=== PATIENT | male | born 1940 | race American Indian/Alaskan Native ===

== ENCOUNTER 2016-07-06 22:03 | Emergency (ER) | payer MEDICARE ==
[2016-07-06 22:17] VITALS: BP 142/72
[2016-07-06 22:57] LABS: Basophils % (Auto) 0.6 % (0.0-1.8); Eosinophils % (Auto) 0.6 % (0.0-4.3); Hematocrit 39.6 % (35.5-45.6); Hemoglobin 13.3 gm/dl (11.8-15.2); Mean Corpuscular HGB Conc 34 % (32-34); Mean Corpuscular Hemoglobin 29 pg (28-32); Mean Corpuscular Volume 87 fl (84-94); Platelet Count 262 K/mm3 (140-440); Red Blood Count 4.53 M/mm3 (3.65-5.03); Red Cell Distribution Width 13.7 % (13.2-15.2)
[2016-07-06 23:06] LABS: Albumin 3.6 g/dL (3.9-5); Albumin/Globulin Ratio 1.1 %; BUN/Creatinine Ratio 13.63; Bilirubin,Total 0.2 mg/dL (0.1-1.2); Calcium 9.2 mg/dL (8.4-10.2); Chloride 95.6 mmol/L (98-107); Potassium 4.2 mmol/L (3.6-5.0)
== END 2016-07-06 23:10 | disposition left against medical advice (07) ==
LOC: ED 22:03
DX: R55 Syncope and collapse (principal); R07.9 Chest pain, unspecified; E11.9 Type 2 diabetes mellitus without complications; I10 Essential (primary) hypertension; R42 Dizziness and giddiness; Z87.891 Personal history of nicotine dependence; Z53.21 Procedure and treatment not carried out due to patient leaving prior to being seen by health care provider
CPT/HCPCS: 36415; 80053; 82962; 84484; 85025; 93005; 93010

== ENCOUNTER 2019-12-11 18:16 | Inpatient (IN) | payer MEDICARE ==
[2019-12-11] MEDS ORDERED: SODIUM CHLORIDE 0.9% 1000 ML 1,000 ML IV ONE ×3 (18:28→20:59)
[2019-12-11] MEDS ORDERED: ACETAMINOPHEN 500 MG TAB PO ONE (18:30)
--- NOTE | 2019-12-11 18:40 | Emergency Department Report ---
ED Altered Mental Status HPI - General Stated Complaint: AMS Time Seen by Provider: 12/11/19 18:26 Source: patient, EMS - History of Present Illness Initial Comments: Patient is 79 years old male with history of CABG, hypertension and diabetes. Patient brought to the emergency room via EMS from home for evaluation of generalized weakness and altered mental status. Patient found to be febrile with a temperature of 101.2. Upon arrival to the ER patient is alert however confused. Patient denied any headache, neck pain, chest pain or shortness of breath. MD Complaint: altered mental status, confusion -: This morning Severity: moderate Consistency of Symptoms: waxing and waning - Related Data Previous Rx's Medication Instructions Recorded Last Taken Type oxyCODONE /ACETAMINOPHEN [Percocet 1 tab PO Q6HR PRN #14 tablet 04/19/14 Unknown Rx 5/325 mg] predniSONE [Deltasone] 20 mg PO BID #8 tablet 04/19/14 Unknown Rx Allergies Allergy/AdvReac Type Severity Reaction Status Date / Time No Known Allergies Allergy Verified 04/19/14 09:47 ED Review of Systems ROS: Stated complaint: AMS Other details as noted in HPI Comment: All other systems reviewed and negative Constitutional: chills, fever Respiratory: shortness of breath. denies: cough Cardiovascular: denies: chest pain, palpitations Gastrointestinal: denies: abdominal pain, nausea, vomiting Musculoskeletal: denies: back pain Neurological: weakness. denies: headache, numbness, paresthesias, confusion, abnormal gait ED Past Medical Hx - Past Medical History Hx Hypertension: Yes Hx Diabetes: Yes Additional medical history: CAD - Surgical History Hx Open Heart Surgery: Yes Additional Surgical History: LEFT ROTATOR CUFF REPAIR - Social History Smoking Status: Former Smoker Substance Use Type: None - Medications Home Medications: Home Medications Medication Instructions Recorded Confirmed Last Taken Type oxyCODONE /ACETAMINOPHEN [Percocet 1 tab PO Q6HR PRN #14 tablet 04/19/14 Unknown Rx 5/325 mg] predniSONE [Deltasone] 20 mg PO BID #8 tablet 04/19/14 Unknown Rx ED Physical Exam - General General appearance: alert, in no apparent distress - Head Head exam: Present: atraumatic, normocephalic, normal inspection - Eye Eye exam: Present: normal appearance - ENT ENT exam: Present: mucous membranes dry - Neck Neck exam: Present: normal inspection. Absent: tenderness, meningismus - Respiratory Respiratory exam: Present: normal lung sounds bilaterally - Cardiovascular Cardiovascular Exam: Present: regular rate, normal rhythm, normal heart sounds - GI/Abdominal GI/Abdominal exam: Present: soft, normal bowel sounds. Absent: distended, tenderness, guarding, rebound, rigid, organomegaly, mass, bruit, pulsatile mass - Extremities Exam Extremities exam: Present: normal inspection - Back Exam Back exam: Present: normal inspection, full ROM. Absent: CVA tenderness (R) - Neurological Exam Neurological exam: Present: alert, altered. Absent: motor sensory deficit - Psychiatric Psychiatric exam: Present: anxious - Skin Skin exam: Present: warm, dry, intact - Assessment Assessment Interval: Baseline - Level of Consciousness 1a. Level of Consciousness: alert/keenly responsive - LOC Questions 1b. LOC Questions: answers both correctly - LOC Command 1c. LOC Commands: performs tasks correctly - Best Gaze 2. Best Gaze: normal - Visual 3. Visual: no visual loss - Facial Palsy 4. Facial Palsy: normal symmetrical movement - Motor Arm 5a. Motor Arm Left: no drift 5b. Motor Arm Right: no drift - Motor Leg 6a. Motor Leg Left: no drift 6b. Motor Leg Right: no drift - Limb Ataxia 7. Limb Ataxia: absent - Sensory 8. Sensory: normal - Best Language 9. Best Language: no aphasia - Dysarthria 10. Dysarthria: normal - Extinction and Inattention 11. Extinction/Inattention: no abnormality - Scoring Total Score: 0 Stroke Severity: No Stroke Symptoms ED Course Vital Signs 12/11/19 12/11/19 12/11/19 18:28 18:30 20:33 Temperature 101.3 F H 100.5 F H 98.4 F Pulse Rate 116 H 100 H Respiratory 15 16 Rate Blood Pressure 130/70 Blood Pressure 130/70 [Left] O2 Sat by Pulse 94 99 Oximetry - Lab Data Result diagrams: 12/11/19 18:37 12/11/19 18:37 Lab Results 12/11/19 12/11/19 12/11/19 Range/Units 18:37 18:37 18:37 WBC 13.7 H (4.5-11.0) K/mm3 RBC 4.93 (3.65-5.03) M/mm3 Hgb 15.1 (11.8-15.2) gm/dl Hct 45.2 (35.5-45.6) % MCV 92 (84-94) fl MCH 31 (28-32) pg MCHC 33 (32-34) % RDW 14.1 (13.2-15.2) % Plt Count 228 (140-440) K/mm3 Lymph % (Auto) 11.6 L (13.4-35.0) % Faulk % (Auto) 11.4 H (0.0-7.3) % Eos % (Auto) 1.4 (0.0-4.3) % Baso % (Auto) 0.6 (0.0-1.8) % Lymph # (Auto) 1.6 (1.2-5.4) K/mm3 Faulk # (Auto) 1.6 H (0.0-0.8) K/mm3 Eos # (Auto) 0.2 (0.0-0.4) K/mm3 Baso # (Auto) 0.1 (0.0-0.1) K/mm3 Seg Neutrophils % 75.0 H (40.0-70.0) % Seg Neutrophils # 10.3 H (1.8-7.7) K/mm3 PT (12.2-14.9) Sec. INR (0.87-1.13) APTT (24.2-36.6) Sec. Sodium (137-145) mmol/L Potassium (3.6-5.0) mmol/L Chloride (98-107) mmol/L Carbon Dioxide (22-30) mmol/L Anion Gap mmol/L BUN (9-20) mg/dL Creatinine (0.8-1.3) mg/dL Estimated GFR ml/min BUN/Creatinine Ratio % Glucose (75-100) mg/dL Lactic Acid 3.00 H* (0.7-2.0) mmol/L Calcium (8.4-10.2) mg/dL Total Bilirubin (0.1-1.2) mg/dL Direct Bilirubin (0-0.2) mg/dL Indirect Bilirubin mg/dL AST (5-40) units/L ALT (7-56) units/L Alkaline Phosphatase (35-129) units/L Ammonia (25-60) umol/L Troponin T < 0.010 (0.00-0.029) ng/mL NT-Pro-B Natriuret Pep (0-900) pg/mL Total Protein (6.3-8.2) g/dL Albumin (3.9-5) g/dL Albumin/Globulin Ratio % TSH (0.270-4.200) mlU/mL 12/11/19 12/11/19 12/11/19 Range/Units 18:37 18:37 18:37 WBC (4.5-11.0) K/mm3 RBC (3.65-5.03) M/mm3 Hgb (11.8-15.2) gm/dl Hct (35.5-45.6) % MCV (84-94) fl MCH (28-32) pg MCHC (32-34) % RDW (13.2-15.2) % Plt Count (140-440) K/mm3 Lymph % (Auto) (13.4-35.0) % Faulk % (Auto) (0.0-7.3) % Eos % (Auto) (0.0-4.3) % Baso % (Auto) (0.0-1.8) % Lymph # (Auto) (1.2-5.4) K/mm3 Faulk # (Auto) (0.0-0.8) K/mm3 Eos # (Auto) (0.0-0.4) K/mm3 Baso # (Auto) (0.0-0.1) K/mm3 Seg Neutrophils % (40.0-70.0) % Seg Neutrophils # (1.8-7.7) K/mm3 PT 13.1 (12.2-14.9) Sec. INR 0.97 (0.87-1.13) APTT 20.1 L (24.2-36.6) Sec. Sodium 132 L (137-145) mmol/L Potassium 5.5 H (3.6-5.0) mmol/L Chloride 95.1 L (98-107) mmol/L Carbon Dioxide 22 (22-30) mmol/L Anion Gap 20 mmol/L BUN 20 (9-20) mg/dL Creatinine 2.2 H (0.8-1.3) mg/dL Estimated GFR 35 ml/min BUN/Creatinine Ratio 9 % Glucose 312 H (75-100) mg/dL Lactic Acid (0.7-2.0) mmol/L Calcium 10.0 (8.4-10.2) mg/dL Total Bilirubin 0.80 (0.1-1.2) mg/dL Direct Bilirubin < 0.2 (0-0.2) mg/dL Indirect Bilirubin 0.6 mg/dL AST 28 (5-40) units/L ALT 15 (7-56) units/L Alkaline Phosphatase 74 (35-129) units/L Ammonia 36.0 (25-60) umol/L Troponin T (0.00-0.029) ng/mL NT-Pro-B Natriuret Pep 224.4 (0-900) pg/mL Total Protein 8.8 H (6.3-8.2) g/dL Albumin 3.4 L (3.9-5) g/dL Albumin/Globulin Ratio 0.6 % TSH (0.270-4.200) mlU/mL 12/11/19 12/11/19 12/11/19 Range/Units 18:37 20:03 20:03 WBC (4.5-11.0) K/mm3 RBC (3.65-5.03) M/mm3 Hgb (11.8-15.2) gm/dl Hct (35.5-45.6) % MCV (84-94) fl MCH (28-32) pg MCHC (32-34) % RDW (13.2-15.2) % Plt Count (140-440) K/mm3 Lymph % (Auto) (13.4-35.0) % Faulk % (Auto) (0.0-7.3) % Eos % (Auto) (0.0-4.3) % Baso % (Auto) (0.0-1.8) % Lymph # (Auto) (1.2-5.4) K/mm3 Faulk # (Auto) (0.0-0.8) K/mm3 Eos # (Auto) (0.0-0.4) K/mm3 Baso # (Auto) (0.0-0.1) K/mm3 Seg Neutrophils % (40.0-70.0) % Seg Neutrophils # (1.8-7.7) K/mm3 PT (12.2-14.9) Sec. INR (0.87-1.13) APTT (24.2-36.6) Sec. Sodium (137-145) mmol/L Potassium (3.6-5.0) mmol/L Chloride (98-107) mmol/L Carbon Dioxide (22-30) mmol/L Anion Gap mmol/L BUN (9-20) mg/dL Creatinine (0.8-1.3) mg/dL Estimated GFR ml/min BUN/Creatinine Ratio % Glucose (75-100) mg/dL Lactic Acid 1.80 (0.7-2.0) mmol/L Calcium (8.4-10.2) mg/dL Total Bilirubin (0.1-1.2) mg/dL Direct Bilirubin (0-0.2) mg/dL Indirect Bilirubin mg/dL AST (5-40) units/L ALT (7-56) units/L Alkaline Phosphatase (35-129) units/L Ammonia (25-60) umol/L Troponin T < 0.010 (0.00-0.029) ng/mL NT-Pro-B Natriuret Pep (0-900) pg/mL Total Protein (6.3-8.2) g/dL Albumin (3.9-5) g/dL Albumin/Globulin Ratio % TSH 1.240 (0.270-4.200) mlU/mL - EKG Data -: EKG Interpreted by Ct EKG shows normal: sinus rhythm Rate: normal Interpretation: no acute changes - Radiology Data Radiology results: report reviewed - Medical Decision Making Patient is 79 years old male with history of CABG, hypertension and diabetes. Patient brought to the emergency room via EMS from home for evaluation of g eneralized weakness and altered mental status. Patient found to be febrile with a temperature of 101.2. Upon arrival to the ER patient is alert however confused. Patient denied any headache, neck pain, chest pain or shortness of breath. Sepsis protocol initiated. Patient received Zosyn and normal saline and Tylenol. Chest x-ray is unremarkable. CT brain is negative for acute finding. COVID-19 test has been ordered. I discussed the patient with Dr. Bueno, he agreed to admit the patient to medical service for further management. Critical Care Time: Yes Critical care time in (mins) excluding proc time.: 30 Critical care attestation.: If time is entered above; I have spent that time in minutes in the direct care of this critically ill patient, excluding procedure time. ED Disposition Clinical Impression: Sepsis, Altered mental status, Suspected COVID-19 virus infection Disposition: OP ADMIT IP TO THIS HOSP Is pt being admited?: Yes Condition: Stable
[2019-12-11 18:59] LABS: Basophils # (Auto) 0.1 K/mm3 (0.0-0.1); Basophils % (Auto) 0.6 % (0.0-1.8); Eosinophils # (Auto) 0.2 K/mm3 (0.0-0.4); Eosinophils % (Auto) 1.4 % (0.0-4.3); Hematocrit 45.2 % (35.5-45.6); Hemoglobin 15.1 gm/dl (11.8-15.2); Lymphocytes # (Auto) 1.6 K/mm3 (1.2-5.4); Lymphocytes % (Auto) 11.6 % (13.4-35.0); Mean Corpuscular HGB Conc 33 % (32-34); Mean Corpuscular Volume 92 fl (84-94); Monocytes # (Auto) 1.6 K/mm3 (0.0-0.8); Monocytes % (Auto) 11.4 % (0.0-7.3); Platelet Count 228 K/mm3 (140-440); Red Blood Count 4.93 M/mm3 (3.65-5.03); Red Cell Distribution Width 14.1 % (13.2-15.2)
[2019-12-11 19:09] LABS: INR 0.97 (0.87-1.13); Partial Thromboplastin Time 20.1 Sec. (24.2-36.6)
--- NOTE | 2019-12-11 19:20 | Cat Scan Report ---
CT head/brain wo con INDICATION: Altered Mental Status. TECHNIQUE: Routine CT head without contrast. All CT scans at this location are performed using CT dos e reduction for ALARA by means of automated exposure control. COMPARISON: None. FINDINGS: BRAIN / INTRACRANIAL CONTENTS: No acute hemorrhage, mass effect, midline shift, or hydrocephalus. No appreciable acute large territorial or lacunar infarct. No chronic infarct. Age-commensurate ventricu lar and cisternal/sulcal prominence. ORBITS: No significant abnormality of visualized orbits. SINUSES / MASTOIDS: There is mild mucosal thickening in the right sphenoid sinus. ADDITIONAL FINDINGS: None. IMPRESSION: 1. No acute intracranial abnormality. Signer Name: Jadon May MD Signed: 12/11/2019 7:16 PM Workstation Name: [id number]
[2019-12-11 19:26] LABS: Alanine Aminotransferase 15 units/L (7-56); Albumin 3.4 g/dL (3.9-5); BUN/Creatinine Ratio 9; Blood Urea Nitrogen 20 mg/dL (9-20); Hemolysis Index 153
[2019-12-11 19:32] LABS: Bilirubin,Direct < 0.2 mg/dL (0-0.2)
[2019-12-11] MEDS ORDERED: PIPERACILLIN/TAZOBACTAM 3.375 3.375 GM/50 ML BAG IV ONE (20:28)
--- NOTE | 2019-12-11 21:01 | XRay Report ---
CHEST 1 VIEW INDICATION / CLINICAL INFORMATION: MAIN. Chest pain COMPARISON: 01/23/2012 FINDINGS: SUPPORT DEVICES: None. HEART / MEDIASTINUM: Enlarged cardiac silhouette. Prior sternotomy. LUNGS / PLEURA: Mild central pulmonary vascular congestion. Persistent left lung base atelectasis. No pneumothorax. ADDITIONAL FINDINGS: No significant additional findings. IMPRESSION: 1. Mild central pulmonary vascular congestion and left lung base atelectasis relatively unchanged fro m prior exam. Signer Name: Damien Hill MD Signed: 12/11/2019 8:57 PM Workstation Name: [id number]
--- NOTE | 2019-12-11 21:35 | History and Physical Report ---
History of Present Illness Chief complaint: He is weak and confused History of present illness: 79 YO Male with CAD S/P CABG, HTN, DM, Vascular Dementia, Cerebral Atherosclerosis, Obesity Hypoventilation Syndrome, presents to ED for evaluation. Patient is confused with diminished cognition and is unable to provide history. Patient history provided by EMS staff, ED staff, as well as patient family who was at bedside during exam and interview. As per family the patient has experienced increased weakness and confusion over the past 1 month with progressively worsening symptoms over the same timeframe. Patient is currently bedbound, and nonambulatory as per family report. Patient also requires 6/6 assistance with activities of daily living. EMS was notified and upon arrival the patient was found to be confused and in distress with a temperature 101.2 F. Patient was subsequently transported to [facility] for further care and evaluation of the aforementioned symptoms. Patient seen and evaluated in the emergency department. Lab and imaging studies reviewed. Patient underwent chest x-ray which revealed pneumonia complicated by sepsis, toxic metabolic encephalopathy. Patient initiated on sepsis protocol as well as coronavirus protocol in the emergency department. Patient is confused and lethargic with diminished cognition but has a positive gag reflex and is able to protect his airway. No further history obtainable. Advanced care planning conducted in ED. Past History Past Medical History: CAD, diabetes, hypertension, other (See HPI) Past Surgical History: Other (Left rotator cuff surgery) Social history: . denies: smoking, alcohol abuse, prescription drug abuse Family history: diabetes, hypertension Medications and Allergies Allergies Allergy/AdvReac Type Severity Reaction Status Date / Time No Known Allergies Allergy Verified 04/19/14 09:47 Home Medications Medication Instructions Recorded Confirmed Last Taken Type oxyCODONE /ACETAMINOPHEN [Percocet 1 tab PO Q6HR PRN #14 tablet 04/19/14 Unknown Rx 5/325 mg] predniSONE [Deltasone] 20 mg PO BID #8 tablet 04/19/14 Unknown Rx Active Meds: Active Medications Sodium Chloride (Nacl 0.9% 1000 Ml) 1,000 mls @ 999 mls/hr IV BOLUS ONE Stop: 12/11/19 21:58 Last Admin: 12/11/19 21:33 Dose: 999 mls/hr Documented by: Sodium Chloride (Nacl 0.9% 1000 Ml) 1,000 mls @ 999 mls/hr IV BOLUS ONE Stop: 12/11/19 21:59 Review of Systems ROS unobtainable: due to mental status Exam - Constitutional Vitals: Temp Pulse Resp BP Pulse Ox 98.4 F 100 H 16 130/70 99 12/11/19 20:33 12/11/19 18:30 12/11/19 18:30 12/11/19 18:30 12/11/19 18:30 General appearance: Present: mild distress, obese - EENT Eyes: Present: PERRL ENT: hearing decreased - Neck Neck: Present: supple, normal ROM - Respiratory Respiratory effort: labored, accessory muscle use, stridor Respiratory: bilateral: CTA, rhonchi - Cardiovascular Rhythm: other (Tachycardia) Heart Sounds: Present: S1 & S2. Absent: rub, click - Extremities Extremities: pulses symmetrical, No edema Peripheral Pulses: abnormal (Capillary refill greater than 3.5 seconds) - Abdominal General gastrointestinal: Present: soft, non-tender, non-distended, normal bowel sounds Male genitourinary: Present: normal - Integumentary Integumentary: Present: clear, dry, clammy, decreased turgor - Musculoskeletal Musculoskeletal: generalized weakness - Psychiatric Psychiatric: no appropriate mood/affect, no intact judgment & insight, no memory intact - Neurologic Neurologic: CNII-XII intact, no focal deficits, moves all extremities, no gait normal HEART Score - HEART Score Troponin: Troponin T < 0.010 ng/mL (0.00-0.029) 12/11/19 20:03 Results - Labs CBC & Chem 7: 12/11/19 18:37 12/11/19 21:50 Labs: Abnormal lab results 12/11/19 12/11/19 12/11/19 Range/Units 18:37 18:37 18:37 WBC 13.7 H (4.5-11.0) K/mm3 Lymph % (Auto) 11.6 L (13.4-35.0) % Moore % (Auto) 11.4 H (0.0-7.3) % Moore # (Auto) 1.6 H (0.0-0.8) K/mm3 Seg Neutrophils % 75.0 H (40.0-70.0) % Seg Neutrophils # 10.3 H (1.8-7.7) K/mm3 APTT 20.1 L (24.2-36.6) Sec. Sodium (137-145) mmol/L Potassium (3.6-5.0) mmol/L Chloride (98-107) mmol/L Creatinine (0.8-1.3) mg/dL Glucose (75-100) mg/dL Lactic Acid 3.00 H* (0.7-2.0) mmol/L Total Protein (6.3-8.2) g/dL Albumin (3.9-5) g/dL 12/11/19 Range/Units 18:37 WBC (4.5-11.0) K/mm3 Lymph % (Auto) (13.4-35.0) % Moore % (Auto) (0.0-7.3) % Moore # (Auto) (0.0-0.8) K/mm3 Seg Neutrophils % (40.0-70.0) % Seg Neutrophils # (1.8-7.7) K/mm3 APTT (24.2-36.6) Sec. Sodium 132 L (137-145) mmol/L Potassium 5.5 H (3.6-5.0) mmol/L Chloride 95.1 L (98-107) mmol/L Creatinine 2.2 H (0.8-1.3) mg/dL Glucose 312 H (75-100) mg/dL Lactic Acid (0.7-2.0) mmol/L Total Protein 8.8 H (6.3-8.2) g/dL Albumin 3.4 L (3.9-5) g/dL Assessment and Plan - Patient Problems (1) Sepsis Current Visit: Yes Status: Acute Plan to address problem: Sepsis protocol: CBC, CMP, chest x-ray, urinalysis, blood cultures, IV antibiotic therapy, IV fluid resuscitation therapy as clinically indicated, monitor urine output every shift, serial lactic acid level, maintain mean arterial blood pressure greater than or equal to 65 mmHg. (2) Pneumonia Current Visit: Yes Status: Acute Plan to address problem: Pneumonia protocol: Chest x-ray, supplemental oxygen, nebulizer therapy, IV antibiotic therapy, (3) Obesity hypoventilation syndrome Current Visit: Yes Status: Acute Plan to address problem: Supplemental oxygen, pulse oximetry, balanced diet, increase physical activity at discharge, outpatient pulmonary follow-up for sleep study. (4) Toxic metabolic encephalopathy Current Visit: Yes Status: Acute Plan to address problem: CT head, neuro check, CBC, CMP, treat sepsis. (5) Vascular dementia Current Visit: Yes Status: Acute Qualifiers: Dementia behavioral disturbance: without behavioral disturbance Qualified Code(s): F01.50 - Vascular dementia without behavioral disturbance Plan to address problem: Verbal prompting, verbal redirection, benzodiazepine therapy as needed. (6) Cerebral atherosclerosis Current Visit: Yes Status: Acute Plan to address problem: Supportive care, risk factor reduction, low-cholesterol diet. (7) Diabetes mellitus Current Visit: Yes Status: Acute Plan to address problem: Consistent carbohydrate diet when patient is awake and alert only, sliding scale insulin therapy, Accu-Chek, hypoglycemia protocol. (8) Suspected COVID-19 virus infection Current Visit: No Status: Acute Plan to address problem: COVID-19 protocol: Isolation precautions, contact precautions, supplemental oxygen, prone positioning while in bed, pulmonary toilet, IV steroid therapy, IV antibiotic therapy, coronavirus PCR ordered and is pending at time of admission. (9) DVT prophylaxis Current Visit: Yes Status: Acute Plan to address problem: SCD to bilateral lower extremities while in bed, prophylactic anticoagulation (10) Advance care planning Current Visit: Yes Status: Acute Plan to address problem: Disease education conducted, patient is full code, prognosis discussed, care plan discussed, patient family knowledges understanding and agreement with care plan, +30 minutes.
[2019-12-11] MEDS ORDERED: ACETAMINOPHEN 325 MG TAB PO PRN (21:48)
[2019-12-11] MEDS ORDERED: ONDANSETRON 4 MG/2 ML INJ IV PRN (21:48)
[2019-12-11] MEDS ORDERED: SODIUM CHLORIDE 0.9% 1000 ML IV SOLN IV ONE (21:48)
[2019-12-11 22:25] LABS: C-Reactive Protein 18.2 mg/dL (0.00-1.30)
[2019-12-11] MEDS ORDERED: methylPREDNISolone Sod Succinate 40 MG/1 ML INJ ONE (22:44)
[2019-12-11] MEDS ORDERED: HEPARIN 5,000 UNIT/1 ML VIAL ONE (22:44)
[2019-12-11] MEDS ORDERED: DEXTROSE 50% IN WATER (25GM) 50 ML SYRINGE IV PRN (22:45)
[2019-12-11] MEDS: HEPARIN 5,000 UNIT/1 ML VIAL SUB-Q SCH (22:47)
[2019-12-11] MEDS: methylPREDNISolone Sod Succinate 40 MG/1 ML INJ IV SCH (22:47)
[2019-12-11 23:18] LABS: Bilirubin,Urine NEG (Negative); Blood,Urine MOD (Negative); Color,Urine Yellow (Yellow)
[2019-12-12] MEDS ORDERED: SODIUM CHLORIDE 0.9% 1000 ML 1,000 ML ONE (00:18)
[2019-12-12 06:03] LABS: Hematocrit 39.9 % (35.5-45.6); Hemoglobin 13.6 gm/dl (11.8-15.2); Mean Corpuscular HGB Conc 34 % (32-34); Mean Corpuscular Volume 90 fl (84-94); Platelet Count 220 K/mm3 (140-440); Red Blood Count 4.43 M/mm3 (3.65-5.03); Red Cell Distribution Width 13.8 % (13.2-15.2)
[2019-12-12] MEDS: methylPREDNISolone Sod Succinate 40 MG/1 ML INJ IV SCH ×4 (06:03→22:18)
[2019-12-12 06:15] LABS: Calcium 9.3 mg/dL (8.4-10.2)
[2019-12-12 07:54] LABS: Total Cells Counted 100
[2019-12-12 07:55] LABS: Basophils % (Manual) 0 % (0.0-1.8); Eosinophils % (Manual) 0 % (0.0-4.3); Monocytes % (Manual) 0 % (0.0-7.3); Platelet Estimate Consistent w Auto; RBC Morphology Normal
--- NOTE | 2019-12-12 08:16 | Progress Note ---
Assessment and Plan Assessment and plan: 79 YO Male with CAD S/P CABG, HTN, DM, Vascular Dementia, Cerebral Atherosclerosis, Obesity Hypoventilation Syndrome, presents to ED for evaluation. Patient is confused with diminished cognition and is unable to provide history. Patient history provided by EMS staff, ED staff, as well as patient family who was at bedside during exam and interview. As per family the patient has experienced increased weakness and confusion over the past 1 month with progressively worsening symptoms over the same timeframe. Patient is currently bedbound, and nonambulatory as per family report. Patient also requir es 6/6 assistance with activities of daily living. EMS was notified and upon arrival the patient was found to be confused and in distress with a temperature 101.2 F. Patient was subsequently transported to [facility] for further care and evaluation of the aforementioned symptoms. Patient seen and evaluated in the emergency department. Lab and imaging studies reviewed. Patient underwent chest x-ray which revealed pneumonia complicated by sepsis, toxic metabolic encephalopathy. Patient initiated on sepsis protocol as well as coronavirus protocol in the emergency department. Patient is confused and lethargic with diminished cognition but has a positive gag reflex and is able to protect his airway. No further history obtainable. Advanced care planning conducted in ED. (1) Sepsis Current Visit: Yes Status: Acute Plan to address problem: Patient is being treated according to sepsis protocol with IV fluids, IV antibiotics. We will follow the culture results. (2) Pneumonia Current Visit: Yes Status: Acute Plan to address problem: Pneumonia protocol: Chest x-ray, supplemental oxygen, nebulizer therapy, IV antibiotic therapy, (3) Obesity hypoventilation syndrome Current Visit: Yes Status: Acute Plan to address problem: Supplemental oxygen, pulse oximetry, balanced diet, increase physical activity at discharge, outpatient pulmonary follow-up for sleep study. (4) Toxic metabolic encephalopathy Current Visit: Yes Status: Acute Plan to address problem: CT head, neuro check, CBC, CMP, treat sepsis. (5) Vascular dementia Current Visit: Yes Status: Acute Qualifiers: Dementia behavioral disturbance: without behavioral disturbance Qualified Code(s): F01.50 - Vascular dementia without behavioral disturbance Plan to address problem: Verbal prompting, verbal redirection, benzodiazepine therapy as needed. (6) Cerebral atherosclerosis Current Visit: Yes Status: Acute Plan to address problem: Supportive care, risk factor reduction, low-cholesterol diet. (7) Diabetes mellitus Current Visit: Yes Status: Acute Plan to address problem: Consistent carbohydrate diet when patient is awake and alert only, sliding scale insulin therapy, Accu-Chek, hypoglycemia protocol. (8) Suspected COVID-19 virus infection Current Visit: No Status: Acute Plan to address problem: COVID-19 protocol: Isolation precautions, contact precautions, supplemental oxygen, prone positioning while in bed, pulmonary toilet, IV steroid therapy, IV antibiotic therapy, coronavirus PCR ordered and is pending at time of admission. (9) DVT prophylaxis Current Visit: Yes Status: Acute Plan to address problem: SCD to bilateral lower extremities while in bed, prophylactic anticoagulation (10) Advance care planning Current Visit: Yes Status: Acute Plan to address problem: 12/12/2019; patient was alert and oriented. Lactic acid level trended down to normal. Chest x-ray showed pulmonary congestion. We will continue with IV antibiotics today. We going to get COVID-19 test. Disposition is per clinical course. History Interval history: Patient was seen and evaluated this morning at the bedside Patient was alert and oriented And he does not remember how he come to the hospital Hospitalist Physical - Physical exam Narrative exam: Not in cardiopulmonary distress. The patient appeared morbidly obese. Vital signs as documented. Head exam is unremarkable. No scleral icterus . Neck is without jugular venous distension, thyromegaly, or carotid bruits. Lungs are clear to auscultation. Cardiac exam reveals regular rate and Rhythm. Abdominal exam reveals normal bowel sounds, nontender, no organomegaly. Extremities are nonedematous and both femoral and pedal pulses are normal. 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 No focal weakness. - Constitutional Vitals: Temp Pulse Resp BP Pulse Ox 97.7 F 69 20 126/66 96 12/12/19 04:29 12/12/19 04:29 12/12/19 04:29 12/12/19 04:29 12/12/19 04:29 General appearance: Present: mild distress, obese HEART Score - HEART Score Troponin: Troponin T < 0.010 ng/mL (0.00-0.029) 12/11/19 20:03 Results - Labs CBC & Chem 7: 12/12/19 05:05 12/12/19 05:05 Labs: Laboratory Last Values WBC 11.5 K/mm3 (4.5-11.0) H 12/12/19 05:05 RBC 4.43 M/mm3 (3.65-5.03) 12/12/19 05:05 Hgb 13.6 gm/dl (11.8-15.2) 12/12/19 05:05 Hct 39.9 % (35.5-45.6) 12/12/19 05:05 MCV 90 fl (84-94) 12/12/19 05:05 MCH 31 pg (28-32) 12/12/19 05:05 MCHC 34 % (32-34) 12/12/19 05:05 RDW 13.8 % (13.2-15.2) 12/12/19 05:05 Plt Count 220 K/mm3 (140-440) 12/12/19 05:05 Lymph % (Auto) 11.6 % (13.4-35.0) L 12/11/19 18:37 [place] % (Auto) 11.4 % (0.0-7.3) H 12/11/19 18:37 Eos % (Auto) 1.4 % (0.0-4.3) 12/11/19 18:37 Baso % (Auto) 0.6 % (0.0-1.8) 12/11/19 18:37 Lymph # (Auto) 1.6 K/mm3 (1.2-5.4) 12/11/19 18:37 [place] # (Auto) 1.6 K/mm3 (0.0-0.8) H 12/11/19 18:37 Eos # (Auto) 0.2 K/mm3 (0.0-0.4) 12/11/19 18:37 Baso # (Auto) 0.1 K/mm3 (0.0-0.1) 12/11/19 18:37 Add Manual Diff Complete 12/12/19 05:05 Total Counted 100 12/12/19 05:05 Seg Neutrophils % Volunteer Services Specialist 12/12/19 05:05 Seg Neuts % (Manual) 94.0 % (40.0-70.0) H 12/12/19 05:05 Band Neutrophils % 0 % 12/12/19 05:05 Lymphocytes % (Manual) 6.0 % (13.4-35.0) L 12/12/19 05:05 Reactive Lymphs % (Man) 0 % 12/12/19 05:05 Monocytes % (Manual) 0 % (0.0-7.3) 12/12/19 05:05 Eosinophils % (Manual) 0 % (0.0-4.3) 12/12/19 05:05 Basophils % (Manual) 0 % (0.0-1.8) 12/12/19 05:05 Metamyelocytes % 0 % 12/12/19 05:05 Myelocytes % 0 % 12/12/19 05:05 Promyelocytes % 0 % 12/12/19 05:05 Blast Cells % 0 % 12/12/19 05:05 Nucleated RBC % Not Reportable 12/12/19 05:05 Seg Neutrophils # 10.3 K/mm3 (1.8-7.7) H 12/11/19 18:37 Seg Neutrophils # Man 10.8 K/mm3 (1.8-7.7) H 12/12/19 05:05 Band Neutrophils # 0.0 K/mm3 12/12/19 05:05 Lymphocytes # (Manual) 0.7 K/mm3 (1.2-5.4) L 12/12/19 05:05 Abs React Lymphs (Man) 0.0 K/mm3 12/12/19 05:05 Monocytes # (Manual) 0.0 K/mm3 (0.0-0.8) 12/12/19 05:05 Eosinophils # (Manual) 0.0 K/mm3 (0.0-0.4) 12/12/19 05:05 Basophils # (Manual) 0.0 K/mm3 (0.0-0.1) 12/12/19 05:05 Metamyelocytes # 0.0 K/mm3 12/12/19 05:05 Myelocytes # 0.0 K/mm3 12/12/19 05:05 Promyelocytes # 0.0 K/mm3 12/12/19 05:05 Blast Cells # 0.0 K/mm3 12/12/19 05:05 WBC Morphology Not Reportable 12/12/19 05:05 Hypersegmented Neuts Not Reportable 12/12/19 05:05 Hyposegmented Neuts Not Reportable 12/12/19 05:05 Hypogranular Neuts Not Reportable 12/12/19 05:05 Smudge Cells Not Reportable 12/12/19 05:05 Toxic Granulation Not Reportable 12/12/19 05:05 Toxic Vacuolation Not Reportable 12/12/19 05:05 Dohle Bodies Not Reportable 12/12/19 05:05 Pelger-Huet Anomaly Not Reportable 12/12/19 05:05 Sam Rods Not Reportable 12/12/19 05:05 Platelet Estimate Consistent w auto 12/12/19 05:05 Clumped Platelets Not Reportable 12/12/19 05:05 Plt Clumps, EDTA Not Reportable 12/12/19 05:05 Large Platelets Not Reportable 12/12/19 05:05 Giant Platelets Not Reportable 12/12/19 05:05 Platelet Satelliting Not Reportable 12/12/19 05:05 Plt Morphology Comment Not Reportable 12/12/19 05:05 RBC Morphology Normal 12/12/19 05:05 Dimorphic RBCs Not Reportable 12/12/19 05:05 Polychromasia Not Reportable 12/12/19 05:05 Hypochromasia Not Reportable 12/12/19 05:05 Poikilocytosis Not Reportable 12/12/19 05:05 Anisocytosis Not Reportable 12/12/19 05:05 Microcytosis Not Reportable 12/12/19 05:05 Macrocytosis Not Reportable 12/12/19 05:05 Spherocytes Not Reportable 12/12/19 05:05 Pappenheimer Bodies Not Reportable 12/12/19 05:05 Sickle Cells Not Reportable 12/12/19 05:05 Target Cells Not Reportable 12/12/19 05:05 Tear Drop Cells Not Reportable 12/12/19 05:05 Ovalocytes Not Reportable 12/12/19 05:05 Helmet Cells Not Reportable 12/12/19 05:05 [place] Bodies Not Reportable 12/12/19 05:05 [place] Rings Not Reportable 12/12/19 05:05 [employer] Cells Not Reportable 12/12/19 05:05 Bite Cells Not Reportable 12/12/19 05:05 Crenated Cell Not Reportable 12/12/19 05:05 Elliptocytes Not Reportable 12/12/19 05:05 Acanthocytes (Spur) Not Reportable 12/12/19 05:05 Rouleaux Not Reportable 12/12/19 05:05 Hemoglobin C Crystals Not Reportable 12/12/19 05:05 Schistocytes Not Reportable 12/12/19 05:05 Malaria parasites Not Reportable 12/12/19 05:05 [place] Bodies Not Reportable 12/12/19 05:05 Hem Pathologist Commnt No 12/12/19 05:05 PT 13.1 Sec. (12.2-14.9) 12/11/19 18:37 INR 0.97 (0.87-1.13) 12/11/19 18:37 APTT 20.1 Sec. (24.2-36.6) L 12/11/19 18:37 D-Dimer 550.63 ng/mlDDU (0-234) H 12/11/19 21:50 Sodium 135 mmol/L (137-145) L 12/12/19 05:05 Potassium 5.0 mmol/L (3.6-5.0) 12/12/19 05:05 Chloride 100.1 mmol/L (98-107) 12/12/19 05:05 Carbon Dioxide 20 mmol/L (22-30) L 12/12/19 05:05 Anion Gap 20 mmol/L 12/12/19 05:05 BUN 22 mg/dL (9-20) H 12/12/19 05:05 Creatinine 2.1 mg/dL (0.8-1.3) H 12/12/19 05:05 Estimated GFR 37 ml/min 12/12/19 05:05 BUN/Creatinine Ratio 10 % 12/12/19 05:05 Glucose 316 mg/dL (75-100) H 12/12/19 05:05 POC Glucose 199 mg/dL (70-105) H 12/12/19 00:52 Lactic Acid 1.50 mmol/L (0.7-2.0) 12/12/19 05:05 Calcium 9.3 mg/dL (8.4-10.2) 12/12/19 05:05 Ferritin 646.4 ng/mL (30.0-300.0) H 12/11/19 21:50 Total Bilirubin 0.70 mg/dL (0.1-1.2) 12/12/19 05:05 Direct Bilirubin < 0.2 mg/dL (0-0.2) 12/11/19 18:37 Indirect Bilirubin 0.6 mg/dL 12/11/19 18:37 AST 26 units/L (5-40) 12/12/19 05:05 ALT 15 units/L (7-56) 12/12/19 05:05 Alkaline Phosphatase 68 units/L (35-129) 12/12/19 05:05 Ammonia 36.0 umol/L (25-60) 12/11/19 18:37 Lactate Dehydrogenase 188 units/L (91-180) H 12/11/19 21:50 Troponin T < 0.010 ng/mL (0.00-0.029) 12/11/19 20:03 C-Reactive Protein 18.20 mg/dL (0.00-1.30) H 12/11/19 21:50 NT-Pro-B Natriuret Pep 224.4 pg/mL (0-900) 12/11/19 18:37 Total Protein 8.0 g/dL (6.3-8.2) 12/12/19 05:05 Albumin 3.0 g/dL (3.9-5) L 12/12/19 05:05 Albumin/Globulin Ratio 0.6 % 12/12/19 05:05 TSH 1.240 mlU/mL (0.270-4.200) 12/11/19 18:37 Urine Color Yellow (Yellow) 12/11/19 23:00 Urine Turbidity Clear (Clear) 12/11/19 23:00 Urine pH 6.0 (5.0-7.0) 12/11/19 23:00 Ur Specific [place] 1.013 (1.003-1.030) 12/11/19 23:00 Urine Protein 30 mg/dl mg/dL (Negative) 12/11/19 23:00 Urine Glucose (UA) 150 mg/dL (Negative) 12/11/19 23:00 Urine Ketones Neg mg/dL (Negative) 12/11/19 23:00 Urine Blood Mod (Negative) 12/11/19 23:00 Urine Nitrite Neg (Negative) 12/11/19 23:00 Urine Bilirubin Neg (Negative) 12/11/19 23:00 Urine Urobilinogen 2.0 mg/dL (<2.0) 12/11/19 23:00 Ur Leukocyte Esterase Neg (Negative) 12/11/19 23:00 Urine WBC (Auto) 1.0 /HPF (0.0-6.0) 12/11/19 23:00 Urine RBC (Auto) 1.0 /HPF (0.0-6.0) 12/11/19 23:00 U Epithel Cells (Auto) 1.0 /HPF (0-13.0) 12/11/19 23:00 Microbiology: Microbiology 12/11/19 18:52 Peripheral/Venous Blood Culture - Preliminary Culture in Progress 12/11/19 18:37 Peripheral/Venous Blood Culture - Preliminary Culture in Progress Robert/IV: Voiding Method Urinal IV Catheter Type [Right Peripheral IV Antecubital] Active Medications - Current Medications Current Medications: Generic Name Dose Route Start Last Admin Trade Name Freq PRN Reason Stop Dose Admin Acetaminophen 650 mg 12/11/19 21:48 Tylenol PO Q4H PRN Pain MILD(1-3)/Fever >100.5/MUSTAFA Dextrose 0 ml 12/11/19 22:45 D50w (25gm) Syringe IV Q30MIN PRN Hypoglycemia Protocol Heparin Sodium (Porcine) 5,000 unit 12/11/19 22:00 12/11/19 22:47 Heparin SUB-Q 5,000 unit Q12HR JOHNNY Administration Hydromorphone HCl 0.25 mg 12/11/19 21:48 Dilaudid IV Q4H PRN Pain, Moderate (4-6) Ceftriaxone Sodium 2 gm in 100 mls @ 200 mls/hr 12/12/19 10:00 Rocephin/Ns 2 Gm/100 Ml IV Q24HR JOHNNY Protocol Azithromycin 500 mg/ Sodium 250 mls @ 250 mls/hr 12/12/19 10:00 Chloride IV Q24HR JOHNNY Protocol Insulin Human Lispro 0 unit 12/12/19 07:30 Humalog SUB-Q ACHS [facility] Protocol Methylprednisolone Sodium Succinate 40 mg 12/11/19 22:00 12/12/19 06:03 Solu-Medrol IV 12/13/19 23:59 40 mg Q8HR JOHNNY Administration Ondansetron HCl 4 mg 12/11/19 21:48 Zofran IV Q8H PRN Nausea And Vomiting Oxycodone/Acetaminophen 1 tab 12/11/19 21:53 Percocet 5/325 PO Q6H PRN PAIN (4-6) Sodium Chloride 10 ml 12/11/19 22:00 12/11/19 23:08 Sodium Chloride Flush Syringe 10 Ml IV 10 ml BID JOHNNY Administration Sodium Chloride 10 ml 12/11/19 21:48 12/12/19 06:04 Sodium Chloride Flush Syringe 10 Ml IV 10 ml PRN PRN Administration LINE FLUSH
[2019-12-12] MEDS: INSULIN LISPRO 100 UNIT/ML VIAL 3 mL SUB-Q SCH ×4 (09:00→22:20)
[2019-12-12] MEDS: AZITHROMYCIN 500 MG in SODIUM CHLORIDE 0.9% 250ML 250 ML IV SCH (09:05)
[2019-12-12] MEDS: HYDROmorphone 1 MG/1 ML INJ IV PRN ×3 (09:05→18:10)
[2019-12-12] MEDS: HEPARIN 5,000 UNIT/1 ML VIAL SUB-Q SCH ×2 (09:42→22:18)
[2019-12-12] MEDS: cefTRIAXone/NS 2 GM/100 ML 2 GM/100 ML BAG IV SCH (09:42)
[2019-12-12] MEDS ORDERED: INSULIN LISPRO 100 UNIT/ML VIAL 3 mL SUB-Q ONE (17:46)
[2019-12-12] MEDS ORDERED: INSULIN LISPRO 100 UNIT/ML VIAL 3 mL SUB-Q SCH (18:00)
[2019-12-12] MEDS ORDERED: INSULIN GLARGINE 100 UNITS/ML SUB-Q SCH (22:00)
[2019-12-13] MEDS ORDERED: INSULIN LISPRO 100 UNIT/ML VIAL 3 mL SUB-Q SCH (05:00)
[2019-12-13] MEDS: methylPREDNISolone Sod Succinate 40 MG/1 ML INJ IV SCH (05:49)
[2019-12-13 07:06] LABS: Basophils # (Auto) 0.1 K/mm3 (0.0-0.1); Basophils % (Auto) 0.4 % (0.0-1.8); Hemoglobin 13.9 gm/dl (11.8-15.2); Lymphocytes # (Auto) 1.1 K/mm3 (1.2-5.4); Lymphocytes % (Auto) 6.6 % (13.4-35.0); Mean Corpuscular HGB Conc 34 % (32-34); Mean Corpuscular Volume 90 fl (84-94); Monocytes # (Auto) 0.7 K/mm3 (0.0-0.8); Monocytes % (Auto) 4.4 % (0.0-7.3); Platelet Count 255 K/mm3 (140-440); Red Blood Count 4.55 M/mm3 (3.65-5.03); Red Cell Distribution Width 13.8 % (13.2-15.2)
[2019-12-13] MEDS: INSULIN LISPRO 100 UNIT/ML VIAL 3 mL SUB-Q SCH ×7 (07:30→22:58)
[2019-12-13 07:34] LABS: Calcium 9.1 mg/dL (8.4-10.2)
--- NOTE | 2019-12-13 07:36 | Progress Note ---
Assessment and Plan Assessment and plan: 79 YO Male with CAD S/P CABG, HTN, DM, Vascular Dementia, Cerebral Atherosclerosis, Obesity Hypoventilation Syndrome, presents to ED for evaluation. Patient is confused with diminished cognition and is unable to provide history. Patient history provided by EMS staff, ED staff, as well as patient family who was at bedside during exam and interview. As per family the patient has experienced increased weakness and confusion over the past 1 month with progressively worsening symptoms over the same timeframe. Patient is currently bedbound, and nonambulatory as per family report. Patient also requir es 6/6 assistance with activities of daily living. EMS was notified and upon arrival the patient was found to be confused and in distress with a temperature 101.2 F. Patient was subsequently transported to [facility] for further care and evaluation of the aforementioned symptoms. Patient seen and evaluated in the emergency department. Lab and imaging studies reviewed. Patient underwent chest x-ray which revealed pneumonia complicated by sepsis, toxic metabolic encephalopathy. Patient initiated on sepsis protocol as well as coronavirus protocol in the emergency department. Patient is confused and lethargic with diminished cognition but has a positive gag reflex and is able to protect his airway. No further history obtainable. Advanced care planning conducted in ED. (1) Sepsis Current Visit: Yes Status: Acute Plan to address problem: Patient is being treated according to sepsis protocol with IV fluids, IV antibiotics. We will follow the culture results. Cultures are negative so far Urinalysis negative (2) bronchitis Current Visit: Yes Status: Acute Plan to address problem: Chest x-ray is negative for pneumonia Significant for pulmonary congestion CAD status post CABG -No chest pain shortness of breath (3) Obesity hypoventilation syndrome Current Visit: Yes Status: Acute Plan to address problem: Supplemental oxygen, pulse oximetry, balanced diet, increase physical activity at discharge, outpatient pulmonary follow-up for sleep study. (4) Toxic metabolic encephalopathy Current Visit: Yes Status: Acute Plan to address problem: Resolved (5) Vascular dementia Current Visit: Yes Status: Acute Qualifiers: Dementia behavioral disturbance: without behavioral disturbance Qualified C ode(s): F01.50 - Vascular dementia without behavioral disturbance Plan to address problem: Patient is alert and oriented (6) Cerebral atherosclerosis Current Visit: Yes Status: Acute Plan to address problem: Supportive care, risk factor reduction, low-cholesterol diet. (7) Diabetes mellitus Current Visit: Yes Status: Acute Plan to address problem: Consistent carbohydrate diet when patient is awake and alert only, sliding scale insulin therapy, Accu-Chek, hypoglycemia protocol. Adjust his insulin (8) Suspected COVID-19 virus infection Current Visit: No Status: Acute Plan to address problem: COVID-19 test is negative (9) DVT prophylaxis Current Visit: Yes Status: Acute Plan to address problem: SCD to bilateral lower extremities while in bed, prophylactic anticoagulation (10) Advance care planning Current Visit: Yes Status: Acute Plan to address problem: 12/12/2019; patient was alert and oriented. Lactic acid level trended down to normal. Chest x-ray showed pulmonary congestion. We will continue with IV antibiotics today. We going to get COVID-19 test. Disposition is per clinical course. 12/13/2019; I have discussed with his daughter Jodi and she says she is not able to take care of him when replacement. PT OT evaluation. History Interval history: Patient was seen and evaluated this morning at the bedside Patient was alert and oriented Hospitalist Physical - Physical exam Narrative exam: Not in cardiopulmonary distress. The patient appeared morbidly obese. Vital signs as documented. Head exam is unremarkable. No scleral icterus . Neck is without jugular venous distension, thyromegaly, or carotid bruits. Lungs are clear to auscultation. Cardiac exam reveals regular rate and Rhythm. Abdominal exam reveals normal bowel sounds, nontender, no organomegaly. Extremities are nonedematous and both femoral and pedal pulses are normal. 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 No focal weakness. - Constitutional Vitals: Temp Pulse Resp BP Pulse Ox 97.8 F 75 20 124/51 97 12/13/19 04:34 12/13/19 02:00 12/13/19 04:34 12/13/19 04:34 12/13/19 02:00 General appearance: Present: mild distress, obese HEART Score - HEART Score Troponin: Troponin T < 0.010 ng/mL (0.00-0.029) 12/11/19 20:03 Results - Labs CBC & Chem 7: 12/13/19 05:59 12/12/19 05:05 Labs: Laboratory Last Values WBC 16.7 K/mm3 (4.5-11.0) H 12/13/19 05:59 RBC 4.55 M/mm3 (3.65-5.03) 12/13/19 05:59 Hgb 13.9 gm/dl (11.8-15.2) 12/13/19 05:59 Hct 41.0 % (35.5-45.6) 12/13/19 05:59 MCV 90 fl (84-94) 12/13/19 05:59 MCH 31 pg (28-32) 12/13/19 05:59 MCHC 34 % (32-34) 12/13/19 05:59 RDW 13.8 % (13.2-15.2) 12/13/19 05:59 Plt Count 255 K/mm3 (140-440) 12/13/19 05:59 Lymph % (Auto) 6.6 % (13.4-35.0) L 12/13/19 05:59 [place] % (Auto) 4.4 % (0.0-7.3) 12/13/19 05:59 Eos % (Auto) 0.0 % (0.0-4.3) 12/13/19 05:59 Baso % (Auto) 0.4 % (0.0-1.8) 12/13/19 05:59 Lymph # (Auto) 1.1 K/mm3 (1.2-5.4) L 12/13/19 05:59 [place] # (Auto) 0.7 K/mm3 (0.0-0.8) 12/13/19 05:59 Eos # (Auto) 0.0 K/mm3 (0.0-0.4) 12/13/19 05:59 Baso # (Auto) 0.1 K/mm3 (0.0-0.1) 12/13/19 05:59 Add Manual Diff Complete 12/12/19 05:05 Total Counted 100 12/12/19 05:05 Seg Neutrophils % 88.6 % (40.0-70.0) H 12/13/19 05:59 Seg Neuts % (Manual) 94.0 % (40.0-70.0) H 12/12/19 05:05 Band Neutrophils % 0 % 12/12/19 05:05 Lymphocytes % (Manual) 6.0 % (13.4-35.0) L 12/12/19 05:05 Reactive Lymphs % (Man) 0 % 12/12/19 05:05 Monocytes % (Manual) 0 % (0.0-7.3) 12/12/19 05:05 Eosinophils % (Manual) 0 % (0.0-4.3) 12/12/19 05:05 Basophils % (Manual) 0 % (0.0-1.8) 12/12/19 05:05 Metamyelocytes % 0 % 12/12/19 05:05 Myelocytes % 0 % 12/12/19 05:05 Promyelocytes % 0 % 12/12/19 05:05 Blast Cells % 0 % 12/12/19 05:05 Nucleated RBC % Not Reportable 12/12/19 05:05 Seg Neutrophils # 14.8 K/mm3 (1.8-7.7) H 12/13/19 05:59 Seg Neutrophils # Man 10.8 K/mm3 (1.8-7.7) H 12/12/19 05:05 Band Neutrophils # 0.0 K/mm3 12/12/19 05:05 Lymphocytes # (Manual) 0.7 K/mm3 (1.2-5.4) L 12/12/19 05:05 Abs React Lymphs (Man) 0.0 K/mm3 12/12/19 05:05 Monocytes # (Manual) 0.0 K/mm3 (0.0-0.8) 12/12/19 05:05 Eosinophils # (Manual) 0.0 K/mm3 (0.0-0.4) 12/12/19 05:05 Basophils # (Manual) 0.0 K/mm3 (0.0-0.1) 12/12/19 05:05 Metamyelocytes # 0.0 K/mm3 12/12/19 05:05 Myelocytes # 0.0 K/mm3 12/12/19 05:05 Promyelocytes # 0.0 K/mm3 12/12/19 05:05 Blast Cells # 0.0 K/mm3 12/12/19 05:05 WBC Morphology Not Reportable 12/12/19 05:05 Hypersegmented Neuts Not Reportable 12/12/19 05:05 Hyposegmented Neuts Not Reportable 12/12/19 05:05 Hypogranular Neuts Not Reportable 12/12/19 05:05 Smudge Cells Not Reportable 12/12/19 05:05 Toxic Granulation Not Reportable 12/12/19 05:05 Toxic Vacuolation Not Reportable 12/12/19 05:05 Dohle Bodies Not Reportable 12/12/19 05:05 Pelger-Huet Anomaly Not Reportable 12/12/19 05:05 Sam Rods Not Reportable 12/12/19 05:05 Platelet Estimate Consistent w auto 12/12/19 05:05 Clumped Platelets Not Reportable 12/12/19 05:05 Plt Clumps, EDTA Not Reportable 12/12/19 05:05 Large Platelets Not Reportable 12/12/19 05:05 Giant Platelets Not Reportable 12/12/19 05:05 Platelet Satelliting Not Reportable 12/12/19 05:05 Plt Morphology Comment Not Reportable 12/12/19 05:05 RBC Morphology Normal 12/12/19 05:05 Dimorphic RBCs Not Reportable 12/12/19 05:05 Polychromasia Not Reportable 12/12/19 05:05 Hypochromasia Not Reportable 12/12/19 05:05 Poikilocytosis Not Reportable 12/12/19 05:05 Anisocytosis Not Reportable 12/12/19 05:05 Microcytosis Not Reportable 12/12/19 05:05 Macrocytosis Not Reportable 12/12/19 05:05 Spherocytes Not Reportable 12/12/19 05:05 Pappenheimer Bodies Not Reportable 12/12/19 05:05 Sickle Cells Not Reportable 12/12/19 05:05 Target Cells Not Reportable 12/12/19 05:05 Tear Drop Cells Not Reportable 12/12/19 05:05 Ovalocytes Not Reportable 12/12/19 05:05 Helmet Cells Not Reportable 12/12/19 05:05 [place] Bodies Not Reportable 12/12/19 05:05 [place] Rings Not Reportable 12/12/19 05:05 [place] Cells Not Reportable 12/12/19 05:05 Bite Cells Not Reportable 12/12/19 05:05 Crenated Cell Not Reportable 12/12/19 05:05 Elliptocytes Not Reportable 12/12/19 05:05 Acanthocytes (Spur) Not Reportable 12/12/19 05:05 Rouleaux Not Reportable 12/12/19 05:05 Hemoglobin C Crystals Not Reportable 12/12/19 05:05 Schistocytes Not Reportable 12/12/19 05:05 Malaria parasites Not Reportable 12/12/19 05:05 [place] Bodies Not Reportable 12/12/19 05:05 Hem Pathologist Commnt No 12/12/19 05:05 PT 13.1 Sec. (12.2-14.9) 12/11/19 18:37 INR 0.97 (0.87-1.13) 12/11/19 18:37 APTT 20.1 Sec. (24.2-36.6) L 12/11/19 18:37 D-Dimer 550.63 ng/mlDDU (0-234) H 12/11/19 21:50 Sodium 135 mmol/L (137-145) L 12/12/19 05:05 Potassium 5.0 mmol/L (3.6-5.0) 12/12/19 05:05 Chloride 100.1 mmol/L (98-107) 12/12/19 05:05 Carbon Dioxide 20 mmol/L (22-30) L 12/12/19 05:05 Anion Gap 20 mmol/L 12/12/19 05:05 BUN 22 mg/dL (9-20) H 12/12/19 05:05 Creatinine 2.1 mg/dL (0.8-1.3) H 12/12/19 05:05 Estimated GFR 37 ml/min 12/12/19 05:05 BUN/Creatinine Ratio 10 % 12/12/19 05:05 Glucose 316 mg/dL (75-100) H 12/12/19 05:05 POC Glucose 420 mg/dL (70-105) H 12/13/19 04:03 Hemoglobin A1c 9.7 % (4-6) H 12/12/19 05:05 Lactic Acid 1.50 mmol/L (0.7-2.0) 12/12/19 05:05 Calcium 9.3 mg/dL (8.4-10.2) 12/12/19 05:05 Ferritin 646.4 ng/mL (30.0-300.0) H 12/11/19 21:50 Total Bilirubin 0.70 mg/dL (0.1-1.2) 12/12/19 05:05 Direct Bilirubin < 0.2 mg/dL (0-0.2) 12/11/19 18:37 Indirect Bilirubin 0.6 mg/dL 12/11/19 18:37 AST 26 units/L (5-40) 12/12/19 05:05 ALT 15 units/L (7-56) 12/12/19 05:05 Alkaline Phosphatase 68 units/L (35-129) 12/12/19 05:05 Ammonia 36.0 umol/L (25-60) 12/11/19 18:37 Lactate Dehydrogenase 188 units/L (91-180) H 12/11/19 21:50 Troponin T < 0.010 ng/mL (0.00-0.029) 12/11/19 20:03 C-Reactive Protein 18.20 mg/dL (0.00-1.30) H 12/11/19 21:50 NT-Pro-B Natriuret Pep 224.4 pg/mL (0-900) 12/11/19 18:37 Total Protein 8.0 g/dL (6.3-8.2) 12/12/19 05:05 Albumin 3.0 g/dL (3.9-5) L 12/12/19 05:05 Albumin/Globulin Ratio 0.6 % 12/12/19 05:05 Procalcitonin 0.18 ng/mL (<0.15) 12/11/19 21:50 TSH 1.240 mlU/mL (0.270-4.200) 12/11/19 18:37 Urine Color Yellow (Yellow) 12/11/19 23:00 Urine Turbidity Clear (Clear) 12/11/19 23:00 Urine pH 6.0 (5.0-7.0) 12/11/19 23:00 Ur Specific [place] 1.013 (1.003-1.030) 12/11/19 23:00 Urine Protein 30 mg/dl mg/dL (Negative) 12/11/19 23:00 Urine Glucose (UA) 150 mg/dL (Negative) 12/11/19 23:00 Urine Ketones Neg mg/dL (Negative) 12/11/19 23:00 Urine Blood Mod (Negative) 12/11/19 23:00 Urine Nitrite Neg (Negative) 12/11/19 23:00 Urine Bilirubin Neg (Negative) 12/11/19 23:00 Urine Urobilinogen 2.0 mg/dL (<2.0) 12/11/19 23:00 Ur Leukocyte Esterase Neg (Negative) 12/11/19 23:00 Urine WBC (Auto) 1.0 /HPF (0.0-6.0) 12/11/19 23:00 Urine RBC (Auto) 1.0 /HPF (0.0-6.0) 12/11/19 23:00 U Epithel Cells (Auto) 1.0 /HPF (0-13.0) 12/11/19 23:00 Coronavirus (PCR) Negative (Negative) 12/12/19 09:08 Microbiology: Microbiology 12/11/19 18:52 Peripheral/Venous Blood Culture - Preliminary NO GROWTH AFTER 24 HOURS 12/11/19 18:37 Peripheral/Venous Blood Culture - Preliminary NO GROWTH AFTER 24 HOURS Robert/IV: Voiding Method Urinal IV Catheter Type [Right Peripheral IV Antecubital] Active Medications - Current Medications Current Medications: Generic Name Dose Route Start Last Admin Trade Name Freq PRN Reason Stop Dose Admin Acetaminophen 650 mg 12/11/19 21:48 Tylenol PO Q4H PRN Pain MILD(1-3)/Fever >100.5/MUSTAFA Dextrose 0 ml 12/11/19 22:45 D50w (25gm) Syringe IV Q30MIN PRN Hypoglycemia Protocol Heparin Sodium (Porcine) 5,000 unit 12/11/19 22:00 12/12/19 22:18 Heparin SUB-Q 5,000 unit Q12HR JOHNNY Administration Hydromorphone HCl 0.25 mg 12/11/19 21:48 12/12/19 18:10 Dilaudid IV 0.25 mg Q4H PRN Administration Pain, Moderate (4-6) Ceftriaxone Sodium 2 gm in 100 mls @ 200 mls/hr 12/12/19 10:00 12/12/19 09:42 Rocephin/Ns 2 Gm/100 Ml IV 200 mls/hr Q24HR JOHNNY Administration Protocol Azithromycin 500 mg/ Sodium 250 mls @ 250 mls/hr 12/12/19 10:00 12/12/19 09:05 Chloride IV 250 mls/hr Q24HR JOHNNY Administration Protocol Insulin Glargine 20 units 12/12/19 22:00 12/12/19 22:18 Lantus SUB-Q 20 units QHS JOHNNY Administration Insulin Human Lispro 0 unit 12/12/19 07:30 12/12/19 22:20 Humalog SUB-Q 8 unit ACHS JOHNNY Administration Protocol Insulin Human Lispro 10 unit 12/13/19 07:30 Humalog SUB-Q AC JOHNNY Insulin Human Lispro 8 unit 12/13/19 05:00 12/13/19 04:11 Humalog SUB-Q 8 unit ONCE JOHNNY Administration Protocol Methylprednisolone Sodium Succinate 40 mg 12/11/19 22:00 12/13/19 05:49 Solu-Medrol IV 12/13/19 23:59 40 mg Q8HR JOHNNY Administration Ondansetron HCl 4 mg 12/11/19 21:48 Zofran IV Q8H PRN Nausea And Vomiting Oxycodone/Acetaminophen 1 tab 12/11/19 21:53 Percocet 5/325 PO Q6H PRN PAIN (4-6) Sodium Chloride 10 ml 12/11/19 22:00 12/12/19 22:19 Sodium Chloride Flush Syringe 10 Ml IV 10 ml BID JOHNNY Administration Sodium Chloride 10 ml 12/11/19 21:48 12/12/19 06:04 Sodium Chloride Flush Syringe 10 Ml IV 10 ml PRN PRN Administration LINE FLUSH
[2019-12-13] MEDS: HEPARIN 5,000 UNIT/1 ML VIAL SUB-Q SCH ×3 (08:54→22:57)
[2019-12-13] MEDS: AZITHROMYCIN 500 MG in SODIUM CHLORIDE 0.9% 250ML 250 ML IV SCH (09:08)
[2019-12-13] MEDS ORDERED: INSULIN GLARGINE 100 UNITS/ML SUB-Q SCH (10:00)
[2019-12-13] MEDS: FUROSEMIDE 20 MG/2 ML INJ IV SCH (12:46)
[2019-12-13] MEDS: cefTRIAXone/NS 2 GM/100 ML 2 GM/100 ML BAG IV SCH (12:47)
[2019-12-13] MEDS ORDERED: NON-FORMULARY EACH (Simvastatin [Simvastatin] 40 MG) PO SCH (22:00)
[2019-12-13] MEDS: ASPIRIN 325 MG TAB PO SCH (22:57)
[2019-12-13] MEDS: PRAVASTATIN 80 MG TAB PO SCH (22:57)
[2019-12-13] MEDS: METOPROLOL TARTRATE 25 MG TAB PO SCH (22:57)
[2019-12-13] MEDS: INSULIN GLARGINE 100 UNITS/ML SUB-Q SCH (22:59)
[2019-12-14] MEDS: INSULIN LISPRO 100 UNIT/ML VIAL 3 mL SUB-Q SCH ×7 (07:30→22:25)
--- NOTE | 2019-12-14 08:01 | Progress Note ---
Assessment and Plan Assessment and plan: 79 YO Male with CAD S/P CABG, HTN, DM, Vascular Dementia, Cerebral Atherosclerosis, Obesity Hypoventilation Syndrome, presents to ED for evaluation. Patient is confused with diminished cognition and is unable to provide history. Patient history provided by EMS staff, ED staff, as well as patient family who was at bedside during exam and interview. As per family the patient has experienced increased weakness and confusion over the past 1 month with progressively worsening symptoms over the same timeframe. Patient is currently bedbound, and nonambulatory as per family report. Patient also requir es 6/6 assistance with activities of daily living. EMS was notified and upon arrival the patient was found to be confused and in distress with a temperature 101.2 F. Patient was subsequently transported to [facility] for further care and evaluation of the aforementioned symptoms. Patient seen and evaluated in the emergency department. Lab and imaging studies reviewed. Patient underwent chest x-ray which revealed pneumonia complicated by sepsis, toxic metabolic encephalopathy. Patient initiated on sepsis protocol as well as coronavirus protocol in the emergency department. Patient is confused and lethargic with diminished cognition but has a positive gag reflex and is able to protect his airway. No further history obtainable. Advanced care planning conducted in ED. (1) Sepsis Current Visit: Yes Status: Acute Plan to address problem: Patient is being treated according to sepsis protocol with IV fluids, IV antibiotics. We will follow the culture results. Cultures are negative so far Urinalysis negative (2) bronchitis Current Visit: Yes Status: Acute Plan to address problem: Chest x-ray is negative for pneumonia Significant for pulmonary congestion CAD status post CABG -No chest pain shortness of breath (3) SOB Current Visit: Yes Status: Acute Plan to address problem: Supplemental oxygen, pulse oximetry, balanced diet, increase physical activity at discharge, outpatient pulmonary follow-up for sleep study. (4) Toxic metabolic encephalopathy Current Visit: Yes Status: Acute Plan to address problem: Resolved (7) Diabetes mellitus Current Visit: Yes Status: Acute Plan to address problem: Consistent carbohydrate diet when patient is awake and alert only, sliding scale insulin therapy, Accu-Chek, hypoglycemia protocol. Adjust his insulin Patient's blood sugar is high, I discontinued dexamethasone I increased his insulin A1c is 9.7 and he told me that it is getting better (8) Suspected COVID-19 virus infection Current Visit: No Status: Acute Plan to address problem: COVID-19 test is negative (9) DVT prophylaxis Current Visit: Yes Status: Acute Plan to address problem: SCD to bilateral lower extremities while in bed, prophylactic anticoagulation (10) Advance care planning Current Visit: Yes Status: Acute Plan to address problem: 12/12/2019; patient was alert and oriented. Lactic acid level trended down to normal. Chest x-ray showed pulmonary congestion. We will continue with IV antibiotics today. We going to get COVID-19 test. Disposition is per clinical course. 12/13/2019; I have discussed with his daughter Jodi and she says she is not able to take care of him when replacement. PT OT evaluation. 12/14/2019; patient is doing well and can be discharged to subacute rehab. History Interval history: Patient was seen and evaluated this morning at the bedside Patient was alert and oriented Hospitalist Physical - Physical exam Narrative exam: Not in cardiopulmonary distress. The patient appeared morbidly obese. Vital signs as documented. Head exam is unremarkable. No scleral icterus . Neck is without jugular venous distension, thyromegaly, or carotid bruits. Lungs are clear to auscultation. Cardiac exam reveals regular rate and Rhythm. Abdominal exam reveals normal bowel sounds, nontender, no organomegaly. Extremities are nonedematous and both femoral and pedal pulses are normal. BUSINESS DEVELOPMENT ASSOCIATE: Alert and oriented 3. No focal weakness. - Constitutional Vitals: Temp Pulse Resp BP Pulse Ox 97.8 F 67 20 112/52 100 12/14/19 06:04 12/14/19 06:04 12/14/19 06:04 12/14/19 06:04 12/14/19 07:38 General appearance: Present: mild distress, obese HEART Score - HEART Score Troponin: Troponin T < 0.010 ng/mL (0.00-0.029) 12/11/19 20:03 Results - Labs CBC & Chem 7: 12/13/19 05:59 12/13/19 05:59 Labs: Laboratory Last Values WBC 16.7 K/mm3 (4.5-11.0) H 12/13/19 05:59 RBC 4.55 M/mm3 (3.65-5.03) 12/13/19 05:59 Hgb 13.9 gm/dl (11.8-15.2) 12/13/19 05:59 Hct 41.0 % (35.5-45.6) 12/13/19 05:59 MCV 90 fl (84-94) 12/13/19 05:59 MCH 31 pg (28-32) 12/13/19 05:59 MCHC 34 % (32-34) 12/13/19 05:59 RDW 13.8 % (13.2-15.2) 12/13/19 05:59 Plt Count 255 K/mm3 (140-440) 12/13/19 05:59 Lymph % (Auto) 6.6 % (13.4-35.0) L 12/13/19 05:59 [place] % (Auto) 4.4 % (0.0-7.3) 12/13/19 05:59 Eos % (Auto) 0.0 % (0.0-4.3) 12/13/19 05:59 Baso % (Auto) 0.4 % (0.0-1.8) 12/13/19 05:59 Lymph # (Auto) 1.1 K/mm3 (1.2-5.4) L 12/13/19 05:59 [place] # (Auto) 0.7 K/mm3 (0.0-0.8) 12/13/19 05:59 Eos # (Auto) 0.0 K/mm3 (0.0-0.4) 12/13/19 05:59 Baso # (Auto) 0.1 K/mm3 (0.0-0.1) 12/13/19 05:59 Add Manual Diff Complete 12/12/19 05:05 Total Counted 100 12/12/19 05:05 Seg Neutrophils % 88.6 % (40.0-70.0) H 12/13/19 05:59 Seg Neuts % (Manual) 94.0 % (40.0-70.0) H 12/12/19 05:05 Band Neutrophils % 0 % 12/12/19 05:05 Lymphocytes % (Manual) 6.0 % (13.4-35.0) L 12/12/19 05:05 Reactive Lymphs % (Man) 0 % 12/12/19 05:05 Monocytes % (Manual) 0 % (0.0-7.3) 12/12/19 05:05 Eosinophils % (Manual) 0 % (0.0-4.3) 12/12/19 05:05 Basophils % (Manual) 0 % (0.0-1.8) 12/12/19 05:05 Metamyelocytes % 0 % 12/12/19 05:05 Myelocytes % 0 % 12/12/19 05:05 Promyelocytes % 0 % 12/12/19 05:05 Blast Cells % 0 % 12/12/19 05:05 Nucleated RBC % Not Reportable 12/12/19 05:05 Seg Neutrophils # 14.8 K/mm3 (1.8-7.7) H 12/13/19 05:59 Seg Neutrophils # Man 10.8 K/mm3 (1.8-7.7) H 12/12/19 05:05 Band Neutrophils # 0.0 K/mm3 12/12/19 05:05 Lymphocytes # (Manual) 0.7 K/mm3 (1.2-5.4) L 12/12/19 05:05 Abs React Lymphs (Man) 0.0 K/mm3 12/12/19 05:05 Monocytes # (Manual) 0.0 K/mm3 (0.0-0.8) 12/12/19 05:05 Eosinophils # (Manual) 0.0 K/mm3 (0.0-0.4) 12/12/19 05:05 Basophils # (Manual) 0.0 K/mm3 (0.0-0.1) 12/12/19 05:05 Metamyelocytes # 0.0 K/mm3 12/12/19 05:05 Myelocytes # 0.0 K/mm3 12/12/19 05:05 Promyelocytes # 0.0 K/mm3 12/12/19 05:05 Blast Cells # 0.0 K/mm3 12/12/19 05:05 WBC Morphology Not Reportable 12/12/19 05:05 Hypersegmented Neuts Not Reportable 12/12/19 05:05 Hyposegmented Neuts Not Reportable 12/12/19 05:05 Hypogranular Neuts Not Reportable 12/12/19 05:05 Smudge Cells Not Reportable 12/12/19 05:05 Toxic Granulation Not Reportable 12/12/19 05:05 Toxic Vacuolation Not Reportable 12/12/19 05:05 Dohle Bodies Not Reportable 12/12/19 05:05 Pelger-Huet Anomaly Not Reportable 12/12/19 05:05 Sam Rods Not Reportable 12/12/19 05:05 Platelet Estimate Consistent w auto 12/12/19 05:05 Clumped Platelets Not Reportable 12/12/19 05:05 Plt Clumps, EDTA Not Reportable 12/12/19 05:05 Large Platelets Not Reportable 12/12/19 05:05 Giant Platelets Not Reportable 12/12/19 05:05 Platelet Satelliting Not Reportable 12/12/19 05:05 Plt Morphology Comment Not Reportable 12/12/19 05:05 RBC Morphology Normal 12/12/19 05:05 Dimorphic RBCs Not Reportable 12/12/19 05:05 Polychromasia Not Reportable 12/12/19 05:05 Hypochromasia Not Reportable 12/12/19 05:05 Poikilocytosis Not Reportable 12/12/19 05:05 Anisocytosis Not Reportable 12/12/19 05:05 Microcytosis Not Reportable 12/12/19 05:05 Macrocytosis Not Reportable 12/12/19 05:05 Spherocytes Not Reportable 12/12/19 05:05 Pappenheimer Bodies Not Reportable 12/12/19 05:05 Sickle Cells Not Reportable 12/12/19 05:05 Target Cells Not Reportable 12/12/19 05:05 Tear Drop Cells Not Reportable 12/12/19 05:05 Ovalocytes Not Reportable 12/12/19 05:05 Helmet Cells Not Reportable 12/12/19 05:05 Saavedra-Welty Bodies Not Reportable 12/12/19 05:05 [place] Rings Not Reportable 12/12/19 05:05 [place] Cells Not Reportable 12/12/19 05:05 Bite Cells Not Reportable 12/12/19 05:05 Crenated Cell Not Reportable 12/12/19 05:05 Elliptocytes Not Reportable 12/12/19 05:05 Acanthocytes (Spur) Not Reportable 12/12/19 05:05 Rouleaux Not Reportable 12/12/19 05:05 Hemoglobin C Crystals Not Reportable 12/12/19 05:05 Schistocytes Not Reportable 12/12/19 05:05 Malaria parasites Not Reportable 12/12/19 05:05 [place] Bodies Not Reportable 12/12/19 05:05 Hem Pathologist Commnt No 12/12/19 05:05 PT 13.1 Sec. (12.2-14.9) 12/11/19 18:37 INR 0.97 (0.87-1.13) 12/11/19 18:37 APTT 20.1 Sec. (24.2-36.6) L 12/11/19 18:37 D-Dimer 550.63 ng/mlDDU (0-234) H 12/11/19 21:50 Sodium 132 mmol/L (137-145) L 12/13/19 05:59 Potassium 4.9 mmol/L (3.6-5.0) 12/13/19 05:59 Chloride 96.3 mmol/L (98-107) L 12/13/19 05:59 Carbon Dioxide 23 mmol/L (22-30) 12/13/19 05:59 Anion Gap 18 mmol/L 12/13/19 05:59 BUN 34 mg/dL (9-20) H 12/13/19 05:59 Creatinine 2.0 mg/dL (0.8-1.3) H 12/13/19 05:59 Estimated GFR 39 ml/min 12/13/19 05:59 BUN/Creatinine Ratio 17 % 12/13/19 05:59 Glucose 461 mg/dL (75-100) H 12/13/19 05:59 POC Glucose 236 mg/dL (70-105) H 12/14/19 07:49 Hemoglobin A1c 9.7 % (4-6) H 12/12/19 05:05 Lactic Acid 1.50 mmol/L (0.7-2.0) 12/12/19 05:05 Calcium 9.1 mg/dL (8.4-10.2) 12/13/19 05:59 Ferritin 646.4 ng/mL (30.0-300.0) H 12/11/19 21:50 Total Bilirubin 0.70 mg/dL (0.1-1.2) 12/12/19 05:05 Direct Bilirubin < 0.2 mg/dL (0-0.2) 12/11/19 18:37 Indirect Bilirubin 0.6 mg/dL 12/11/19 18:37 AST 26 units/L (5-40) 12/12/19 05:05 ALT 15 units/L (7-56) 12/12/19 05:05 Alkaline Phosphatase 68 units/L (35-129) 12/12/19 05:05 Ammonia 36.0 umol/L (25-60) 12/11/19 18:37 Lactate Dehydrogenase 188 units/L (91-180) H 12/11/19 21:50 Troponin T < 0.010 ng/mL (0.00-0.029) 12/11/19 20:03 C-Reactive Protein 18.20 mg/dL (0.00-1.30) H 12/11/19 21:50 NT-Pro-B Natriuret Pep 224.4 pg/mL (0-900) 12/11/19 18:37 Total Protein 8.0 g/dL (6.3-8.2) 12/12/19 05:05 Albumin 3.0 g/dL (3.9-5) L 12/12/19 05:05 Albumin/Globulin Ratio 0.6 % 12/12/19 05:05 Procalcitonin 0.18 ng/mL (<0.15) 12/11/19 21:50 TSH 1.240 mlU/mL (0.270-4.200) 12/11/19 18:37 Urine Color Yellow (Yellow) 12/11/19 23:00 Urine Turbidity Clear (Clear) 12/11/19 23:00 Urine pH 6.0 (5.0-7.0) 12/11/19 23:00 Ur Specific [place] 1.013 (1.003-1.030) 12/11/19 23:00 Urine Protein 30 mg/dl mg/dL (Negative) 12/11/19 23:00 Urine Glucose (UA) 150 mg/dL (Negative) 12/11/19 23:00 Urine Ketones Neg mg/dL (Negative) 12/11/19 23:00 Urine Blood Mod (Negative) 12/11/19 23:00 Urine Nitrite Neg (Negative) 12/11/19 23:00 Urine Bilirubin Neg (Negative) 12/11/19 23:00 Urine Urobilinogen 2.0 mg/dL (<2.0) 12/11/19 23:00 Ur Leukocyte Esterase Neg (Negative) 12/11/19 23:00 Urine WBC (Auto) 1.0 /HPF (0.0-6.0) 12/11/19 23:00 Urine RBC (Auto) 1.0 /HPF (0.0-6.0) 12/11/19 23:00 U Epithel Cells (Auto) 1.0 /HPF (0-13.0) 12/11/19 23:00 Coronavirus (PCR) Negative (Negative) 12/12/19 09:08 Microbiology: Microbiology 12/11/19 18:52 Peripheral/Venous Blood Culture - Preliminary NO GROWTH AFTER 48 HOURS 12/11/19 18:37 Peripheral/Venous Blood Culture - Preliminary NO GROWTH AFTER 48 HOURS Robert/IV: Voiding Method Urinal IV Catheter Type [Right Peripheral IV Antecubital] Active Medications - Current Medications Current Medications: Generic Name Dose Route Start Last Admin Trade Name Freq PRN Reason Stop Dose Admin Acetaminophen 650 mg 12/11/19 21:48 Tylenol PO Q4H PRN Pain MILD(1-3)/Fever >100.5/MUSTAFA Aspirin 325 mg 12/13/19 22:00 12/13/19 22:57 Aspirin PO 325 mg HS JOHNNY Administration Dextrose 0 ml 12/11/19 22:45 D50w (25gm) Syringe IV Q30MIN PRN Hypoglycemia Protocol Furosemide 20 mg 12/13/19 12:00 12/13/19 12:46 Lasix IV 20 mg QDAY JOHNNY Administration Heparin Sodium (Porcine) 5,000 unit 12/11/19 22:00 12/13/19 22:57 Heparin SUB-Q 5,000 unit Q12HR JOHNNY Administration Ceftriaxone Sodium 2 gm in 100 mls @ 200 mls/hr 12/12/19 10:00 12/13/19 12:47 Rocephin/Ns 2 Gm/100 Ml IV 200 mls/hr Q24HR JOHNNY Administration Protocol Azithromycin 500 mg/ Sodium 250 mls @ 250 mls/hr 12/12/19 10:00 12/13/19 09:08 Chloride IV 250 mls/hr Q24HR JOHNNY Administration Protocol Insulin Glargine 50 units 12/13/19 22:00 12/13/19 22:59 Lantus SUB-Q 50 units QHS JOHNNY Administration Insulin Human Lispro 0 unit 12/12/19 07:30 12/13/19 22:58 Humalog SUB-Q 4 unit ACHS JOHNNY Administration Protocol Insulin Human Lispro 10 unit 12/13/19 07:30 12/13/19 16:30 Humalog SUB-Q 10 unit AC JOHNNY Administration Insulin Human Lispro 8 unit 12/13/19 05:00 12/13/19 04:11 Humalog SUB-Q 8 unit ONCE JOHNNY Administration Protocol Isosorbide Mononitrate 30 mg 12/14/19 10:00 Imdur PO DAILY JOHNNY Metoprolol Tartrate 25 mg 12/13/19 22:00 12/13/19 22:57 Metoprolol PO 25 mg BID JOHNNY Administration Ondansetron HCl 4 mg 12/11/19 21:48 Zofran IV Q8H PRN Nausea And Vomiting Oxycodone/Acetaminophen 1 tab 12/11/19 21:53 Percocet 5/325 PO Q6H PRN PAIN (4-6) Pravastatin Sodium 80 mg 12/13/19 22:00 12/13/19 22:57 Pravachol PO 80 mg QHS JOHNNY Administration Sodium Chloride 10 ml 12/11/19 22:00 12/13/19 22:57 Sodium Chloride Flush Syringe 10 Ml IV 10 ml BID JOHNNY Administration Sodium Chloride 10 ml 12/11/19 21:48 12/12/19 06:04 Sodium Chloride Flush Syringe 10 Ml IV 10 ml PRN PRN Administration LINE FLUSH
[2019-12-14 09:02] LABS: Basophils % (Auto) 0.4 % (0.0-1.8); Eosinophils # (Auto) 0.1 K/mm3 (0.0-0.4); Eosinophils % (Auto) 0.5 % (0.0-4.3); Hematocrit 45.1 % (35.5-45.6); Hemoglobin 15.3 gm/dl (11.8-15.2); Lymphocytes # (Auto) 2.3 K/mm3 (1.2-5.4); Lymphocytes % (Auto) 18.7 % (13.4-35.0); Mean Corpuscular HGB Conc 34 % (32-34); Mean Corpuscular Volume 90 fl (84-94); Monocytes # (Auto) 0.8 K/mm3 (0.0-0.8); Monocytes % (Auto) 6.8 % (0.0-7.3); Platelet Count 276 K/mm3 (140-440); Red Blood Count 5.03 M/mm3 (3.65-5.03)
[2019-12-14 09:25] LABS: Calcium 9.2 mg/dL (8.4-10.2)
[2019-12-14] MEDS: METOPROLOL TARTRATE 25 MG TAB PO SCH ×2 (09:49→22:23)
[2019-12-14] MEDS: cefTRIAXone/NS 2 GM/100 ML 2 GM/100 ML BAG IV SCH (09:49)
[2019-12-14] MEDS: AZITHROMYCIN 500 MG in SODIUM CHLORIDE 0.9% 250ML 250 ML IV SCH (09:50)
[2019-12-14] MEDS: HEPARIN 5,000 UNIT/1 ML VIAL SUB-Q SCH ×2 (09:50→22:24)
[2019-12-14] MEDS: FUROSEMIDE 20 MG/2 ML INJ IV SCH (09:51)
[2019-12-14] MEDS ORDERED: INSULIN GLARGINE 100 UNITS/ML SUB-Q ONE (10:30)
[2019-12-14] MEDS: ASPIRIN 325 MG TAB PO SCH (22:23)
[2019-12-14] MEDS: INSULIN GLARGINE 100 UNITS/ML SUB-Q SCH (22:24)
[2019-12-14] MEDS: PRAVASTATIN 80 MG TAB PO SCH (22:24)
--- NOTE | 2019-12-15 07:34 | Progress Note ---
Assessment and Plan Assessment and plan: 79 YO Male with CAD S/P CABG, HTN, DM, Vascular Dementia, Cerebral Atherosclerosis, Obesity Hypoventilation Syndrome, presents to ED for evaluation. Patient is confused with diminished cognition and is unable to provide history. Patient history provided by EMS staff, ED staff, as well as patient family who was at bedside during exam and interview. As per family the patient has experienced increased weakness and confusion over the past 1 month with progressively worsening symptoms over the same timeframe. Patient is currently bedbound, and nonambulatory as per family report. Patient also requir es 6/6 assistance with activities of daily living. EMS was notified and upon arrival the patient was found to be confused and in distress with a temperature 101.2 F. Patient was subsequently transported to [facility] for further care and evaluation of the aforementioned symptoms. Patient seen and evaluated in the emergency department. Lab and imaging studies reviewed. Patient underwent chest x-ray which revealed pneumonia complicated by sepsis, toxic metabolic encephalopathy. Patient initiated on sepsis protocol as well as coronavirus protocol in the emergency department. Patient is confused and lethargic with diminished cognition but has a positive gag reflex and is able to protect his airway. No further history obtainable. Advanced care planning conducted in ED. (1) Sepsis Current Visit: Yes Status: Acute Plan to address problem: Patient is being treated according to sepsis protocol with IV fluids, IV antibiotics. We will follow the culture results. Cultures are negative so far Urinalysis negative (2) bronchitis Current Visit: Yes Status: Acute Plan to address problem: Chest x-ray is negative for pneumonia Significant for pulmonary congestion CAD status post CABG -No chest pain shortness of breath (3) SOB Current Visit: Yes Status: Acute Plan to address problem: Supplemental oxygen, pulse oximetry, balanced diet, increase physical activity at discharge, outpatient pulmonary follow-up for sleep study. (4) Toxic metabolic encephalopathy Current Visit: Yes Status: Acute Plan to address problem: Resolved (7) Diabetes mellitus Current Visit: Yes Status: Acute Plan to address problem: Consistent carbohydrate diet when patient is awake and alert only, sliding scale insulin therapy, Accu-Chek, hypoglycemia protocol. Adjust his insulin Patient's blood sugar is high, I discontinued dexamethasone I increased his insulin A1c is 9.7 and he told me that it is getting better EUFEMIA -Patient's creatinine did not get better and no baseline creatinine level to compare. -I will put a consult for nephrology. (8) Suspected COVID-19 virus infection Current Visit: No Status: Acute Plan to address problem: COVID-19 test is negative Morbid obesity -Patient was counseled about weight loss, lifestyle modification (9) DVT prophylaxis Current Visit: Yes Status: Acute Plan to address problem: SCD to bilateral lower extremities while in bed, prophylactic anticoagulation (10) Advance care planning Current Visit: Yes Status: Acute Plan to address problem: 12/12/2019; patient was alert and oriented. Lactic acid level trended down to normal. Chest x-ray showed pulmonary congestion. We will continue with IV antibiotics today. We going to get COVID-19 test. Disposition is per clinical course. 12/13/2019; I have discussed with his daughter Jodi and she says she is not able to take care of him when replacement. PT OT evaluation. 12/14/2019; patient is doing well and can be discharged to subacute rehab. 12/15/2019; patient is doing well currently, alert and oriented, no acute issues. Nephrology consulted for EUFEMIA. I have discussed with his daughter Jodi and she states she is not able to take care of him at home and she wants him placement. Pending subacute rehab placement. History Interval history: Patient was seen and evaluated this morning at the bedside Patient was alert and oriented Hospitalist Physical - Physical exam Narrative exam: Not in cardiopulmonary distress. The patient appeared morbidly obese. Vital signs as documented. Head exam is unremarkable. No scleral icterus . Neck is without jugular venous distension, thyromegaly, or carotid bruits. Lungs are clear to auscultation. Cardiac exam reveals regular rate and Rhythm. Abdominal exam reveals normal bowel sounds, nontender, no organomegaly. Extremities are nonedematous and both femoral and pedal pulses are normal. PALEOBOTANIST: Alert and oriented 3. No focal weakness. - Constitutional Vitals: Temp Pulse Resp BP Pulse Ox 98.6 F 72 20 118/85 94 12/15/19 03:43 12/15/19 03:43 12/15/19 03:43 12/15/19 03:43 12/15/19 03:43 General appearance: Present: mild distress, obese HEART Score - HEART Score Troponin: Troponin T < 0.010 ng/mL (0.00-0.029) 12/11/19 20:03 Results - Labs CBC & Chem 7: 12/14/19 07:57 12/14/19 07:57 Labs: Laboratory Last Values WBC 12.3 K/mm3 (4.5-11.0) H 12/14/19 07:57 RBC 5.03 M/mm3 (3.65-5.03) 12/14/19 07:57 Hgb 15.3 gm/dl (11.8-15.2) H 12/14/19 07:57 Hct 45.1 % (35.5-45.6) 12/14/19 07:57 MCV 90 fl (84-94) 12/14/19 07:57 MCH 30 pg (28-32) 12/14/19 07:57 MCHC 34 % (32-34) 12/14/19 07:57 RDW 14.0 % (13.2-15.2) 12/14/19 07:57 Plt Count 276 K/mm3 (140-440) 12/14/19 07:57 Lymph % (Auto) 18.7 % (13.4-35.0) 12/14/19 07:57 Jerauld % (Auto) 6.8 % (0.0-7.3) 12/14/19 07:57 Eos % (Auto) 0.5 % (0.0-4.3) 12/14/19 07:57 Baso % (Auto) 0.4 % (0.0-1.8) 12/14/19 07:57 Lymph # (Auto) 2.3 K/mm3 (1.2-5.4) 12/14/19 07:57 Jerauld # (Auto) 0.8 K/mm3 (0.0-0.8) 12/14/19 07:57 Eos # (Auto) 0.1 K/mm3 (0.0-0.4) 12/14/19 07:57 Baso # (Auto) 0.0 K/mm3 (0.0-0.1) 12/14/19 07:57 Add Manual Diff Complete 12/12/19 05:05 Total Counted 100 12/12/19 05:05 Seg Neutrophils % 73.6 % (40.0-70.0) H 12/14/19 07:57 Seg Neuts % (Manual) 94.0 % (40.0-70.0) H 12/12/19 05:05 Band Neutrophils % 0 % 12/12/19 05:05 Lymphocytes % (Manual) 6.0 % (13.4-35.0) L 12/12/19 05:05 Reactive Lymphs % (Man) 0 % 12/12/19 05:05 Monocytes % (Manual) 0 % (0.0-7.3) 12/12/19 05:05 Eosinophils % (Manual) 0 % (0.0-4.3) 12/12/19 05:05 Basophils % (Manual) 0 % (0.0-1.8) 12/12/19 05:05 Metamyelocytes % 0 % 12/12/19 05:05 Myelocytes % 0 % 12/12/19 05:05 Promyelocytes % 0 % 12/12/19 05:05 Blast Cells % 0 % 12/12/19 05:05 Nucleated RBC % Not Reportable 12/12/19 05:05 Seg Neutrophils # 9.0 K/mm3 (1.8-7.7) H 12/14/19 07:57 Seg Neutrophils # Man 10.8 K/mm3 (1.8-7.7) H 12/12/19 05:05 Band Neutrophils # 0.0 K/mm3 12/12/19 05:05 Lymphocytes # (Manual) 0.7 K/mm3 (1.2-5.4) L 12/12/19 05:05 Abs React Lymphs (Man) 0.0 K/mm3 12/12/19 05:05 Monocytes # (Manual) 0.0 K/mm3 (0.0-0.8) 12/12/19 05:05 Eosinophils # (Manual) 0.0 K/mm3 (0.0-0.4) 12/12/19 05:05 Basophils # (Manual) 0.0 K/mm3 (0.0-0.1) 12/12/19 05:05 Metamyelocytes # 0.0 K/mm3 12/12/19 05:05 Myelocytes # 0.0 K/mm3 12/12/19 05:05 Promyelocytes # 0.0 K/mm3 12/12/19 05:05 Blast Cells # 0.0 K/mm3 12/12/19 05:05 WBC Morphology Not Reportable 12/12/19 05:05 Hypersegmented Neuts Not Reportable 12/12/19 05:05 Hyposegmented Neuts Not Reportable 12/12/19 05:05 Hypogranular Neuts Not Reportable 12/12/19 05:05 Smudge Cells Not Reportable 12/12/19 05:05 Toxic Granulation Not Reportable 12/12/19 05:05 Toxic Vacuolation Not Reportable 12/12/19 05:05 Dohle Bodies Not Reportable 12/12/19 05:05 Pelger-Huet Anomaly Not Reportable 12/12/19 05:05 Sam Rods Not Reportable 12/12/19 05:05 Platelet Estimate Consistent w auto 12/12/19 05:05 Clumped Platelets Not Reportable 12/12/19 05:05 Plt Clumps, EDTA Not Reportable 12/12/19 05:05 Large Platelets Not Reportable 12/12/19 05:05 Giant Platelets Not Reportable 12/12/19 05:05 Platelet Satelliting Not Reportable 12/12/19 05:05 Plt Morphology Comment Not Reportable 12/12/19 05:05 RBC Morphology Normal 12/12/19 05:05 Dimorphic RBCs Not Reportable 12/12/19 05:05 Polychromasia Not Reportable 12/12/19 05:05 Hypochromasia Not Reportable 12/12/19 05:05 Poikilocytosis Not Reportable 12/12/19 05:05 Anisocytosis Not Reportable 12/12/19 05:05 Microcytosis Not Reportable 12/12/19 05:05 Macrocytosis Not Reportable 12/12/19 05:05 Spherocytes Not Reportable 12/12/19 05:05 Pappenheimer Bodies Not Reportable 12/12/19 05:05 Sickle Cells Not Reportable 12/12/19 05:05 Target Cells Not Reportable 12/12/19 05:05 Tear Drop Cells Not Reportable 12/12/19 05:05 Ovalocytes Not Reportable 12/12/19 05:05 Helmet Cells Not Reportable 12/12/19 05:05 [place] Bodies Not Reportable 12/12/19 05:05 [place] Rings Not Reportable 12/12/19 05:05 Sanam Cells Not Reportable 12/12/19 05:05 Bite Cells Not Reportable 12/12/19 05:05 Crenated Cell Not Reportable 12/12/19 05:05 Elliptocytes Not Reportable 12/12/19 05:05 Acanthocytes (Spur) Not Reportable 12/12/19 05:05 Rouleaux Not Reportable 12/12/19 05:05 Hemoglobin C Crystals Not Reportable 12/12/19 05:05 Schistocytes Not Reportable 12/12/19 05:05 Malaria parasites Not Reportable 12/12/19 05:05 [place] Bodies Not Reportable 12/12/19 05:05 Hem Pathologist Commnt No 12/12/19 05:05 PT 13.1 Sec. (12.2-14.9) 12/11/19 18:37 INR 0.97 (0.87-1.13) 12/11/19 18:37 APTT 20.1 Sec. (24.2-36.6) L 12/11/19 18:37 D-Dimer 550.63 ng/mlDDU (0-234) H 12/11/19 21:50 Sodium 140 mmol/L (137-145) D 12/14/19 07:57 Potassium 4.4 mmol/L (3.6-5.0) 12/14/19 07:57 Chloride 99.7 mmol/L (98-107) 12/14/19 07:57 Carbon Dioxide 27 mmol/L (22-30) 12/14/19 07:57 Anion Gap 18 mmol/L 12/14/19 07:57 BUN 35 mg/dL (9-20) H 12/14/19 07:57 Creatinine 2.1 mg/dL (0.8-1.3) H 12/14/19 07:57 Estimated GFR 37 ml/min 12/14/19 07:57 BUN/Creatinine Ratio 17 % 12/14/19 07:57 Glucose 208 mg/dL (75-100) H 12/14/19 07:57 POC Glucose 161 mg/dL (70-105) H 12/14/19 21:43 Hemoglobin A1c 9.7 % (4-6) H 12/12/19 05:05 Lactic Acid 1.50 mmol/L (0.7-2.0) 12/12/19 05:05 Calcium 9.2 mg/dL (8.4-10.2) 12/14/19 07:57 Ferritin 646.4 ng/mL (30.0-300.0) H 12/11/19 21:50 Total Bilirubin 0.70 mg/dL (0.1-1.2) 12/12/19 05:05 Direct Bilirubin < 0.2 mg/dL (0-0.2) 12/11/19 18:37 Indirect Bilirubin 0.6 mg/dL 12/11/19 18:37 AST 26 units/L (5-40) 12/12/19 05:05 ALT 15 units/L (7-56) 12/12/19 05:05 Alkaline Phosphatase 68 units/L (35-129) 12/12/19 05:05 Ammonia 36.0 umol/L (25-60) 12/11/19 18:37 Lactate Dehydrogenase 188 units/L (91-180) H 12/11/19 21:50 Troponin T < 0.010 ng/mL (0.00-0.029) 12/11/19 20:03 C-Reactive Protein 18.20 mg/dL (0.00-1.30) H 12/11/19 21:50 NT-Pro-B Natriuret Pep 224.4 pg/mL (0-900) 12/11/19 18:37 Total Protein 8.0 g/dL (6.3-8.2) 12/12/19 05:05 Albumin 3.0 g/dL (3.9-5) L 12/12/19 05:05 Albumin/Globulin Ratio 0.6 % 12/12/19 05:05 Procalcitonin 0.18 ng/mL (<0.15) 12/11/19 21:50 TSH 1.240 mlU/mL (0.270-4.200) 12/11/19 18:37 Urine Color Yellow (Yellow) 12/11/19 23:00 Urine Turbidity Clear (Clear) 12/11/19 23:00 Urine pH 6.0 (5.0-7.0) 12/11/19 23:00 Ur Specific [place] 1.013 (1.003-1.030) 12/11/19 23:00 Urine Protein 30 mg/dl mg/dL (Negative) 12/11/19 23:00 Urine Glucose (UA) 150 mg/dL (Negative) 12/11/19 23:00 Urine Ketones Neg mg/dL (Negative) 12/11/19 23:00 Urine Blood Mod (Negative) 12/11/19 23:00 Urine Nitrite Neg (Negative) 12/11/19 23:00 Urine Bilirubin Neg (Negative) 12/11/19 23:00 Urine Urobilinogen 2.0 mg/dL (<2.0) 12/11/19 23:00 Ur Leukocyte Esterase Neg (Negative) 12/11/19 23:00 Urine WBC (Auto) 1.0 /HPF (0.0-6.0) 12/11/19 23:00 Urine RBC (Auto) 1.0 /HPF (0.0-6.0) 12/11/19 23:00 U Epithel Cells (Auto) 1.0 /HPF (0-13.0) 12/11/19 23:00 Coronavirus (PCR) Negative (Negative) 12/12/19 09:08 Microbiology: Microbiology 12/11/19 18:52 Peripheral/Venous Blood Culture - Preliminary NO GROWTH AFTER 72 HOURS 12/11/19 18:37 Peripheral/Venous Blood Culture - Preliminary NO GROWTH AFTER 72 HOURS Robert/IV: Voiding Method Urinal IV Catheter Type [Right Peripheral IV Antecubital] Active Medications - Current Medications Current Medications: Generic Name Dose Route Start Last Admin Trade Name Freq PRN Reason Stop Dose Admin Acetaminophen 650 mg 12/11/19 21:48 Tylenol PO Q4H PRN Pain MILD(1-3)/Fever >100.5/MUSTAFA Aspirin 325 mg 12/13/19 22:00 12/14/19 22:23 Aspirin PO 325 mg HS JOHNNY Administration Azithromycin 500 mg 12/15/19 10:00 Zithromax PO 12/16/19 12:00 QDAY JOHNNY Dextrose 0 ml 12/11/19 22:45 D50w (25gm) Syringe IV Q30MIN PRN Hypoglycemia Protocol Furosemide 20 mg 12/13/19 12:00 12/14/19 09:51 Lasix IV 20 mg QDAY JOHNNY Administration Heparin Sodium (Porcine) 5,000 unit 12/11/19 22:00 12/14/19 22:24 Heparin SUB-Q 5,000 unit Q12HR JOHNNY Administration Ceftriaxone Sodium 2 gm in 100 mls @ 200 mls/hr 12/12/19 10:00 12/14/19 09:49 Rocephin/Ns 2 Gm/100 Ml IV 12/18/19 12:00 200 mls/hr Q24HR JOHNNY Administration Protocol Insulin Glargine 50 units 12/13/19 22:00 12/14/19 22:24 Lantus SUB-Q 50 units QHS JOHNNY Administration Insulin Human Lispro 0 unit 12/12/19 07:30 12/14/19 22:25 Humalog SUB-Q 2 unit ACHS JOHNNY Administration Protocol Insulin Human Lispro 10 unit 12/13/19 07:30 12/14/19 16:30 Humalog SUB-Q 10 unit AC JOHNNY Administration Isosorbide Mononitrate 30 mg 12/14/19 10:00 12/14/19 09:51 Imdur PO 30 mg DAILY JOHNNY Administration Metoprolol Tartrate 25 mg 12/13/19 22:00 12/14/19 22:23 Metoprolol PO 25 mg BID JOHNNY Administration Ondansetron HCl 4 mg 12/11/19 21:48 Zofran IV Q8H PRN Nausea And Vomiting Oxycodone/Acetaminophen 1 tab 12/11/19 21:53 Percocet 5/325 PO Q6H PRN PAIN (4-6) Pravastatin Sodium 80 mg 12/13/19 22:00 12/14/19 22:24 Pravachol PO 80 mg QHS JOHNNY Administration Sodium Chloride 10 ml 12/11/19 22:00 12/14/19 22:25 Sodium Chloride Flush Syringe 10 Ml IV 10 ml BID JOHNNY Administration Sodium Chloride 10 ml 12/11/19 21:48 12/12/19 06:04 Sodium Chloride Flush Syringe 10 Ml IV 10 ml PRN PRN Administration LINE FLUSH
[2019-12-15] MEDS: INSULIN LISPRO 100 UNIT/ML VIAL 3 mL SUB-Q SCH ×7 (08:44→23:03)
[2019-12-15] MEDS: cefTRIAXone/NS 2 GM/100 ML 2 GM/100 ML BAG IV SCH (09:15)
[2019-12-15] MEDS: FUROSEMIDE 20 MG/2 ML INJ IV SCH (09:16)
[2019-12-15] MEDS: HEPARIN 5,000 UNIT/1 ML VIAL SUB-Q SCH ×2 (09:16→22:58)
[2019-12-15] MEDS: METOPROLOL TARTRATE 25 MG TAB PO SCH ×2 (09:17→23:01)
[2019-12-15] MEDS: AZITHROMYCIN 250 MG TAB PO SCH (09:18)
--- NOTE | 2019-12-15 20:25 | Consultation ---
History of Present Illness - Reason for Consult Consult date: 12/15/19 acute renal failure - History of Present Illness This is 79 year old man with CAD S/P CABG, HTN, DM, Vascular Dementia, Cerebral Atherosclerosis, Obesity Hypoventilation Syndrome, presents to ED for confusion. Noted to have creatinine 2.2/2.3 for past 4 days while inpatient. Denies any prior renal disease history. Lethargy did improve per hospitalist but unclear if at baseline. Patient is able to answer questions yes/no and denies any dyspnea, abnormal urination, edema. Past History Past Medical History: CAD, diabetes, hypertension, other (See HPI) Past Surgical History: Other (Left rotator cuff surgery) Social history: . denies: smoking, alcohol abuse, prescription drug abuse Family history: diabetes, hypertension Medications and Allergies Allergies Allergy/AdvReac Type Severity Reaction Status Date / Time No Known Allergies Allergy Verified 04/19/14 09:47 Home Medications Medication Instructions Recorded Confirmed Last Taken Type Aspirin 325 mg PO HS 12/11/19 12/11/19 12/10/19 History ISOSORBIDE MONOnitrate [Imdur ER] 30 mg PO DAILY 12/11/19 12/11/19 12/10/19 History Insulin NPH/Regular [Novolin 70/30] 50 unit SQ BID 12/11/19 12/11/19 12/11/19 History Metoprolol [Lopressor] 25 mg PO BID 12/11/19 12/11/19 12/10/19 History Simvastatin 40 mg PO HS 12/11/19 12/11/19 12/10/19 History hydroCHLOROthiazide 12.5 mg PO DAILY 12/11/19 12/11/19 12/10/19 History [Hydrochlorothiazide] Active Meds: Active Medications Acetaminophen (Tylenol) 650 mg PO Q4H PRN PRN Reason: Pain MILD(1-3)/Fever >100.5/MUSTAFA Aspirin (Aspirin) 325 mg PO HS [facility] Last Admin: 12/14/19 22:23 Dose: 325 mg Documented by: Azithromycin (Zithromax) 500 mg PO QDAY [facility] Stop: 12/16/19 12:00 Last Admin: 12/15/19 09:18 Dose: 500 mg Documented by: Dextrose (D50w (25gm) Syringe) 0 ml IV Q30MIN PRN; Protocol PRN Reason: Hypoglycemia Furosemide (Lasix) 20 mg IV QDAY [facility] Last Admin: 12/15/19 09:16 Dose: 20 mg Documented by: Heparin Sodium (Porcine) (Heparin) 5,000 unit SUB-Q Q12HR [facility] Last Admin: 12/15/19 09:16 Dose: 5,000 unit Documented by: Ceftriaxone Sodium (Rocephin/Ns 2 Gm/100 Ml) 2 gm in 100 mls @ 200 mls/hr IV Q24HR [facility]; Protocol Stop: 12/18/19 12:00 Last Admin: 12/15/19 09:15 Dose: 200 mls/hr Documented by: Insulin Glargine (Lantus) 50 units SUB-Q QHS [facility] Last Admin: 12/14/19 22:24 Dose: 50 units Documented by: Insulin Human Lispro (Humalog) 0 unit SUB-Q ACHS [facility]; Protocol Last Admin: 12/15/19 17:13 Dose: Not Given Documented by: Insulin Human Lispro (Humalog) 10 unit SUB-Q [facility] Last Admin: 12/15/19 17:13 Dose: Not Given Documented by: Isosorbide Mononitrate (Imdur) 30 mg PO DAILY [facility] Last Admin: 12/15/19 09:17 Dose: 30 mg Documented by: Metoprolol Tartrate (Metoprolol) 25 mg PO BID [facility] Last Admin: 12/15/19 09:17 Dose: 25 mg Documented by: Ondansetron HCl (Zofran) 4 mg IV Q8H PRN PRN Reason: Nausea And Vomiting Oxycodone/Acetaminophen (Percocet 5/325) 1 tab PO Q6H PRN PRN Reason: PAIN (4-6) Pravastatin Sodium (Pravachol) 80 mg PO QHS [facility] Last Admin: 12/14/19 22:24 Dose: 80 mg Documented by: Sodium Chloride (Sodium Chloride Flush Syringe 10 Ml) 10 ml IV BID [facility] Last Admin: 12/15/19 09:16 Dose: 10 ml Documented by: Sodium Chloride (Sodium Chloride Flush Syringe 10 Ml) 10 ml IV PRN PRN PRN Reason: LINE FLUSH Last Admin: 12/12/19 06:04 Dose: 10 ml Documented by: Review of Systems All systems: negative (as per HPI) Exam - Vital Signs Vital signs: Vital Signs Pulse Resp 109 H 22 12/11/19 18:27 12/11/19 18:27 - Physical Exam Narrative exam: Constitutional: no acute distress Head: NC/AT Neck: supple Lungs: clear to auscultation CV: RRR, no M/R/G Abdomen: soft, non-tender, bowel sounds present Back: nontender Extremities: no edema, pulses WNL Skin: intact Neuro: no focal deficits, alert and oriented x4 Results - Lab Results 12/14/19 07:57 12/15/19 06:16 Most recent lab results Calcium 9.0 mg/dL (8.4-10.2) 12/15/19 06:16 Assessment and Plan # Acute Kidney Injury: no clear baseline, certainly at risk for CKD given DM, HTN, age, obesity. Will check U/PC, serologies, renal ultrasound for evaluation. PTH to assess for secondary hyperparathyroidism. Creatinine appears stable, would benefit from outpatient follow up - avoid nephrotoxins - po hydration as able - DM control - Is/Os - renally dose meds - daily renal labs # HTN: BP at goal, monitor for hypotension given age and risk of over-diuresis, can continue Lasix for now # DM: management per primary # Dyspnea: stable
[2019-12-15] MEDS: ASPIRIN 325 MG TAB PO SCH (22:59)
[2019-12-15] MEDS: PRAVASTATIN 80 MG TAB PO SCH (22:59)
[2019-12-15] MEDS: INSULIN GLARGINE 100 UNITS/ML SUB-Q SCH (23:01)
[2019-12-16 05:34] LABS: Calcium 8.9 mg/dL (8.4-10.2)
--- NOTE | 2019-12-16 08:29 | Progress Note ---
Assessment and Plan Assessment and plan: 79 YO Male with CAD S/P CABG, HTN, DM, Vascular Dementia, Cerebral Atherosclerosis, Obesity Hypoventilation Syndrome, presents to ED for evaluation. Patient is confused with diminished cognition and is unable to provide history. Patient history provided by EMS staff, ED staff, as well as patient family who was at bedside during exam and interview. As per family the patient has experienced increased weakness and confusion over the past 1 month with progressively worsening symptoms over the same timeframe. Patient is currently bedbound, and nonambulatory as per family report. Patient also requir es 6/6 assistance with activities of daily living. EMS was notified and upon arrival the patient was found to be confused and in distress with a temperature 101.2 F. Patient was subsequently transported to [facility] for further care and evaluation of the aforementioned symptoms. Patient seen and evaluated in the emergency department. Lab and imaging studies reviewed. Patient underwent chest x-ray which revealed pneumonia complicated by sepsis, toxic metabolic encephalopathy. Patient initiated on sepsis protocol as well as coronavirus protocol in the emergency department. Patient is confused and lethargic with diminished cognition but has a positive gag reflex and is able to protect his airway. No further history obtainable. Advanced care planning conducted in ED. --COVID-19 test negative; --Sepsis Current Visit: Yes Status: Acute Plan to address problem: Patient is being treated according to sepsis protocol with IV fluids, IV antibiotics. We will follow the culture results. Cultures are negative so . --Acute bronchitis Current Visit: Yes Status: Acute . Plan to address problem: Chest x-ray negative for pneumonia Continue current management --Coronary artery disease status post CABG ; Continue current cardiac medications Patient denies chest pain or chest discomfort -- Toxic metabolic encephalopathy Current Visit: Yes Status: Acute Plan to address problem: Present on admission ,resolved --Type II diabetes mellitus Current Visit: Yes Status: Acute Plan to address problem: Moderate control, Accu-Chek sliding scale coverage ADA diet Long-acting insulin Lantus A1c is 9.7 , closely monitor. --EUFEMIA Current Visit: No Status: Acute Plan to address problem: Due to vasomotor nephropathy Mild improvement, gentle hydration, monitor renal function Avoid nephrotoxins, nephrology consult --Suspected COVID-19 virus infection Current Visit: No Status: Acute Plan to address problem: COVID-19 test is negative --morbid obesity; BMI 43 Patient needs weight reduction when medically stable May benefit by outpatient bariatric surgical/medical consult For weight reduction program -- DVT prophylaxis Current Visit: Yes Status: Acute Plan to address problem: SCD /heparin renal dose (10) Advance care planning/full code Current Visit: Yes Status: Acute Plan to address problem: 12/12/2019; patient was alert and oriented. Lactic acid level trended down to normal. Chest x-ray showed pulmonary congestion. We will continue with IV antibiotics today. We going to get COVID-19 test. Disposition is per clinical course. 12/13/2019; I have discussed with his daughter Jodi and she says she is not able to take care of him when replacement. PT OT evaluation. 12/14/2019; patient is doing well and can be discharged to subacute rehab. 12/15/2019; patient is doing well currently, alert and oriented, no acute issues. Nephrology consulted for EUFEMIA. I have discussed with his daughter Jodi and she states she is not able to take care of him at home and she wants him ivonne cement. Pending subacute rehab placement.\ 12/16/19; patient's spouse requests subacute rehab placement, DC planning and placement per case management when patient is medically stable History Interval history: I have seen and examined the patient at the bedside this morning Patient's chart, current medications reviewed Patient feels slightly better No new complaints Vital signs noted Hospitalist Physical - Constitutional Vitals: Temp Pulse Resp BP Pulse Ox 97.9 F 82 16 123/63 95 12/16/19 04:58 12/16/19 04:58 12/16/19 04:58 12/16/19 04:58 12/16/19 04:58 General appearance: Present: mild distress, obese - EENT Eyes: Present: PERRL, EOM intact - Neck Neck: Present: supple, normal ROM - Respiratory Respiratory effort: normal Respiratory: bilateral: diminished, negative: rales, rhonchi, wheezing - Cardiovascular Rhythm: regular Heart Sounds: Present: S1 & S2 - Extremities Extremities: no ischemia, No edema - Abdominal General gastrointestinal: soft, non-tender, non-distended, normal bowel sounds - Integumentary Integumentary: Present: clear, warm - Psychiatric Psychiatric: appropriate mood/affect - Neurologic Neurologic: CNII-XII intact, moves all extremities HEART Score - HEART Score Troponin: Troponin T < 0.010 ng/mL (0.00-0.029) 12/11/19 20:03 Results - Labs CBC & Chem 7: 12/14/19 07:57 12/16/19 04:22 Labs: Laboratory Last Values WBC 12.3 K/mm3 (4.5-11.0) H 12/14/19 07:57 RBC 5.03 M/mm3 (3.65-5.03) 12/14/19 07:57 Hgb 15.3 gm/dl (11.8-15.2) H 12/14/19 07:57 Hct 45.1 % (35.5-45.6) 12/14/19 07:57 MCV 90 fl (84-94) 12/14/19 07:57 MCH 30 pg (28-32) 12/14/19 07:57 MCHC 34 % (32-34) 12/14/19 07:57 RDW 14.0 % (13.2-15.2) 12/14/19 07:57 Plt Count 276 K/mm3 (140-440) 12/14/19 07:57 Lymph % (Auto) 18.7 % (13.4-35.0) 12/14/19 07:57 [place] % (Auto) 6.8 % (0.0-7.3) 12/14/19 07:57 Eos % (Auto) 0.5 % (0.0-4.3) 12/14/19 07:57 Baso % (Auto) 0.4 % (0.0-1.8) 12/14/19 07:57 Lymph # (Auto) 2.3 K/mm3 (1.2-5.4) 12/14/19 07:57 [place] # (Auto) 0.8 K/mm3 (0.0-0.8) 12/14/19 07:57 Eos # (Auto) 0.1 K/mm3 (0.0-0.4) 12/14/19 07:57 Baso # (Auto) 0.0 K/mm3 (0.0-0.1) 12/14/19 07:57 Add Manual Diff Complete 12/12/19 05:05 Total Counted 100 12/12/19 05:05 Seg Neutrophils % 73.6 % (40.0-70.0) H 12/14/19 07:57 Seg Neuts % (Manual) 94.0 % (40.0-70.0) H 12/12/19 05:05 Band Neutrophils % 0 % 12/12/19 05:05 Lymphocytes % (Manual) 6.0 % (13.4-35.0) L 12/12/19 05:05 Reactive Lymphs % (Man) 0 % 12/12/19 05:05 Monocytes % (Manual) 0 % (0.0-7.3) 12/12/19 05:05 Eosinophils % (Manual) 0 % (0.0-4.3) 12/12/19 05:05 Basophils % (Manual) 0 % (0.0-1.8) 12/12/19 05:05 Metamyelocytes % 0 % 12/12/19 05:05 Myelocytes % 0 % 12/12/19 05:05 Promyelocytes % 0 % 12/12/19 05:05 Blast Cells % 0 % 12/12/19 05:05 Nucleated RBC % Not Reportable 12/12/19 05:05 Seg Neutrophils # 9.0 K/mm3 (1.8-7.7) H 12/14/19 07:57 Seg Neutrophils # Man 10.8 K/mm3 (1.8-7.7) H 12/12/19 05:05 Band Neutrophils # 0.0 K/mm3 12/12/19 05:05 Lymphocytes # (Manual) 0.7 K/mm3 (1.2-5.4) L 12/12/19 05:05 Abs React Lymphs (Man) 0.0 K/mm3 12/12/19 05:05 Monocytes # (Manual) 0.0 K/mm3 (0.0-0.8) 12/12/19 05:05 Eosinophils # (Manual) 0.0 K/mm3 (0.0-0.4) 12/12/19 05:05 Basophils # (Manual) 0.0 K/mm3 (0.0-0.1) 12/12/19 05:05 Metamyelocytes # 0.0 K/mm3 12/12/19 05:05 Myelocytes # 0.0 K/mm3 12/12/19 05:05 Promyelocytes # 0.0 K/mm3 12/12/19 05:05 Blast Cells # 0.0 K/mm3 12/12/19 05:05 WBC Morphology Not Reportable 12/12/19 05:05 Hypersegmented Neuts Not Reportable 12/12/19 05:05 Hyposegmented Neuts Not Reportable 12/12/19 05:05 Hypogranular Neuts Not Reportable 12/12/19 05:05 Smudge Cells Not Reportable 12/12/19 05:05 Toxic Granulation Not Reportable 12/12/19 05:05 Toxic Vacuolation Not Reportable 12/12/19 05:05 Dohle Bodies Not Reportable 12/12/19 05:05 Pelger-Huet Anomaly Not Reportable 12/12/19 05:05 Sam Rods Not Reportable 12/12/19 05:05 Platelet Estimate Consistent w auto 12/12/19 05:05 Clumped Platelets Not Reportable 12/12/19 05:05 Plt Clumps, EDTA Not Reportable 12/12/19 05:05 Large Platelets Not Reportable 12/12/19 05:05 Giant Platelets Not Reportable 12/12/19 05:05 Platelet Satelliting Not Reportable 12/12/19 05:05 Plt Morphology Comment Not Reportable 12/12/19 05:05 RBC Morphology Normal 12/12/19 05:05 Dimorphic RBCs Not Reportable 12/12/19 05:05 Polychromasia Not Reportable 12/12/19 05:05 Hypochromasia Not Reportable 12/12/19 05:05 Poikilocytosis Not Reportable 12/12/19 05:05 Anisocytosis Not Reportable 12/12/19 05:05 Microcytosis Not Reportable 12/12/19 05:05 Macrocytosis Not Reportable 12/12/19 05:05 Spherocytes Not Reportable 12/12/19 05:05 Pappenheimer Bodies Not Reportable 12/12/19 05:05 Sickle Cells Not Reportable 12/12/19 05:05 Target Cells Not Reportable 12/12/19 05:05 Tear Drop Cells Not Reportable 12/12/19 05:05 Ovalocytes Not Reportable 12/12/19 05:05 Helmet Cells Not Reportable 12/12/19 05:05 Saavedra-Teachey Bodies Not Reportable 12/12/19 05:05 Brielle Rings Not Reportable 12/12/19 05:05 Sanam Cells Not Reportable 12/12/19 05:05 Bite Cells Not Reportable 12/12/19 05:05 Crenated Cell Not Reportable 12/12/19 05:05 Elliptocytes Not Reportable 12/12/19 05:05 Acanthocytes (Spur) Not Reportable 12/12/19 05:05 Rouleaux Not Reportable 12/12/19 05:05 Hemoglobin C Crystals Not Reportable 12/12/19 05:05 Schistocytes Not Reportable 12/12/19 05:05 Malaria parasites Not Reportable 12/12/19 05:05 [place] Bodies Not Reportable 12/12/19 05:05 Hem Pathologist Commnt No 12/12/19 05:05 PT 13.1 Sec. (12.2-14.9) 12/11/19 18:37 INR 0.97 (0.87-1.13) 12/11/19 18:37 APTT 20.1 Sec. (24.2-36.6) L 12/11/19 18:37 D-Dimer 550.63 ng/mlDDU (0-234) H 12/11/19 21:50 Sodium 131 mmol/L (137-145) L D 12/16/19 04:22 Potassium 3.8 mmol/L (3.6-5.0) 12/16/19 04:22 Chloride 98.7 mmol/L (98-107) 12/16/19 04:22 Carbon Dioxide 23 mmol/L (22-30) 12/16/19 04:22 Anion Gap 13 mmol/L 12/16/19 04:22 BUN 34 mg/dL (9-20) H 12/16/19 04:22 Creatinine 2.1 mg/dL (0.8-1.3) H 12/16/19 04:22 Estimated GFR 37 ml/min 12/16/19 04:22 BUN/Creatinine Ratio 16 % 12/16/19 04:22 Glucose 220 mg/dL (75-100) H 12/16/19 04:22 POC Glucose 206 mg/dL (70-105) H 12/16/19 07:56 Hemoglobin A1c 9.7 % (4-6) H 12/12/19 05:05 Lactic Acid 1.50 mmol/L (0.7-2.0) 12/12/19 05:05 Calcium 8.9 mg/dL (8.4-10.2) 12/16/19 04:22 Ferritin 646.4 ng/mL (30.0-300.0) H 12/11/19 21:50 Total Bilirubin 0.70 mg/dL (0.1-1.2) 12/12/19 05:05 Direct Bilirubin < 0.2 mg/dL (0-0.2) 12/11/19 18:37 Indirect Bilirubin 0.6 mg/dL 12/11/19 18:37 AST 26 units/L (5-40) 12/12/19 05:05 ALT 15 units/L (7-56) 12/12/19 05:05 Alkaline Phosphatase 68 units/L (35-129) 12/12/19 05:05 Ammonia 36.0 umol/L (25-60) 12/11/19 18:37 Lactate Dehydrogenase 188 units/L (91-180) H 12/11/19 21:50 Troponin T < 0.010 ng/mL (0.00-0.029) 12/11/19 20:03 C-Reactive Protein 18.20 mg/dL (0.00-1.30) H 12/11/19 21:50 NT-Pro-B Natriuret Pep 224.4 pg/mL (0-900) 12/11/19 18:37 Total Protein 8.0 g/dL (6.3-8.2) 12/12/19 05:05 Albumin 3.0 g/dL (3.9-5) L 12/12/19 05:05 Albumin/Globulin Ratio 0.6 % 12/12/19 05:05 Procalcitonin 0.18 ng/mL (<0.15) 12/11/19 21:50 TSH 1.240 mlU/mL (0.270-4.200) 12/11/19 18:37 Urine Color Yellow (Yellow) 12/11/19 23:00 Urine Turbidity Clear (Clear) 12/11/19 23:00 Urine pH 6.0 (5.0-7.0) 12/11/19 23:00 Ur Specific [place] 1.013 (1.003-1.030) 12/11/19 23:00 Urine Protein 30 mg/dl mg/dL (Negative) 12/11/19 23:00 Urine Glucose (UA) 150 mg/dL (Negative) 12/11/19 23:00 Urine Ketones Neg mg/dL (Negative) 12/11/19 23:00 Urine Blood Mod (Negative) 12/11/19 23:00 Urine Nitrite Neg (Negative) 12/11/19 23:00 Urine Bilirubin Neg (Negative) 12/11/19 23:00 Urine Urobilinogen 2.0 mg/dL (<2.0) 12/11/19 23:00 Ur Leukocyte Esterase Neg (Negative) 12/11/19 23:00 Urine WBC (Auto) 1.0 /HPF (0.0-6.0) 12/11/19 23:00 Urine RBC (Auto) 1.0 /HPF (0.0-6.0) 12/11/19 23:00 U Epithel Cells (Auto) 1.0 /HPF (0-13.0) 12/11/19 23:00 Coronavirus (PCR) Negative (Negative) 12/12/19 09:08 Microbiology: Microbiology 12/11/19 18:52 Peripheral/Venous Blood Culture - Preliminary NO GROWTH AFTER 4 DAYS 12/11/19 18:37 Peripheral/Venous Blood Culture - Preliminary NO GROWTH AFTER 4 DAYS Robert/IV: Voiding Method Urinal IV Catheter Type [Right Peripheral IV Antecubital] Active Medications - Current Medications Current Medications: Generic Name Dose Route Start Last Admin Trade Name Freq PRN Reason Stop Dose Admin Acetaminophen 650 mg 12/11/19 21:48 Tylenol PO Q4H PRN Pain MILD(1-3)/Fever >100.5/MUSTAFA Aspirin 325 mg 12/13/19 22:00 12/15/19 22:59 Aspirin PO 325 mg HS JOHNNY Administration Azithromycin 500 mg 12/15/19 10:00 12/15/19 09:18 Zithromax PO 12/16/19 12:00 500 mg QDAY JOHNNY Administration Dextrose 0 ml 12/11/19 22:45 D50w (25gm) Syringe IV Q30MIN PRN Hypoglycemia Protocol Furosemide 20 mg 12/13/19 12:00 12/15/19 09:16 Lasix IV 20 mg QDAY JOHNNY Administration Heparin Sodium (Porcine) 5,000 unit 12/11/19 22:00 12/15/19 22:58 Heparin SUB-Q 5,000 unit Q12HR JOHNNY Administration Ceftriaxone Sodium 2 gm in 100 mls @ 200 mls/hr 12/12/19 10:00 12/15/19 09:15 Rocephin/Ns 2 Gm/100 Ml IV 12/18/19 12:00 200 mls/hr Q24HR JOHNNY Administration Protocol Insulin Glargine 50 units 12/13/19 22:00 12/15/19 23:01 Lantus SUB-Q 50 units QHS JOHNNY Administration Insulin Human Lispro 0 unit 12/12/19 07:30 12/15/19 23:03 Humalog SUB-Q 4 unit ACHS JOHNNY Administration Protocol Insulin Human Lispro 10 unit 12/13/19 07:30 12/15/19 17:13 Humalog SUB-Q Not Given [facility] Isosorbide Mononitrate 30 mg 12/14/19 10:00 12/15/19 09:17 Imdur PO 30 mg DAILY JOHNNY Administration Metoprolol Tartrate 25 mg 12/13/19 22:00 12/15/19 23:01 Metoprolol PO 25 mg BID JOHNNY Administration Ondansetron HCl 4 mg 12/11/19 21:48 Zofran IV Q8H PRN Nausea And Vomiting Oxycodone/Acetaminophen 1 tab 12/11/19 21:53 Percocet 5/325 PO Q6H PRN PAIN (4-6) Pravastatin Sodium 80 mg 12/13/19 22:00 12/15/19 22:59 Pravachol PO 80 mg QHS JOHNNY Administration Sodium Chloride 10 ml 12/11/19 22:00 12/15/19 23:00 Sodium Chloride Flush Syringe 10 Ml IV 10 ml BID JOHNNY Administration Sodium Chloride 10 ml 12/11/19 21:48 12/12/19 06:04 Sodium Chloride Flush Syringe 10 Ml IV 10 ml PRN PRN Administration LINE FLUSH
[2019-12-16] MEDS: INSULIN LISPRO 100 UNIT/ML VIAL 3 mL SUB-Q SCH ×7 (08:50→22:15)
[2019-12-16 09:18] LABS: Creatinine,Urine 42.2 mg/dL (0.1-20.0); Protein/Creatinine Ratio,Urine 0.21
[2019-12-16] MEDS: cefTRIAXone/NS 2 GM/100 ML 2 GM/100 ML BAG IV SCH (09:19)
[2019-12-16] MEDS: AZITHROMYCIN 250 MG TAB PO SCH (09:20)
[2019-12-16] MEDS: HEPARIN 5,000 UNIT/1 ML VIAL SUB-Q SCH ×2 (09:20→22:32)
[2019-12-16] MEDS: METOPROLOL TARTRATE 25 MG TAB PO SCH ×2 (09:27→22:31)
--- NOTE | 2019-12-16 09:46 | Progress Note ---
Assessment and Plan # Acute Kidney Injury: no clear baseline, certainly at risk for CKD given DM, HTN, age, obesity. Will check serologies, renal ultrasound for evaluation. PTH to assess for secondary hyperparathyroidism. Creatinine appears stable around 2 .1, would benefit from outpatient follow up - UP/C minimal, remainder of tests pending - avoid nephrotoxins - po hydration as able - DM control - Is/Os - renally dose meds - daily renal labs # HTN: BP at goal, monitor for hypotension given age and risk of over-diuresis, can continue Lasix for now # DM: management per primary # Dyspnea: stable Subjective Date of service: 12/16/19 Interval history: No acute issues notes, denies any concerns this AM Objective - Exam Narrative Exam: Constitutional: no acute distress Head: NC/AT Neck: supple Lungs: clear to auscultation CV: RRR, no M/R/G Abdomen: soft, non-tender, bowel sounds present Back: nontender Extremities: no edema, pulses WNL Skin: intact Neuro: no focal deficits, alert and oriented x4 - Vital Signs Vital signs: Vital Signs - 12hr 12/15/19 12/16/19 12/16/19 22:00 04:58 09:27 Temperature 97.9 F Pulse Rate 82 79 Respiratory 20 16 Rate Blood Pressure 123/63 138/58 O2 Sat by Pulse 95 Oximetry - Lab 12/14/19 07:57 12/16/19 04:22 Most recent lab results Calcium 8.9 mg/dL (8.4-10.2) 12/16/19 04:22 Urine Creatinine 42.2 mg/dL (0.1-20.0) H 12/16/19 06:52 Urine Total Protein 9 mg/dL (5-11.8) 12/16/19 06:52 Medications & Allergies - Medications Allergies/Adverse Reactions: Allergies No Known Allergies Allergy (Verified 04/19/14 09:47) Home Medications: Home Medications Medication Instructions Recorded Confirmed Last Taken Type Aspirin 325 mg PO HS 12/11/19 12/11/19 12/10/19 History ISOSORBIDE MONOnitrate [Imdur ER] 30 mg PO DAILY 12/11/19 12/11/19 12/10/19 History Insulin NPH/Regular [Novolin 70/30] 50 unit SQ BID 12/11/19 12/11/19 12/11/19 History Metoprolol [Lopressor] 25 mg PO BID 12/11/19 12/11/19 12/10/19 History Simvastatin 40 mg PO HS 12/11/19 12/11/19 12/10/19 History hydroCHLOROthiazide 12.5 mg PO DAILY 12/11/19 12/11/19 12/10/19 History [Hydrochlorothiazide] Active Medications: Generic Name Dose Route Start Last Admin Trade Name Freq PRN Reason Stop Dose Admin Acetaminophen 650 mg 12/11/19 21:48 Tylenol PO Q4H PRN Pain MILD(1-3)/Fever >100.5/MUSTAFA Aspirin 325 mg 12/13/19 22:00 12/15/19 22:59 Aspirin PO 325 mg HS JOHNNY Administration Azithromycin 500 mg 12/15/19 10:00 12/16/19 09:20 Zithromax PO 12/16/19 12:00 500 mg QDAY JOHNNY Administration Dextrose 0 ml 12/11/19 22:45 D50w (25gm) Syringe IV Q30MIN PRN Hypoglycemia Protocol Furosemide 20 mg 12/13/19 12:00 12/15/19 09:16 Lasix IV 20 mg QDAY JOHNNY Administration Heparin Sodium (Porcine) 5,000 unit 12/11/19 22:00 12/16/19 09:20 Heparin SUB-Q 5,000 unit Q12HR JOHNNY Administration Ceftriaxone Sodium 2 gm in 100 mls @ 200 mls/hr 12/12/19 10:00 12/16/19 09:19 Rocephin/Ns 2 Gm/100 Ml IV 12/18/19 12:00 200 mls/hr Q24HR JOHNNY Administration Protocol Insulin Glargine 50 units 12/13/19 22:00 12/15/19 23:01 Lantus SUB-Q 50 units QHS JOHNNY Administration Insulin Human Lispro 0 unit 12/12/19 07:30 12/15/19 23:03 Humalog SUB-Q 4 unit ACHS JOHNNY Administration Protocol Insulin Human Lispro 10 unit 12/13/19 07:30 12/15/19 17:13 Humalog SUB-Q Not Given AC JOHNNY Isosorbide Mononitrate 30 mg 12/14/19 10:00 12/16/19 09:27 Imdur PO 30 mg DAILY JOHNNY Administration Metoprolol Tartrate 25 mg 12/13/19 22:00 12/16/19 09:27 Metoprolol PO 25 mg BID JOHNNY Administration Ondansetron HCl 4 mg 12/11/19 21:48 Zofran IV Q8H PRN Nausea And Vomiting Oxycodone/Acetaminophen 1 tab 12/11/19 21:53 Percocet 5/325 PO Q6H PRN PAIN (4-6) Pravastatin Sodium 80 mg 12/13/19 22:00 12/15/19 22:59 Pravachol PO 80 mg QHS JOHNNY Administration Sodium Chloride 10 ml 12/11/19 22:00 12/15/19 23:00 Sodium Chloride Flush Syringe 10 Ml IV 10 ml BID JOHNNY Administration Sodium Chloride 10 ml 12/11/19 21:48 12/12/19 06:04 Sodium Chloride Flush Syringe 10 Ml IV 10 ml PRN PRN Administration LINE FLUSH
[2019-12-16] MEDS: FUROSEMIDE 20 MG/2 ML INJ IV SCH (10:06)
[2019-12-16] MEDS: oxyCODONE /ACETAMINOPHEN 5-325MG TAB PO PRN (13:57)
[2019-12-16] MEDS: ACETAMINOPHEN 325 MG TAB PO PRN (22:31)
[2019-12-16] MEDS: ASPIRIN 325 MG TAB PO SCH (22:31)
[2019-12-16] MEDS: PRAVASTATIN 80 MG TAB PO SCH (22:31)
[2019-12-16] MEDS: INSULIN GLARGINE 100 UNITS/ML SUB-Q SCH (22:32)
[2019-12-17] MEDS: INSULIN LISPRO 100 UNIT/ML VIAL 3 mL SUB-Q SCH ×7 (08:39→23:53)
--- NOTE | 2019-12-17 09:45 | Progress Note ---
Assessment and Plan Impression * Stage III chronic kidney disease - patient w/ multiple risk factors for CKD - DM, HTN, CAD * Altered mental status * Fever --Blood cx NGTD (Dec 10) * Dementia * Hypertension * Type II DM * Hx of CAD s/p CABG Plan: * Renal function is stable - baseline appears to be 2.1-2.3mg/dL * Continue conservative management * Abx per primary team - Rocephin * Dose medications for renal function * Epogen TIW prn * Renal/HD diet Subjective Date of service: 12/17/19 Interval history: Patient has no complaints today Objective - Vital Signs Vital signs: Vital Signs - 12hr 12/16/19 12/16/19 12/17/19 22:24 22:31 04:58 Temperature 100.3 F H 99.3 F Pulse Rate 82 75 Respiratory 20 22 21 Rate Blood Pressure 117/49 112/53 O2 Sat by Pulse 93 94 Oximetry - General Appearance General appearance: well-developed, well-nourished EENT: ATNC Respiratory: Present: Clear to Ascultation Cardiology: regular, S1S2 Gastrointestinal: normal, no tenderness, no distended, obese Integumentary: no rash, warm and dry Musculoskeletal: other (no edema) Psychiatric: cooperative - Lab 12/14/19 07:57 12/17/19 01:42 Most recent lab results Calcium 9.0 mg/dL (8.4-10.2) 12/17/19 01:42 Urine Creatinine 42.2 mg/dL (0.1-20.0) H 12/16/19 06:52 Urine Total Protein 9 mg/dL (5-11.8) 12/16/19 06:52 Medications & Allergies - Medications Allergies/Adverse Reactions: Allergies No Known Allergies Allergy (Verified 04/19/14 09:47) Home Medications: Home Medications Medication Instructions Recorded Confirmed Last Taken Type Aspirin 325 mg PO HS 12/11/19 12/11/19 12/10/19 History ISOSORBIDE MONOnitrate [Imdur ER] 30 mg PO DAILY 12/11/19 12/11/19 12/10/19 History Insulin NPH/Regular [Novolin 70/30] 50 unit SQ BID 12/11/19 12/11/19 12/11/19 History Metoprolol [Lopressor] 25 mg PO BID 1112/11/19 12/10/19 History Simvastatin 40 mg PO HS 12/11/19 12/11/19 12/10/19 History hydroCHLOROthiazide 12.5 mg PO DAILY 12/11/19 12/11/19 12/10/19 History [Hydrochlorothiazide] Active Medications: Generic Name Dose Route Start Last Admin Trade Name Freq PRN Reason Stop Dose Admin Acetaminophen 650 mg 12/11/19 21:48 12/16/19 22:31 Tylenol PO 650 mg Q4H PRN Administration Pain MILD(1-3)/Fever >100.5/MUSTAFA Aspirin 325 mg 12/13/19 22:00 12/16/19 22:31 Aspirin PO 325 mg HS JOHNNY Administration Dextrose 0 ml 12/11/19 22:45 D50w (25gm) Syringe IV Q30MIN PRN Hypoglycemia Protocol Furosemide 20 mg 12/13/19 12:00 12/16/19 10:06 Lasix IV 20 mg QDAY JOHNNY Administration Heparin Sodium (Porcine) 5,000 unit 12/11/19 22:00 12/16/19 22:32 Heparin SUB-Q 5,000 unit Q12HR JOHNNY Administration Ceftriaxone Sodium 2 gm in 100 mls @ 200 mls/hr 12/12/19 10:00 12/16/19 09:19 Rocephin/Ns 2 Gm/100 Ml IV 12/18/19 12:00 200 mls/hr Q24HR JOHNNY Administration Protocol Insulin Glargine 50 units 12/13/19 22:00 12/16/19 22:32 Lantus SUB-Q 50 units QHS JOHNNY Administration Insulin Human Lispro 0 unit 12/12/19 07:30 12/17/19 08:39 Humalog SUB-Q 3 unit ACHS JOHNNY Administration Protocol Insulin Human Lispro 10 unit 12/13/19 07:30 12/17/19 08:39 Humalog SUB-Q 10 unit AC JOHNNY Administration Isosorbide Mononitrate 30 mg 12/14/19 10:00 12/16/19 09:27 Imdur PO 30 mg DAILY JOHNNY Administration Metoprolol Tartrate 25 mg 12/13/19 22:00 12/16/19 22:31 Metoprolol PO 25 mg BID JOHNNY Administration Ondansetron HCl 4 mg 12/11/19 21:48 Zofran IV Q8H PRN Nausea And Vomiting Oxycodone/Acetaminophen 1 tab 12/11/19 21:53 12/16/19 13:57 Percocet 5/325 PO 1 tab Q6H PRN Administration PAIN (4-6) Pravastatin Sodium 80 mg 12/13/19 22:00 12/16/19 22:31 Pravachol PO 80 mg QHS JOHNNY Administration Sodium Chloride 10 ml 12/11/19 22:00 12/16/19 22:32 Sodium Chloride Flush Syringe 10 Ml IV 10 ml BID JOHNNY Administration Sodium Chloride 10 ml 12/11/19 21:48 12/12/19 06:04 Sodium Chloride Flush Syringe 10 Ml IV 10 ml PRN PRN Administration LINE FLUSH
[2019-12-17] MEDS: FUROSEMIDE 20 MG/2 ML INJ IV SCH (09:58)
[2019-12-17] MEDS: HEPARIN 5,000 UNIT/1 ML VIAL SUB-Q SCH ×2 (09:58→23:57)
[2019-12-17] MEDS: METOPROLOL TARTRATE 25 MG TAB PO SCH (09:59)
[2019-12-17] MEDS: cefTRIAXone/NS 2 GM/100 ML 2 GM/100 ML BAG IV SCH (09:59)
--- NOTE | 2019-12-17 14:42 | Progress Note ---
Assessment and Plan Assessment and plan: 79 YO Male with CAD S/P CABG, HTN, DM, Vascular Dementia, Cerebral Atherosclerosis, Obesity Hypoventilation Syndrome, presents to ED for evaluation. Patient is confused with diminished cognition and is unable to provide history. Patient history provided by EMS staff, ED staff, as well as patient family who was at bedside during exam and interview. As per family the patient has experienced increased weakness and confusion over the past 1 month with progressively worsening symptoms over the same timeframe. Patient is currently bedbound, and nonambulatory as per family report. Patient also requir es 6/6 assistance with activities of daily living. EMS was notified and upon arrival the patient was found to be confused and in distress with a temperature 101.2 F. Patient was subsequently transported to [facility] for further care and evaluation of the aforementioned symptoms. Patient seen and evaluated in the emergency department. Lab and imaging studies reviewed. Patient underwent chest x-ray which revealed pneumonia complicated by sepsis, toxic metabolic encephalopathy. --COVID-19 test negative; --SIRS:[No criteria for sepsis] Current Visit: Yes Status: Acute Plan to address problem: No criteria for sepsis SIRS, leukocytosis, tachycardia --Acute bronchitis Current Visit: Yes Status: Acute . Plan to address problem: Chest x-ray negative for pneumonia Continue current management --Coronary artery disease status post CABG ; Current Visit: Yes Status: Acute . Plan to address problem: Continue current cardiac medications Patient denies chest pain or chest discomfort -- Toxic metabolic encephalopathy Current Visit: Yes Status: Acute Plan to address problem: Present on admission ,resolved --Type II diabetes mellitus Current Visit: Yes Status: Acute Plan to address problem: Moderate control, Accu-Chek sliding scale coverage ADA diet Long-acting insulin Lantus A1c is 9.7 , closely monitor. --EUFEMIA Current Visit: No Status: Acute Plan to address problem: Due to vasomotor nephropathy Mild improvement, gentle hydration, monitor renal function Avoid nephrotoxins, nephrology consult --Suspected COVID-19 virus infection Current Visit: No Status: Acute Plan to address problem: COVID-19 test is negative --morbid obesity; BMI 43 Patient needs weight reduction when medically stable May benefit by outpatient bariatric surgical/medical consult For weight reduction program -- DVT prophylaxis Current Visit: Yes Status: Acute Plan to address problem: SCD /heparin renal dose -- Advance care planning/full code Current Visit: Yes Status: Acute . Plan to address problem: Discharge planning; Possible SNF/subacute rehab placement when medically stable 12/12/19; patient was alert and oriented. Lactic acid level trended down to normal. Chest x-ray showed pulmonary congestion. We will continue with IV antibiotics today. We going to get COVID-19 test. Disposition is per clinical course. 12/13/19; I have discussed with his daughter Jodi and she says she is not able to take care of him when replacement. PT OT evaluation. 12/14/19; patient is doing well and can be discharged to subacute rehab. 12/15/19; patient is doing well currently, alert and oriented, no acute issues. Nephrology consulted for EUFEMIA. I have discussed with his daughter Jodi and she states she is not able to take care of him at home and she wants him placement. Pending subacute rehab placement.\ 12/16/19; patient's spouse requests subacute rehab placement, DC planning and placement per case management when patient is medically stable 12/17/19; patient has no criteria for sepsis, SIRS, leukocytosis and tachycardia, continue current management, Patient spouse request SNF/subacute rehab placement, case management assisting with discharge plan History Interval history: I have seen and examined the patient at the bedside Patient's chart and medications reviewed Morbidly obese, patient has no new complaints Vital signs reviewed Patient is morbidly obese BMI of 43.4 Hospitalist Physical - Constitutional Vitals: Temp Pulse Resp BP Pulse Ox 98.5 F 75 18 94/51 95 12/17/19 10:59 12/17/19 10:59 12/17/19 10:59 12/17/19 10:59 12/17/19 10:59 General appearance: Present: mild distress, obese (Morbidly obese) - EENT Eyes: Present: PERRL, EOM intact - Neck Neck: Present: supple, normal ROM - Respiratory Respiratory effort: normal Respiratory: bilateral: diminished, negative: rales, rhonchi, wheezing - Cardiovascular Rhythm: regular Heart Sounds: Present: S1 & S2 - Extremities Extremities: no ischemia, No edema - Abdominal General gastrointestinal: soft, non-tender, non-distended, normal bowel sounds - Integumentary Integumentary: Present: clear, warm - Psychiatric Psychiatric: appropriate mood/affect, cooperative - Neurologic Neurologic: CNII-XII intact, moves all extremities HEART Score - HEART Score Troponin: Troponin T < 0.010 ng/mL (0.00-0.029) 12/11/19 20:03 Results - Labs CBC & Chem 7: 12/14/19 07:57 12/17/19 01:42 Labs: Laboratory Last Values WBC 12.3 K/mm3 (4.5-11.0) H 12/14/19 07:57 RBC 5.03 M/mm3 (3.65-5.03) 12/14/19 07:57 Hgb 15.3 gm/dl (11.8-15.2) H 12/14/19 07:57 Hct 45.1 % (35.5-45.6) 12/14/19 07:57 MCV 90 fl (84-94) 12/14/19 07:57 MCH 30 pg (28-32) 12/14/19 07:57 MCHC 34 % (32-34) 12/14/19 07:57 RDW 14.0 % (13.2-15.2) 12/14/19 07:57 Plt Count 276 K/mm3 (140-440) 12/14/19 07:57 Lymph % (Auto) 18.7 % (13.4-35.0) 12/14/19 07:57 [place] % (Auto) 6.8 % (0.0-7.3) 12/14/19 07:57 Eos % (Auto) 0.5 % (0.0-4.3) 12/14/19 07:57 Baso % (Auto) 0.4 % (0.0-1.8) 12/14/19 07:57 Lymph # (Auto) 2.3 K/mm3 (1.2-5.4) 12/14/19 07:57 [place] # (Auto) 0.8 K/mm3 (0.0-0.8) 12/14/19 07:57 Eos # (Auto) 0.1 K/mm3 (0.0-0.4) 12/14/19 07:57 Baso # (Auto) 0.0 K/mm3 (0.0-0.1) 12/14/19 07:57 Add Manual Diff Complete 12/12/19 05:05 Total Counted 100 12/12/19 05:05 Seg Neutrophils % 73.6 % (40.0-70.0) H 12/14/19 07:57 Seg Neuts % (Manual) 94.0 % (40.0-70.0) H 12/12/19 05:05 Band Neutrophils % 0 % 12/12/19 05:05 Lymphocytes % (Manual) 6.0 % (13.4-35.0) L 12/12/19 05:05 Reactive Lymphs % (Man) 0 % 12/12/19 05:05 Monocytes % (Manual) 0 % (0.0-7.3) 12/12/19 05:05 Eosinophils % (Manual) 0 % (0.0-4.3) 12/12/19 05:05 Basophils % (Manual) 0 % (0.0-1.8) 12/12/19 05:05 Metamyelocytes % 0 % 12/12/19 05:05 Myelocytes % 0 % 12/12/19 05:05 Promyelocytes % 0 % 12/12/19 05:05 Blast Cells % 0 % 12/12/19 05:05 Nucleated RBC % Not Reportable 12/12/19 05:05 Seg Neutrophils # 9.0 K/mm3 (1.8-7.7) H 12/14/19 07:57 Seg Neutrophils # Man 10.8 K/mm3 (1.8-7.7) H 12/12/19 05:05 Band Neutrophils # 0.0 K/mm3 12/12/19 05:05 Lymphocytes # (Manual) 0.7 K/mm3 (1.2-5.4) L 12/12/19 05:05 Abs React Lymphs (Man) 0.0 K/mm3 12/12/19 05:05 Monocytes # (Manual) 0.0 K/mm3 (0.0-0.8) 12/12/19 05:05 Eosinophils # (Manual) 0.0 K/mm3 (0.0-0.4) 12/12/19 05:05 Basophils # (Manual) 0.0 K/mm3 (0.0-0.1) 12/12/19 05:05 Metamyelocytes # 0.0 K/mm3 12/12/19 05:05 Myelocytes # 0.0 K/mm3 12/12/19 05:05 Promyelocytes # 0.0 K/mm3 12/12/19 05:05 Blast Cells # 0.0 K/mm3 12/12/19 05:05 WBC Morphology Not Reportable 12/12/19 05:05 Hypersegmented Neuts Not Reportable 12/12/19 05:05 Hyposegmented Neuts Not Reportable 12/12/19 05:05 Hypogranular Neuts Not Reportable 12/12/19 05:05 Smudge Cells Not Reportable 12/12/19 05:05 Toxic Granulation Not Reportable 12/12/19 05:05 Toxic Vacuolation Not Reportable 12/12/19 05:05 Dohle Bodies Not Reportable 12/12/19 05:05 Pelger-Huet Anomaly Not Reportable 12/12/19 05:05 Sam Rods Not Reportable 12/12/19 05:05 Platelet Estimate Consistent w auto 12/12/19 05:05 Clumped Platelets Not Reportable 12/12/19 05:05 Plt Clumps, EDTA Not Reportable 12/12/19 05:05 Large Platelets Not Reportable 12/12/19 05:05 Giant Platelets Not Reportable 12/12/19 05:05 Platelet Satelliting Not Reportable 12/12/19 05:05 Plt Morphology Comment Not Reportable 12/12/19 05:05 RBC Morphology Normal 12/12/19 05:05 Dimorphic RBCs Not Reportable 12/12/19 05:05 Polychromasia Not Reportable 12/12/19 05:05 Hypochromasia Not Reportable 12/12/19 05:05 Poikilocytosis Not Reportable 12/12/19 05:05 Anisocytosis Not Reportable 12/12/19 05:05 Microcytosis Not Reportable 12/12/19 05:05 Macrocytosis Not Reportable 12/12/19 05:05 Spherocytes Not Reportable 12/12/19 05:05 Pappenheimer Bodies Not Reportable 12/12/19 05:05 Sickle Cells Not Reportable 12/12/19 05:05 Target Cells Not Reportable 12/12/19 05:05 Tear Drop Cells Not Reportable 12/12/19 05:05 Ovalocytes Not Reportable 12/12/19 05:05 Helmet Cells Not Reportable 12/12/19 05:05 Saavedra-Purdy Bodies Not Reportable 12/12/19 05:05 [place] Rings Not Reportable 12/12/19 05:05 Sanam Cells Not Reportable 12/12/19 05:05 Bite Cells Not Reportable 12/12/19 05:05 Crenated Cell Not Reportable 12/12/19 05:05 Elliptocytes Not Reportable 12/12/19 05:05 Acanthocytes (Spur) Not Reportable 12/12/19 05:05 Rouleaux Not Reportable 12/12/19 05:05 Hemoglobin C Crystals Not Reportable 12/12/19 05:05 Schistocytes Not Reportable 12/12/19 05:05 Malaria parasites Not Reportable 12/12/19 05:05 [place] Bodies Not Reportable 12/12/19 05:05 Hem Pathologist Commnt No 12/12/19 05:05 PT 13.1 Sec. (12.2-14.9) 12/11/19 18:37 INR 0.97 (0.87-1.13) 12/11/19 18:37 APTT 20.1 Sec. (24.2-36.6) L 12/11/19 18:37 D-Dimer 550.63 ng/mlDDU (0-234) H 12/11/19 21:50 Sodium 132 mmol/L (137-145) L 12/17/19 01:42 Potassium 4.0 mmol/L (3.6-5.0) 12/17/19 01:42 Chloride 99.1 mmol/L (98-107) 12/17/19 01:42 Carbon Dioxide 22 mmol/L (22-30) 12/17/19 01:42 Anion Gap 15 mmol/L 12/17/19 01:42 BUN 32 mg/dL (9-20) H 12/17/19 01:42 Creatinine 2.3 mg/dL (0.8-1.3) H 12/17/19 01:42 Estimated GFR 33 ml/min 12/17/19 01:42 BUN/Creatinine Ratio 14 % 12/17/19 01:42 Glucose 191 mg/dL (75-100) H 12/17/19 01:42 POC Glucose 202 mg/dL (70-105) H 12/17/19 08:10 Hemoglobin A1c 9.7 % (4-6) H 12/12/19 05:05 Lactic Acid 1.50 mmol/L (0.7-2.0) 12/12/19 05:05 Calcium 9.0 mg/dL (8.4-10.2) 12/17/19 01:42 Ferritin 646.4 ng/mL (30.0-300.0) H 12/11/19 21:50 Total Bilirubin 0.70 mg/dL (0.1-1.2) 12/12/19 05:05 Direct Bilirubin < 0.2 mg/dL (0-0.2) 12/11/19 18:37 Indirect Bilirubin 0.6 mg/dL 12/11/19 18:37 AST 26 units/L (5-40) 12/12/19 05:05 ALT 15 units/L (7-56) 12/12/19 05:05 Alkaline Phosphatase 68 units/L (35-129) 12/12/19 05:05 Ammonia 36.0 umol/L (25-60) 12/11/19 18:37 Lactate Dehydrogenase 188 units/L (91-180) H 12/11/19 21:50 Troponin T < 0.010 ng/mL (0.00-0.029) 12/11/19 20:03 C-Reactive Protein 18.20 mg/dL (0.00-1.30) H 12/11/19 21:50 NT-Pro-B Natriuret Pep 224.4 pg/mL (0-900) 12/11/19 18:37 Total Protein 8.0 g/dL (6.3-8.2) 12/12/19 05:05 Albumin 3.0 g/dL (3.9-5) L 12/12/19 05:05 Albumin/Globulin Ratio 0.6 % 12/12/19 05:05 Procalcitonin 0.18 ng/mL (<0.15) 12/11/19 21:50 TSH 1.240 mlU/mL (0.270-4.200) 12/11/19 18:37 PTH Intact 78.16 pg/mL (15-65) H 12/16/19 20:24 Urine Color Yellow (Yellow) 12/11/19 23:00 Urine Turbidity Clear (Clear) 12/11/19 23:00 Urine pH 6.0 (5.0-7.0) 12/11/19 23:00 Ur Specific [place] 1.013 (1.003-1.030) 12/11/19 23:00 Urine Protein 30 mg/dl mg/dL (Negative) 12/11/19 23:00 Urine Glucose (UA) 150 mg/dL (Negative) 12/11/19 23:00 Urine Ketones Neg mg/dL (Negative) 12/11/19 23:00 Urine Blood Mod (Negative) 12/11/19 23:00 Urine Nitrite Neg (Negative) 12/11/19 23:00 Urine Bilirubin Neg (Negative) 12/11/19 23:00 Urine Urobilinogen 2.0 mg/dL (<2.0) 12/11/19 23:00 Ur Leukocyte Esterase Neg (Negative) 12/11/19 23:00 Urine WBC (Auto) 1.0 /HPF (0.0-6.0) 12/11/19 23:00 Urine RBC (Auto) 1.0 /HPF (0.0-6.0) 12/11/19 23:00 U Epithel Cells (Auto) 1.0 /HPF (0-13.0) 12/11/19 23:00 Urine Creatinine 42.2 mg/dL (0.1-20.0) H 12/16/19 06:52 Protein/Creatinin Ratio 0.21 12/16/19 06:52 Urine Total Protein 9 mg/dL (5-11.8) 12/16/19 06:52 Coronavirus (PCR) Negative (Negative) 12/12/19 09:08 Microbiology: Microbiology 12/11/19 18:37 Peripheral/Venous Blood Culture - Final NO GROWTH AFTER 5 DAYS 12/11/19 18:52 Peripheral/Venous Blood Culture - Final NO GROWTH AFTER 5 DAYS Robert/IV: Voiding Method Condom Catheter IV Catheter Type [Right Peripheral IV Antecubital] Active Medications - Current Medications Current Medications: Generic Name Dose Route Start Last Admin Trade Name Freq PRN Reason Stop Dose Admin Acetaminophen 650 mg 12/11/19 21:48 12/16/19 22:31 Tylenol PO 650 mg Q4H PRN Administration Pain MILD(1-3)/Fever >100.5/MUSTAFA Aspirin 325 mg 12/13/19 22:00 12/16/19 22:31 Aspirin PO 325 mg HS JOHNNY Administration Dextrose 0 ml 12/11/19 22:45 D50w (25gm) Syringe IV Q30MIN PRN Hypoglycemia Protocol Furosemide 20 mg 12/13/19 12:00 12/17/19 09:58 Lasix IV 20 mg QDAY JOHNNY Administration Heparin Sodium (Porcine) 5,000 unit 12/11/19 22:00 12/17/19 09:58 Heparin SUB-Q 5,000 unit Q12HR JOHNNY Administration Ceftriaxone Sodium 2 gm in 100 mls @ 200 mls/hr 12/12/19 10:00 12/17/19 09:59 Rocephin/Ns 2 Gm/100 Ml IV 12/18/19 12:00 200 mls/hr Q24HR JOHNNY Administration Protocol Insulin Glargine 50 units 12/13/19 22:00 12/16/19 22:32 Lantus SUB-Q 50 units QHS JOHNNY Administration Insulin Human Lispro 0 unit 12/12/19 07:30 12/17/19 08:39 Humalog SUB-Q 3 unit ACHS JOHNNY Administration Protocol Insulin Human Lispro 10 unit 12/13/19 07:30 12/17/19 08:39 Humalog SUB-Q 10 unit AC JOHNNY Administration Isosorbide Mononitrate 30 mg 12/14/19 10:00 12/17/19 09:58 Imdur PO 30 mg DAILY JOHNNY Administration Metoprolol Tartrate 25 mg 12/13/19 22:00 12/17/19 09:59 Metoprolol PO 25 mg BID JOHNNY Administration Ondansetron HCl 4 mg 12/11/19 21:48 Zofran IV Q8H PRN Nausea And Vomiting Oxycodone/Acetaminophen 1 tab 12/11/19 21:53 12/16/19 13:57 Percocet 5/325 PO 1 tab Q6H PRN Administration PAIN (4-6) Pravastatin Sodium 80 mg 12/13/19 22:00 12/16/19 22:31 Pravachol PO 80 mg QHS JOHNNY Administration Sodium Chloride 10 ml 12/11/19 22:00 12/17/19 10:00 Sodium Chloride Flush Syringe 10 Ml IV 10 ml BID JOHNNY Administration Sodium Chloride 10 ml 12/11/19 21:48 12/12/19 06:04 Sodium Chloride Flush Syringe 10 Ml IV 10 ml PRN PRN Administration LINE FLUSH
--- NOTE | 2019-12-17 15:28 | Ultrasound Report ---
ULTRASOUND RENAL INDICATION: Acute kidney injury. COMPARISON: No relevant prior imaging study available. FINDINGS: RIGHT KIDNEY: Size: 10.1 cm. Echogenicity: Normal. Cortical thickness: Normal. Stones: There is a 3 mm stone in the mid right kidney. Hydronephrosis: None. Cyst or mass: None. LEFT KIDNEY: Size: 9.6 cm. Echogenicity: Normal. Cortical thickness: Normal. Stones: None. Hydronephrosis: None. Cyst or mass: None. Urinary Bladder: No significant abnormality. Free Fluid: None. Additional Findings: None. IMPRESSION 1. No acute sonographic abnormality of the kidneys. 2. Tiny right intrarenal stone. Signer Name: Jadon May MD Signed: 12/17/2019 3:24 PM Workstation Name: [email or web address]
[2019-12-17] MEDS: INSULIN GLARGINE 100 UNITS/ML SUB-Q SCH (23:54)
[2019-12-17] MEDS: ASPIRIN 325 MG TAB PO SCH (23:56)
[2019-12-17] MEDS: PRAVASTATIN 80 MG TAB PO SCH (23:56)
[2019-12-18] MEDS: METOPROLOL TARTRATE 25 MG TAB PO SCH ×3 (00:08→23:06)
[2019-12-18] MEDS: oxyCODONE /ACETAMINOPHEN 5-325MG TAB PO PRN (07:26)
[2019-12-18] MEDS: INSULIN LISPRO 100 UNIT/ML VIAL 3 mL SUB-Q SCH ×7 (08:31→23:06)
[2019-12-18] MEDS: HEPARIN 5,000 UNIT/1 ML VIAL SUB-Q SCH ×2 (09:16→23:07)
[2019-12-18] MEDS: FUROSEMIDE 20 MG/2 ML INJ IV SCH (09:17)
[2019-12-18] MEDS: cefTRIAXone/NS 2 GM/100 ML 2 GM/100 ML BAG IV SCH (09:17)
--- NOTE | 2019-12-18 09:58 | Progress Note ---
Assessment and Plan Impression * Stage III chronic kidney disease - patient w/ multiple risk factors for CKD - DM, HTN, CAD * Altered mental status * Fever --Blood cx NGTD (Dec 10) * Dementia * Hypertension * Type II DM * Hx of CAD s/p CABG Plan: * AM labs not available for review at time of visit. * Renal function has remained stable - baseline appears to be 2.1-2.3mg/dL * Continue conservative management * Abx per primary team - Rocephin * Dose medications for renal function * Epogen TIW prn * Renal/HD diett Subjective Date of service: 12/18/19 Interval history: Patient has no complaints today Objective - Vital Signs Vital signs: Vital Signs - 12hr 12/18/19 12/18/19 12/18/19 00:08 05:00 05:57 Temperature 98.5 F Pulse Rate 85 Respiratory 20 18 Rate Blood Pressure 98/49 147/58 O2 Sat by Pulse 95 Oximetry 12/18/19 12/18/19 09:16 09:17 Temperature Pulse Rate Respiratory Rate Blood Pressure 125/65 125/65 O2 Sat by Pulse Oximetry - General Appearance General appearance: well-developed, well-nourished Respiratory: Present: Clear to Ascultation Cardiology: regular, S1S2 Gastrointestinal: normal Integumentary: no rash, warm and dry Psychiatric: cooperative - Lab 12/14/19 07:57 12/17/19 01:42 Most recent lab results Calcium 9.0 mg/dL (8.4-10.2) 12/17/19 01:42 Urine Creatinine 42.2 mg/dL (0.1-20.0) H 12/16/19 06:52 Urine Total Protein 9 mg/dL (5-11.8) 12/16/19 06:52 Medications & Allergies - Medications Allergies/Adverse Reactions: Allergies No Known Allergies Allergy (Verified 04/19/14 09:47) Home Medications: Home Medications Medication Instructions Recorded Confirmed Last Taken Type Aspirin 325 mg PO HS 12/11/19 12/11/19 12/10/19 History ISOSORBIDE MONOnitrate [Imdur ER] 30 mg PO DAILY 12/11/19 12/11/19 12/10/19 History Insulin NPH/Regular [Novolin 70/30] 50 unit SQ BID 12/11/19 12/11/19 12/11/19 History Metoprolol [Lopressor] 25 mg PO BID 12/11/19 12/11/19 12/10/19 History Simvastatin 40 mg PO HS 12/11/19 12/11/19 12/10/19 History hydroCHLOROthiazide 12.5 mg PO DAILY 12/11/19 12/11/19 12/10/19 History [Hydrochlorothiazide] Active Medications: Generic Name Dose Route Start Last Admin Trade Name Freq PRN Reason Stop Dose Admin Acetaminophen 650 mg 12/11/19 21:48 12/16/19 22:31 Tylenol PO 650 mg Q4H PRN Administration Pain MILD(1-3)/Fever >100.5/MUSTAFA Aspirin 325 mg 12/13/19 22:00 12/17/19 23:56 Aspirin PO 325 mg HS JOHNNY Administration Dextrose 0 ml 12/11/19 22:45 D50w (25gm) Syringe IV Q30MIN PRN Hypoglycemia Protocol Furosemide 20 mg 12/13/19 12:00 12/18/19 09:17 Lasix IV 20 mg QDAY JOHNNY Administration Heparin Sodium (Porcine) 5,000 unit 12/11/19 22:00 12/18/19 09:16 Heparin SUB-Q 5,000 unit Q12HR JOHNNY Administration Ceftriaxone Sodium 2 gm in 100 mls @ 200 mls/hr 12/12/19 10:00 12/18/19 09:17 Rocephin/Ns 2 Gm/100 Ml IV 12/18/19 12:00 200 mls/hr Q24HR JOHNNY Administration Protocol Insulin Glargine 50 units 12/13/19 22:00 12/17/19 23:54 Lantus SUB-Q 50 units QHS JOHNNY Administration Insulin Human Lispro 0 unit 12/12/19 07:30 12/18/19 08:31 Humalog SUB-Q 3 unit ACHS JOHNNY Administration Protocol Insulin Human Lispro 10 unit 12/13/19 07:30 12/18/19 08:31 Humalog SUB-Q 10 unit AC JOHNNY Administration Isosorbide Mononitrate 30 mg 12/14/19 10:00 12/18/19 09:16 Imdur PO 30 mg DAILY JOHNNY Administration Metoprolol Tartrate 25 mg 12/13/19 22:00 12/18/19 09:17 Metoprolol PO 25 mg BID JOHNNY Administration Ondansetron HCl 4 mg 12/11/19 21:48 Zofran IV Q8H PRN Nausea And Vomiting Oxycodone/Acetaminophen 1 tab 12/11/19 21:53 12/18/19 07:26 Percocet 5/325 PO 1 tab Q6H PRN Administration PAIN (4-6) Pravastatin Sodium 80 mg 12/13/19 22:00 12/17/19 23:56 Pravachol PO 80 mg QHS JOHNNY Administration Sodium Chloride 10 ml 12/11/19 22:00 12/18/19 09:17 Sodium Chloride Flush Syringe 10 Ml IV 10 ml BID JOHNNY Administration Sodium Chloride 10 ml 12/11/19 21:48 12/12/19 06:04 Sodium Chloride Flush Syringe 10 Ml IV 10 ml PRN PRN Administration LINE FLUSH
--- NOTE | 2019-12-18 19:07 | Progress Note ---
Assessment and Plan Assessment and plan: 79 YO Male with CAD S/P CABG, HTN, DM, Vascular Dementia, Cerebral Atherosclerosis, Obesity Hypoventilation Syndrome, presents to ED for evaluation. Patient is confused with diminished cognition and is unable to provide history. Patient history provided by EMS staff, ED staff, as well as patient family who was at bedside during exam and interview. As per family the patient has experienced increased weakness and confusion over the past 1 month with progressively worsening symptoms over the same timeframe. Patient is currently bedbound, and nonambulatory as per family report. Patient also requir es 6/6 assistance with activities of daily living. EMS was notified and upon arrival the patient was found to be confused and in distress with a temperature 101.2 F. Patient was subsequently transported to [facility] for further care and evaluation of the aforementioned symptoms. Patient seen and evaluated in the emergency department. Lab and imaging studies reviewed. Patient underwent chest x-ray which revealed pneumonia complicated by sepsis, toxic metabolic encephalopathy. --COVID-19 test negative; -- Toxic metabolic encephalopathy Current Visit: Yes Status: Acute Plan to address problem: Present on admission ,resolved --SIRS:[No criteria for sepsis] Current Visit: Yes Status: Acute Plan to address problem: No criteria for sepsis SIRS, leukocytosis, tachycardia --Acute bronchitis Current Visit: Yes Status: Acute . Plan to address problem: Chest x-ray negative for pneumonia Continue current management --Coronary artery disease status post CABG ; Current Visit: Yes Status: Acute . Plan to address problem: Continue current cardiac medications Patient denies chest pain or chest discomfort --Type II diabetes mellitus Current Visit: Yes Status: Acute Plan to address problem: Moderate control, Accu-Chek sliding scale coverage ADA diet Long-acting insulin Lantus A1c is 9.7 , closely monitor. --EUFEMIA Current Visit: No Status: Acute Plan to address problem: Due to vasomotor nephropathy Mild improvement, gentle hydration, monitor renal function Avoid nephrotoxins, nephrology consult --Suspected COVID-19 virus infection Current Visit: No Status: Acute Plan to address problem: COVID-19 test is negative --morbid obesity; BMI 43 Patient needs weight reduction when medically stable May benefit by outpatient bariatric surgical/medical consult For weight reduction program -- DVT prophylaxis Current Visit: Yes Status: Acute Plan to address problem: SCD /heparin renal dose -- Advance care planning/full code Current Visit: Yes Status: Acute . Plan to address problem: Discharge planning; Possible SNF/subacute rehab placement when medically stable 12/12/19; patient was alert and oriented. Lactic acid level trended down to normal. Chest x-ray showed pulmonary congestion. We will continue with IV antibiotics today. We going to get COVID-19 test. Disposition is per clinical course. 12/13/19; I have discussed with his daughter Jodi and she says she is not able to take care of him when replacement. PT OT evaluation. 12/14/19; patient is doing well and can be discharged to subacute rehab. 12/15/19; patient is doing well currently, alert and oriented, no acute issues. Nephrology consulted for EUFEMIA. I have discussed with his daughter Jodi and she states she is not able to take care of him at home and she wants him placement. Pending subacute rehab placement.\ 12/16/19; patient's spouse requests subacute rehab placement, DC planning and placement per case management when patient is medically stable 12/17/19; patient has no criteria for sepsis, SIRS, leukocytosis and tachycardia, continue current management, Patient spouse request SNF/subacute rehab placement, case management assisting with discharge plan 12/18/19; patient feels better, medically stable for discharge awaiting pl acement History Interval history: I have seen and examined the patient at the bedside this morning Patient's chart and medications reviewed Patient has no new complaints Awaiting placement Vital signs Hospitalist Physical - Constitutional Vitals: Temp Pulse Resp BP Pulse Ox 98.5 F 85 18 125/65 95 12/18/19 05:57 12/18/19 05:57 12/18/19 05:57 12/18/19 09:17 12/18/19 05:57 General appearance: Present: mild distress, obese (Morbidly obese) - EENT Eyes: Present: PERRL, EOM intact - Neck Neck: Present: supple, normal ROM - Respiratory Respiratory effort: normal Respiratory: bilateral: diminished, negative: rales, rhonchi, wheezing - Cardiovascular Rhythm: regular Heart Sounds: Present: S1 & S2 - Extremities Extremities: no ischemia, No edema - Abdominal General gastrointestinal: soft, non-tender, non-distended, normal bowel sounds - Integumentary Integumentary: Present: clear, warm - Psychiatric Psychiatric: appropriate mood/affect, cooperative - Neurologic Neurologic: moves all extremities HEART Score - HEART Score Troponin: Troponin T < 0.010 ng/mL (0.00-0.029) 12/11/19 20:03 Results - Labs CBC & Chem 7: 12/14/19 07:57 12/17/19 01:42 Labs: Laboratory Last Values WBC 12.3 K/mm3 (4.5-11.0) H 12/14/19 07:57 RBC 5.03 M/mm3 (3.65-5.03) 12/14/19 07:57 Hgb 15.3 gm/dl (11.8-15.2) H 12/14/19 07:57 Hct 45.1 % (35.5-45.6) 12/14/19 07:57 MCV 90 fl (84-94) 12/14/19 07:57 MCH 30 pg (28-32) 12/14/19 07:57 MCHC 34 % (32-34) 12/14/19 07:57 RDW 14.0 % (13.2-15.2) 12/14/19 07:57 Plt Count 276 K/mm3 (140-440) 12/14/19 07:57 Lymph % (Auto) 18.7 % (13.4-35.0) 12/14/19 07:57 [place] % (Auto) 6.8 % (0.0-7.3) 12/14/19 07:57 Eos % (Auto) 0.5 % (0.0-4.3) 12/14/19 07:57 Baso % (Auto) 0.4 % (0.0-1.8) 12/14/19 07:57 Lymph # (Auto) 2.3 K/mm3 (1.2-5.4) 12/14/19 07:57 [place] # (Auto) 0.8 K/mm3 (0.0-0.8) 12/14/19 07:57 Eos # (Auto) 0.1 K/mm3 (0.0-0.4) 12/14/19 07:57 Baso # (Auto) 0.0 K/mm3 (0.0-0.1) 12/14/19 07:57 Add Manual Diff Complete 12/12/19 05:05 Total Counted 100 12/12/19 05:05 Seg Neutrophils % 73.6 % (40.0-70.0) H 12/14/19 07:57 Seg Neuts % (Manual) 94.0 % (40.0-70.0) H 12/12/19 05:05 Band Neutrophils % 0 % 12/12/19 05:05 Lymphocytes % (Manual) 6.0 % (13.4-35.0) L 12/12/19 05:05 Reactive Lymphs % (Man) 0 % 12/12/19 05:05 Monocytes % (Manual) 0 % (0.0-7.3) 12/12/19 05:05 Eosinophils % (Manual) 0 % (0.0-4.3) 12/12/19 05:05 Basophils % (Manual) 0 % (0.0-1.8) 12/12/19 05:05 Metamyelocytes % 0 % 12/12/19 05:05 Myelocytes % 0 % 12/12/19 05:05 Promyelocytes % 0 % 12/12/19 05:05 Blast Cells % 0 % 12/12/19 05:05 Nucleated RBC % Not Reportable 12/12/19 05:05 Seg Neutrophils # 9.0 K/mm3 (1.8-7.7) H 12/14/19 07:57 Seg Neutrophils # Man 10.8 K/mm3 (1.8-7.7) H 12/12/19 05:05 Band Neutrophils # 0.0 K/mm3 12/12/19 05:05 Lymphocytes # (Manual) 0.7 K/mm3 (1.2-5.4) L 12/12/19 05:05 Abs React Lymphs (Man) 0.0 K/mm3 12/12/19 05:05 Monocytes # (Manual) 0.0 K/mm3 (0.0-0.8) 12/12/19 05:05 Eosinophils # (Manual) 0.0 K/mm3 (0.0-0.4) 12/12/19 05:05 Basophils # (Manual) 0.0 K/mm3 (0.0-0.1) 12/12/19 05:05 Metamyelocytes # 0.0 K/mm3 12/12/19 05:05 Myelocytes # 0.0 K/mm3 12/12/19 05:05 Promyelocytes # 0.0 K/mm3 12/12/19 05:05 Blast Cells # 0.0 K/mm3 12/12/19 05:05 WBC Morphology Not Reportable 12/12/19 05:05 Hypersegmented Neuts Not Reportable 12/12/19 05:05 Hyposegmented Neuts Not Reportable 12/12/19 05:05 Hypogranular Neuts Not Reportable 12/12/19 05:05 Smudge Cells Not Reportable 12/12/19 05:05 Toxic Granulation Not Reportable 12/12/19 05:05 Toxic Vacuolation Not Reportable 12/12/19 05:05 Dohle Bodies Not Reportable 12/12/19 05:05 Pelger-Huet Anomaly Not Reportable 12/12/19 05:05 Sam Rods Not Reportable 12/12/19 05:05 Platelet Estimate Consistent w auto 12/12/19 05:05 Clumped Platelets Not Reportable 12/12/19 05:05 Plt Clumps, EDTA Not Reportable 12/12/19 05:05 Large Platelets Not Reportable 12/12/19 05:05 Giant Platelets Not Reportable 12/12/19 05:05 Platelet Satelliting Not Reportable 12/12/19 05:05 Plt Morphology Comment Not Reportable 12/12/19 05:05 RBC Morphology Normal 12/12/19 05:05 Dimorphic RBCs Not Reportable 12/12/19 05:05 Polychromasia Not Reportable 12/12/19 05:05 Hypochromasia Not Reportable 12/12/19 05:05 Poikilocytosis Not Reportable 12/12/19 05:05 Anisocytosis Not Reportable 12/12/19 05:05 Microcytosis Not Reportable 12/12/19 05:05 Macrocytosis Not Reportable 12/12/19 05:05 Spherocytes Not Reportable 12/12/19 05:05 Pappenheimer Bodies Not Reportable 12/12/19 05:05 Sickle Cells Not Reportable 12/12/19 05:05 Target Cells Not Reportable 12/12/19 05:05 Tear Drop Cells Not Reportable 12/12/19 05:05 Ovalocytes Not Reportable 12/12/19 05:05 Helmet Cells Not Reportable 12/12/19 05:05 [place] Bodies Not Reportable 12/12/19 05:05 [place] Rings Not Reportable 12/12/19 05:05 [place] Cells Not Reportable 12/12/19 05:05 Bite Cells Not Reportable 12/12/19 05:05 Crenated Cell Not Reportable 12/12/19 05:05 Elliptocytes Not Reportable 12/12/19 05:05 Acanthocytes (Spur) Not Reportable 12/12/19 05:05 Rouleaux Not Reportable 12/12/19 05:05 Hemoglobin C Crystals Not Reportable 12/12/19 05:05 Schistocytes Not Reportable 12/12/19 05:05 Malaria parasites Not Reportable 12/12/19 05:05 [place] Bodies Not Reportable 12/12/19 05:05 Hem Pathologist Commnt No 12/12/19 05:05 PT 13.1 Sec. (12.2-14.9) 12/11/19 18:37 INR 0.97 (0.87-1.13) 12/11/19 18:37 APTT 20.1 Sec. (24.2-36.6) L 12/11/19 18:37 D-Dimer 550.63 ng/mlDDU (0-234) H 12/11/19 21:50 Sodium 132 mmol/L (137-145) L 12/17/19 01:42 Potassium 4.0 mmol/L (3.6-5.0) 12/17/19 01:42 Chloride 99.1 mmol/L (98-107) 12/17/19 01:42 Carbon Dioxide 22 mmol/L (22-30) 12/17/19 01:42 Anion Gap 15 mmol/L 12/17/19 01:42 BUN 32 mg/dL (9-20) H 12/17/19 01:42 Creatinine 2.3 mg/dL (0.8-1.3) H 12/17/19 01:42 Estimated GFR 33 ml/min 12/17/19 01:42 BUN/Creatinine Ratio 14 % 12/17/19 01:42 Glucose 191 mg/dL (75-100) H 12/17/19 01:42 POC Glucose 225 mg/dL (70-105) H 12/18/19 18:10 Hemoglobin A1c 9.7 % (4-6) H 12/12/19 05:05 Lactic Acid 1.50 mmol/L (0.7-2.0) 12/12/19 05:05 Calcium 9.0 mg/dL (8.4-10.2) 12/17/19 01:42 Ferritin 646.4 ng/mL (30.0-300.0) H 12/11/19 21:50 Total Bilirubin 0.70 mg/dL (0.1-1.2) 12/12/19 05:05 Direct Bilirubin < 0.2 mg/dL (0-0.2) 12/11/19 18:37 Indirect Bilirubin 0.6 mg/dL 12/11/19 18:37 AST 26 units/L (5-40) 12/12/19 05:05 ALT 15 units/L (7-56) 12/12/19 05:05 Alkaline Phosphatase 68 units/L (35-129) 12/12/19 05:05 Ammonia 36.0 umol/L (25-60) 12/11/19 18:37 Lactate Dehydrogenase 188 units/L (91-180) H 12/11/19 21:50 Troponin T < 0.010 ng/mL (0.00-0.029) 12/11/19 20:03 C-Reactive Protein 18.20 mg/dL (0.00-1.30) H 12/11/19 21:50 NT-Pro-B Natriuret Pep 224.4 pg/mL (0-900) 12/11/19 18:37 Total Protein 8.0 g/dL (6.3-8.2) 12/12/19 05:05 Albumin 3.0 g/dL (3.9-5) L 12/12/19 05:05 Albumin/Globulin Ratio 0.6 % 12/12/19 05:05 Procalcitonin 0.18 ng/mL (<0.15) 12/11/19 21:50 TSH 1.240 mlU/mL (0.270-4.200) 12/11/19 18:37 PTH Intact 78.16 pg/mL (15-65) H 12/16/19 20:24 Urine Color Yellow (Yellow) 12/11/19 23:00 Urine Turbidity Clear (Clear) 12/11/19 23:00 Urine pH 6.0 (5.0-7.0) 12/11/19 23:00 Ur Specific [place] 1.013 (1.003-1.030) 12/11/19 23:00 Urine Protein 30 mg/dl mg/dL (Negative) 12/11/19 23:00 Urine Glucose (UA) 150 mg/dL (Negative) 12/11/19 23:00 Urine Ketones Neg mg/dL (Negative) 12/11/19 23:00 Urine Blood Mod (Negative) 12/11/19 23:00 Urine Nitrite Neg (Negative) 12/11/19 23:00 Urine Bilirubin Neg (Negative) 12/11/19 23:00 Urine Urobilinogen 2.0 mg/dL (<2.0) 12/11/19 23:00 Ur Leukocyte Esterase Neg (Negative) 12/11/19 23:00 Urine WBC (Auto) 1.0 /HPF (0.0-6.0) 12/11/19 23:00 Urine RBC (Auto) 1.0 /HPF (0.0-6.0) 12/11/19 23:00 U Epithel Cells (Auto) 1.0 /HPF (0-13.0) 12/11/19 23:00 Urine Creatinine 42.2 mg/dL (0.1-20.0) H 12/16/19 06:52 Protein/Creatinin Ratio 0.21 12/16/19 06:52 Urine Total Protein 9 mg/dL (5-11.8) 12/16/19 06:52 Coronavirus (PCR) Negative (Negative) 12/12/19 09:08 Robert/IV: Voiding Method Urinal IV Catheter Type [Right Peripheral IV Antecubital] Active Medications - Current Medications Current Medications: Generic Name Dose Route Start Last Admin Trade Name Freq PRN Reason Stop Dose Admin Acetaminophen 650 mg 12/11/19 21:48 12/16/19 22:31 Tylenol PO 650 mg Q4H PRN Administration Pain MILD(1-3)/Fever >100.5/MUSTAFA Aspirin 325 mg 12/13/19 22:00 12/17/19 23:56 Aspirin PO 325 mg HS JOHNNY Administration Dextrose 0 ml 12/11/19 22:45 D50w (25gm) Syringe IV Q30MIN PRN Hypoglycemia Protocol Furosemide 20 mg 12/13/19 12:00 12/18/19 09:17 Lasix IV 20 mg QDAY JOHNNY Administration Heparin Sodium (Porcine) 5,000 unit 12/11/19 22:00 12/18/19 09:16 Heparin SUB-Q 5,000 unit Q12HR JOHNNY Administration Insulin Glargine 50 units 12/13/19 22:00 12/17/19 23:54 Lantus SUB-Q 50 units QHS JOHNNY Administration Insulin Human Lispro 0 unit 12/12/19 07:30 12/18/19 17:54 Humalog SUB-Q 3 unit ACHS JOHNNY Administration Protocol Insulin Human Lispro 10 unit 12/13/19 07:30 12/18/19 17:55 Humalog SUB-Q 10 unit AC JOHNNY Administration Isosorbide Mononitrate 30 mg 12/14/19 10:00 12/18/19 09:16 Imdur PO 30 mg DAILY JOHNNY Administration Metoprolol Tartrate 25 mg 12/13/19 22:00 12/18/19 09:17 Metoprolol PO 25 mg BID JOHNNY Administration Ondansetron HCl 4 mg 12/11/19 21:48 Zofran IV Q8H PRN Nausea And Vomiting Oxycodone/Acetaminophen 1 tab 12/11/19 21:53 12/18/19 07:26 Percocet 5/325 PO 1 tab Q6H PRN Administration PAIN (4-6) Pravastatin Sodium 80 mg 12/13/19 22:00 12/17/19 23:56 Pravachol PO 80 mg QHS JOHNNY Administration Sodium Chloride 10 ml 12/11/19 22:00 12/18/19 09:17 Sodium Chloride Flush Syringe 10 Ml IV 10 ml BID JOHNNY Administration Sodium Chloride 10 ml 12/11/19 21:48 12/12/19 06:04 Sodium Chloride Flush Syringe 10 Ml IV 10 ml PRN PRN Administration LINE FLUSH Nutrition/Malnutrition Assess - Dietary Evaluation Nutrition/Malnutrition Findings: Nutrition Notes Start: 12/18/19 12:19 Freq: Status: Active Protocol: Document 12/18/19 12:19 EN (Rec: 12/18/19 12:32 EN [email or web address]) Co-Sign 12/18/19 12:19 LM Nutrition Notes Need for Assessment generated from: LOS Initial or Follow up Assessment Current Diagnosis Acute Kidney Injury,Diabetes, Sepsis,Hypertension Other Pertinent Diagnosis CABG, Pneumonia, Bronchitis, Dementia Current Diet Cardiac/Consistent CHO Labs/Tests 12/16: Na 132, BUN 32, Cr 2.3 12/17: POC Glu: 237 Pertinent Medications Lasix 20mg, Lantus 50 unit, Humalog 3 unit, Humalog 10 unit Height 5 ft 11 in Weight 141.2 kg Usual Body Weight 159 kg [place] Body Weight (kg) 78.18 BMI 43.4 Weight change and time frame 11% weight loss in 1 week Pt has 2+ edema and is on Lasix Weight Status Morbidly Obese Subjective/Other Information Pt screened for LOS. Pt states eating well and denies N/V/D [employer]. Pt states that he weighed 350 pounds (159kg) at MD office 1 week ago. Pt reports good appetite and denies N/V/D . Pt states that he ate 50% of breakfast this morning because he does not like to eat in the morning. RN report 25-50% PO intake in ADL report . Burn Absent Trauma Absent GI Symptoms None Food Allergy No Current % PO Poor (25-49%) Minimum of two criteria No Interpretation of Weight Loss (severe) >2% in 1 week #1 Nutrition Diagnosis Inadequate oral intake Etiology Sepsis, dementia and pneumonia As Evidenced by Signs and Symptoms consuming 25-50% of meals Is patient on ventilator? No Is Patient Ambulatory and/or Out of Bed No REE-([place]-confined to bed) 2578.932 Kcal/Kg value to use for calculation 14 Approximate Energy Requirements Using 1977 kcal/Kg Calculation Used for Recommendations Kcal/kg Additional Notes Protein: 0.8-1.2 g/kg AdBW 109 .7kg (88-131g) Fluids: 1 ml/kcal Nutrition Intervention Change Diet Order: Continue Cardiac/Consistent CHO diet Goal #1 Meet 75% of energy and protein needs Anticipated Discharge Needs: Cardiac/Consistent CHO diet Follow-Up By: 12/20/19 Additional Comments F/u for intakes
[2019-12-18] MEDS: INSULIN GLARGINE 100 UNITS/ML SUB-Q SCH (23:05)
[2019-12-18] MEDS: PRAVASTATIN 80 MG TAB PO SCH (23:06)
[2019-12-18] MEDS: ASPIRIN 325 MG TAB PO SCH (23:06)
[2019-12-19] MEDS: INSULIN LISPRO 100 UNIT/ML VIAL 3 mL SUB-Q SCH ×7 (09:11→23:00)
[2019-12-19] MEDS: HEPARIN 5,000 UNIT/1 ML VIAL SUB-Q SCH ×2 (09:13→23:00)
[2019-12-19] MEDS: METOPROLOL TARTRATE 25 MG TAB PO SCH ×2 (09:13→23:00)
[2019-12-19] MEDS: FUROSEMIDE 20 MG/2 ML INJ IV SCH (09:14)
--- NOTE | 2019-12-19 09:39 | Progress Note ---
Assessment and Plan Impression * Stage III chronic kidney disease - patient w/ multiple risk factors for CKD - DM, HTN, CAD * Altered mental status * Fever --Blood cx NGTD (Dec 10) * Dementia * Hypertension * Type II DM * Hx of CAD s/p CABG Plan: * AM labs not available for review at time of visit - BMP ordered * Renal function has remained stable - baseline appears to be 2.1-2.3mg/dL * Continue conservative management * Abx per primary team - Ray completed on Dec 17 * Dose medications for renal function * Renal diet Subjective Date of service: 12/19/19 Interval history: No acute events overnight. Objective - Vital Signs Vital signs: Vital Signs - 12hr 12/18/19 12/19/19 23:06 04:24 Temperature 98.3 F Pulse Rate 85 79 Respiratory 18 Rate Blood Pressure 127/58 123/54 O2 Sat by Pulse 93 Oximetry - General Appearance General appearance: well-developed, well-nourished EENT: ATNC Respiratory: Present: Clear to Ascultation Cardiology: regular, S1S2 Musculoskeletal: other (no edema) Psychiatric: cooperative - Lab 12/20/19 04:53 12/20/19 04:53 Most recent lab results Calcium 9.0 mg/dL (8.4-10.2) 12/17/19 01:42 Urine Creatinine 42.2 mg/dL (0.1-20.0) H 12/16/19 06:52 Urine Total Protein 9 mg/dL (5-11.8) 12/16/19 06:52 Medications & Allergies - Medications Allergies/Adverse Reactions: Allergies No Known Allergies Allergy (Verified 04/19/14 09:47) Home Medications: Home Medications Medication Instructions Recorded Confirmed Last Taken Type Aspirin 325 mg PO HS 12/11/19 12/11/19 12/10/19 History ISOSORBIDE MONOnitrate [Imdur ER] 30 mg PO DAILY 12/11/19 12/11/19 12/10/19 History Insulin NPH/Regular [Novolin 70/30] 50 unit SQ BID 12/11/19 12/11/19 12/11/19 History Metoprolol [Lopressor] 25 mg PO BID 12/11/19 12/11/19 12/10/19 History Simvastatin 40 mg PO HS 12/11/19 12/11/19 12/10/19 History hydroCHLOROthiazide 12.5 mg PO DAILY 12/11/19 12/11/19 12/10/19 History [Hydrochlorothiazide] Active Medications: Generic Name Dose Route Start Last Admin Trade Name Freq PRN Reason Stop Dose Admin Acetaminophen 650 mg 12/11/19 21:48 12/16/19 22:31 Tylenol PO 650 mg Q4H PRN Administration Pain MILD(1-3)/Fever >100.5/MUSTAFA Aspirin 325 mg 12/13/19 22:00 12/18/19 23:06 Aspirin PO 325 mg HS JOHNNY Administration Dextrose 0 ml 12/11/19 22:45 D50w (25gm) Syringe IV Q30MIN PRN Hypoglycemia Protocol Furosemide 20 mg 12/13/19 12:00 12/19/19 09:14 Lasix IV 20 mg QDAY JOHNNY Administration Heparin Sodium (Porcine) 5,000 unit 12/11/19 22:00 12/19/19 09:13 Heparin SUB-Q 5,000 unit Q12HR JOHNNY Administration Insulin Glargine 50 units 12/13/19 22:00 12/18/19 23:05 Lantus SUB-Q 50 units QHS JOHNNY Administration Insulin Human Lispro 0 unit 12/12/19 07:30 12/19/19 09:11 Humalog SUB-Q 2 unit ACHS JOHNNY Administration Protocol Insulin Human Lispro 10 unit 12/13/19 07:30 12/19/19 09:12 Humalog SUB-Q 10 unit AC JOHNNY Administration Isosorbide Mononitrate 30 mg 12/14/19 10:00 12/19/19 09:13 Imdur PO 30 mg DAILY JOHNNY Administration Metoprolol Tartrate 25 mg 12/13/19 22:00 12/19/19 09:13 Metoprolol PO 25 mg BID JOHNNY Administration Ondansetron HCl 4 mg 12/11/19 21:48 Zofran IV Q8H PRN Nausea And Vomiting Oxycodone/Acetaminophen 1 tab 12/11/19 21:53 12/18/19 07:26 Percocet 5/325 PO 1 tab Q6H PRN Administration PAIN (4-6) Pravastatin Sodium 80 mg 12/13/19 22:00 12/18/19 23:06 Pravachol PO 80 mg QHS JOHNNY Administration Sodium Chloride 10 ml 12/11/19 22:00 12/19/19 09:14 Sodium Chloride Flush Syringe 10 Ml IV 10 ml BID JOHNNY Administration Sodium Chloride 10 ml 12/11/19 21:48 12/12/19 06:04 Sodium Chloride Flush Syringe 10 Ml IV 10 ml PRN PRN Administration LINE FLUSH
--- NOTE | 2019-12-19 10:22 | Progress Note ---
Assessment and Plan Assessment and plan: 79 YO Male with CAD S/P CABG, HTN, DM, Vascular Dementia, Cerebral Atherosclerosis, Obesity Hypoventilation Syndrome, presents to ED for evaluation. Patient is confused with diminished cognition and is unable to provide history. Patient history provided by EMS staff, ED staff, as well as patient family who was at bedside during exam and interview. As per family the patient has experienced increased weakness and confusion over the past 1 month with progressively worsening symptoms over the same timeframe. Patient is currently bedbound, and nonambulatory as per family report. Patient also requir es 6/6 assistance with activities of daily living. EMS was notified and upon arrival the patient was found to be confused and in distress with a temperature 101.2 F. Patient was subsequently transported to [facility] for further care and evaluation of the aforementioned symptoms. Patient seen and evaluated in the emergency department. Lab and imaging studies reviewed. Patient underwent chest x-ray which revealed pneumonia complicated by sepsis, toxic metabolic encephalopathy. --COVID-19 test negative; -- Toxic metabolic encephalopathy Current Visit: Yes Status: Acute Plan to address problem: Present on admission, improved --SIRS:[No criteria for sepsis] Current Visit: Yes Status: Acute Plan to address problem: No criteria for sepsis SIRS, leukocytosis, tachycardia --Acute bronchitis Current Visit: Yes Status: Acute . Plan to address problem: Chest x-ray negative for pneumonia Continue current management --Coronary artery disease status post CABG ; Current Visit: Yes Status: Acute . Plan to address problem: Continue current cardiac medications Patient denies chest pain or chest discomfort --Type II diabetes mellitus Current Visit: Yes Status: Acute Plan to address problem: Moderate control, Accu-Chek sliding scale coverage ADA diet Long-acting insulin Lantus A1c is 9.7 , closely monitor. --EUFEMIA Current Visit: No Status: Acute Plan to address problem: Due to vasomotor nephropathy Mild improvement, gentle hydration, monitor renal function Avoid nephrotoxins, nephrology consult --Suspected COVID-19 virus infection Current Visit: No Status: Acute Plan to address problem: COVID-19 test is negative --morbid obesity; BMI 43 Patient needs weight reduction when medically stable May benefit by outpatient bariatric surgical/medical consult For weight reduction program -- DVT prophylaxis Current Visit: Yes Status: Acute Plan to address problem: SCD /heparin renal dose -- Advance care planning/full code Current Visit: Yes Status: Acute . Plan to address problem: Discharge planning; Possible SNF/subacute rehab placement when medically stable 12/12/19; patient was alert and oriented. Lactic acid level trended down to normal. Chest x-ray showed pulmonary congestion. We will continue with IV antibiotics today. We going to get COVID-19 test. Disposition is per clinical course. 12/13/19; I have discussed with his daughter Jodi and she says she is not able to take care of him when replacement. PT OT evaluation. 12/14/19; patient is doing well and can be discharged to subacute rehab. 12/15/19; patient is doing well currently, alert and oriented, no acute issues. Nephrology consulted for EUFEMIA. I have discussed with his daughter Jodi and she states she is not able to take care of him at home and she wants him placement. Pending subacute rehab placement.\ 12/16/19; patient's spouse requests subacute rehab placement, DC planning and placement per case management when patient is medically stable 12/17/19; patient has no criteria for sepsis, SIRS, leukocytosis and tachycardia, continue current management, Patient spouse request SNF/subacute rehab placement, case management assisting with discharge plan 12/18/19; patient feels better, medically stable for discharge awaiting pl acement History Interval history: I have seen and examined the patient at the bedside Patient slightly better, complains of generalized weakness Vital signs noted Hospitalist Physical - Constitutional Vitals: Temp Pulse Resp BP Pulse Ox 98.3 F 79 18 123/54 93 12/19/19 04:24 12/19/19 04:24 12/19/19 04:24 12/19/19 04:24 12/19/19 04:24 General appearance: Present: mild distress, obese (Morbidly obese) - EENT Eyes: Present: PERRL, EOM intact - Neck Neck: Present: supple, normal ROM - Respiratory Respiratory effort: normal Respiratory: bilateral: diminished, negative: rales, rhonchi - Cardiovascular Rhythm: regular Heart Sounds: Present: S1 & S2 - Extremities Extremities: no ischemia, No edema - Abdominal General gastrointestinal: soft, non-tender, non-distended, normal bowel sounds - Integumentary Integumentary: Present: clear, warm - Psychiatric Psychiatric: appropriate mood/affect, cooperative - Neurologic Neurologic: moves all extremities HEART Score - HEART Score Troponin: Troponin T < 0.010 ng/mL (0.00-0.029) 12/11/19 20:03 Results - Labs CBC & Chem 7: 12/14/19 07:57 12/19/19 11:49 Labs: Laboratory Last Values WBC 12.3 K/mm3 (4.5-11.0) H 12/14/19 07:57 RBC 5.03 M/mm3 (3.65-5.03) 12/14/19 07:57 Hgb 15.3 gm/dl (11.8-15.2) H 12/14/19 07:57 Hct 45.1 % (35.5-45.6) 12/14/19 07:57 MCV 90 fl (84-94) 12/14/19 07:57 MCH 30 pg (28-32) 12/14/19 07:57 MCHC 34 % (32-34) 12/14/19 07:57 RDW 14.0 % (13.2-15.2) 12/14/19 07:57 Plt Count 276 K/mm3 (140-440) 12/14/19 07:57 Lymph % (Auto) 18.7 % (13.4-35.0) 12/14/19 07:57 Wood % (Auto) 6.8 % (0.0-7.3) 12/14/19 07:57 Eos % (Auto) 0.5 % (0.0-4.3) 12/14/19 07:57 Baso % (Auto) 0.4 % (0.0-1.8) 12/14/19 07:57 Lymph # (Auto) 2.3 K/mm3 (1.2-5.4) 12/14/19 07:57 Wood # (Auto) 0.8 K/mm3 (0.0-0.8) 12/14/19 07:57 Eos # (Auto) 0.1 K/mm3 (0.0-0.4) 12/14/19 07:57 Baso # (Auto) 0.0 K/mm3 (0.0-0.1) 12/14/19 07:57 Add Manual Diff Complete 12/12/19 05:05 Total Counted 100 12/12/19 05:05 Seg Neutrophils % 73.6 % (40.0-70.0) H 12/14/19 07:57 Seg Neuts % (Manual) 94.0 % (40.0-70.0) H 12/12/19 05:05 Band Neutrophils % 0 % 12/12/19 05:05 Lymphocytes % (Manual) 6.0 % (13.4-35.0) L 12/12/19 05:05 Reactive Lymphs % (Man) 0 % 12/12/19 05:05 Monocytes % (Manual) 0 % (0.0-7.3) 12/12/19 05:05 Eosinophils % (Manual) 0 % (0.0-4.3) 12/12/19 05:05 Basophils % (Manual) 0 % (0.0-1.8) 12/12/19 05:05 Metamyelocytes % 0 % 12/12/19 05:05 Myelocytes % 0 % 12/12/19 05:05 Promyelocytes % 0 % 12/12/19 05:05 Blast Cells % 0 % 12/12/19 05:05 Nucleated RBC % Not Reportable 12/12/19 05:05 Seg Neutrophils # 9.0 K/mm3 (1.8-7.7) H 12/14/19 07:57 Seg Neutrophils # Man 10.8 K/mm3 (1.8-7.7) H 12/12/19 05:05 Band Neutrophils # 0.0 K/mm3 12/12/19 05:05 Lymphocytes # (Manual) 0.7 K/mm3 (1.2-5.4) L 12/12/19 05:05 Abs React Lymphs (Man) 0.0 K/mm3 12/12/19 05:05 Monocytes # (Manual) 0.0 K/mm3 (0.0-0.8) 12/12/19 05:05 Eosinophils # (Manual) 0.0 K/mm3 (0.0-0.4) 12/12/19 05:05 Basophils # (Manual) 0.0 K/mm3 (0.0-0.1) 12/12/19 05:05 Metamyelocytes # 0.0 K/mm3 12/12/19 05:05 Myelocytes # 0.0 K/mm3 12/12/19 05:05 Promyelocytes # 0.0 K/mm3 12/12/19 05:05 Blast Cells # 0.0 K/mm3 12/12/19 05:05 WBC Morphology Not Reportable 12/12/19 05:05 Hypersegmented Neuts Not Reportable 12/12/19 05:05 Hyposegmented Neuts Not Reportable 12/12/19 05:05 Hypogranular Neuts Not Reportable 12/12/19 05:05 Smudge Cells Not Reportable 12/12/19 05:05 Toxic Granulation Not Reportable 12/12/19 05:05 Toxic Vacuolation Not Reportable 12/12/19 05:05 Dohle Bodies Not Reportable 12/12/19 05:05 Pelger-Huet Anomaly Not Reportable 12/12/19 05:05 Sam Rods Not Reportable 12/12/19 05:05 Platelet Estimate Consistent w auto 12/12/19 05:05 Clumped Platelets Not Reportable 12/12/19 05:05 Plt Clumps, EDTA Not Reportable 12/12/19 05:05 Large Platelets Not Reportable 12/12/19 05:05 Giant Platelets Not Reportable 12/12/19 05:05 Platelet Satelliting Not Reportable 12/12/19 05:05 Plt Morphology Comment Not Reportable 12/12/19 05:05 RBC Morphology Normal 12/12/19 05:05 Dimorphic RBCs Not Reportable 12/12/19 05:05 Polychromasia Not Reportable 12/12/19 05:05 Hypochromasia Not Reportable 12/12/19 05:05 Poikilocytosis Not Reportable 12/12/19 05:05 Anisocytosis Not Reportable 12/12/19 05:05 Microcytosis Not Reportable 12/12/19 05:05 Macrocytosis Not Reportable 12/12/19 05:05 Spherocytes Not Reportable 12/12/19 05:05 Pappenheimer Bodies Not Reportable 12/12/19 05:05 Sickle Cells Not Reportable 12/12/19 05:05 Target Cells Not Reportable 12/12/19 05:05 Tear Drop Cells Not Reportable 12/12/19 05:05 Ovalocytes Not Reportable 12/12/19 05:05 Helmet Cells Not Reportable 12/12/19 05:05 [place] Bodies Not Reportable 12/12/19 05:05 [place] Rings Not Reportable 12/12/19 05:05 [place] Cells Not Reportable 12/12/19 05:05 Bite Cells Not Reportable 12/12/19 05:05 Crenated Cell Not Reportable 12/12/19 05:05 Elliptocytes Not Reportable 12/12/19 05:05 Acanthocytes (Spur) Not Reportable 12/12/19 05:05 Rouleaux Not Reportable 12/12/19 05:05 Hemoglobin C Crystals Not Reportable 12/12/19 05:05 Schistocytes Not Reportable 12/12/19 05:05 Malaria parasites Not Reportable 12/12/19 05:05 [place] Bodies Not Reportable 12/12/19 05:05 Hem Pathologist Commnt No 12/12/19 05:05 PT 13.1 Sec. (12.2-14.9) 12/11/19 18:37 INR 0.97 (0.87-1.13) 12/11/19 18:37 APTT 20.1 Sec. (24.2-36.6) L 12/11/19 18:37 D-Dimer 550.63 ng/mlDDU (0-234) H 12/11/19 21:50 Sodium 132 mmol/L (137-145) L 12/17/19 01:42 Potassium 4.0 mmol/L (3.6-5.0) 12/17/19 01:42 Chloride 99.1 mmol/L (98-107) 12/17/19 01:42 Carbon Dioxide 22 mmol/L (22-30) 12/17/19 01:42 Anion Gap 15 mmol/L 12/17/19 01:42 BUN 32 mg/dL (9-20) H 12/17/19 01:42 Creatinine 2.3 mg/dL (0.8-1.3) H 12/17/19 01:42 Estimated GFR 33 ml/min 12/17/19 01:42 BUN/Creatinine Ratio 14 % 12/17/19 01:42 Glucose 191 mg/dL (75-100) H 12/17/19 01:42 POC Glucose 180 mg/dL (70-105) H 12/19/19 07:29 Hemoglobin A1c 9.7 % (4-6) H 12/12/19 05:05 Lactic Acid 1.50 mmol/L (0.7-2.0) 12/12/19 05:05 Calcium 9.0 mg/dL (8.4-10.2) 12/17/19 01:42 Ferritin 646.4 ng/mL (30.0-300.0) H 12/11/19 21:50 Total Bilirubin 0.70 mg/dL (0.1-1.2) 12/12/19 05:05 Direct Bilirubin < 0.2 mg/dL (0-0.2) 12/11/19 18:37 Indirect Bilirubin 0.6 mg/dL 12/11/19 18:37 AST 26 units/L (5-40) 12/12/19 05:05 ALT 15 units/L (7-56) 12/12/19 05:05 Alkaline Phosphatase 68 units/L (35-129) 12/12/19 05:05 Ammonia 36.0 umol/L (25-60) 12/11/19 18:37 Lactate Dehydrogenase 188 units/L (91-180) H 12/11/19 21:50 Troponin T < 0.010 ng/mL (0.00-0.029) 12/11/19 20:03 C-Reactive Protein 18.20 mg/dL (0.00-1.30) H 12/11/19 21:50 NT-Pro-B Natriuret Pep 224.4 pg/mL (0-900) 12/11/19 18:37 Total Protein 8.0 g/dL (6.3-8.2) 12/12/19 05:05 Albumin 3.0 g/dL (3.9-5) L 12/12/19 05:05 Albumin/Globulin Ratio 0.6 % 12/12/19 05:05 Procalcitonin 0.18 ng/mL (<0.15) 12/11/19 21:50 TSH 1.240 mlU/mL (0.270-4.200) 12/11/19 18:37 PTH Intact 78.16 pg/mL (15-65) H 12/16/19 20:24 Urine Color Yellow (Yellow) 12/11/19 23:00 Urine Turbidity Clear (Clear) 12/11/19 23:00 Urine pH 6.0 (5.0-7.0) 12/11/19 23:00 Ur Specific [place] 1.013 (1.003-1.030) 12/11/19 23:00 Urine Protein 30 mg/dl mg/dL (Negative) 12/11/19 23:00 Urine Glucose (UA) 150 mg/dL (Negative) 12/11/19 23:00 Urine Ketones Neg mg/dL (Negative) 12/11/19 23:00 Urine Blood Mod (Negative) 12/11/19 23:00 Urine Nitrite Neg (Negative) 12/11/19 23:00 Urine Bilirubin Neg (Negative) 12/11/19 23:00 Urine Urobilinogen 2.0 mg/dL (<2.0) 12/11/19 23:00 Ur Leukocyte Esterase Neg (Negative) 12/11/19 23:00 Urine WBC (Auto) 1.0 /HPF (0.0-6.0) 12/11/19 23:00 Urine RBC (Auto) 1.0 /HPF (0.0-6.0) 12/11/19 23:00 U Epithel Cells (Auto) 1.0 /HPF (0-13.0) 12/11/19 23:00 Urine Creatinine 42.2 mg/dL (0.1-20.0) H 12/16/19 06:52 Protein/Creatinin Ratio 0.21 12/16/19 06:52 Urine Total Protein 9 mg/dL (5-11.8) 12/16/19 06:52 Coronavirus (PCR) Negative (Negative) 12/12/19 09:08 Robert/IV: Voiding Method Urinal IV Catheter Type [Right Peripheral IV Antecubital] Active Medications - Current Medications Current Medications: Generic Name Dose Route Start Last Admin Trade Name Freq PRN Reason Stop Dose Admin Acetaminophen 650 mg 12/11/19 21:48 12/16/19 22:31 Tylenol PO 650 mg Q4H PRN Administration Pain MILD(1-3)/Fever >100.5/MUSTAFA Aspirin 325 mg 12/13/19 22:00 12/18/19 23:06 Aspirin PO 325 mg HS JOHNNY Administration Dextrose 0 ml 12/11/19 22:45 D50w (25gm) Syringe IV Q30MIN PRN Hypoglycemia Protocol Furosemide 20 mg 12/13/19 12:00 12/19/19 09:14 Lasix IV 20 mg QDAY JOHNNY Administration Heparin Sodium (Porcine) 5,000 unit 12/11/19 22:00 12/19/19 09:13 Heparin SUB-Q 5,000 unit Q12HR JOHNNY Administration Insulin Glargine 50 units 12/13/19 22:00 12/18/19 23:05 Lantus SUB-Q 50 units QHS JOHNNY Administration Insulin Human Lispro 0 unit 12/12/19 07:30 12/19/19 09:11 Humalog SUB-Q 2 unit ACHS JOHNNY Administration Protocol Insulin Human Lispro 10 unit 12/13/19 07:30 12/19/19 09:12 Humalog SUB-Q 10 unit AC JOHNNY Administration Isosorbide Mononitrate 30 mg 12/14/19 10:00 12/19/19 09:13 Imdur PO 30 mg DAILY JOHNNY Administration Metoprolol Tartrate 25 mg 12/13/19 22:00 12/19/19 09:13 Metoprolol PO 25 mg BID JOHNNY Administration Ondansetron HCl 4 mg 12/11/19 21:48 Zofran IV Q8H PRN Nausea And Vomiting Oxycodone/Acetaminophen 1 tab 12/11/19 21:53 12/18/19 07:26 Percocet 5/325 PO 1 tab Q6H PRN Administration PAIN (4-6) Pravastatin Sodium 80 mg 12/13/19 22:00 12/18/19 23:06 Pravachol PO 80 mg QHS JOHNNY Administration Sodium Chloride 10 ml 12/11/19 22:00 12/19/19 09:14 Sodium Chloride Flush Syringe 10 Ml IV 10 ml BID JOHNNY Administration Sodium Chloride 10 ml 12/11/19 21:48 12/12/19 06:04 Sodium Chloride Flush Syringe 10 Ml IV 10 ml PRN PRN Administration LINE FLUSH Nutrition/Malnutrition Assess - Dietary Evaluation Nutrition/Malnutrition Findings: Nutrition Notes Start: 12/18/19 12:19 Freq: Status: Active Protocol: Document 12/18/19 12:19 EN (Rec: 12/18/19 12:32 EN [email or web address]) Co-Sign 12/18/19 12:19 LM Nutrition Notes Need for Assessment generated from: LOS Initial or Follow up Assessment Current Diagnosis Acute Kidney Injury,Diabetes, Sepsis,Hypertension Other Pertinent Diagnosis CABG, Pneumonia, Bronchitis, Dementia Current Diet Cardiac/Consistent CHO Labs/Tests 12/16: Na 132, BUN 32, Cr 2.3 12/17: POC Glu: 237 Pertinent Medications Lasix 20mg, Lantus 50 unit, Humalog 3 unit, Humalog 10 unit Height 5 ft 11 in Weight 141.2 kg Usual Body Weight 159 kg [place] Body Weight (kg) 78.18 BMI 43.4 Weight change and time frame 11% weight loss in 1 week Pt has 2+ edema and is on Lasix Weight Status Morbidly Obese Subjective/Other Information Pt screened for LOS. Pt states eating well and denies N/V/D [employer]. Pt states that he weighed 350 pounds (159kg) at MD office 1 week ago. Pt reports good appetite and denies N/V/D . Pt states that he ate 50% of breakfast this morning because he does not like to eat in the morning. RN report 25-50% PO intake in ADL report . Burn Absent Trauma Absent GI Symptoms None Food Allergy No Current % PO Poor (25-49%) Minimum of two criteria No Interpretation of Weight Loss (severe) >2% in 1 week #1 Nutrition Diagnosis Inadequate oral intake Etiology Sepsis, dementia and pneumonia As Evidenced by Signs and Symptoms consuming 25-50% of meals Is patient on ventilator? No Is Patient Ambulatory and/or Out of Bed No REE-([facility]-confined to bed) 2578.932 Kcal/Kg value to use for calculation 14 Approximate Energy Requirements Using 1977 kcal/Kg Calculation Used for Recommendations Kcal/kg Additional Notes Protein: 0.8-1.2 g/kg AdBW 109 .7kg (88-131g) Fluids: 1 ml/kcal Nutrition Intervention Change Diet Order: Continue Cardiac/Consistent CHO diet Goal #1 Meet 75% of energy and protein needs Anticipated Discharge Needs: Cardiac/Consistent CHO diet Follow-Up By: 12/20/19 Additional Comments F/u for intakes
[2019-12-19 12:20] LABS: Calcium 9.3 mg/dL (8.4-10.2)
--- NOTE | 2019-12-19 17:54 | Event Note ---
Date: 12/19/19 I called patient's daughter Ms. Jodi Aponte at [phone] who wanted to discuss about the patient's condition and treatment plan However unable to reach, left a voicemail to call back. We will try again tomorrow to speak with the daughter. I informed patient's nurse Ms. Ingram About my phone call
[2019-12-19] MEDS: INSULIN GLARGINE 100 UNITS/ML SUB-Q SCH (23:00)
[2019-12-19 23:29] LABS: Albumin 2.9 g/dL (3.8-4.8); Gamma Globulin 1.4 g/dL (0.8-1.7)
[2019-12-20 00:21] LABS: ANA Screen, IFA Negative (Negative)
[2019-12-20] MEDS: ASPIRIN 325 MG TAB PO SCH ×2 (00:52→23:12)
[2019-12-20] MEDS: PRAVASTATIN 80 MG TAB PO SCH ×2 (00:56→23:12)
[2019-12-20 05:12] LABS: Basophils # (Auto) 0.1 K/mm3 (0.0-0.1); Eosinophils # (Auto) 0.7 K/mm3 (0.0-0.4); Eosinophils % (Auto) 5.6 % (0.0-4.3); Hematocrit 40.7 % (35.5-45.6); Hemoglobin 13.5 gm/dl (11.8-15.2); Lymphocytes # (Auto) 2.6 K/mm3 (1.2-5.4); Lymphocytes % (Auto) 22.2 % (13.4-35.0); Mean Corpuscular HGB Conc 33 % (32-34); Mean Corpuscular Volume 90 fl (84-94); Monocytes # (Auto) 1.3 K/mm3 (0.0-0.8); Monocytes % (Auto) 11.4 % (0.0-7.3); Platelet Count 309 K/mm3 (140-440); Red Blood Count 4.51 M/mm3 (3.65-5.03)
[2019-12-20 05:26] LABS: Calcium 9.1 mg/dL (8.4-10.2)
--- NOTE | 2019-12-20 07:57 | Progress Note ---
Assessment and Plan Assessment and plan: 79 YO Male with CAD S/P CABG, HTN, DM, Dementia, morbid obesity was admitted through emergency room with altered level of consciousness and confusion with diminished cognition and is unable to provide history. patient family who was at bedside during exam and interview. As per family the patient has experienced increased weakness and confusion over the past 1 month with progressively worsening symptoms over the same timeframe. Patient is currently bedbound, and nonambulatory as per family report. Patient also requires assistance with activities of daily living. In the emergency room patient was febrile and initial work-up is consistent with toxic metabolic encephalopathy and acute bronchitis and SIRS . Patient is admitted and appropriately managed Mental status slightly improved, evaluated by PT, recommended subacute rehab/SNF placement. Insurance did not approve subacute/SNF placement I will try to speak P2P with the insurance physician today --COVID-19 test negative; -- Toxic metabolic encephalopathy Current Visit: Yes Status: Acute Plan to address problem: Present on admission, improved --SIRS:[No criteria for sepsis] Current Visit: Yes Status: Acute Plan to address problem: No criteria for sepsis SIRS, leukocytosis, tachycardia --Acute bronchitis Current Visit: Yes Status: Acute . Plan to address problem: Chest x-ray negative for pneumonia Continue current management --Coronary artery disease status post CABG ; Current Visit: Yes Status: Acute . Plan to address problem: Continue current cardiac medications Patient denies chest pain or chest discomfort --Type II diabetes mellitus Current Visit: Yes Status: Acute Plan to address problem: Moderate control, Accu-Chek sliding scale coverage ADA diet Long-acting insulin Lantus A1c is 9.7 , closely monitor. --EUFEMIA Current Visit: No Status: Acute Plan to address problem: Due to vasomotor nephropathy Mild improvement, gentle hydration, monitor renal function. Avoid nephrotoxins, nephrology consult --Hyponatremia; present on admission Significantly improved, monitor electrolytes --Suspected COVID-19 virus infection Current Visit: No Status: Acute Plan to address problem: COVID-19 test is negative --morbid obesity; BMI 43 Patient needs weight reduction when medically stable May benefit by outpatient bariatric surgical/medical consult For weight reduction program -- DVT prophylaxis Current Visit: Yes Status: Acute Plan to address problem: SCD /heparin renal dose -- Advance care planning/full code Current Visit: Yes Status: Acute . Plan to address problem: Discharge planning; Possible SNF/subacute rehab placement when medically stable 11/4/20; patient was alert and oriented. Lactic acid level trended down to normal. Chest x-ray showed pulmonary congestion. We will continue with IV antibiotics today. We going to get COVID-19 test. Disposition is per clinical course. 12/13/19; I have discussed with his daughter Jodi and she says she is not able to take care of him when replacement. PT OT evaluation. 12/14/19; patient is doing well and can be discharged to subacute rehab. 12/15/19; patient is doing well currently, alert and oriented, no acute issues. Nephrology consulted for EUFEMIA. I have discussed with his daughter Jodi and she states she is not able to take care of him at home and she wants him placement. Pending subacute rehab placement.\ 12/16/19; patient's spouse requests subacute rehab placement, DC planning and placement per case management when patient is medically stable 12/17/19; patient has no criteria for sepsis, SIRS, leukocytosis and tachycardia, continue current management, Patient spouse request SNF/subacute rehab placement, case management assisting with discharge plan 12/18/19; patient feels better, medically stable for discharge awaiting placement 12/19/19; reports that patient's insurance wants P2P review tomorrow 12/20/19; will discuss with insurance P2P as well as daughter today History Interval history: I have seen and examined the patient at the bedside this morning. Patient has no new complaints Physical therapy occupational therapy working on the patient Morbidly obese, vital signs reviewed Hospitalist Physical - Constitutional Vitals: Temp Pulse Resp BP Pulse Ox 98.7 F 73 20 121/51 94 12/20/19 04:23 12/20/19 04:23 12/20/19 04:23 12/20/19 04:23 12/20/19 04:23 General appearance: Present: mild distress, obese (Morbidly obese) - EENT Eyes: Present: PERRL, EOM intact - Neck Neck: Present: supple, normal ROM - Respiratory Respiratory effort: normal Respiratory: bilateral: diminished, negative: rales, rhonchi, wheezing - Cardiovascular Rhythm: regular Heart Sounds: Present: S1 & S2 - Extremities Extremities: no ischemia Extremity abnormal: edema - Abdominal General gastrointestinal: soft, non-tender, non-distended, normal bowel sounds - Integumentary Integumentary: Present: clear, warm - Psychiatric Psychiatric: appropriate mood/affect, cooperative - Neurologic Neurologic: moves all extremities HEART Score - HEART Score Troponin: Troponin T < 0.010 ng/mL (0.00-0.029) 12/11/19 20:03 Results - Labs CBC & Chem 7: 12/21/19 05:17 12/21/19 05:17 Labs: Laboratory Last Values WBC 11.6 K/mm3 (4.5-11.0) H 12/20/19 04:53 RBC 4.51 M/mm3 (3.65-5.03) 12/20/19 04:53 Hgb 13.5 gm/dl (11.8-15.2) 12/20/19 04:53 Hct 40.7 % (35.5-45.6) 12/20/19 04:53 MCV 90 fl (84-94) 12/20/19 04:53 MCH 30 pg (28-32) 12/20/19 04:53 MCHC 33 % (32-34) 12/20/19 04:53 RDW 14.0 % (13.2-15.2) 12/20/19 04:53 Plt Count 309 K/mm3 (140-440) 12/20/19 04:53 Lymph % (Auto) 22.2 % (13.4-35.0) 12/20/19 04:53 [place] % (Auto) 11.4 % (0.0-7.3) H 12/20/19 04:53 Eos % (Auto) 5.6 % (0.0-4.3) H 12/20/19 04:53 Baso % (Auto) 1.0 % (0.0-1.8) 12/20/19 04:53 Lymph # (Auto) 2.6 K/mm3 (1.2-5.4) 12/20/19 04:53 [place] # (Auto) 1.3 K/mm3 (0.0-0.8) H 12/20/19 04:53 Eos # (Auto) 0.7 K/mm3 (0.0-0.4) H 12/20/19 04:53 Baso # (Auto) 0.1 K/mm3 (0.0-0.1) 12/20/19 04:53 Add Manual Diff Complete 12/12/19 05:05 Total Counted 100 12/12/19 05:05 Seg Neutrophils % 59.8 % (40.0-70.0) 12/20/19 04:53 Seg Neuts % (Manual) 94.0 % (40.0-70.0) H 12/12/19 05:05 Band Neutrophils % 0 % 12/12/19 05:05 Lymphocytes % (Manual) 6.0 % (13.4-35.0) L 12/12/19 05:05 Reactive Lymphs % (Man) 0 % 12/12/19 05:05 Monocytes % (Manual) 0 % (0.0-7.3) 12/12/19 05:05 Eosinophils % (Manual) 0 % (0.0-4.3) 12/12/19 05:05 Basophils % (Manual) 0 % (0.0-1.8) 12/12/19 05:05 Metamyelocytes % 0 % 12/12/19 05:05 Myelocytes % 0 % 12/12/19 05:05 Promyelocytes % 0 % 12/12/19 05:05 Blast Cells % 0 % 12/12/19 05:05 Nucleated RBC % Not Reportable 12/12/19 05:05 Seg Neutrophils # 6.9 K/mm3 (1.8-7.7) 12/20/19 04:53 Seg Neutrophils # Man 10.8 K/mm3 (1.8-7.7) H 12/12/19 05:05 Band Neutrophils # 0.0 K/mm3 12/12/19 05:05 Lymphocytes # (Manual) 0.7 K/mm3 (1.2-5.4) L 12/12/19 05:05 Abs React Lymphs (Man) 0.0 K/mm3 12/12/19 05:05 Monocytes # (Manual) 0.0 K/mm3 (0.0-0.8) 12/12/19 05:05 Eosinophils # (Manual) 0.0 K/mm3 (0.0-0.4) 12/12/19 05:05 Basophils # (Manual) 0.0 K/mm3 (0.0-0.1) 12/12/19 05:05 Metamyelocytes # 0.0 K/mm3 12/12/19 05:05 Myelocytes # 0.0 K/mm3 12/12/19 05:05 Promyelocytes # 0.0 K/mm3 12/12/19 05:05 Blast Cells # 0.0 K/mm3 12/12/19 05:05 WBC Morphology Not Reportable 12/12/19 05:05 Hypersegmented Neuts Not Reportable 12/12/19 05:05 Hyposegmented Neuts Not Reportable 12/12/19 05:05 Hypogranular Neuts Not Reportable 12/12/19 05:05 Smudge Cells Not Reportable 12/12/19 05:05 Toxic Granulation Not Reportable 12/12/19 05:05 Toxic Vacuolation Not Reportable 12/12/19 05:05 Dohle Bodies Not Reportable 12/12/19 05:05 Pelger-Huet Anomaly Not Reportable 12/12/19 05:05 Sam Rods Not Reportable 12/12/19 05:05 Platelet Estimate Consistent w auto 12/12/19 05:05 Clumped Platelets Not Reportable 12/12/19 05:05 Plt Clumps, EDTA Not Reportable 12/12/19 05:05 Large Platelets Not Reportable 12/12/19 05:05 Giant Platelets Not Reportable 12/12/19 05:05 Platelet Satelliting Not Reportable 12/12/19 05:05 Plt Morphology Comment Not Reportable 12/12/19 05:05 RBC Morphology Normal 12/12/19 05:05 Dimorphic RBCs Not Reportable 12/12/19 05:05 Polychromasia Not Reportable 12/12/19 05:05 Hypochromasia Not Reportable 12/12/19 05:05 Poikilocytosis Not Reportable 12/12/19 05:05 Anisocytosis Not Reportable 12/12/19 05:05 Microcytosis Not Reportable 12/12/19 05:05 Macrocytosis Not Reportable 12/12/19 05:05 Spherocytes Not Reportable 12/12/19 05:05 Pappenheimer Bodies Not Reportable 12/12/19 05:05 Sickle Cells Not Reportable 12/12/19 05:05 Target Cells Not Reportable 12/12/19 05:05 Tear Drop Cells Not Reportable 12/12/19 05:05 Ovalocytes Not Reportable 12/12/19 05:05 Helmet Cells Not Reportable 12/12/19 05:05 [place] Bodies Not Reportable 12/12/19 05:05 [place] Rings Not Reportable 12/12/19 05:05 [place] Cells Not Reportable 12/12/19 05:05 Bite Cells Not Reportable 12/12/19 05:05 Crenated Cell Not Reportable 12/12/19 05:05 Elliptocytes Not Reportable 12/12/19 05:05 Acanthocytes (Spur) Not Reportable 12/12/19 05:05 Rouleaux Not Reportable 12/12/19 05:05 Hemoglobin C Crystals Not Reportable 12/12/19 05:05 Schistocytes Not Reportable 12/12/19 05:05 Malaria parasites Not Reportable 12/12/19 05:05 [place] Bodies Not Reportable 12/12/19 05:05 Hem Pathologist Commnt No 12/12/19 05:05 PT 13.1 Sec. (12.2-14.9) 12/11/19 18:37 INR 0.97 (0.87-1.13) 12/11/19 18:37 APTT 20.1 Sec. (24.2-36.6) L 12/11/19 18:37 D-Dimer 550.63 ng/mlDDU (0-234) H 12/11/19 21:50 Sodium 136 mmol/L (137-145) L 12/20/19 04:53 Potassium 4.4 mmol/L (3.6-5.0) 12/20/19 04:53 Chloride 99.4 mmol/L (98-107) 12/20/19 04:53 Carbon Dioxide 26 mmol/L (22-30) 12/20/19 04:53 Anion Gap 15 mmol/L 12/20/19 04:53 BUN 33 mg/dL (9-20) H 12/20/19 04:53 Creatinine 2.2 mg/dL (0.8-1.3) H 12/20/19 04:53 Estimated GFR 35 ml/min 12/20/19 04:53 BUN/Creatinine Ratio 15 % 12/20/19 04:53 Glucose 200 mg/dL (75-100) H 12/20/19 04:53 POC Glucose 187 mg/dL (70-105) H 12/20/19 07:52 Hemoglobin A1c 9.7 % (4-6) H 12/12/19 05:05 Lactic Acid 1.50 mmol/L (0.7-2.0) 12/12/19 05:05 Calcium 9.1 mg/dL (8.4-10.2) 12/20/19 04:53 Ferritin 646.4 ng/mL (30.0-300.0) H 12/11/19 21:50 Total Bilirubin 0.70 mg/dL (0.1-1.2) 12/12/19 05:05 Direct Bilirubin < 0.2 mg/dL (0-0.2) 12/11/19 18:37 Indirect Bilirubin 0.6 mg/dL 12/11/19 18:37 AST 26 units/L (5-40) 12/12/19 05:05 ALT 15 units/L (7-56) 12/12/19 05:05 Alkaline Phosphatase 68 units/L (35-129) 12/12/19 05:05 Ammonia 36.0 umol/L (25-60) 12/11/19 18:37 Lactate Dehydrogenase 188 units/L (91-180) H 12/11/19 21:50 Troponin T < 0.010 ng/mL (0.00-0.029) 12/11/19 20:03 C-Reactive Protein 18.20 mg/dL (0.00-1.30) H 12/11/19 21:50 NT-Pro-B Natriuret Pep 224.4 pg/mL (0-900) 12/11/19 18:37 Serum Total Protein 6.8 g/dL (6.1-8.1) 12/16/19 20:24 Total Protein 8.0 g/dL (6.3-8.2) 12/12/19 05:05 Albumin 2.9 g/dL (3.8-4.8) L 12/16/19 20:24 Albumin/Globulin Ratio 0.6 % 12/12/19 05:05 Jzndn-1-Xtkvzqqqy 0.5 g/dL (0.2-0.3) H 12/16/19 20:24 Lqfku-0-Ufdzamvmt 0.9 g/dL (0.5-0.9) 12/16/19 20:24 Beta Globulins 0.6 g/dL (0.2-0.5) H 12/16/19 20:24 Gamma Globulins 1.4 g/dL (0.8-1.7) 12/16/19 20:24 Abnorm Protein Band 1 see below 12/16/19 20:24 PEP Interpretation see below H 12/16/19 20:24 Procalcitonin 0.18 ng/mL (<0.15) 12/11/19 21:50 TSH 1.240 mlU/mL (0.270-4.200) 12/11/19 18:37 PTH Intact 78.16 pg/mL (15-65) H 12/16/19 20:24 Urine Color Yellow (Yellow) 12/11/19 23:00 Urine Turbidity Clear (Clear) 12/11/19 23:00 Urine pH 6.0 (5.0-7.0) 12/11/19 23:00 Ur Specific [place] 1.013 (1.003-1.030) 12/11/19 23:00 Urine Protein 30 mg/dl mg/dL (Negative) 12/11/19 23:00 Urine Glucose (UA) 150 mg/dL (Negative) 12/11/19 23:00 Urine Ketones Neg mg/dL (Negative) 12/11/19 23:00 Urine Blood Mod (Negative) 12/11/19 23:00 Urine Nitrite Neg (Negative) 12/11/19 23:00 Urine Bilirubin Neg (Negative) 12/11/19 23:00 Urine Urobilinogen 2.0 mg/dL (<2.0) 12/11/19 23:00 Ur Leukocyte Esterase Neg (Negative) 12/11/19 23:00 Urine WBC (Auto) 1.0 /HPF (0.0-6.0) 12/11/19 23:00 Urine RBC (Auto) 1.0 /HPF (0.0-6.0) 12/11/19 23:00 U Epithel Cells (Auto) 1.0 /HPF (0-13.0) 12/11/19 23:00 Urine Creatinine 42.2 mg/dL (0.1-20.0) H 12/16/19 06:52 Protein/Creatinin Ratio 0.21 12/16/19 06:52 Urine Total Protein 9 mg/dL (5-11.8) 12/16/19 06:52 DUNG Screen Negative (Negative) 12/16/19 20:24 Complement C3 166 mg/dL (82-185) 12/16/19 20:24 Complement C4 58 mg/dL (15-53) H 12/16/19 20:24 Coronavirus (PCR) Negative (Negative) 12/12/19 09:08 Robert/IV: Voiding Method Urinal IV Catheter Type [Left Hand] INT / Saline Lock IV Catheter Type [Right Peripheral IV Antecubital] Active Medications - Current Medications Current Medications: Generic Name Dose Route Start Last Admin Trade Name Freq PRN Reason Stop Dose Admin Acetaminophen 650 mg 12/11/19 21:48 12/16/19 22:31 Tylenol PO 650 mg Q4H PRN Administration Pain MILD(1-3)/Fever >100.5/MUSTAFA Aspirin 325 mg 12/13/19 22:00 12/20/19 00:52 Aspirin PO 325 mg HS JOHNNY Administration Dextrose 0 ml 12/11/19 22:45 D50w (25gm) Syringe IV Q30MIN PRN Hypoglycemia Protocol Furosemide 20 mg 12/13/19 12:00 12/19/19 09:14 Lasix IV 20 mg QDAY JOHNNY Administration Heparin Sodium (Porcine) 5,000 unit 12/11/19 22:00 12/19/19 23:00 Heparin SUB-Q 5,000 unit Q12HR JOHNNY Administration Insulin Glargine 50 units 12/13/19 22:00 12/19/19 23:00 Lantus SUB-Q Not Given QHS [facility] Insulin Human Lispro 0 unit 12/12/19 07:30 12/19/19 23:00 Humalog SUB-Q Not Given ACHS [facility] Protocol Insulin Human Lispro 10 unit 12/13/19 07:30 12/19/19 17:43 Humalog SUB-Q 10 unit AC JOHNNY Administration Isosorbide Mononitrate 30 mg 12/14/19 10:00 12/19/19 09:13 Imdur PO 30 mg DAILY JOHNNY Administration Metoprolol Tartrate 25 mg 12/13/19 22:00 12/19/19 23:00 Metoprolol PO 25 mg BID JOHNNY Administration Ondansetron HCl 4 mg 12/11/19 21:48 Zofran IV Q8H PRN Nausea And Vomiting Oxycodone/Acetaminophen 1 tab 12/11/19 21:53 11/10/20 07:26 Percocet 5/325 PO 1 tab Q6H PRN Administration PAIN (4-6) Pravastatin Sodium 80 mg 12/13/19 22:00 12/20/19 00:56 Pravachol PO 80 mg QHS JOHNNY Administration Sodium Chloride 10 ml 12/11/19 22:00 12/20/19 00:54 Sodium Chloride Flush Syringe 10 Ml IV 10 ml BID JOHNNY Administration Sodium Chloride 10 ml 12/11/19 21:48 12/12/19 06:04 Sodium Chloride Flush Syringe 10 Ml IV 10 ml PRN PRN Administration LINE FLUSH Nutrition/Malnutrition Assess - Dietary Evaluation Nutrition/Malnutrition Findings: Nutrition Notes Start: 12/18/19 12:19 Freq: Status: Active Protocol: Document 12/18/19 12:19 EN (Rec: 12/18/19 12:32 EN [email or web address]) Co-Sign 12/18/19 12:19 LM Nutrition Notes Need for Assessment generated from: LOS Initial or Follow up Assessment Current Diagnosis Acute Kidney Injury,Diabetes, Sepsis,Hypertension Other Pertinent Diagnosis CABG, Pneumonia, Bronchitis, Dementia Current Diet Cardiac/Consistent CHO Labs/Tests 12/16: Na 132, BUN 32, Cr 2.3 12/17: POC Glu: 237 Pertinent Medications Lasix 20mg, Lantus 50 unit, Humalog 3 unit, Humalog 10 unit Height 5 ft 11 in Weight 141.2 kg Usual Body Weight 159 kg [place] Body Weight (kg) 78.18 BMI 43.4 Weight change and time frame 11% weight loss in 1 week Pt has 2+ edema and is on Lasix Weight Status Morbidly Obese Subjective/Other Information Pt screened for LOS. 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 Pt states that he weighed 350 pounds (159kg) at MD office 1 week ago. Pt reports good appetite and denies N/V/D . Pt states that he ate 50% of breakfast this morning because he does not like to eat in the morning. RN report 25-50% PO intake in ADL report . Burn Absent Trauma Absent GI Symptoms None Food Allergy No Current % PO Poor (25-49%) Minimum of two criteria No Interpretation of Weight Loss (severe) >2% in 1 week #1 Nutrition Diagnosis Inadequate oral intake Etiology Sepsis, dementia and pneumonia As Evidenced by Signs and Symptoms consuming 25-50% of meals Is patient on ventilator? No Is Patient Ambulatory and/or Out of Bed No [facility] 2578.932 Kcal/Kg value to use for calculation 14 Approximate Energy Requirements Using 1977 kcal/Kg Calculation Used for Recommendations Kcal/kg Additional Notes Protein: 0.8-1.2 g/kg AdBW 109 .7kg (88-131g) Fluids: 1 ml/kcal Nutrition Intervention Change Diet Order: Continue Cardiac/Consistent CHO diet Goal #1 Meet 75% of energy and protein needs Anticipated Discharge Needs: Cardiac/Consistent CHO diet Follow-Up By: 12/20/19 Additional Comments F/u for intakes
[2019-12-20] MEDS: INSULIN LISPRO 100 UNIT/ML VIAL 3 mL SUB-Q SCH ×7 (08:28→23:20)
[2019-12-20] MEDS: HEPARIN 5,000 UNIT/1 ML VIAL SUB-Q SCH ×2 (09:28→23:13)
[2019-12-20] MEDS: FUROSEMIDE 20 MG/2 ML INJ IV SCH (09:28)
[2019-12-20] MEDS: METOPROLOL TARTRATE 25 MG TAB PO SCH ×2 (09:29→23:12)
--- NOTE | 2019-12-20 11:34 | Progress Note ---
Assessment and Plan Impression * Stage III chronic kidney disease - patient w/ multiple risk factors for CKD - DM, HTN, CAD * Altered mental status * Fever --Blood cx NGTD (Dec 10) * Dementia * Hypertension * Type II DM * Hx of CAD s/p CABG Plan: * Renal function has remained stable - baseline appears to be 2.1-2.3mg/dL * Continue conservative management * Will change IV Lasix 20mg daily to PO * Dose medications for renal function * Glycemic control per primary team * Discharge planning in progress * Will follow peripherally * Follow up with [facility] upon discharge Subjective Date of service: 12/20/19 Interval history: Patient has no complaints today Objective - Vital Signs Vital signs: Vital Signs - 12hr 12/20/19 12/20/19 04:23 09:29 Temperature 98.7 F Pulse Rate 73 71 Respiratory 20 Rate Blood Pressure 121/51 125/42 O2 Sat by Pulse 94 Oximetry - General Appearance General appearance: well-developed, well-nourished EENT: ATNC Respiratory: Present: Clear to Ascultation Cardiology: regular, S1S2 Gastrointestinal: normal, no tenderness, no distended Psychiatric: cooperative - Lab 12/20/19 04:53 12/20/19 04:53 Most recent lab results Calcium 9.1 mg/dL (8.4-10.2) 12/20/19 04:53 Urine Creatinine 42.2 mg/dL (0.1-20.0) H 12/16/19 06:52 Urine Total Protein 9 mg/dL (5-11.8) 12/16/19 06:52 Medications & Allergies - Medications Allergies/Adverse Reactions: Allergies No Known Allergies Allergy (Verified 04/19/14 09:47) Home Medications: Home Medications Medication Instructions Recorded Confirmed Last Taken Type Aspirin 325 mg PO HS 12/11/19 12/11/19 12/10/19 History ISOSORBIDE MONOnitrate [Imdur ER] 30 mg PO DAILY 12/11/19 12/11/19 12/10/19 History Insulin NPH/Regular [Novolin 70/30] 50 unit SQ BID 12/11/19 12/11/19 12/11/19 History Metoprolol [Lopressor] 25 mg PO BID 12/11/19 12/11/19 12/10/19 History Simvastatin 40 mg PO HS 12/11/19 12/11/1920 History hydroCHLOROthiazide 12.5 mg PO DAILY 12/11/19 12/11/19 12/10/19 History [Hydrochlorothiazide] Active Medications: Generic Name Dose Route Start Last Admin Trade Name Freq PRN Reason Stop Dose Admin Acetaminophen 650 mg 12/11/19 21:48 12/16/19 22:31 Tylenol PO 650 mg Q4H PRN Administration Pain MILD(1-3)/Fever >100.5/MUSTAFA Aspirin 325 mg 12/13/19 22:00 12/20/19 00:52 Aspirin PO 325 mg HS JOHNNY Administration Dextrose 0 ml 12/11/19 22:45 D50w (25gm) Syringe IV Q30MIN PRN Hypoglycemia Protocol Furosemide 20 mg 12/13/19 12:00 12/20/19 09:28 Lasix IV 20 mg QDAY JOHNNY Administration Heparin Sodium (Porcine) 5,000 unit 12/11/19 22:00 12/20/19 09:28 Heparin SUB-Q 5,000 unit Q12HR JOHNNY Administration Insulin Glargine 50 units 12/13/19 22:00 12/19/19 23:00 Lantus SUB-Q Not Given [facility] Insulin Human Lispro 0 unit 12/12/19 07:30 12/20/19 08:28 Humalog SUB-Q 2 unit ACH[facility] Administration Protocol Insulin Human Lispro 10 unit 12/13/19 07:30 12/20/19 08:29 Humalog SUB-Q 10 unit AC JOHNNY Administration Isosorbide Mononitrate 30 mg 12/14/19 10:00 12/20/19 09:29 Imdur PO 30 mg DAILY JOHNNY Administration Metoprolol Tartrate 25 mg 12/13/19 22:00 12/20/19 09:29 Metoprolol PO 25 mg BID JOHNNY Administration Ondansetron HCl 4 mg 12/11/19 21:48 Zofran IV Q8H PRN Nausea And Vomiting Oxycodone/Acetaminophen 1 tab 12/11/19 21:53 12/18/19 07:26 Percocet 5/325 PO 1 tab Q6H PRN Administration PAIN (4-6) Pravastatin Sodium 80 mg 12/13/19 22:00 12/20/19 00:56 Pravachol PO 80 mg QHS JOHNNY Administration Sodium Chloride 10 ml 12/11/19 22:00 12/20/19 09:30 Sodium Chloride Flush Syringe 10 Ml IV 10 ml BID JOHNNY Administration Sodium Chloride 10 ml 12/11/19 21:48 12/12/19 06:04 Sodium Chloride Flush Syringe 10 Ml IV 10 ml PRN PRN Administration LINE FLUSH
--- NOTE | 2019-12-20 12:52 | Event Note ---
Date: 12/20/19 I called to discuss P2P, unable to contact left voicemail and encouraged him to call back to discuss about the discharge planning of Mr. Fay Amaral. I informed the sample case porter and the nurse regarding my attempt to call the insurance examiner. I was asked to call again at 3:00 PM today. I called again at 3 PM on 12/20/[address] Epps in detail patient's condition, the need for subacute/SNF placement as recommended by Physical therapy, patient's condition, test reports. However felt that patient is not a candidate for subacute/SNF at this point However recommended PT to reevaluate and the case management to fax the new PT evaluation report for reconsideration. I informed the case management the details of the above discussion
[2019-12-20 20:50] LABS: Myeloperoxidase Antibody <1.0 AI (<1.0)
[2019-12-20] MEDS: INSULIN GLARGINE 100 UNITS/ML SUB-Q SCH (23:21)
[2019-12-21] MEDS: FUROSEMIDE 20 MG TAB PO SCH (05:38)
[2019-12-21 06:28] LABS: Hematocrit 40.2 % (35.5-45.6); Hemoglobin 13.3 gm/dl (11.8-15.2); Mean Corpuscular HGB Conc 33 % (32-34); Mean Corpuscular Volume 89 fl (84-94); Platelet Count 326 K/mm3 (140-440); Red Blood Count 4.53 M/mm3 (3.65-5.03); Red Cell Distribution Width 13.6 % (13.2-15.2)
[2019-12-21 06:50] LABS: Calcium 9.5 mg/dL (8.4-10.2)
[2019-12-21] MEDS: INSULIN LISPRO 100 UNIT/ML VIAL 3 mL SUB-Q SCH ×7 (07:30→22:00)
[2019-12-21 07:42] LABS: Band Neutrophils # (Manual) 0.1 K/mm3; Total Cells Counted 100
[2019-12-21 07:43] LABS: Basophils % (Manual) 0 % (0.0-1.8)
[2019-12-21 07:44] LABS: Large Platelets Few; Platelet Estimate Consistent w Auto; RBC Morphology Normal
[2019-12-21] MEDS: HEPARIN 5,000 UNIT/1 ML VIAL SUB-Q SCH ×2 (09:46→22:00)
[2019-12-21] MEDS: METOPROLOL TARTRATE 25 MG TAB PO SCH ×2 (09:46→22:00)
--- NOTE | 2019-12-21 12:06 | Progress Note ---
Assessment and Plan Assessment and plan: Assessment and plan: 79 YO Male with CAD S/P CABG, HTN, DM, Dementia, morbid obesity was admitted through emergency room with altered level of consciousness and confusion with diminished cognition and is unable to provide history. patient family who was at bedside during exam and interview. As per family the patient has experienced increased weakness and confusion over the past 1 month with progressively worsening symptoms over the same timeframe. Patient is currently bedbound, and nonambulatory as per family report. Patient also requires assistance with activities of daily living. In the emergency room patient was febrile and initial work-up is consistent with toxic metabolic encephalopathy and acute bronchitis and SIRS . Patient is admitted and appropriately managed Mental status slightly improved, evaluated by PT, recommended subacute rehab/SNF placement. Insurance did not approve subacute/SNF placement On 12/20/2019 I had P2P DISCUSSION I spoke with insurance physician,Dr. Epps in detail patient's condition, he reported that patient is not a candidate for subacute/SNF placement and recommended, reevaluation by PT and to send the report to them for reconsideration. I informed case management. Patient is awaiting placement versus home with home health. Medically stable fo r discharge --COVID-19 test negative; -- Toxic metabolic encephalopathy Current Visit: Yes Status: Acute Plan to address problem: Present on admission, improved --SIRS:[No criteria for sepsis] Current Visit: Yes Status: Acute Plan to address problem: No criteria for sepsis SIRS, leukocytosis, tachycardia --Acute bronchitis Current Visit: Yes Status: Acute . Plan to address problem: Chest x-ray negative for pneumonia Continue current management --Coronary artery disease status post CABG ; Current Visit: Yes Status: Acute . Plan to address problem: Continue current cardiac medications Patient denies chest pain or chest discomfort --Type II diabetes mellitus Current Visit: Yes Status: Acute Plan to address problem: Moderate control, Accu-Chek sliding scale coverage ADA diet Long-acting insulin Lantus A1c is 9.7 , closely monitor. --EUFEMIA Current Visit: No Status: Acute Plan to address problem: Due to vasomotor nephropathy Mild improvement, gentle hydration, monitor renal function. Avoid nephrotoxins, nephrology consult --Hyponatremia; present on admission Significantly improved, monitor electrolytes --Suspected COVID-19 virus infection Current Visit: No Status: Acute Plan to address problem: COVID-19 test is negative --morbid obesity; BMI 43 Patient needs weight reduction when medically stable May benefit by outpatient bariatric surgical/medical consult For weight reduction program -- DVT prophylaxis Current Visit: Yes Status: Acute Plan to address problem: SCD /heparin renal dose -- Advance care planning/full code Current Visit: Yes Status: Acute . Plan to address problem: Discharge planning; Possible SNF/subacute rehab placement when medically stable 12/12/19; patient was alert and oriented. Lactic acid level trended down to normal. Chest x-ray showed pulmonary congestion. We will continue with IV antibiotics today. We going to get COVID-19 test. Disposition is per clinical course. 12/13/19; I have discussed with his daughter Jodi and she says she is not able to take care of him when replacement. PT OT evaluation. 12/14/19; patient is doing well and can be discharged to subacute rehab. 12/15/19; patient is doing well currently, alert and oriented, no acute issues. Nephrology consulted for EUFEMIA. I have discussed with his daughter Jodi and she states she is not able to take care of him at home and she wants him placement. Pending subacute rehab placement.\ 12/16/19; patient's spouse requests subacute rehab placement, DC planning and placement per case management when patient is medically stable 12/17/19; patient has no criteria for sepsis, SIRS, leukocytosis and tachycardia, continue current management, Patient spouse request SNF/subacute rehab placement, case management assisting with discharge plan 12/18/19; patient feels better, medically stable for discharge awaiting placement 12/19/19; reports that patient's insurance wants P2P review tomorrow 12/20/19; will discuss with insurance P2P as well as daughter today 12/21/19; I discussed with insurance physician P2P 12/20/2019, not a candidate for subacute /SNF at this point ,they requested reevaluation by PT to be sent to them for reconsideration History Interval history: I have seen and examined the patient at the bedside this morning Patient's chart and medications reviewed, physical therapy was at the bedside Complains of some pain in the hip, Alert awake oriented Vital signs reviewed Hospitalist Physical - Constitutional Vitals: Temp Pulse Resp BP Pulse Ox 97.8 F 72 20 114/48 91 12/21/19 04:34 12/21/19 04:34 12/21/19 04:34 12/21/19 04:34 12/21/19 04:34 General appearance: Present: mild distress, well-nourished, obese (Morbidly obese) - EENT Eyes: Present: PERRL, EOM intact - Neck Neck: Present: supple, normal ROM - Respiratory Respiratory effort: normal Respiratory: bilateral: diminished, negative: rales, rhonchi, wheezing - Cardiovascular Rhythm: regular Heart Sounds: Present: S1 & S2 - Extremities Extremities: no ischemia, No edema - Abdominal General gastrointestinal: soft, non-tender, non-distended, normal bowel sounds - Integumentary Integumentary: Present: clear, warm - Psychiatric Psychiatric: appropriate mood/affect, cooperative - Neurologic Neurologic: moves all extremities HEART Score - HEART Score Troponin: Troponin T < 0.010 ng/mL (0.00-0.029) 12/11/19 20:03 Results - Labs CBC & Chem 7: 12/21/19 05:17 12/21/19 05:17 Labs: Laboratory Last Values WBC 12.7 K/mm3 (4.5-11.0) H 12/21/19 05:17 RBC 4.53 M/mm3 (3.65-5.03) 12/21/19 05:17 Hgb 13.3 gm/dl (11.8-15.2) 12/21/19 05:17 Hct 40.2 % (35.5-45.6) 12/21/19 05:17 MCV 89 fl (84-94) 12/21/19 05:17 MCH 29 pg (28-32) 12/21/19 05:17 MCHC 33 % (32-34) 12/21/19 05:17 RDW 13.6 % (13.2-15.2) 12/21/19 05:17 Plt Count 326 K/mm3 (140-440) 12/21/19 05:17 Lymph % (Auto) 22.2 % (13.4-35.0) 12/20/19 04:53 [place] % (Auto) 11.4 % (0.0-7.3) H 12/20/19 04:53 Eos % (Auto) 5.6 % (0.0-4.3) H 12/20/19 04:53 Baso % (Auto) 1.0 % (0.0-1.8) 12/20/19 04:53 Lymph # (Auto) 2.6 K/mm3 (1.2-5.4) 12/20/19 04:53 [place] # (Auto) 1.3 K/mm3 (0.0-0.8) H 12/20/19 04:53 Eos # (Auto) 0.7 K/mm3 (0.0-0.4) H 12/20/19 04:53 Baso # (Auto) 0.1 K/mm3 (0.0-0.1) 12/20/19 04:53 Add Manual Diff Complete 12/21/19 05:17 Total Counted 100 12/21/19 05:17 Seg Neutrophils % 59.8 % (40.0-70.0) 12/20/19 04:53 Seg Neuts % (Manual) 89.0 % (40.0-70.0) H 12/21/19 05:17 Band Neutrophils % 1.0 % 12/21/19 05:17 Lymphocytes % (Manual) 7.0 % (13.4-35.0) L 12/21/19 05:17 Reactive Lymphs % (Man) 0 % 12/21/19 05:17 Monocytes % (Manual) 2.0 % (0.0-7.3) 12/21/19 05:17 Eosinophils % (Manual) 1.0 % (0.0-4.3) 12/21/19 05:17 Basophils % (Manual) 0 % (0.0-1.8) 12/21/19 05:17 Metamyelocytes % 0 % 12/21/19 05:17 Myelocytes % 0 % 12/21/19 05:17 Promyelocytes % 0 % 12/21/19 05:17 Blast Cells % 0 % 12/21/19 05:17 Nucleated RBC % Not Reportable 12/21/19 05:17 Seg Neutrophils # 6.9 K/mm3 (1.8-7.7) 12/20/19 04:53 Seg Neutrophils # Man 11.3 K/mm3 (1.8-7.7) H 12/21/19 05:17 Band Neutrophils # 0.1 K/mm3 12/21/19 05:17 Lymphocytes # (Manual) 0.9 K/mm3 (1.2-5.4) L 12/21/19 05:17 Abs React Lymphs (Man) 0.0 K/mm3 12/21/19 05:17 Monocytes # (Manual) 0.3 K/mm3 (0.0-0.8) 12/21/19 05:17 Eosinophils # (Manual) 0.1 K/mm3 (0.0-0.4) 12/21/19 05:17 Basophils # (Manual) 0.0 K/mm3 (0.0-0.1) 12/21/19 05:17 Metamyelocytes # 0.0 K/mm3 12/21/19 05:17 Myelocytes # 0.0 K/mm3 12/21/19 05:17 Promyelocytes # 0.0 K/mm3 12/21/19 05:17 Blast Cells # 0.0 K/mm3 12/21/19 05:17 WBC Morphology Not Reportable 12/21/19 05:17 Hypersegmented Neuts Not Reportable 12/21/19 05:17 Hyposegmented Neuts Not Reportable 12/21/19 05:17 Hypogranular Neuts Not Reportable 12/21/19 05:17 Smudge Cells Not Reportable 12/21/19 05:17 Toxic Granulation Not Reportable 12/21/19 05:17 Toxic Vacuolation Not Reportable 12/21/19 05:17 Dohle Bodies Not Reportable 12/21/19 05:17 Pelger-Huet Anomaly Not Reportable 12/21/19 05:17 Sam Rods Not Reportable 12/21/19 05:17 Platelet Estimate Consistent w auto 12/21/19 05:17 Clumped Platelets Not Reportable 12/21/19 05:17 Plt Clumps, EDTA Not Reportable 12/21/19 05:17 Large Platelets Few 12/21/19 05:17 Giant Platelets Not Reportable 12/21/19 05:17 Platelet Satelliting Not Reportable 12/21/19 05:17 Plt Morphology Comment Not Reportable 12/21/19 05:17 RBC Morphology Normal 12/21/19 05:17 Dimorphic RBCs Not Reportable 12/21/19 05:17 Polychromasia Not Reportable 12/21/19 05:17 Hypochromasia Not Reportable 12/21/19 05:17 Poikilocytosis Not Reportable 12/21/19 05:17 Anisocytosis Not Reportable 12/21/19 05:17 Microcytosis Not Reportable 12/21/19 05:17 Macrocytosis Not Reportable 12/21/19 05:17 Spherocytes Not Reportable 12/21/19 05:17 Pappenheimer Bodies Not Reportable 12/21/19 05:17 Sickle Cells Not Reportable 12/21/19 05:17 Target Cells Not Reportable 12/21/19 05:17 Tear Drop Cells Not Reportable 12/21/19 05:17 Ovalocytes Not Reportable 12/21/19 05:17 Helmet Cells Not Reportable 12/21/19 05:17 Saavedra-Sledge Bodies Not Reportable 12/21/19 05:17 [place] Rings Not Reportable 12/21/19 05:17 Rif[place] Cells Not Reportable 12/21/19 05:17 Bite Cells Not Reportable 12/21/19 05:17 Crenated Cell Not Reportable 12/21/19 05:17 Elliptocytes Not Reportable 12/21/19 05:17 Acanthocytes (Spur) Not Reportable 12/21/19 05:17 Rouleaux Not Reportable 12/21/19 05:17 Hemoglobin C Crystals Not Reportable 12/21/19 05:17 Schistocytes Not Reportable 12/21/19 05:17 Malaria parasites Not Reportable 12/21/19 05:17 [place] Bodies Not Reportable 12/21/19 05:17 Hem Pathologist Commnt No 12/21/19 05:17 PT 13.1 Sec. (12.2-14.9) 12/11/19 18:37 INR 0.97 (0.87-1.13) 12/11/19 18:37 APTT 20.1 Sec. (24.2-36.6) L 12/11/19 18:37 D-Dimer 550.63 ng/mlDDU (0-234) H 12/11/19 21:50 Sodium 136 mmol/L (137-145) L 12/21/19 05:17 Potassium 4.4 mmol/L (3.6-5.0) 12/21/19 05:17 Chloride 97.4 mmol/L (98-107) L 12/21/19 05:17 Carbon Dioxide 27 mmol/L (22-30) 12/21/19 05:17 Anion Gap 16 mmol/L 12/21/19 05:17 BUN 36 mg/dL (9-20) H 12/21/19 05:17 Creatinine 2.2 mg/dL (0.8-1.3) H 12/21/19 05:17 Estimated GFR 35 ml/min 12/21/19 05:17 BUN/Creatinine Ratio 16 % 12/21/19 05:17 Glucose 185 mg/dL (75-100) H 12/21/19 05:17 POC Glucose 273 mg/dL (70-105) H 12/21/19 11:47 Hemoglobin A1c 9.7 % (4-6) H 12/12/19 05:05 Lactic Acid 1.50 mmol/L (0.7-2.0) 12/12/19 05:05 Calcium 9.5 mg/dL (8.4-10.2) 12/21/19 05:17 Ferritin 646.4 ng/mL (30.0-300.0) H 12/11/19 21:50 Total Bilirubin 0.70 mg/dL (0.1-1.2) 12/12/19 05:05 Direct Bilirubin < 0.2 mg/dL (0-0.2) 12/11/19 18:37 Indirect Bilirubin 0.6 mg/dL 12/11/19 18:37 AST 26 units/L (5-40) 12/12/19 05:05 ALT 15 units/L (7-56) 12/12/19 05:05 Alkaline Phosphatase 68 units/L (35-129) 12/12/19 05:05 Ammonia 36.0 umol/L (25-60) 12/11/19 18:37 Lactate Dehydrogenase 188 units/L (91-180) H 12/11/19 21:50 Troponin T < 0.010 ng/mL (0.00-0.029) 12/11/19 20:03 C-Reactive Protein 18.20 mg/dL (0.00-1.30) H 12/11/19 21:50 NT-Pro-B Natriuret Pep 224.4 pg/mL (0-900) 12/11/19 18:37 Serum Total Protein 6.8 g/dL (6.1-8.1) 12/16/19 20:24 Total Protein 8.0 g/dL (6.3-8.2) 12/12/19 05:05 Albumin 2.9 g/dL (3.8-4.8) L 12/16/19 20:24 Albumin/Globulin Ratio 0.6 % 12/12/19 05:05 Mzspr-2-Gfvtgozjv 0.5 g/dL (0.2-0.3) H 12/16/19 20:24 Qabxa-2-Gicqdyzde 0.9 g/dL (0.5-0.9) 12/16/19 20:24 Beta Globulins 0.6 g/dL (0.2-0.5) H 12/16/19 20:24 Gamma Globulins 1.4 g/dL (0.8-1.7) 12/16/19 20:24 Abnorm Protein Band 1 see below 12/16/19 20:24 PEP Interpretation see below H 12/16/19 20:24 Procalcitonin 0.18 ng/mL (<0.15) 12/11/19 21:50 TSH 1.240 mlU/mL (0.270-4.200) 12/11/19 18:37 PTH Intact 78.16 pg/mL (15-65) H 12/16/19 20:24 Urine Color Yellow (Yellow) 12/11/19 23:00 Urine Turbidity Clear (Clear) 12/11/19 23:00 Urine pH 6.0 (5.0-7.0) 12/11/19 23:00 Ur Specific [place] 1.013 (1.003-1.030) 12/11/19 23:00 Urine Protein 30 mg/dl mg/dL (Negative) 12/11/19 23:00 Urine Glucose (UA) 150 mg/dL (Negative) 12/11/19 23:00 Urine Ketones Neg mg/dL (Negative) 12/11/19 23:00 Urine Blood Mod (Negative) 12/11/19 23:00 Urine Nitrite Neg (Negative) 12/11/19 23:00 Urine Bilirubin Neg (Negative) 12/11/19 23:00 Urine Urobilinogen 2.0 mg/dL (<2.0) 12/11/19 23:00 Ur Leukocyte Esterase Neg (Negative) 12/11/19 23:00 Urine WBC (Auto) 1.0 /HPF (0.0-6.0) 12/11/19 23:00 Urine RBC (Auto) 1.0 /HPF (0.0-6.0) 12/11/19 23:00 U Epithel Cells (Auto) 1.0 /HPF (0-13.0) 12/11/19 23:00 Urine Creatinine 42.2 mg/dL (0.1-20.0) H 12/16/19 06:52 Protein/Creatinin Ratio 0.21 12/16/19 06:52 Urine Total Protein 9 mg/dL (5-11.8) 12/16/19 06:52 DUNG Screen Negative (Negative) 12/16/19 20:24 Proteinase 3 (PR3) Ab <1.0 AI (<1.0) 12/16/19 20:24 Myeloperoxidase Ab <1.0 AI (<1.0) 12/16/19 20:24 Complement C3 166 mg/dL (82-185) 12/16/19 20:24 Complement C4 58 mg/dL (15-53) H 12/16/19 20:24 Coronavirus (PCR) Negative (Negative) 12/12/19 09:08 Robert/IV: Voiding Method Urinal IV Catheter Type [Left Hand] INT / Saline Lock IV Catheter Type [Right Peripheral IV Antecubital] Active Medications - Current Medications Current Medications: Generic Name Dose Route Start Last Admin Trade Name Freq PRN Reason Stop Dose Admin Acetaminophen 650 mg 12/11/19 21:48 12/16/19 22:31 Tylenol PO 650 mg Q4H PRN Administration Pain MILD(1-3)/Fever >100.5/MUSTAFA Aspirin 325 mg 12/13/19 22:00 12/20/19 23:12 Aspirin PO 325 mg HS JOHNNY Administration Dextrose 0 ml 12/11/19 22:45 D50w (25gm) Syringe IV Q30MIN PRN Hypoglycemia Protocol Furosemide 20 mg 12/21/19 06:00 12/21/19 05:38 Lasix PO 20 mg DAILY@0600 JOHNNY Administration Heparin Sodium (Porcine) 5,000 unit 12/11/19 22:00 12/21/19 09:46 Heparin SUB-Q 5,000 unit Q12HR JOHNNY Administration Insulin Glargine 50 units 12/13/19 22:00 12/20/19 23:21 Lantus SUB-Q Not Given QHS JOHNNY Insulin Human Lispro 0 unit 12/12/19 07:30 12/21/19 07:30 Humalog SUB-Q 2 unit ACHS JOHNNY Administration Protocol Insulin Human Lispro 10 unit 12/13/19 07:30 12/21/19 07:30 Humalog SUB-Q 10 unit AC JOHNNY Administration Isosorbide Mononitrate 30 mg 12/14/19 10:00 12/21/19 09:46 Imdur PO 30 mg DAILY JOHNNY Administration Metoprolol Tartrate 25 mg 12/13/19 22:00 12/21/19 09:46 Metoprolol PO 25 mg BID JOHNNY Administration Ondansetron HCl 4 mg 12/11/19 21:48 Zofran IV Q8H PRN Nausea And Vomiting Oxycodone/Acetaminophen 1 tab 12/11/19 21:53 12/18/19 07:26 Percocet 5/325 PO 1 tab Q6H PRN Administration PAIN (4-6) Pravastatin Sodium 80 mg 12/13/19 22:00 12/20/19 23:12 Pravachol PO 80 mg QHS JOHNNY Administration Sodium Chloride 10 ml 12/11/19 22:00 12/21/19 09:44 Sodium Chloride Flush Syringe 10 Ml IV 10 ml BID JOHNNY Administration Sodium Chloride 10 ml 12/11/19 21:48 12/12/19 06:04 Sodium Chloride Flush Syringe 10 Ml IV 10 ml PRN PRN Administration LINE FLUSH Nutrition/Malnutrition Assess - Dietary Evaluation Nutrition/Malnutrition Findings: Nutrition Notes Start: 12/18/19 12:19 Freq: Status: Active Protocol: Document 12/20/19 12:56 EN (Rec: 12/20/19 13:02 EN [email or web address]) Co-Sign 12/20/19 12:56 LM Nutrition Notes Initial or Follow up Reassessment Current Diagnosis Acute Kidney Injury,Diabetes, Sepsis,Hypertension Other Pertinent Diagnosis CABG, Pneumonia, Bronchitis, Dementia Current Diet Cardiac/Consistent CHO Labs/Tests POC Glu 187, Na 136, BUN 33, Cr 2.2, Glu 200 Pertinent Medications Humalog 2 unit, Humalog 10 unit Height 5 ft 11 in Weight 135 kg [place] Body Weight (kg) 78.18 BMI 41.5 Weight change and time frame Weight change noted Weight Status Morbidly Obese Subjective/Other Information F/u for intakes. Pt reports consuming 50% of meals and denies N/V/D. Pt would like bananas and grilled cheese included with his meals Percent of energy/protein needs met: 52%/51% Burn Absent Trauma Absent GI Symptoms None Food Allergy No Current % PO Fair (50-74%) Minimum of two criteria No Interpretation of Weight Loss (severe) >2% in 1 week #1 Nutrition Diagnosis Inadequate oral intake Diagnosis Progress(for reassessment Continues documentation) Is patient on ventilator? No Is Patient Ambulatory and/or Out of Bed No REE-(Stopover-[facility]-confined to bed) 2504.616 Kcal/Kg value to use for calculation 14 Approximate Energy Requirements Using 1890 kcal/Kg Calculation Used for Recommendations Kcal/kg Additional Notes Protein: 0.8-1.2 g/kg AdBW 106 .6kg (85-128g) Fluids: 1 ml/kcal Nutrition Intervention Change Diet Order: Continue Cardiac/Consistent CHO diet Goal #1 Meet 75% of energy and protein needs Anticipated Discharge Needs: Cardiac/Consistent CHO diet Follow-Up By: 12/25/19 Additional Comments F/u for intakes
[2019-12-21] MEDS: oxyCODONE /ACETAMINOPHEN 5-325MG TAB PO PRN (12:25)
--- NOTE | 2019-12-21 15:45 | XRay Report ---
RIGHT HIP 2 VIEWS INDICATION: Right hip pain. COMPARISON: None. IMPRESSION: Limited exam secondary to body habitus. Normal bone mineralization. Moderate osteoarthr itic changes are identified no obvious fracture or bone lesion. Signer Name: Crow Dennis Jr, MD Signed: 12/21/2019 3:41 PM Workstation Name: [id number]
--- NOTE | 2019-12-21 17:15 | Progress Note ---
Assessment and Plan Impression * Stage III chronic kidney disease - patient w/ multiple risk factors for CKD - DM, HTN, CAD * Altered mental status * Fever --Blood cx NGTD (Dec 10) * Dementia * Hypertension * Type II DM * Hx of CAD s/p CABG Plan: * Renal function has remained stable - baseline appears to be 2.1-2.3mg/dL * Continue conservative management * Continue Lasix 20mg po daily * Dose medications for renal function * Glycemic control per primary team * Discharge planning in progress * Will follow peripherally. Follow up with [facility] upon discharge Subjective Date of service: 12/21/19 Interval history: Patient has no complaints today Objective - General Appearance General appearance: well-developed, well-nourished EENT: ATNC Respiratory: Present: Clear to Ascultation Cardiology: regular, S1S2 Gastrointestinal: normal, no tenderness, no distended Integumentary: no rash, warm and dry Musculoskeletal: other (no edema) Psychiatric: cooperative - Lab 12/21/19 05:17 12/21/19 05:17 Most recent lab results Calcium 9.5 mg/dL (8.4-10.2) 12/21/19 05:17 Urine Creatinine 42.2 mg/dL (0.1-20.0) H 12/16/19 06:52 Urine Total Protein 9 mg/dL (5-11.8) 12/16/19 06:52 Medications & Allergies - Medications Allergies/Adverse Reactions: Allergies No Known Allergies Allergy (Verified 04/19/14 09:47) Home Medications: Home Medications Medication Instructions Recorded Confirmed Last Taken Type Aspirin 325 mg PO HS 12/11/19 12/11/19 12/10/19 History ISOSORBIDE MONOnitrate [Imdur ER] 30 mg PO DAILY 12/11/19 12/11/19 12/10/19 History Insulin NPH/Regular [Novolin 70/30] 50 unit SQ BID 12/11/19 12/11/19 12/11/19 History Metoprolol [Lopressor] 25 mg PO BID 12/11/19 12/11/19 12/10/19 History Simvastatin 40 mg PO HS 12/11/19 12/11/19 12/10/19 History hydroCHLOROthiazide 12.5 mg PO DAILY 12/11/19 12/11/19 12/10/19 History [Hydrochlorothiazide] Active Medications: Generic Name Dose Route Start Last Admin Trade Name Freq PRN Reason Stop Dose Admin Acetaminophen 650 mg 12/11/19 21:48 12/16/19 22:31 Tylenol PO 650 mg Q4H PRN Administration Pain MILD(1-3)/Fever >100.5/MUSTAFA Aspirin 325 mg 12/13/19 22:00 12/20/19 23:12 Aspirin PO 325 mg HS JOHNNY Administration Dextrose 0 ml 12/11/19 22:45 D50w (25gm) Syringe IV Q30MIN PRN Hypoglycemia Protocol Furosemide 20 mg 12/21/19 06:00 12/21/19 05:38 Lasix PO 20 mg DAILY@0600 [facility] Administration Heparin Sodium (Porcine) 5,000 unit 12/11/19 22:00 12/21/19 09:46 Heparin SUB-Q 5,000 unit Q12HR JOHNNY Administration Insulin Glargine 50 units 12/13/19 22:00 12/20/19 23:21 Lantus SUB-Q Not Given QHS [facility] Insulin Human Lispro 0 unit 12/12/19 07:30 12/21/19 11:30 Humalog SUB-Q 4 unit ACHS JOHNNY Administration Protocol Insulin Human Lispro 10 unit 12/13/19 07:30 12/21/19 11:30 Humalog SUB-Q 10 unit AC [facility] Administration Isosorbide Mononitrate 30 mg 12/14/19 10:00 12/21/19 09:46 Imdur PO 30 mg DAILY JOHNNY Administration Metoprolol Tartrate 25 mg 12/13/19 22:00 12/21/19 09:46 Metoprolol PO 25 mg BID JOHNNY Administration Ondansetron HCl 4 mg 12/11/19 21:48 Zofran IV Q8H PRN Nausea And Vomiting Oxycodone/Acetaminophen 1 tab 12/11/19 21:53 12/21/19 12:25 Percocet 5/325 PO 1 tab Q6H PRN Administration PAIN (4-6) Pravastatin Sodium 80 mg 12/13/19 22:00 12/20/19 23:12 Pravachol PO 80 mg QHS JOHNNY Administration Sodium Chloride 10 ml 12/11/19 22:00 12/21/19 09:44 Sodium Chloride Flush Syringe 10 Ml IV 10 ml BID JOHNNY Administration Sodium Chloride 10 ml 12/11/19 21:48 12/12/19 06:04 Sodium Chloride Flush Syringe 10 Ml IV 10 ml PRN PRN Administration LINE FLUSH
[2019-12-21] MEDS: ASPIRIN 325 MG TAB PO SCH (22:00)
[2019-12-21] MEDS: PRAVASTATIN 80 MG TAB PO SCH (22:00)
[2019-12-21] MEDS: INSULIN GLARGINE 100 UNITS/ML SUB-Q SCH (22:00)
[2019-12-22 05:22] LABS: Basophils # (Auto) 0.1 K/mm3 (0.0-0.1); Basophils % (Auto) 0.7 % (0.0-1.8); Eosinophils # (Auto) 0.5 K/mm3 (0.0-0.4); Eosinophils % (Auto) 4.4 % (0.0-4.3); Hematocrit 38.9 % (35.5-45.6); Hemoglobin 13.2 gm/dl (11.8-15.2); Lymphocytes # (Auto) 2.6 K/mm3 (1.2-5.4); Lymphocytes % (Auto) 22.2 % (13.4-35.0); Mean Corpuscular HGB Conc 34 % (32-34); Mean Corpuscular Volume 89 fl (84-94); Monocytes # (Auto) 1.2 K/mm3 (0.0-0.8); Monocytes % (Auto) 10.4 % (0.0-7.3); Platelet Count 316 K/mm3 (140-440); Red Blood Count 4.37 M/mm3 (3.65-5.03); Red Cell Distribution Width 13.5 % (13.2-15.2)
[2019-12-22 05:28] LABS: Calcium 9.2 mg/dL (8.4-10.2)
[2019-12-22] MEDS: FUROSEMIDE 20 MG TAB PO SCH (07:50)
[2019-12-22] MEDS: INSULIN LISPRO 100 UNIT/ML VIAL 3 mL SUB-Q SCH ×7 (08:26→23:08)
[2019-12-22] MEDS: METOPROLOL TARTRATE 25 MG TAB PO SCH ×2 (10:25→23:07)
[2019-12-22] MEDS: HEPARIN 5,000 UNIT/1 ML VIAL SUB-Q SCH ×2 (10:28→23:08)
--- NOTE | 2019-12-22 11:02 | Progress Note ---
Assessment and Plan Toxic metabolic encephalopathy Current Visit: Yes Status: Acute Plan to address problem: Present on admission, improved SIRS:[No criteria for sepsis] Current Visit: Yes Status: Acute Plan to address problem: No criteria for sepsis SIRS, leukocytosis, tachycardia Acute bronchitis Current Visit: Yes Status: Acute . Plan to address problem: Chest x-ray negative for pneumonia Continue current management Coronary artery disease status post CABG ; Current Visit: Yes Status: Acute . Plan to address problem: Continue cardiac protective measures Condition is stable -denies ACS signs Type II diabetes mellitus Current Visit: Yes Status: Acute Plan to address problem: Monitor blood sugar with SSIt Continue Long-acting insulin Lantus Adjust if needed A1c is 9.7 Acute Kidney Injury-stable Current Visit: No Status: Acute Plan to address problem: Continue gentle hydration, monitor renal function. Avoid nephrotoxins, nephrology consult Hyponatremia; present on admission likely 2/2 to EUFEMIA improved, Continue monitor electrolytes Suspected COVID-19 virus infection Current Visit: No Status: Acute Plan to address problem: COVID-19 test is negative Morbid obesity; BMI 43 Patient needs weight reduction when medically stable Advised on inportance of lifestyle modification Healthy diet-more fruits and vegebles and avoid high calorie foods DVT prophylaxis Current Visit: Yes Status: Acute Plan to address problem: SCD /heparin renal dose -- Advance care planning/full code Current Visit: Yes Status: Acute . Plan to address problem: Subjective Date of service: 12/22/19 Principal diagnosis: AMS Interval history: Patient seen at bedside-he reports constipation-asking for a laxative-will start lactulose PRN daily. patient alert and oriented-on room air -denies any acute distress Reviewed lab, mar, and v/s Reviewed SW and PT note subacute/SNF placement and recommended Patient is awaiting placement versus home with home health. Medically stable for discharge Objective - Constitutional Vitals: Vital Signs - 12hr 12/22/19 12/22/19 12/22/19 04:02 10:23 10:25 Temperature 97.7 F Pulse Rate 81 81 81 Respiratory 18 Rate Blood Pressure 98/64 98/64 98/64 O2 Sat by Pulse 93 Oximetry General appearance: Present: no acute distress, obese - EENT Eyes: PERRL, EOM intact ENT: hearing intact, clear oral mucosa Ears: bilateral: normal - Neck Neck: supple, normal ROM - Respiratory Respiratory effort: normal Respiratory: bilateral: CTA - Breasts Breasts: normal - Cardiovascular Rhythm: regular Heart Sounds: Present: S1 & S2. Absent: gallop, rub Extremities: pulses intact, No edema, normal color, Full ROM - Gastrointestinal General gastrointestinal: Present: soft, non-tender, distended, normal bowel sounds, other (Reports constipation) - Genitourinary Male genitourinary: normal - Integumentary Integumentary: clear, warm, dry - Musculoskeletal Musculoskeletal: 1, strength equal bilaterally - Neurologic Neurologic: moves all extremities - Psychiatric Psychiatric: memory intact, appropriate mood/affect, intact judgment & insight - Labs CBC & Chem 7: 12/22/19 04:50 12/22/19 04:50 Labs: Abnormal lab results 12/21/19 12/21/19 12/21/19 Range/Units 11:47 17:11 22:03 WBC (4.5-11.0) K/mm3 [place] % (Auto) (0.0-7.3) % Eos % (Auto) (0.0-4.3) % [place] # (Auto) (0.0-0.8) K/mm3 Eos # (Auto) (0.0-0.4) K/mm3 Sodium (137-145) mmol/L BUN (9-20) mg/dL Creatinine (0.8-1.3) mg/dL Glucose (75-100) mg/dL POC Glucose 273 H 223 H 282 H (70-105) mg/dL 12/22/19 12/22/19 12/22/19 Range/Units 04:50 04:50 07:49 WBC 11.5 H (4.5-11.0) K/mm3 [place] % (Auto) 10.4 H (0.0-7.3) % Eos % (Auto) 4.4 H (0.0-4.3) % [place] # (Auto) 1.2 H (0.0-0.8) K/mm3 Eos # (Auto) 0.5 H (0.0-0.4) K/mm3 Sodium 135 L (137-145) mmol/L BUN 35 H (9-20) mg/dL Creatinine 2.3 H (0.8-1.3) mg/dL Glucose 221 H (75-100) mg/dL POC Glucose 219 H (70-105) mg/dL HEART Score - HEART Score Troponin: Troponin T < 0.010 ng/mL (0.00-0.029) 12/11/19 20:03
--- NOTE | 2019-12-22 14:00 | Progress Note ---
Assessment and Plan Impression * Stage III chronic kidney disease - patient w/ multiple risk factors for CKD - DM, HTN, CAD * Altered mental status * Fever --Blood cx NGTD (Dec 10) * Dementia * Hypertension * Type II DM * Hx of CAD s/p CABG Plan: * Renal function has remained stable - baseline appears to be 2.1-2.3mg/dL * Continue conservative management * Patient w/ low BP - SBP in 90s. Will hold Lasix. * Dose medications for renal function * Glycemic control per primary team * Discharge planning in progress * Follow up with SCN upon discharge Subjective Date of service: 12/22/19 Principal diagnosis: AMS Objective - Vital Signs Vital signs: Vital Signs - 12hr 12/22/19 12/22/19 12/22/19 04:02 10:23 10:25 Temperature 97.7 F Pulse Rate 81 81 81 Respiratory 18 Rate Blood Pressure 98/64 98/64 98/64 O2 Sat by Pulse 93 Oximetry 12/22/19 11:20 Temperature 98.0 F Pulse Rate 81 Respiratory 17 Rate Blood Pressure 124/43 O2 Sat by Pulse 93 Oximetry - General Appearance General appearance: well-developed, well-nourished EENT: ATNC Respiratory: Present: Clear to Ascultation Cardiology: regular, S1S2 Gastrointestinal: obese Integumentary: no rash, warm and dry Musculoskeletal: other (no edema) Psychiatric: cooperative - Lab 12/22/19 04:50 12/22/19 04:50 Most recent lab results Calcium 9.2 mg/dL (8.4-10.2) 12/22/19 04:50 Urine Creatinine 42.2 mg/dL (0.1-20.0) H 12/16/19 06:52 Urine Total Protein 9 mg/dL (5-11.8) 12/16/19 06:52 Medications & Allergies - Medications Allergies/Adverse Reactions: Allergies No Known Allergies Allergy (Verified 04/19/14 09:47) Home Medications: Home Medications Medication Instructions Recorded Confirmed Last Taken Type Aspirin 325 mg PO HS 12/11/19 12/11/19 12/10/19 History ISOSORBIDE MONOnitrate [Imdur ER] 30 mg PO DAILY 12/11/19 12/11/19 12/10/19 History Insulin NPH/Regular [Novolin 70/30] 50 unit SQ BID 1112/11/19 12/11/19 History Metoprolol [Lopressor] 25 mg PO BID 12/11/19 12/11/19 12/10/19 History Simvastatin 40 mg PO HS 12/11/19 12/11/19 12/10/19 History hydroCHLOROthiazide 12.5 mg PO DAILY 12/11/19 12/11/19 12/10/19 History [Hydrochlorothiazide] Active Medications: Generic Name Dose Route Start Last Admin Trade Name Freq PRN Reason Stop Dose Admin Acetaminophen 650 mg 12/11/19 21:48 12/16/19 22:31 Tylenol PO 650 mg Q4H PRN Administration Pain MILD(1-3)/Fever >100.5/MUSTAFA Aspirin 325 mg 12/13/19 22:00 12/21/19 22:00 Aspirin PO 325 mg HS JOHNNY Administration Dextrose 0 ml 12/11/19 22:45 D50w (25gm) Syringe IV Q30MIN PRN Hypoglycemia Protocol Furosemide 20 mg 12/21/19 06:00 12/22/19 07:50 Lasix PO 20 mg DAILY@0600 JOHNNY Administration Heparin Sodium (Porcine) 5,000 unit 12/11/19 22:00 12/22/19 10:28 Heparin SUB-Q 5,000 unit Q12HR JOHNNY Administration Insulin Glargine 50 units 12/13/19 22:00 12/21/19 22:00 Lantus SUB-Q 50 units QHS JOHNNY Administration Insulin Human Lispro 0 unit 12/12/19 07:30 12/22/19 11:30 Humalog SUB-Q 4 unit ACHS JOHNNY Administration Protocol Insulin Human Lispro 10 unit 12/13/19 07:30 12/22/19 11:30 Humalog SUB-Q 10 unit AC JOHNNY Administration Isosorbide Mononitrate 30 mg 12/14/19 10:00 12/22/19 10:23 Imdur PO 30 mg DAILY JOHNNY Administration Metoprolol Tartrate 25 mg 12/13/19 22:00 12/22/19 10:25 Metoprolol PO Not Given BID JOHNNY Ondansetron HCl 4 mg 12/11/19 21:48 Zofran IV Q8H PRN Nausea And Vomiting Oxycodone/Acetaminophen 1 tab 12/11/19 21:53 12/21/19 12:25 Percocet 5/325 PO 1 tab Q6H PRN Administration PAIN (4-6) Pravastatin Sodium 80 mg 12/13/19 22:00 12/21/19 22:00 Pravachol PO 80 mg QHS JOHNNY Administration Sodium Chloride 10 ml 12/11/19 22:00 12/22/19 10:25 Sodium Chloride Flush Syringe 10 Ml IV 10 ml BID JOHNNY Administration Sodium Chloride 10 ml 12/11/19 21:48 12/12/19 06:04 Sodium Chloride Flush Syringe 10 Ml IV 10 ml PRN PRN Administration LINE FLUSH
[2019-12-22] MEDS: INSULIN GLARGINE 100 UNITS/ML SUB-Q SCH (23:06)
[2019-12-22] MEDS: PRAVASTATIN 80 MG TAB PO SCH (23:07)
[2019-12-22] MEDS: ASPIRIN 325 MG TAB PO SCH (23:10)
[2019-12-23 08:03] LABS: Basophils # (Auto) 0.1 K/mm3 (0.0-0.1); Eosinophils # (Auto) 0.5 K/mm3 (0.0-0.4); Eosinophils % (Auto) 4.4 % (0.0-4.3); Hematocrit 37.1 % (35.5-45.6); Hemoglobin 13.2 gm/dl (11.8-15.2); Lymphocytes # (Auto) 2.6 K/mm3 (1.2-5.4); Lymphocytes % (Auto) 23.3 % (13.4-35.0); Mean Corpuscular HGB Conc 36 % (32-34); Mean Corpuscular Volume 88 fl (84-94); Monocytes # (Auto) 1.2 K/mm3 (0.0-0.8); Monocytes % (Auto) 10.4 % (0.0-7.3); Platelet Count 340 K/mm3 (140-440); Red Blood Count 4.22 M/mm3 (3.65-5.03); Red Cell Distribution Width 13.5 % (13.2-15.2)
[2019-12-23 08:27] LABS: Calcium 9.6 mg/dL (8.4-10.2)
--- NOTE | 2019-12-23 09:01 | Progress Note ---
Assessment and Plan Toxic metabolic encephalopathy-resolved Current Visit: Yes Status: Acute Plan to address problem: Present on admission, improved SIRS:[No criteria for sepsis]-improved Current Visit: Yes Status: Acute Plan to address problem: No criteria for sepsis SIRS, leukocytosis, tachycardia Acute bronchitis-improved Current Visit: Yes Status: Acute . Plan to address problem: Chest x-ray negative for pneumonia Continue current management Coronary artery disease status post CABG ; Current Visit: Yes Status: Acute . Plan to address problem: Continue cardiac protective measures Condition is stable -denies ACS signs Type II diabetes mellitus-stable Current Visit: Yes Status: Acute Plan to address problem: Monitor blood sugar with SSIt Continue Long-acting insulin Lantus Adjust if needed A1c is 9.7 Acute Kidney Injury-stable Current Visit: No Status: Acute Plan to address problem: Continue gentle hydration, monitor renal function. Avoid nephrotoxins, nephrology consult Hyponatremia; present on admission likely 2/2 to EUFEMIA improved, Continue monitor electrolytes Suspected COVID-19 virus infection Current Visit: No Status: Acute Plan to address problem: COVID-19 test is negative Morbid obesity; BMI 43 Patient needs weight reduction when medically stable Advised on inportance of lifestyle modification Healthy diet-more fruits and vegebles and avoid high calorie foods DVT prophylaxis Current Visit: Yes Status: Acute Plan to address problem: SCD /heparin renal dose -- Advance care planning/full code Current Visit: Yes Status: Acute . Plan to address problem: Subjective Date of service: 12/23/19 Principal diagnosis: AMS Interval history: Patient seen at bedside-alert and oriented-on room air Reviewed lab, mar, and v/s Reviewed SW and PT note subacute/SNF placement and recommended Patient is awaiting placement versus home with home health. Medically stable for discharge Objective - Constitutional Vitals: Vital Signs - 12hr 12/22/19 12/22/19 12/23/19 22:00 23:43 05:17 Temperature 97.2 F L 98.3 F Pulse Rate 84 86 Respiratory 17 15 Rate Blood Pressure 105/50 116/43 O2 Sat by Pulse 96 95 96 Oximetry General appearance: Present: no acute distress, obese - EENT Eyes: PERRL, EOM intact ENT: hearing intact, clear oral mucosa Ears: bilateral: normal - Neck Neck: supple, normal ROM - Respiratory Respiratory effort: normal Respiratory: bilateral: CTA - Breasts Breasts: normal - Cardiovascular Rhythm: regular Heart Sounds: Present: S1 & S2. Absent: gallop, rub Extremities: pulses intact, No edema, normal color, Full ROM - Gastrointestinal General gastrointestinal: Present: soft, non-tender, distended (he reports constipation-started on lactulose PRN), normal bowel sounds - Genitourinary Male genitourinary: normal - Integumentary Integumentary: clear, warm, dry - Musculoskeletal Musculoskeletal: 1, strength equal bilaterally - Neurologic Neurologic: moves all extremities - Psychiatric Psychiatric: memory intact, appropriate mood/affect, intact judgment & insight - Labs CBC & Chem 7: 12/23/19 07:13 12/23/19 07:13 Labs: Abnormal lab results 12/22/19 12/22/19 12/23/19 Range/Units 11:34 16:19 07:13 WBC 11.3 H (4.5-11.0) K/mm3 MCHC 36 H (32-34) % [place] % (Auto) 10.4 H (0.0-7.3) % Eos % (Auto) 4.4 H (0.0-4.3) % [place] # (Auto) 1.2 H (0.0-0.8) K/mm3 [place] # (Auto) 0.5 H (0.0-0.4) K/mm3 Sodium (137-145) mmol/L BUN (9-20) mg/dL Creatinine (0.8-1.3) mg/dL Glucose (75-100) mg/dL POC Glucose 313 H 182 H (70-105) mg/dL 12/23/19 Range/Units 07:13 WBC (4.5-11.0) K/mm3 MCHC (32-34) % [place] % (Auto) (0.0-7.3) % Eos % (Auto) (0.0-4.3) % [place] # (Auto) (0.0-0.8) K/mm3 Eos # (Auto) (0.0-0.4) K/mm3 Sodium 136 L (137-145) mmol/L BUN 33 H (9-20) mg/dL Creatinine 2.3 H (0.8-1.3) mg/dL Glucose 187 H (75-100) mg/dL POC Glucose (70-105) mg/dL HEART Score - HEART Score Troponin: Troponin T < 0.010 ng/mL (0.00-0.029) 12/11/19 20:03
[2019-12-23] MEDS: HEPARIN 5,000 UNIT/1 ML VIAL SUB-Q SCH ×2 (09:07→23:15)
[2019-12-23] MEDS: METOPROLOL TARTRATE 25 MG TAB PO SCH (09:07)
[2019-12-23] MEDS: LACTULOSE 20 GM/30 ML ORAL LIQD PO PRN (09:07)
[2019-12-23] MEDS: INSULIN LISPRO 100 UNIT/ML VIAL 3 mL SUB-Q SCH ×7 (09:08→23:16)
[2019-12-23] MEDS: oxyCODONE /ACETAMINOPHEN 5-325MG TAB PO PRN ×2 (12:39→23:15)
--- NOTE | 2019-12-23 14:53 | Progress Note ---
Assessment and Plan Impression * Stage III chronic kidney disease - patient w/ multiple risk factors for CKD - DM, HTN, CAD * Altered mental status * Fever --Blood cx NGTD (Dec 10) * Dementia * Hypertension * Type II DM * Hx of CAD s/p CABG Plan: * Renal function has remained stable - baseline appears to be 2.1-2.3mg/dL * Continue to hold Lasix - BP now stable * Dose medications for renal function * Glycemic control per primary team * Discharge planning in progress * Follow up with [facility]N upon discharge Subjective Date of service: 12/23/19 Principal diagnosis: AMS Interval history: Patient has no complaints today Objective - Vital Signs Vital signs: Vital Signs - 12hr 12/23/19 12/23/19 12/23/19 05:17 09:07 11:35 Temperature 98.3 F 97.9 F Pulse Rate 86 86 22 L Respiratory 15 22 Rate Blood Pressure 116/43 116/43 Blood Pressure 127/56 [Left] O2 Sat by Pulse 96 97 Oximetry - General Appearance General appearance: well-developed, well-nourished EENT: ATNC Cardiology: regular, S1S2 Gastrointestinal: normal, no tenderness, no distended, obese Integumentary: no rash, warm and dry Musculoskeletal: other (no edema) Psychiatric: cooperative - Lab 12/23/19 07:13 12/23/19 07:13 Most recent lab results Calcium 9.6 mg/dL (8.4-10.2) 12/23/19 07:13 Urine Creatinine 42.2 mg/dL (0.1-20.0) H 12/16/19 06:52 Urine Total Protein 9 mg/dL (5-11.8) 12/16/19 06:52 Medications & Allergies - Medications Allergies/Adverse Reactions: Allergies No Known Allergies Allergy (Verified 04/19/14 09:47) Home Medications: Home Medications Medication Instructions Recorded Confirmed Last Taken Type Aspirin 325 mg PO HS 12/11/19 12/11/19 12/10/19 History ISOSORBIDE MONOnitrate [Imdur ER] 30 mg PO DAILY 12/11/19 12/11/19 12/10/19 History Insulin NPH/Regular [Novolin 70/30] 50 unit SQ BID 12/11/19 12/11/19 12/11/19 History Metoprolol [Lopressor] 25 mg PO BID 12/11/19 12/11/19 12/10/19 History Simvastatin 40 mg PO HS 12/11/19 12/11/19 12/10/19 History hydroCHLOROthiazide 12.5 mg PO DAILY 12/11/19 12/11/19 12/10/19 History [Hydrochlorothiazide] Active Medications: Generic Name Dose Route Start Last Admin Trade Name Freq PRN Reason Stop Dose Admin Acetaminophen 650 mg 12/11/19 21:48 12/16/19 22:31 Tylenol PO 650 mg Q4H PRN Administration Pain MILD(1-3)/Fever >100.5/MUSTAFA Aspirin 325 mg 12/13/19 22:00 12/22/19 23:10 Aspirin PO 325 mg HS JOHNNY Administration Dextrose 0 ml 12/11/19 22:45 D50w (25gm) Syringe IV Q30MIN PRN Hypoglycemia Protocol Heparin Sodium (Porcine) 5,000 unit 12/11/19 22:00 12/23/19 09:07 Heparin SUB-Q 5,000 unit Q12HR JOHNNY Administration Insulin Glargine 50 units 12/13/19 22:00 12/22/19 23:06 Lantus SUB-Q 50 units QHS JOHNNY Administration Insulin Human Lispro 0 unit 12/12/19 07:30 12/23/19 14:06 Humalog SUB-Q Not Given ACHS JOHNNY Protocol Insulin Human Lispro 10 unit 12/13/19 07:30 12/23/19 14:08 Humalog SUB-Q Not Given AC JOHNNY Isosorbide Mononitrate 30 mg 12/14/19 10:00 12/23/19 12:37 Imdur PO 30 mg DAILY JOHNNY Administration Lactulose 20 gm 12/22/19 15:00 12/23/19 09:07 Cephulac PO 20 gm QDAY PRN Administration Constipation Metoprolol Tartrate 25 mg 12/13/19 22:00 12/23/19 09:07 Metoprolol PO 25 mg BID JOHNNY Administration Ondansetron HCl 4 mg 12/11/19 21:48 Zofran IV Q8H PRN Nausea And Vomiting Oxycodone/Acetaminophen 1 tab 12/11/19 21:53 12/23/19 12:39 Percocet 5/325 PO 1 tab Q6H PRN Administration PAIN (4-6) Pravastatin Sodium 80 mg 12/13/19 22:00 12/22/19 23:07 Pravachol PO 80 mg QHS JOHNNY Administration Sodium Chloride 10 ml 12/11/19 22:00 12/23/19 09:09 Sodium Chloride Flush Syringe 10 Ml IV 10 ml BID JOHNNY Administration Sodium Chloride 10 ml 12/11/19 21:48 12/12/19 06:04 Sodium Chloride Flush Syringe 10 Ml IV 10 ml PRN PRN Administration LINE FLUSH
[2019-12-23] MEDS: ASPIRIN 325 MG TAB PO SCH (23:15)
[2019-12-23] MEDS: INSULIN GLARGINE 100 UNITS/ML SUB-Q SCH (23:16)
[2019-12-23] MEDS: PRAVASTATIN 80 MG TAB PO SCH (23:16)
[2019-12-24 08:27] LABS: Basophils # (Auto) 0.1 K/mm3 (0.0-0.1); Basophils % (Auto) 1.2 % (0.0-1.8); Eosinophils # (Auto) 0.6 K/mm3 (0.0-0.4); Eosinophils % (Auto) 5.7 % (0.0-4.3); Hemoglobin 13.7 gm/dl (11.8-15.2); Lymphocytes # (Auto) 2.4 K/mm3 (1.2-5.4); Mean Corpuscular HGB Conc 34 % (32-34); Mean Corpuscular Volume 89 fl (84-94); Monocytes # (Auto) 0.9 K/mm3 (0.0-0.8); Monocytes % (Auto) 8.8 % (0.0-7.3); Platelet Count 343 K/mm3 (140-440); Red Cell Distribution Width 13.4 % (13.2-15.2)
[2019-12-24 08:47] LABS: Calcium 9.6 mg/dL (8.4-10.2)
[2019-12-24] MEDS: INSULIN LISPRO 100 UNIT/ML VIAL 3 mL SUB-Q SCH ×7 (09:49→22:53)
--- NOTE | 2019-12-24 09:49 | Progress Note ---
Assessment and Plan Impression * Stage III chronic kidney disease - patient w/ multiple risk factors for CKD - DM, HTN, CAD * Altered mental status * Fever --Blood cx NGTD (Dec 10) * Dementia * Hypertension * Type II DM * Hx of CAD s/p CABG Plan: * Renal function has remained stable - baseline appears to be 2.1-2.3mg/dL * Continue to hold Lasix - BP now stable * Dose medications for renal function * Glycemic control per primary team * Discharge planning in progress * Follow up with [facility] upon discharge Subjective Date of service: 12/24/19 Principal diagnosis: AMS Interval history: resting in bed today Objective - Exam Narrative Exam: General appearance: well-developed, well-nourished EENT: ATNC Cardiology: regular, S1S2 Gastrointestinal: normal, no tenderness, no distended, obese Integumentary: no rash, warm and dry Musculoskeletal: other (no edema) Psychiatric: cooperative - Vital Signs Vital signs: Vital Signs - 12hr 12/23/19 12/24/19 23:48 05:32 Temperature 98.8 F 98.1 F Pulse Rate 92 H 85 Respiratory 16 17 Rate Blood Pressure 103/50 101/53 O2 Sat by Pulse 95 98 Oximetry - Lab 12/24/19 07:52 12/24/19 07:52 Most recent lab results Calcium 9.6 mg/dL (8.4-10.2) 12/24/19 07:52 Urine Creatinine 42.2 mg/dL (0.1-20.0) H 12/16/19 06:52 Urine Total Protein 9 mg/dL (5-11.8) 12/16/19 06:52 Medications & Allergies - Medications Allergies/Adverse Reactions: Allergies No Known Allergies Allergy (Verified 04/19/14 09:47) Home Medications: Home Medications Medication Instructions Recorded Confirmed Last Taken Type Aspirin 325 mg PO HS 12/11/19 12/11/19 12/10/19 History ISOSORBIDE MONOnitrate [Imdur ER] 30 mg PO DAILY 12/11/19 12/11/19 12/10/19 History Insulin NPH/Regular [Novolin 70/30] 50 unit SQ BID 12/11/19 12/11/19 12/11/19 History Metoprolol [Lopressor] 25 mg PO BID 12/11/19 12/11/19 12/10/19 History Simvastatin 40 mg PO HS 12/11/19 12/11/19 12/10/19 History hydroCHLOROthiazide 12.5 mg PO DAILY 12/11/19 12/11/19 12/10/19 History [Hydrochlorothiazide] Active Medications: Generic Name Dose Route Start Last Admin Trade Name Freq PRN Reason Stop Dose Admin Acetaminophen 650 mg 12/11/19 21:48 12/16/19 22:31 Tylenol PO 650 mg Q4H PRN Administration Pain MILD(1-3)/Fever >100.5/MUSTAFA Aspirin 325 mg 12/13/19 22:00 12/23/19 23:15 Aspirin PO 325 mg HS JOHNNY Administration Dextrose 0 ml 12/11/19 22:45 D50w (25gm) Syringe IV Q30MIN PRN Hypoglycemia Protocol Heparin Sodium (Porcine) 5,000 unit 12/11/19 22:00 12/23/19 23:15 Heparin SUB-Q 5,000 unit Q12HR JOHNNY Administration Insulin Glargine 50 units 12/13/19 22:00 12/23/19 23:16 Lantus SUB-Q 50 units QHS JOHNNY Administration Insulin Human Lispro 0 unit 12/12/19 07:30 12/23/19 23:16 Humalog SUB-Q 1 unit ACHS JOHNNY Administration Protocol Insulin Human Lispro 10 unit 12/13/19 07:30 12/23/19 17:20 Humalog SUB-Q 10 unit AC JOHNNY Administration Isosorbide Mononitrate 30 mg 12/14/19 10:00 12/23/19 12:37 Imdur PO 30 mg DAILY JOHNNY Administration Lactulose 20 gm 12/22/19 15:00 12/23/19 09:07 Cephulac PO 20 gm QDAY PRN Administration Constipation Metoprolol Tartrate 25 mg 12/13/19 22:00 12/24/19 00:00 Metoprolol PO Not Given BID JOHNNY Ondansetron HCl 4 mg 12/11/19 21:48 Zofran IV Q8H PRN Nausea And Vomiting Oxycodone/Acetaminophen 1 tab 12/11/19 21:53 12/23/19 23:15 Percocet 5/325 PO 1 tab Q6H PRN Administration PAIN (4-6) Pravastatin Sodium 80 mg 12/13/19 22:00 12/23/19 23:16 Pravachol PO 80 mg QHS JOHNNY Administration Sodium Chloride 10 ml 12/11/19 22:00 12/23/19 23:17 Sodium Chloride Flush Syringe 10 Ml IV 10 ml BID JOHNNY Administration Sodium Chloride 10 ml 12/11/19 21:48 12/12/19 06:04 Sodium Chloride Flush Syringe 10 Ml IV 10 ml PRN PRN Administration LINE FLUSH
[2019-12-24] MEDS: oxyCODONE /ACETAMINOPHEN 5-325MG TAB PO PRN (10:21)
[2019-12-24] MEDS: HEPARIN 5,000 UNIT/1 ML VIAL SUB-Q SCH ×2 (10:38→22:53)
[2019-12-24] MEDS: METOPROLOL TARTRATE 25 MG TAB PO SCH ×3 (10:38→22:53)
[2019-12-24] MEDS: PRAVASTATIN 80 MG TAB PO SCH (22:53)
[2019-12-24] MEDS: INSULIN GLARGINE 100 UNITS/ML SUB-Q SCH (22:53)
[2019-12-24] MEDS: ASPIRIN 325 MG TAB PO SCH (22:53)
--- NOTE | 2019-12-25 06:15 | Progress Note ---
Assessment and Plan Assessment and Plan Toxic metabolic encephalopathy-resolved Current Visit: Yes Status: Acute Plan to address problem: Present on admission, improved SIRS:[No criteria for sepsis]-improved Current Visit: Yes Status: Acute Plan to address problem: Improved Acute bronchitis-improved Current Visit: Yes Status: Acute . Plan to address problem: Chest x-ray negative for pneumonia Continue current management Coronary artery disease status post CABG ; Current Visit: Yes Status: Acute . Plan to address problem: Continue cardiac protective measures Condition is stable -denies ACS signs Type II diabetes mellitus-stable Current Visit: Yes Status: Acute Plan to address problem: Monitor blood sugar with SSIt Continue Long-acting insulin Lantus Adjust if needed A1c is 9.7 Acute Kidney Injury-stable Current Visit: No Status: Acute Plan to address problem: Current creatinine stable Underlying CKD Creatinine 2.3 Hyponatremia; present on admission likely 2/2 to EUFEMIA improved, Continue monitor electrolytes Suspected COVID-19 virus infection Current Visit: No Status: Acute Plan to address problem: COVID-19 test is negative Morbid obesity; BMI 43 Patient needs weight reduction when medically stable Advised on inportance of lifestyle modification Healthy diet-more fruits and vegebles and avoid high calorie foods DVT prophylaxis Current Visit: Yes Status: Acute Plan to address problem: SCD /heparin renal dose --Discharge planning issues patient ready for discharge Needs acceptance at [facility] by Ana Discussed with nurse case management/Brittny Subjective Date of service: 12/24/19 Principal diagnosis: Encephalopathy Interval history: Subjective Date of service: 12/24/19 Principal diagnosis: Encephalopathy 79 YO Male with CAD S/P CABG, HTN, DM, Vascular Dementia, Cerebral Atherosclerosis, Obesity Hypoventilation Syndrome, presents to ED for evaluation. Patient is confused with diminished cognition and is unable to provide history. Patient history provided by EMS staff, ED staff, as well as aubrey gordon family who was at bedside during exam and interview. As per family the patient has experienced increased weakness and confusion over the past 1 month with progressively worsening symptoms over the same timeframe. Patient is currently bedbound, and nonambulatory as per family report. Patient also requires 6/6 assistance with activities of daily living. EMS was notified and upon arrival the patient was found to be confused and in distress with a temperature 101.2 F. Patient was subsequently transported to [facility] for further care and evaluation of the aforementioned symptoms. Patient seen and evaluated in the emergency department. Lab and imaging studies reviewed. Patient underwent chest x-ray which revealed pneumonia complicated by sepsis, toxic metabolic encephalopathy. Patient initiated on sepsis protocol as well as coronavirus protocol in the emergency department. Patient is confused and lethargic with diminished cognition but has a positive gag reflex and is able to protect his airway. No further history obtainable. Advanced care planning conducted in ED. 12/24/2019 Patient seen at bedside-alert and oriented-on room air Reviewed lab, mar, and v/s Reviewed SW and PT note subacute/SNF placement and recommended Patient is awaiting placement. placement permission at [facility] pending from [facility] Medically stable for discharge Objective - Constitutional Vitals: Vital Signs - 12hr 12/24/19 12/25/19 21:58 04:45 Temperature 99.0 F 98.9 F Pulse Rate 91 H 86 Respiratory 18 18 Rate Blood Pressure 99/47 99/48 O2 Sat by Pulse 98 91 Oximetry General appearance: Present: no acute distress, well-nourished - EENT Eyes: PERRL, EOM intact ENT: hearing intact, clear oral mucosa Ears: bilateral: normal - Neck Neck: supple, normal ROM - Respiratory Respiratory effort: normal Respiratory: bilateral: CTA - Breasts Breasts: normal - Cardiovascular Heart rate: 78 Rhythm: regular Heart Sounds: Present: S1 & S2. Absent: gallop, rub Extremities: pulses intact, No edema, normal color, Full ROM - Gastrointestinal General gastrointestinal: Present: soft, non-tender, non-distended, normal bowel sounds - Genitourinary Male genitourinary: normal - Integumentary Integumentary: clear, warm, dry - Musculoskeletal Musculoskeletal: 1, strength equal bilaterally - Neurologic Neurologic: moves all extremities - Psychiatric Psychiatric: memory intact, appropriate mood/affect, intact judgment & insight - Labs CBC & Chem 7: 12/24/19 07:52 12/24/19 07:52 Labs: Abnormal lab results 12/24/19 12/24/19 12/24/19 Range/Units 07:52 07:52 07:52 Ward % (Auto) 8.8 H (0.0-7.3) % Eos % (Auto) 5.7 H (0.0-4.3) % Ward # (Auto) 0.9 H (0.0-0.8) K/mm3 Eos # (Auto) 0.6 H (0.0-0.4) K/mm3 Sodium 134 L (137-145) mmol/L BUN 33 H (9-20) mg/dL Creatinine 2.3 H (0.8-1.3) mg/dL Glucose 216 H (75-100) mg/dL POC Glucose 198 H (70-105) mg/dL 12/24/19 12/24/19 12/24/19 Range/Units 12:46 17:56 21:26 Ward % (Auto) (0.0-7.3) % Eos % (Auto) (0.0-4.3) % Ward # (Auto) (0.0-0.8) K/mm3 Eos # (Auto) (0.0-0.4) K/mm3 Sodium (137-145) mmol/L BUN (9-20) mg/dL Creatinine (0.8-1.3) mg/dL Glucose (75-100) mg/dL POC Glucose 274 H 243 H 176 H (70-105) mg/dL HEART Score - HEART Score Troponin: Troponin T < 0.010 ng/mL (0.00-0.029) 12/11/19 20:03
[2019-12-25 06:43] LABS: Basophils # (Auto) 0.1 K/mm3 (0.0-0.1); Basophils % (Auto) 0.9 % (0.0-1.8); Calcium 9.3 mg/dL (8.4-10.2); Eosinophils # (Auto) 0.6 K/mm3 (0.0-0.4); Hematocrit 38.4 % (35.5-45.6); Lymphocytes % (Auto) 29.4 % (13.4-35.0); Mean Corpuscular HGB Conc 34 % (32-34); Mean Corpuscular Volume 89 fl (84-94); Monocytes % (Auto) 9.7 % (0.0-7.3); Platelet Count 352 K/mm3 (140-440); Red Cell Distribution Width 13.7 % (13.2-15.2)
[2019-12-25] MEDS: INSULIN LISPRO 100 UNIT/ML VIAL 3 mL SUB-Q SCH ×7 (08:34→22:03)
--- NOTE | 2019-12-25 09:22 | Progress Note ---
Assessment and Plan Impression * Stage III chronic kidney disease - patient w/ multiple risk factors for CKD - DM, HTN, CAD * Altered mental status * Fever --Blood cx NGTD (Dec 10) * Dementia * Hypertension * Type II DM * Hx of CAD s/p CABG Plan: * Renal function has remained stable - baseline appears to be 2.1-2.3mg/dL * Continue to hold Lasix - BP now stable * Dose medications for renal function * Glycemic control per primary team * Discharge planning in progress * Follow up with [facility] upon discharge Subjective Date of service: 12/25/19 Principal diagnosis: Encephalopathy Interval history: resting in bed today Objective - Exam Narrative Exam: General appearance: well-developed, well-nourished EENT: ATNC Cardiology: regular, S1S2 Gastrointestinal: normal, no tenderness, no distended, obese Integumentary: no rash, warm and dry Musculoskeletal: other (no edema) Psychiatric: cooperative - Vital Signs Vital signs: Vital Signs - 12hr 12/24/19 12/25/19 21:58 04:45 Temperature 99.0 F 98.9 F Pulse Rate 91 H 86 Respiratory 18 18 Rate Blood Pressure 99/47 99/48 O2 Sat by Pulse 98 91 Oximetry - Lab 12/25/19 04:37 12/25/19 04:37 Most recent lab results Calcium 9.3 mg/dL (8.4-10.2) 12/25/19 04:37 Urine Creatinine 42.2 mg/dL (0.1-20.0) H 12/16/19 06:52 Urine Total Protein 9 mg/dL (5-11.8) 12/16/19 06:52 Medications & Allergies - Medications Allergies/Adverse Reactions: Allergies No Known Allergies Allergy (Verified 04/19/14 09:47) Home Medications: Home Medications Medication Instructions Recorded Confirmed Last Taken Type Aspirin 325 mg PO HS 12/11/19 12/11/19 12/10/19 History ISOSORBIDE MONOnitrate [Imdur ER] 30 mg PO DAILY 12/11/19 12/11/19 12/10/19 History Insulin NPH/Regular [Novolin 70/30] 50 unit SQ BID 12/11/19 12/11/19 12/11/19 History Metoprolol [Lopressor] 25 mg PO BID 12/11/19 12/11/19 12/10/19 History Simvastatin 40 mg PO HS 12/11/19 12/11/19 12/10/19 History hydroCHLOROthiazide 12.5 mg PO DAILY 12/11/19 12/11/19 12/10/19 History [Hydrochlorothiazide] Active Medications: Generic Name Dose Route Start Last Admin Trade Name Freq PRN Reason Stop Dose Admin Acetaminophen 650 mg 12/11/19 21:48 12/16/19 22:31 Tylenol PO 650 mg Q4H PRN Administration Pain MILD(1-3)/Fever >100.5/MUSTAFA Aspirin 325 mg 12/13/19 22:00 12/24/19 22:53 Aspirin PO 325 mg HS JOHNNY Administration Dextrose 0 ml 12/11/19 22:45 D50w (25gm) Syringe IV Q30MIN PRN Hypoglycemia Protocol Heparin Sodium (Porcine) 5,000 unit 12/11/19 22:00 12/24/19 22:53 Heparin SUB-Q 5,000 unit Q12HR JOHNNY Administration Insulin Glargine 50 units 12/13/19 22:00 12/24/19 22:53 Lantus SUB-Q 50 units QHS JOHNNY Administration Insulin Human Lispro 0 unit 12/12/19 07:30 12/25/19 08:34 Humalog SUB-Q 2 unit ACHS JOHNNY Administration Protocol Insulin Human Lispro 10 unit 12/13/19 07:30 12/25/19 08:34 Humalog SUB-Q 10 unit AC JOHNNY Administration Isosorbide Mononitrate 30 mg 12/14/19 10:00 12/24/19 15:14 Imdur PO 30 mg DAILY JOHNNY Administration Lactulose 20 gm 12/22/19 15:00 12/23/19 09:07 Cephulac PO 20 gm QDAY PRN Administration Constipation Metoprolol Tartrate 25 mg 12/13/19 22:00 12/24/19 22:53 Metoprolol PO Not Given BID JOHNNY Ondansetron HCl 4 mg 12/11/19 21:48 Zofran IV Q8H PRN Nausea And Vomiting Oxycodone/Acetaminophen 1 tab 12/11/19 21:53 12/24/19 10:21 Percocet 5/325 PO 1 tab Q6H PRN Administration PAIN (4-6) Pravastatin Sodium 80 mg 12/13/19 22:00 12/24/19 22:53 Pravachol PO 80 mg QHS JOHNNY Administration Sodium Chloride 10 ml 12/11/19 22:00 12/24/19 22:54 Sodium Chloride Flush Syringe 10 Ml IV 10 ml BID JOHNNY Administration Sodium Chloride 10 ml 12/11/19 21:48 12/12/19 06:04 Sodium Chloride Flush Syringe 10 Ml IV 10 ml PRN PRN Administration LINE FLUSH
[2019-12-25] MEDS: oxyCODONE /ACETAMINOPHEN 5-325MG TAB PO PRN (12:20)
[2019-12-25] MEDS: HEPARIN 5,000 UNIT/1 ML VIAL SUB-Q SCH ×2 (12:22→22:02)
[2019-12-25] MEDS: METOPROLOL TARTRATE 25 MG TAB PO SCH ×2 (12:22→22:17)
--- NOTE | 2019-12-25 17:14 | Progress Note ---
Assessment and Plan Assessment and plan: Toxic metabolic encephalopathy-resolved Current Visit: Yes Status: Acute Plan to address problem: Present on admission, improved SIRS:[No criteria for sepsis]-improved Current Visit: Yes Status: Acute Plan to address problem: Improved Acute bronchitis-improved Current Visit: Yes Status: Acute . Plan to address problem: Chest x-ray negative for pneumonia Continue current management Coronary artery disease status post CABG ; Current Visit: Yes Status: Acute . Plan to address problem: Continue cardiac protective measures Condition is stable -denies ACS signs Type II diabetes mellitus-stable Current Visit: Yes Status: Acute Plan to address problem: Monitor blood sugar with SSIt Continue Long-acting insulin Lantus Adjust if needed A1c is 9.7 Acute Kidney Injury-stable Current Visit: No Status: Acute Plan to address problem: Current creatinine stable Underlying CKD Creatinine 2.3 Hyponatremia; present on admission likely 2/2 to [facility] improved, Continue monitor electrolytes Suspected COVID-19 virus infection Current Visit: No Status: Acute Plan to address problem: COVID-19 test is negative Morbid obesity; BMI 43 Patient needs weight reduction when medically stable Advised on inportance of lifestyle modification Healthy diet-more fruits and vegebles and avoid high calorie foods DVT prophylaxis Current Visit: Yes Status: Acute Plan to address problem: SCD /heparin renal dose --Discharge planning issues patient ready for discharge Needs acceptance at [facility] by Ana Discussed with gaming manager History Interval history: 79 YO Male with CAD S/P CABG, HTN, DM, Vascular Dementia, Cerebral Atherosclerosis, Obesity Hypoventilation Syndrome, presents to ED for evaluation. Patient is confused with diminished cognition and is unable to provide history. Patient history provided by EMS staff, ED staff, as well as patient family who was at bedside during exam and interview. As per family the patient has experienced increased weakness and confusion over the past 1 month with progressively worsening symptoms over the same timeframe. Patient is currently bedbound, and nonambulatory as per family report. Patient also requires 6/6 assistance with activities of daily living. EMS was notified and upon arrival the patient was found to be confused and in distress with a tem perature 101.2 F. Patient was subsequently transported to [facility] for further care and evaluation of the aforementioned symptoms. Patient seen and evaluated in the emergency department. Lab and imaging studies reviewed. Patient underwent chest x-ray which revealed pneumonia complicated by sepsis, toxic metabolic encephalopathy. Patient initiated on sepsis protocol as well as coronavirus protocol in the emergency department. Patient is confused and lethargic with diminished cognition but has a positive gag reflex and is able to protect his airway. No further history obtainable. Advanced care planning conducted in ED. 12/24/2019 Patient seen at bedside-alert and oriented-on room air Reviewed lab, mar, and v/s Reviewed SW and PT note subacute/SNF placement and recommended Patient is awaiting placement. placement permission at [facility] pending from [facility] Medically stable for discharge 12/25/2019 Patient has no complaints today Still pending placement Hospitalist Physical - Constitutional Vitals: Temp Pulse Resp BP Pulse Ox 99.0 F 72 22 121/51 99 12/25/19 12:41 12/25/19 12:41 12/25/19 12:41 12/25/19 12:41 12/25/19 12:41 General appearance: Present: no acute distress, well-nourished HEART Score - HEART Score Troponin: Troponin T < 0.010 ng/mL (0.00-0.029) 12/11/19 20:03 Results - Labs CBC & Chem 7: 12/25/19 04:37 12/25/19 04:37 Labs: Laboratory Last Values WBC 10.3 K/mm3 (4.5-11.0) 12/25/19 04:37 RBC 4.30 M/mm3 (3.65-5.03) 12/25/19 04:37 Hgb 13.0 gm/dl (11.8-15.2) 12/25/19 04:37 Hct 38.4 % (35.5-45.6) 12/25/19 04:37 MCV 89 fl (84-94) 12/25/19 04:37 MCH 30 pg (28-32) 12/25/19 04:37 MCHC 34 % (32-34) 12/25/19 04:37 RDW 13.7 % (13.2-15.2) 12/25/19 04:37 Plt Count 352 K/mm3 (140-440) 12/25/19 04:37 Lymph % (Auto) 29.4 % (13.4-35.0) 12/25/19 04:37 [place] % (Auto) 9.7 % (0.0-7.3) H 12/25/19 04:37 Eos % (Auto) 6.0 % (0.0-4.3) H 12/25/19 04:37 Baso % (Auto) 0.9 % (0.0-1.8) 12/25/19 04:37 Lymph # (Auto) 3.0 K/mm3 (1.2-5.4) 12/25/19 04:37 [place] # (Auto) 1.0 K/mm3 (0.0-0.8) H 12/25/19 04:37 Eos # (Auto) 0.6 K/mm3 (0.0-0.4) H 12/25/19 04:37 Baso # (Auto) 0.1 K/mm3 (0.0-0.1) 12/25/19 04:37 Add Manual Diff Complete 12/21/19 05:17 Total Counted 100 12/21/19 05:17 Seg Neutrophils % 54.0 % (40.0-70.0) 12/25/19 04:37 Seg Neuts % (Manual) 89.0 % (40.0-70.0) H 12/21/19 05:17 Band Neutrophils % 1.0 % 12/21/19 05:17 Lymphocytes % (Manual) 7.0 % (13.4-35.0) L 12/21/19 05:17 Reactive Lymphs % (Man) 0 % 12/21/19 05:17 Monocytes % (Manual) 2.0 % (0.0-7.3) 12/21/19 05:17 Eosinophils % (Manual) 1.0 % (0.0-4.3) 12/21/19 05:17 Basophils % (Manual) 0 % (0.0-1.8) 12/21/19 05:17 Metamyelocytes % 0 % 12/21/19 05:17 Myelocytes % 0 % 12/21/19 05:17 Promyelocytes % 0 % 12/21/19 05:17 Blast Cells % 0 % 12/21/19 05:17 Nucleated RBC % Not Reportable 12/21/19 05:17 Seg Neutrophils # 5.5 K/mm3 (1.8-7.7) 12/25/19 04:37 Seg Neutrophils # Man 11.3 K/mm3 (1.8-7.7) H 12/21/19 05:17 Band Neutrophils # 0.1 K/mm3 12/21/19 05:17 Lymphocytes # (Manual) 0.9 K/mm3 (1.2-5.4) L 12/21/19 05:17 Abs React Lymphs (Man) 0.0 K/mm3 12/21/19 05:17 Monocytes # (Manual) 0.3 K/mm3 (0.0-0.8) 12/21/19 05:17 Eosinophils # (Manual) 0.1 K/mm3 (0.0-0.4) 12/21/19 05:17 Basophils # (Manual) 0.0 K/mm3 (0.0-0.1) 12/21/19 05:17 Metamyelocytes # 0.0 K/mm3 12/21/19 05:17 Myelocytes # 0.0 K/mm3 12/21/19 05:17 Promyelocytes # 0.0 K/mm3 12/21/19 05:17 Blast Cells # 0.0 K/mm3 12/21/19 05:17 WBC Morphology Not Reportable 12/21/19 05:17 Hypersegmented Neuts Not Reportable 12/21/19 05:17 Hyposegmented Neuts Not Reportable 12/21/19 05:17 Hypogranular Neuts Not Reportable 12/21/19 05:17 Smudge Cells Not Reportable 12/21/19 05:17 Toxic Granulation Not Reportable 12/21/19 05:17 Toxic Vacuolation Not Reportable 12/21/19 05:17 Dohle Bodies Not Reportable 12/21/19 05:17 Pelger-Huet Anomaly Not Reportable 12/21/19 05:17 Sam Rods Not Reportable 12/21/19 05:17 Platelet Estimate Consistent w auto 12/21/19 05:17 Clumped Platelets Not Reportable 12/21/19 05:17 Plt Clumps, EDTA Not Reportable 12/21/19 05:17 Large Platelets Few 12/21/19 05:17 Giant Platelets Not Reportable 12/21/19 05:17 Platelet Satelliting Not Reportable 12/21/19 05:17 Plt Morphology Comment Not Reportable 12/21/19 05:17 RBC Morphology Normal 12/21/19 05:17 Dimorphic RBCs Not Reportable 12/21/19 05:17 Polychromasia Not Reportable 12/21/19 05:17 Hypochromasia Not Reportable 12/21/19 05:17 Poikilocytosis Not Reportable 12/21/19 05:17 Anisocytosis Not Reportable 12/21/19 05:17 Microcytosis Not Reportable 12/21/19 05:17 Macrocytosis Not Reportable 12/21/19 05:17 Spherocytes Not Reportable 12/21/19 05:17 Pappenheimer Bodies Not Reportable 12/21/19 05:17 Sickle Cells Not Reportable 12/21/19 05:17 Target Cells Not Reportable 12/21/19 05:17 Tear Drop Cells Not Reportable 12/21/19 05:17 Ovalocytes Not Reportable 12/21/19 05:17 Helmet Cells Not Reportable 12/21/19 05:17 Saavedra-Idalou Bodies Not Reportable 12/21/19 05:17 Capulin Rings Not Reportable 12/21/19 05:17 [place]land Cells Not Reportable 12/21/19 05:17 Bite Cells Not Reportable 12/21/19 05:17 Crenated Cell Not Reportable 12/21/19 05:17 Elliptocytes Not Reportable 12/21/19 05:17 Acanthocytes (Spur) Not Reportable 12/21/19 05:17 Rouleaux Not Reportable 12/21/19 05:17 Hemoglobin C Crystals Not Reportable 12/21/19 05:17 Schistocytes Not Reportable 12/21/19 05:17 Malaria parasites Not Reportable 12/21/19 05:17 Lincoln Bodies Not Reportable 12/21/19 05:17 Hem Pathologist Commnt No 12/21/19 05:17 PT 13.1 Sec. (12.2-14.9) 12/11/19 18:37 INR 0.97 (0.87-1.13) 12/11/19 18:37 APTT 20.1 Sec. (24.2-36.6) L 12/11/19 18:37 D-Dimer 550.63 ng/mlDDU (0-234) H 12/11/19 21:50 Sodium 136 mmol/L (137-145) L 12/25/19 04:37 Potassium 4.6 mmol/L (3.6-5.0) 12/25/19 04:37 Chloride 101.0 mmol/L (98-107) 12/25/19 04:37 Carbon Dioxide 22 mmol/L (22-30) 12/25/19 04:37 Anion Gap 18 mmol/L 12/25/19 04:37 BUN 34 mg/dL (9-20) H 12/25/19 04:37 Creatinine 2.2 mg/dL (0.8-1.3) H 12/25/19 04:37 Estimated GFR 35 ml/min 12/25/19 04:37 BUN/Creatinine Ratio 15 % 12/25/19 04:37 Glucose 163 mg/dL (75-100) H 12/25/19 04:37 POC Glucose 163 mg/dL (70-105) H 12/25/19 12:56 Hemoglobin A1c 9.7 % (4-6) H 12/12/19 05:05 Lactic Acid 1.50 mmol/L (0.7-2.0) 12/12/19 05:05 Calcium 9.3 mg/dL (8.4-10.2) 12/25/19 04:37 Ferritin 646.4 ng/mL (30.0-300.0) H 12/11/19 21:50 Total Bilirubin 0.70 mg/dL (0.1-1.2) 12/12/19 05:05 Direct Bilirubin < 0.2 mg/dL (0-0.2) 12/11/19 18:37 Indirect Bilirubin 0.6 mg/dL 12/11/19 18:37 AST 26 units/L (5-40) 12/12/19 05:05 ALT 15 units/L (7-56) 12/12/19 05:05 Alkaline Phosphatase 68 units/L (35-129) 12/12/19 05:05 Ammonia 36.0 umol/L (25-60) 12/11/19 18:37 Lactate Dehydrogenase 188 units/L (91-180) H 12/11/19 21:50 Troponin T < 0.010 ng/mL (0.00-0.029) 12/11/19 20:03 C-Reactive Protein 18.20 mg/dL (0.00-1.30) H 12/11/19 21:50 NT-Pro-B Natriuret Pep 224.4 pg/mL (0-900) 12/11/19 18:37 Serum Total Protein 6.8 g/dL (6.1-8.1) 12/16/19 20:24 Total Protein 8.0 g/dL (6.3-8.2) 12/12/19 05:05 Albumin 2.9 g/dL (3.8-4.8) L 12/16/19 20:24 Albumin/Globulin Ratio 0.6 % 12/12/19 05:05 Iqfpv-5-Eluxhmbny 0.5 g/dL (0.2-0.3) H 12/16/19 20:24 Wkdre-5-Btscnaucr 0.9 g/dL (0.5-0.9) 12/16/19 20:24 Beta Globulins 0.6 g/dL (0.2-0.5) H 12/16/19 20:24 Gamma Globulins 1.4 g/dL (0.8-1.7) 12/16/19 20:24 Abnorm Protein Band 1 see below 12/16/19 20:24 PEP Interpretation see below H 12/16/19 20:24 Procalcitonin 0.18 ng/mL (<0.15) 12/11/19 21:50 TSH 1.240 mlU/mL (0.270-4.200) 12/11/19 18:37 PTH Intact 78.16 pg/mL (15-65) H 12/16/19 20:24 Urine Color Yellow (Yellow) 12/11/19 23:00 Urine Turbidity Clear (Clear) 12/11/19 23:00 Urine pH 6.0 (5.0-7.0) 12/11/19 23:00 Ur Specific Broadbent 1.013 (1.003-1.030) 12/11/19 23:00 Urine Protein 30 mg/dl mg/dL (Negative) 12/11/19 23:00 Urine Glucose (UA) 150 mg/dL (Negative) 12/11/19 23:00 Urine Ketones Neg mg/dL (Negative) 12/11/19 23:00 Urine Blood Mod (Negative) 12/11/19 23:00 Urine Nitrite Neg (Negative) 12/11/19 23:00 Urine Bilirubin Neg (Negative) 12/11/19 23:00 Urine Urobilinogen 2.0 mg/dL (<2.0) 12/11/19 23:00 Ur Leukocyte Esterase Neg (Negative) 12/11/19 23:00 Urine WBC (Auto) 1.0 /HPF (0.0-6.0) 12/11/19 23:00 Urine RBC (Auto) 1.0 /HPF (0.0-6.0) 12/11/19 23:00 U Epithel Cells (Auto) 1.0 /HPF (0-13.0) 12/11/19 23:00 Urine Creatinine 42.2 mg/dL (0.1-20.0) H 12/16/19 06:52 Protein/Creatinin Ratio 0.21 12/16/19 06:52 Urine Total Protein 9 mg/dL (5-11.8) 12/16/19 06:52 DUNG Screen Negative (Negative) 12/16/19 20:24 Proteinase 3 (PR3) Ab <1.0 AI (<1.0) 12/16/19 20:24 Myeloperoxidase Ab <1.0 AI (<1.0) 12/16/19 20:24 Complement C3 166 mg/dL (82-185) 12/16/19 20:24 Complement C4 58 mg/dL (15-53) H 12/16/19 20:24 Coronavirus (PCR) Negative (Negative) 12/12/19 09:08 Robert/IV: Voiding Method Urinal IV Catheter Type [Left Hand] INT / Saline Lock IV Catheter Type [Right Peripheral IV Antecubital] Active Medications - Current Medications Current Medications: Generic Name Dose Route Start Last Admin Trade Name Freq PRN Reason Stop Dose Admin Acetaminophen 650 mg 12/11/19 21:48 12/16/19 22:31 Tylenol PO 650 mg Q4H PRN Administration Pain MILD(1-3)/Fever >100.5/MUSTAFA Aspirin 325 mg 12/13/19 22:00 12/24/19 22:53 Aspirin PO 325 mg HS JOHNNY Administration Dextrose 0 ml 12/11/19 22:45 D50w (25gm) Syringe IV Q30MIN PRN Hypoglycemia Protocol Heparin Sodium (Porcine) 5,000 unit 12/11/19 22:00 12/25/19 12:22 Heparin SUB-Q 5,000 unit Q12HR JOHNNY Administration Insulin Glargine 50 units 12/13/19 22:00 12/24/19 22:53 Lantus SUB-Q 50 units QHS JOHNNY Administration Insulin Human Lispro 0 unit 12/12/19 07:30 12/25/19 13:23 Humalog SUB-Q 2 unit ACHS JOHNNY Administration Protocol Insulin Human Lispro 10 unit 12/13/19 07:30 12/25/19 13:24 Humalog SUB-Q 10 unit AC JOHNNY Administration Isosorbide Mononitrate 30 mg 12/14/19 10:00 12/25/19 12:22 Imdur PO 30 mg DAILY JOHNNY Administration Lactulose 20 gm 12/22/19 15:00 12/23/19 09:07 Cephulac PO 20 gm QDAY PRN Administration Constipation Metoprolol Tartrate 25 mg 12/13/19 22:00 12/25/19 12:22 Metoprolol PO 25 mg BID JOHNNY Administration Ondansetron HCl 4 mg 12/11/19 21:48 Zofran IV Q8H PRN Nausea And Vomiting Oxycodone/Acetaminophen 1 tab 12/11/19 21:53 12/25/19 12:20 Percocet 5/325 PO 1 tab Q6H PRN Administration PAIN (4-6) Pravastatin Sodium 80 mg 12/13/19 22:00 12/24/19 22:53 Pravachol PO 80 mg QHS JOHNNY Administration Sodium Chloride 10 ml 12/11/19 22:00 12/25/19 12:21 Sodium Chloride Flush Syringe 10 Ml IV 10 ml BID JOHNNY Administration Sodium Chloride 10 ml 12/11/19 21:48 12/12/19 06:04 Sodium Chloride Flush Syringe 10 Ml IV 10 ml PRN PRN Administration LINE FLUSH Nutrition/Malnutrition Assess - Dietary Evaluation Nutrition/Malnutrition Findings: Nutrition Notes Start: 12/18/19 12:19 Freq: Status: Active Protocol: Document 12/25/19 13:22 ANSLEY (Rec: 12/25/19 13:32 ANSLEY [id number]) Co-Sign 12/25/19 13:22 LP Nutrition Notes Initial or Follow up Reassessment Current Diagnosis Acute Kidney Injury,Diabetes, Sepsis,Hypertension Other Pertinent Diagnosis CABG, Pneumonia, Bronchitis, Dementia Current Diet Cardiac/Consistent CHO/Renal Labs/Tests Na 136 BUN 34 Cr 2.2 Pertinent Medications Humalog 2 unit Humalog 10 unit Height 5 ft 11 in Weight 131.9 kg [place] Body Weight (kg) 78.18 BMI 40.5 Weight change and time frame 2% wt loss in 1 week Weight Status Morbidly Obese Subjective/Other Information F/U for intakes. Pt reports good appetite and eating 75% meals. Percent of energy/protein needs met: 80%/76% Burn Absent Trauma Absent GI Symptoms None Food Allergy No Current % PO Good (75-100%) Minimum of two criteria No Interpretation of Weight Loss (severe) >2% in 1 week #1 Nutrition Diagnosis Inadequate oral intake As Evidenced by Signs and Symptoms pt consuming 75% meals Diagnosis Progress(for reassessment Improved documentation) Is patient on ventilator? No Is Patient Ambulatory and/or Out of Bed No REE-([facility]-confined to bed) 2467.452 Kcal/Kg value to use for calculation 14 Approximate Energy Requirements Using 1847 kcal/Kg Calculation Used for Recommendations Kcal/kg Additional Notes Protein: 0.8-1.2 g/kg AdBW 106 .6kg (85-128g) Fluids: 1 ml/kcal Nutrition Intervention Change Diet Order: Continue Cardiac/Consistent CHO/Renal diet Goal #1 Meet 75% of energy and protein needs Anticipated Discharge Needs: Cardiac/Consistent CHO diet Follow-Up By: 12/27/19 Additional Comments F/U for intakes
[2019-12-25] MEDS: ASPIRIN 325 MG TAB PO SCH (22:02)
[2019-12-25] MEDS: INSULIN GLARGINE 100 UNITS/ML SUB-Q SCH (22:02)
[2019-12-25] MEDS: PRAVASTATIN 80 MG TAB PO SCH (22:02)
[2019-12-26 05:17] LABS: Basophils # (Auto) 0.1 K/mm3 (0.0-0.1); Eosinophils # (Auto) 0.6 K/mm3 (0.0-0.4); Eosinophils % (Auto) 6.5 % (0.0-4.3); Hematocrit 38.1 % (35.5-45.6); Lymphocytes # (Auto) 2.7 K/mm3 (1.2-5.4); Lymphocytes % (Auto) 30.6 % (13.4-35.0); Mean Corpuscular HGB Conc 34 % (32-34); Mean Corpuscular Volume 89 fl (84-94); Monocytes # (Auto) 0.9 K/mm3 (0.0-0.8); Monocytes % (Auto) 10.5 % (0.0-7.3); Platelet Count 351 K/mm3 (140-440); Red Blood Count 4.28 M/mm3 (3.65-5.03); Red Cell Distribution Width 13.5 % (13.2-15.2)
[2019-12-26 05:31] LABS: Calcium 9.6 mg/dL (8.4-10.2)
[2019-12-26] MEDS: INSULIN LISPRO 100 UNIT/ML VIAL 3 mL SUB-Q SCH ×7 (08:47→23:11)
[2019-12-26] MEDS: METOPROLOL TARTRATE 25 MG TAB PO SCH ×2 (09:03→22:56)
[2019-12-26] MEDS: HEPARIN 5,000 UNIT/1 ML VIAL SUB-Q SCH ×2 (09:03→22:58)
--- NOTE | 2019-12-26 09:27 | Progress Note ---
Assessment and Plan Impression * Stage III chronic kidney disease - patient w/ multiple risk factors for CKD - DM, HTN, CAD * Altered mental status * Fever --Blood cx NGTD (Dec 10) * Dementia * Hypertension * Type II DM * Hx of CAD s/p CABG Plan: * Renal function has remained stable - baseline appears to be 2.1-2.3mg/dL * Continue to hold Lasix - BP now stable * Dose medications for renal function * Glycemic control per primary team * Discharge planning in progress * Follow up with SCN upon discharge Subjective Date of service: 12/26/19 Principal diagnosis: Encephalopathy Interval history: resting in bed today Objective - Exam Narrative Exam: General appearance: well-developed, well-nourished EENT: ATNC Cardiology: regular, S1S2 Gastrointestinal: normal, no tenderness, no distended, obese Integumentary: no rash, warm and dry Musculoskeletal: other (no edema) Psychiatric: cooperative - Vital Signs Vital signs: Vital Signs - 12hr 12/25/19 12/26/19 12/26/19 22:15 04:32 09:02 Temperature 98.5 F 98.2 F Pulse Rate 76 73 79 Respiratory 16 18 Rate Blood Pressure 113/44 107/54 108/52 O2 Sat by Pulse 94 90 Oximetry - Lab 12/26/19 04:59 12/26/19 04:59 Most recent lab results Calcium 9.6 mg/dL (8.4-10.2) 12/26/19 04:59 Urine Creatinine 42.2 mg/dL (0.1-20.0) H 12/16/19 06:52 Urine Total Protein 9 mg/dL (5-11.8) 12/16/19 06:52 Medications & Allergies - Medications Allergies/Adverse Reactions: Allergies No Known Allergies Allergy (Verified 04/19/14 09:47) Home Medications: Home Medications Medication Instructions Recorded Confirmed Last Taken Type Aspirin 325 mg PO HS 12/11/19 12/11/19 12/10/19 History ISOSORBIDE MONOnitrate [Imdur ER] 30 mg PO DAILY 12/11/19 12/11/19 12/10/19 History Insulin NPH/Regular [Novolin 70/30] 50 unit SQ BID 12/11/19 12/11/19 12/11/19 H istory Metoprolol [Lopressor] 25 mg PO BID 12/11/19 12/11/19 12/10/19 History Simvastatin 40 mg PO HS 12/11/19 12/11/19 12/10/19 History hydroCHLOROthiazide 12.5 mg PO DAILY 12/11/19 12/11/19 12/10/19 History [Hydrochlorothiazide] Active Medications: Generic Name Dose Route Start Last Admin Trade Name Freq PRN Reason Stop Dose Admin Acetaminophen 650 mg 12/11/19 21:48 12/16/19 22:31 Tylenol PO 650 mg Q4H PRN Administration Pain MILD(1-3)/Fever >100.5/MUSTAFA Aspirin 325 mg 12/13/19 22:00 12/25/19 22:02 Aspirin PO 325 mg HS JOHNNY Administration Dextrose 0 ml 12/11/19 22:45 D50w (25gm) Syringe IV Q30MIN PRN Hypoglycemia Protocol Heparin Sodium (Porcine) 5,000 unit 12/11/19 22:00 12/26/19 09:03 Heparin SUB-Q 5,000 unit Q12HR JOHNNY Administration Insulin Glargine 50 units 12/13/19 22:00 12/25/19 22:02 Lantus SUB-Q 50 units QHS JOHNNY Administration Insulin Human Lispro 0 unit 12/12/19 07:30 12/26/19 08:47 Humalog SUB-Q Not Given ACHS JOHNNY Protocol Insulin Human Lispro 10 unit 12/13/19 07:30 12/26/19 09:07 Humalog SUB-Q 10 unit AC JOHNNY Administration Isosorbide Mononitrate 30 mg 12/14/19 10:00 12/26/19 09:02 Imdur PO Not Given DAILY JOHNNY Lactulose 20 gm 12/22/19 15:00 12/23/19 09:07 Cephulac PO 20 gm QDAY PRN Administration Constipation Metoprolol Tartrate 25 mg 12/13/19 22:00 12/26/19 09:03 Metoprolol PO 25 mg BID JOHNNY Administration Ondansetron HCl 4 mg 12/11/19 21:48 Zofran IV Q8H PRN Nausea And Vomiting Oxycodone/Acetaminophen 1 tab 12/11/19 21:53 12/25/19 12:20 Percocet 5/325 PO 1 tab Q6H PRN Administration PAIN (4-6) Pravastatin Sodium 80 mg 12/13/19 22:00 12/25/19 22:02 Pravachol PO 80 mg QHS JOHNNY Administration Sodium Chloride 10 ml 12/11/19 22:00 12/26/19 09:04 Sodium Chloride Flush Syringe 10 Ml IV 10 ml BID JOHNNY Administration Sodium Chloride 10 ml 12/11/19 21:48 12/12/19 06:04 Sodium Chloride Flush Syringe 10 Ml IV 10 ml PRN PRN Administration LINE FLUSH
[2019-12-26] MEDS: oxyCODONE /ACETAMINOPHEN 5-325MG TAB PO PRN (10:58)
--- NOTE | 2019-12-26 14:22 | Progress Note ---
Assessment and Plan Assessment and plan: Toxic metabolic encephalopathy-resolved Current Visit: Yes Status: Acute Plan to address problem: Present on admission, improved SIRS:[No criteria for sepsis]-improved Current Visit: Yes Status: Acute Plan to address problem: Improved Acute bronchitis-improved Current Visit: Yes Status: Acute . Plan to address problem: Chest x-ray negative for pneumonia Continue current management Coronary artery disease status post CABG ; Current Visit: Yes Status: Acute . Plan to address problem: Continue cardiac protective measures Condition is stable -denies ACS signs Type II diabetes mellitus-stable Current Visit: Yes Status: Acute Plan to address problem: Monitor blood sugar with SSIt Continue Long-acting insulin Lantus Adjust if needed A1c is 9.7 Acute Kidney Injury-stable Current Visit: No Status: Acute Plan to address problem: Current creatinine stable Underlying CKD Creatinine 2.3 Hyponatremia; present on admission likely 2/2 to EUFEMIA improved, Continue monitor electrolytes Suspected COVID-19 virus infection Current Visit: No Status: Acute Plan to address problem: COVID-19 test is negative Morbid obesity; BMI 43 Patient needs weight reduction when medically stable Advised on inportance of lifestyle modification Healthy diet-more fruits and vegebles and avoid high calorie foods DVT prophylaxis Current Visit: Yes Status: Acute Plan to address problem: SCD /heparin renal dose Debility Current Visit: Yes Status: Acute Plan to address problem: PT notes reviewed-patient needs physical therapy due to poor gait and instability. I believe patient will benefit from physical therapy. Still awaiting placement. Discussed with Ana senior customer service representative --Discharge planning issues patient ready for discharge Needs acceptance at [facility] by Ana Discussed with disability case manager History Interval history: 79 YO Male with CAD S/P CABG, HTN, DM, Vascular Dementia, Cerebral Atherosclerosis, Obesity Hypoventilation Syndrome, presents to ED for evaluation. Patient is confused with diminished cognition and is unable to provide history. Patient history provided by EMS staff, ED staff, as well as patient family who was at bedside during exam and interview. As per family the patient has experienced increased weakness and confusion over the past 1 month with progressively worsening symptoms over the same timeframe. Patient is currently bedbound, and nonambulatory as per family report. Patient also requires 6/6 assistance with activities of daily living. EMS was notified and upon arrival the patient was found to be confused and in distress with a temperature 101.2 F. Patient was subsequently transported to [facility] for further care and evaluation of the aforementioned symptoms. Patient seen and evaluated in the emergency department. Lab and imaging studies reviewed. Patient underw ent chest x-ray which revealed pneumonia complicated by sepsis, toxic metabolic encephalopathy. Patient initiated on sepsis protocol as well as coronavirus protocol in the emergency department. Patient is confused and lethargic with diminished cognition but has a positive gag reflex and is able to protect his airway. No further history obtainable. Advanced care planning conducted in ED. 12/24/2019 Patient seen at bedside-alert and oriented-on room air Reviewed lab, mar, and v/s Reviewed SW and PT note subacute/SNF placement and recommended Patient is awaiting placement. placement permission at [facility] pending from [facility] Medically stable for discharge 12/25/2019 Patient has no complaints today Still pending placement 12/26/2019 Patient need rehabilitation due to poor gait and instability. PT note has been reviewed and I agree with assessment Discussed with patient's daughter this a.m. Hospitalist Physical - Constitutional Vitals: Temp Pulse Resp BP Pulse Ox 98.1 F 67 18 117/51 95 12/26/19 13:01 12/26/19 13:01 12/26/19 13:01 12/26/19 13:01 12/26/19 13:01 General appearance: Present: no acute distress, well-nourished HEART Score - HEART Score Troponin: Troponin T < 0.010 ng/mL (0.00-0.029) 12/11/19 20:03 Results - Labs CBC & Chem 7: 12/26/19 04:59 12/26/19 04:59 Labs: Laboratory Last Values WBC 8.8 K/mm3 (4.5-11.0) 12/26/19 04:59 RBC 4.28 M/mm3 (3.65-5.03) 12/26/19 04:59 Hgb 13.0 gm/dl (11.8-15.2) 12/26/19 04:59 Hct 38.1 % (35.5-45.6) 12/26/19 04:59 MCV 89 fl (84-94) 12/26/19 04:59 MCH 30 pg (28-32) 12/26/19 04:59 MCHC 34 % (32-34) 12/26/19 04:59 RDW 13.5 % (13.2-15.2) 12/26/19 04:59 Plt Count 351 K/mm3 (140-440) 12/26/19 04:59 Lymph % (Auto) 30.6 % (13.4-35.0) 12/26/19 04:59 [place] % (Auto) 10.5 % (0.0-7.3) H 12/26/19 04:59 Eos % (Auto) 6.5 % (0.0-4.3) H 12/26/19 04:59 Baso % (Auto) 1.0 % (0.0-1.8) 12/26/19 04:59 Lymph # (Auto) 2.7 K/mm3 (1.2-5.4) 12/26/19 04:59 [place] # (Auto) 0.9 K/mm3 (0.0-0.8) H 12/26/19 04:59 Eos # (Auto) 0.6 K/mm3 (0.0-0.4) H 12/26/19 04:59 Baso # (Auto) 0.1 K/mm3 (0.0-0.1) 12/26/19 04:59 Add Manual Diff Complete 12/21/19 05:17 Total Counted 100 12/21/19 05:17 Seg Neutrophils % 51.4 % (40.0-70.0) 12/26/19 04:59 Seg Neuts % (Manual) 89.0 % (40.0-70.0) H 12/21/19 05:17 Band Neutrophils % 1.0 % 12/21/19 05:17 Lymphocytes % (Manual) 7.0 % (13.4-35.0) L 12/21/19 05:17 Reactive Lymphs % (Man) 0 % 12/21/19 05:17 Monocytes % (Manual) 2.0 % (0.0-7.3) 12/21/19 05:17 Eosinophils % (Manual) 1.0 % (0.0-4.3) 12/21/19 05:17 Basophils % (Manual) 0 % (0.0-1.8) 12/21/19 05:17 Metamyelocytes % 0 % 12/21/19 05:17 Myelocytes % 0 % 12/21/19 05:17 Promyelocytes % 0 % 12/21/19 05:17 Blast Cells % 0 % 12/21/19 05:17 Nucleated RBC % Not Reportable 12/21/19 05:17 Seg Neutrophils # 4.5 K/mm3 (1.8-7.7) 12/26/19 04:59 Seg Neutrophils # Man 11.3 K/mm3 (1.8-7.7) H 12/21/19 05:17 Band Neutrophils # 0.1 K/mm3 12/21/19 05:17 Lymphocytes # (Manual) 0.9 K/mm3 (1.2-5.4) L 12/21/19 05:17 Abs React Lymphs (Man) 0.0 K/mm3 12/21/19 05:17 Monocytes # (Manual) 0.3 K/mm3 (0.0-0.8) 12/21/19 05:17 Eosinophils # (Manual) 0.1 K/mm3 (0.0-0.4) 12/21/19 05:17 Basophils # (Manual) 0.0 K/mm3 (0.0-0.1) 12/21/19 05:17 Metamyelocytes # 0.0 K/mm3 12/21/19 05:17 Myelocytes # 0.0 K/mm3 12/21/19 05:17 Promyelocytes # 0.0 K/mm3 12/21/19 05:17 Blast Cells # 0.0 K/mm3 12/21/19 05:17 WBC Morphology Not Reportable 12/21/19 05:17 Hypersegmented Neuts Not Reportable 12/21/19 05:17 Hyposegmented Neuts Not Reportable 12/21/19 05:17 Hypogranular Neuts Not Reportable 12/21/19 05:17 Smudge Cells Not Reportable 12/21/19 05:17 Toxic Granulation Not Reportable 12/21/19 05:17 Toxic Vacuolation Not Reportable 12/21/19 05:17 Dohle Bodies Not Reportable 12/21/19 05:17 Pelger-Huet Anomaly Not Reportable 12/21/19 05:17 Sam Rods Not Reportable 12/21/19 05:17 Platelet Estimate Consistent w auto 12/21/19 05:17 Clumped Platelets Not Reportable 12/21/19 05:17 Plt Clumps, EDTA Not Reportable 12/21/19 05:17 Large Platelets Few 12/21/19 05:17 Giant Platelets Not Reportable 12/21/19 05:17 Platelet Satelliting Not Reportable 12/21/19 05:17 Plt Morphology Comment Not Reportable 12/21/19 05:17 RBC Morphology Normal 12/21/19 05:17 Dimorphic RBCs Not Reportable 12/21/19 05:17 Polychromasia Not Reportable 12/21/19 05:17 Hypochromasia Not Reportable 12/21/19 05:17 Poikilocytosis Not Reportable 12/21/19 05:17 Anisocytosis Not Reportable 12/21/19 05:17 Microcytosis Not Reportable 12/21/19 05:17 Macrocytosis Not Reportable 12/21/19 05:17 Spherocytes Not Reportable 12/21/19 05:17 Pappenheimer Bodies Not Reportable 12/21/19 05:17 Sickle Cells Not Reportable 12/21/19 05:17 Target Cells Not Reportable 12/21/19 05:17 Tear Drop Cells Not Reportable 12/21/19 05:17 Ovalocytes Not Reportable 12/21/19 05:17 Helmet Cells Not Reportable 12/21/19 05:17 Saavedra-Auberry Bodies Not Reportable 12/21/19 05:17 Sanderson Rings Not Reportable 12/21/19 05:17 [place] Cells Not Reportable 12/21/19 05:17 Bite Cells Not Reportable 12/21/19 05:17 Crenated Cell Not Reportable 12/21/19 05:17 Elliptocytes Not Reportable 12/21/19 05:17 Acanthocytes (Spur) Not Reportable 12/21/19 05:17 Rouleaux Not Reportable 12/21/19 05:17 Hemoglobin C Crystals Not Reportable 12/21/19 05:17 Schistocytes Not Reportable 12/21/19 05:17 Malaria parasites Not Reportable 12/21/19 05:17 [place] Bodies Not Reportable 12/21/19 05:17 Hem Pathologist Commnt No 12/21/19 05:17 PT 13.1 Sec. (12.2-14.9) 12/11/19 18:37 INR 0.97 (0.87-1.13) 12/11/19 18:37 APTT 20.1 Sec. (24.2-36.6) L 12/11/19 18:37 D-Dimer 550.63 ng/mlDDU (0-234) H 12/11/19 21:50 Sodium 137 mmol/L (137-145) 12/26/19 04:59 Potassium 5.0 mmol/L (3.6-5.0) 12/26/19 04:59 Chloride 100.3 mmol/L (98-107) 12/26/19 04:59 Carbon Dioxide 28 mmol/L (22-30) 12/26/19 04:59 Anion Gap 14 mmol/L 12/26/19 04:59 BUN 32 mg/dL (9-20) H 12/26/19 04:59 Creatinine 2.3 mg/dL (0.8-1.3) H 12/26/19 04:59 Estimated GFR 33 ml/min 12/26/19 04:59 BUN/Creatinine Ratio 14 % 12/26/19 04:59 Glucose 138 mg/dL (75-100) H 12/26/19 04:59 POC Glucose 161 mg/dL (70-105) H 12/26/19 12:07 Hemoglobin A1c 9.7 % (4-6) H 12/12/19 05:05 Lactic Acid 1.50 mmol/L (0.7-2.0) 12/12/19 05:05 Calcium 9.6 mg/dL (8.4-10.2) 12/26/19 04:59 Ferritin 646.4 ng/mL (30.0-300.0) H 12/11/19 21:50 Total Bilirubin 0.70 mg/dL (0.1-1.2) 12/12/19 05:05 Direct Bilirubin < 0.2 mg/dL (0-0.2) 12/11/19 18:37 Indirect Bilirubin 0.6 mg/dL 12/11/19 18:37 AST 26 units/L (5-40) 12/12/19 05:05 ALT 15 units/L (7-56) 12/12/19 05:05 Alkaline Phosphatase 68 units/L (35-129) 12/12/19 05:05 Ammonia 36.0 umol/L (25-60) 12/11/19 18:37 Lactate Dehydrogenase 188 units/L (91-180) H 12/11/19 21:50 Troponin T < 0.010 ng/mL (0.00-0.029) 12/11/19 20:03 C-Reactive Protein 18.20 mg/dL (0.00-1.30) H 12/11/19 21:50 NT-Pro-B Natriuret Pep 224.4 pg/mL (0-900) 12/11/19 18:37 Serum Total Protein 6.8 g/dL (6.1-8.1) 12/16/19 20:24 Total Protein 8.0 g/dL (6.3-8.2) 12/12/19 05:05 Albumin 2.9 g/dL (3.8-4.8) L 12/16/19 20:24 Albumin/Globulin Ratio 0.6 % 12/12/19 05:05 Lxvwr-8-Stolqvooy 0.5 g/dL (0.2-0.3) H 12/16/19 20:24 Trkbo-0-Ccegswkvc 0.9 g/dL (0.5-0.9) 12/16/19 20:24 Beta Globulins 0.6 g/dL (0.2-0.5) H 12/16/19 20:24 Gamma Globulins 1.4 g/dL (0.8-1.7) 12/16/19 20:24 Abnorm Protein Band 1 see below 12/16/19 20:24 PEP Interpretation see below H 12/16/19 20:24 Procalcitonin 0.18 ng/mL (<0.15) 12/11/19 21:50 TSH 1.240 mlU/mL (0.270-4.200) 12/11/19 18:37 PTH Intact 78.16 pg/mL (15-65) H 12/16/19 20:24 Urine Color Yellow (Yellow) 12/11/19 23:00 Urine Turbidity Clear (Clear) 12/11/19 23:00 Urine pH 6.0 (5.0-7.0) 12/11/19 23:00 Ur Specific [place] 1.013 (1.003-1.030) 12/11/19 23:00 Urine Protein 30 mg/dl mg/dL (Negative) 12/11/19 23:00 Urine Glucose (UA) 150 mg/dL (Negative) 12/11/19 23:00 Urine Ketones Neg mg/dL (Negative) 12/11/19 23:00 Urine Blood Mod (Negative) 12/11/19 23:00 Urine Nitrite Neg (Negative) 12/11/19 23:00 Urine Bilirubin Neg (Negative) 12/11/19 23:00 Urine Urobilinogen 2.0 mg/dL (<2.0) 12/11/19 23:00 Ur Leukocyte Esterase Neg (Negative) 12/11/19 23:00 Urine WBC (Auto) 1.0 /HPF (0.0-6.0) 12/11/19 23:00 Urine RBC (Auto) 1.0 /HPF (0.0-6.0) 12/11/19 23:00 U Epithel Cells (Auto) 1.0 /HPF (0-13.0) 12/11/19 23:00 Urine Creatinine 42.2 mg/dL (0.1-20.0) H 12/16/19 06:52 Protein/Creatinin Ratio 0.21 12/16/19 06:52 Urine Total Protein 9 mg/dL (5-11.8) 12/16/19 06:52 DUNG Screen Negative (Negative) 12/16/19 20:24 Proteinase 3 (PR3) Ab <1.0 AI (<1.0) 12/16/19 20:24 Myeloperoxidase Ab <1.0 AI (<1.0) 12/16/19 20:24 Complement C3 166 mg/dL (82-185) 12/16/19 20:24 Complement C4 58 mg/dL (15-53) H 12/16/19 20:24 Coronavirus (PCR) Negative (Negative) 12/12/19 09:08 Robert/IV: Voiding Method Indwelling Catheter IV Catheter Type [Left Hand] INT / Saline Lock IV Catheter Type [Right Peripheral IV Antecubital] Active Medications - Current Medications Current Medications: Generic Name Dose Route Start Last Admin Trade Name Freq PRN Reason Stop Dose Admin Acetaminophen 650 mg 12/11/19 21:48 12/16/19 22:31 Tylenol PO 650 mg Q4H PRN Administration Pain MILD(1-3)/Fever >100.5/MUSTAFA Aspirin 325 mg 12/13/19 22:00 12/25/19 22:02 Aspirin PO 325 mg HS JOHNNY Administration Dextrose 0 ml 12/11/19 22:45 D50w (25gm) Syringe IV Q30MIN PRN Hypoglycemia Protocol Heparin Sodium (Porcine) 5,000 unit 12/11/19 22:00 12/26/19 09:03 Heparin SUB-Q 5,000 unit Q12HR JOHNNY Administration Insulin Glargine 50 units 12/13/19 22:00 12/25/19 22:02 Lantus SUB-Q 50 units QHS JOHNNY Administration Insulin Human Lispro 0 unit 12/12/19 07:30 12/26/19 12:22 Humalog SUB-Q 2 unit ACHS JOHNNY Administration Protocol Insulin Human Lispro 10 unit 12/13/19 07:30 12/26/19 12:22 Humalog SUB-Q 10 unit AC JOHNNY Administration Isosorbide Mononitrate 30 mg 12/14/19 10:00 12/26/19 09:02 Imdur PO Not Given DAILY JOHNNY Lactulose 20 gm 12/22/19 15:00 12/23/19 09:07 Cephulac PO 20 gm QDAY PRN Administration Constipation Metoprolol Tartrate 25 mg 12/13/19 22:00 12/26/19 09:03 Metoprolol PO 25 mg BID JOHNNY Administration Ondansetron HCl 4 mg 12/11/19 21:48 Zofran IV Q8H PRN Nausea And Vomiting Oxycodone/Acetaminophen 1 tab 12/11/19 21:53 12/26/19 10:58 Percocet 5/325 PO 1 tab Q6H PRN Administration PAIN (4-6) Pravastatin Sodium 80 mg 12/13/19 22:00 12/25/19 22:02 Pravachol PO 80 mg QHS JOHNNY Administration Sodium Chloride 10 ml 12/11/19 22:00 12/26/19 09:04 Sodium Chloride Flush Syringe 10 Ml IV 10 ml BID JOHNNY Administration Sodium Chloride 10 ml 12/11/19 21:48 12/12/19 06:04 Sodium Chloride Flush Syringe 10 Ml IV 10 ml PRN PRN Administration LINE FLUSH Nutrition/Malnutrition Assess - Dietary Evaluation Nutrition/Malnutrition Findings: Nutrition Notes Start: 12/18/19 12:19 Freq: Status: Active Protocol: Document 12/25/19 13:22 ANSLEY (Rec: 12/25/19 13:32 ANSLEY [id number]) Co-Sign 11/17/20 13:22 LP Nutrition Notes Initial or Follow up Reassessment Current Diagnosis Acute Kidney Injury,Diabetes, Sepsis,Hypertension Other Pertinent Diagnosis CABG, Pneumonia, Bronchitis, Dementia Current Diet Cardiac/Consistent CHO/Renal Labs/Tests Na 136 BUN 34 Cr 2.2 Pertinent Medications Humalog 2 unit Humalog 10 unit Height 5 ft 11 in Weight 131.9 kg [place] Body Weight (kg) 78.18 BMI 40.5 Weight change and time frame 2% wt loss in 1 week Weight Status Morbidly Obese Subjective/Other Information F/U for intakes. Pt reports good appetite and eating 75% meals. Percent of energy/protein needs met: 80%/76% Burn Absent Trauma Absent GI Symptoms None Food Allergy No Current % PO Good (75-100%) Minimum of two criteria No Interpretation of Weight Loss (severe) >2% in 1 week #1 Nutrition Diagnosis Inadequate oral intake As Evidenced by Signs and Symptoms pt consuming 75% meals Diagnosis Progress(for reassessment Improved documentation) Is patient on ventilator? No Is Patient Ambulatory and/or Out of Bed No REE-([facility]-confined to bed) 2467.452 Kcal/Kg value to use for calculation 14 Approximate Energy Requirements Using 1847 kcal/Kg Calculation Used for Recommendations Kcal/kg Additional Notes Protein: 0.8-1.2 g/kg AdBW 106 .6kg (85-128g) Fluids: 1 ml/kcal Nutrition Intervention Change Diet Order: Continue Cardiac/Consistent CHO/Renal diet Goal #1 Meet 75% of energy and protein needs Anticipated Discharge Needs: Cardiac/Consistent CHO diet Follow-Up By: 12/31/19 Additional Comments F/U for intakes
[2019-12-26] MEDS: ASPIRIN 325 MG TAB PO SCH (22:56)
[2019-12-26] MEDS: PRAVASTATIN 80 MG TAB PO SCH (22:56)
[2019-12-26] MEDS: INSULIN GLARGINE 100 UNITS/ML SUB-Q SCH (23:10)
--- NOTE | 2019-12-27 09:20 | Progress Note ---
Assessment and Plan Impression * Stage III chronic kidney disease - patient w/ multiple risk factors for CKD - DM, HTN, CAD * Altered mental status * Fever --Blood cx NGTD (Dec 10) * Dementia * Hypertension * Type II DM * Hx of CAD s/p CABG Plan: * Renal function has remained stable - baseline appears to be 2.1-2.3mg/dL * Continue to hold Lasix - BP now stable * Dose medications for renal function * Glycemic control per primary team * Discharge planning in progress * Follow up with SCN upon discharge Subjective Date of service: 12/27/19 Principal diagnosis: Encephalopathy Interval history: resting in bed today Objective - Exam Narrative Exam: General appearance: well-developed, well-nourished EENT: ATNC Cardiology: regular, S1S2 Gastrointestinal: normal, no tenderness, no distended, obese Integumentary: no rash, warm and dry Musculoskeletal: other (no edema) Psychiatric: cooperative - Vital Signs Vital signs: Vital Signs - 12hr 12/26/19 12/26/19 12/27/19 22:00 22:56 04:22 Temperature 98.0 F Pulse Rate 72 64 Respiratory 20 20 Rate Blood Pressure 118/53 97/46 O2 Sat by Pulse 97 Oximetry 12/27/19 08:48 Temperature 98.2 F Pulse Rate 83 Respiratory 20 Rate Blood Pressure 91/55 O2 Sat by Pulse 97 Oximetry - Lab 12/26/19 04:59 12/26/19 04:59 Most recent lab results Calcium 9.6 mg/dL (8.4-10.2) 12/26/19 04:59 Urine Creatinine 42.2 mg/dL (0.1-20.0) H 12/16/19 06:52 Urine Total Protein 9 mg/dL (5-11.8) 12/16/19 06:52 Medications & Allergies - Medications Allergies/Adverse Reactions: Allergies No Known Allergies Allergy (Verified 04/19/14 09:47) Home Medications: Home Medications Medication Instructions Recorded Confirmed Last Taken Type Aspirin 325 mg PO HS 12/11/19 12/11/19 12/10/19 History ISOSORBIDE MONOnitrate [Imdur ER] 30 mg PO DAILY 12/11/19 12/11/19 12/10/19 History Insulin NPH/Regular [Novolin 70/30] 50 unit SQ BID 12/11/19 12/11/19 12/11/19 History Metoprolol [Lopressor] 25 mg PO BID 12/11/19 12/11/19 12/10/19 History Simvastatin 40 mg PO HS 12/11/19 12/11/19 12/10/19 History hydroCHLOROthiazide 12.5 mg PO DAILY 12/11/19 12/11/19 12/10/19 History [Hydrochlorothiazide] Active Medications: Generic Name Dose Route Start Last Admin Trade Name Freq PRN Reason Stop Dose Admin Acetaminophen 650 mg 12/11/19 21:48 12/16/19 22:31 Tylenol PO 650 mg Q4H PRN Administration Pain MILD(1-3)/Fever >100.5/MUSTAFA Aspirin 325 mg 12/13/19 22:00 12/26/19 22:56 Aspirin PO 325 mg HS JOHNNY Administration Dextrose 0 ml 12/11/19 22:45 D50w (25gm) Syringe IV Q30MIN PRN Hypoglycemia Protocol Heparin Sodium (Porcine) 5,000 unit 12/11/19 22:00 12/26/19 22:58 Heparin SUB-Q 5,000 unit Q12HR JOHNNY Administration Insulin Glargine 50 units 12/13/19 22:00 12/26/19 23:10 Lantus SUB-Q 50 units QHS JOHNNY Administration Insulin Human Lispro 0 unit 12/12/19 07:30 12/26/19 23:11 Humalog SUB-Q 2 unit ACHS JOHNNY Administration Protocol Insulin Human Lispro 10 unit 12/13/19 07:30 12/26/19 18:27 Humalog SUB-Q Not Given AC JOHNNY Isosorbide Mononitrate 30 mg 12/14/19 10:00 12/26/19 09:02 Imdur PO Not Given DAILY JOHNNY Lactulose 20 gm 12/22/19 15:00 12/23/19 09:07 Cephulac PO 20 gm QDAY PRN Administration Constipation Metoprolol Tartrate 25 mg 12/13/19 22:00 12/26/19 22:56 Metoprolol PO 25 mg BID JOHNNY Administration Ondansetron HCl 4 mg 12/11/19 21:48 Zofran IV Q8H PRN Nausea And Vomiting Oxycodone/Acetaminophen 1 tab 12/11/19 21:53 12/26/19 10:58 Percocet 5/325 PO 1 tab Q6H PRN Administration PAIN (4-6) Pravastatin Sodium 80 mg 12/13/19 22:00 12/26/19 22:56 Pravachol PO 80 mg QHS JOHNNY Administration Sodium Chloride 10 ml 12/11/19 22:00 12/26/19 22:57 Sodium Chloride Flush Syringe 10 Ml IV 10 ml BID JOHNNY Administration Sodium Chloride 10 ml 12/11/19 21:48 12/12/19 06:04 Sodium Chloride Flush Syringe 10 Ml IV 10 ml PRN PRN Administration LINE FLUSH
[2019-12-27] MEDS: INSULIN LISPRO 100 UNIT/ML VIAL 3 mL SUB-Q SCH ×7 (09:46→21:40)
[2019-12-27] MEDS: HEPARIN 5,000 UNIT/1 ML VIAL SUB-Q SCH ×2 (09:48→21:41)
--- NOTE | 2019-12-27 11:09 | Progress Note ---
Assessment and Plan Assessment and plan: Toxic metabolic encephalopathy-resolved Current Visit: Yes Status: Acute Plan to address problem: Present on admission, improved SIRS:[No criteria for sepsis]-improved Current Visit: Yes Status: Acute Plan to address problem: Improved Acute bronchitis-improved Current Visit: Yes Status: Acute . Plan to address problem: Chest x-ray negative for pneumonia Continue current management Coronary artery disease status post CABG ; Current Visit: Yes Status: Acute . Plan to address problem: Continue cardiac protective measures Condition is stable -denies ACS signs Type II diabetes mellitus-stable Current Visit: Yes Status: Acute Plan to address problem: Monitor blood sugar with SSIt Continue Lantus Adjust if needed A1c is 9.7 Acute Kidney Injury-stable Current Visit: No Status: Acute Plan to address problem: Current creatinine stable Underlying CKD Creatinine 2.3 Hyponatremia; present on admission likely 2/2 to EUFEMIA improved, Continue monitor electrolytes Suspected COVID-19 virus infection Current Visit: No Status: Acute Plan to address problem: COVID-19 test is negative Morbid obesity; BMI 43 Patient needs weight reduction when medically stable Advised on inportance of lifestyle modification Healthy diet-more fruits and vegebles and avoid high calorie foods DVT prophylaxis Current Visit: Yes Status: Acute Plan to address problem: SCD /heparin renal dose Debility Current Visit: Yes Status: Acute Plan to address problem: PT notes reviewed-patient needs physical therapy due to poor gait and instability. I believe patient will benefit from physical therapy. Still awaiting placement. Discussed with Ana marketing representative --Discharge planning issues patient ready for discharge Needs acceptance at [facility] by Ana Discussed with internal audit senior manager History Interval history: 79 YO Male with CAD S/P CABG, HTN, DM, Vascular Dementia, Cerebral Atherosclerosis, Obesity Hypoventilation Syndrome, presents to ED for evaluation. Patient is confused with diminished cognition and is unable to provide history. Patient history provided by EMS staff, ED staff, as well as patient family who was at bedside during exam and interview. As per family the patient has experienced increased weakness and confusion over the past 1 month with progressively worsening symptoms over the same timeframe. Patient is currently bedbound, and nonambulatory as per family report. Patient also requires 6/6 assistance with activities of daily living. EMS was notified and upon arrival the patient was found to be confused and in distress with a temperature 101.2 F. Patient was subsequently transported to [facility] for further care and evaluation of the aforementioned symptoms. Patient seen and evaluated in the emergency department. Lab and imaging studies reviewed. Patient underwent chest x-ray which revealed pneumonia complicated by sepsis, toxic metabolic encephalopathy. Patient initiated on sepsis protocol as well as coronavirus protocol in the emergency department. Patient is confused and lethargic with diminished cognition but has a positive gag reflex and is able to protect his airway. No further history obtainable. Advanced care planning conducted in ED. 12/24/2019 Patient seen at bedside-alert and oriented-on room air Reviewed lab, mar, and v/s Reviewed SW and PT note subacute/SNF placement and recommended Patient is awaiting placement. placement permission at [facility] pending from [facility] Medically stable for discharge 12/25/2019 Patient has no complaints today Still pending placement 12/26/2019 Patient needs rehabilitation due to poor gait and instability. PT note has been reviewed and I agree with assessment Discussed with patient's daughter this a.m. 12/27/2019 Still awaiting placement He has no complaints this morning Hospitalist Physical - Constitutional Vitals: Temp Pulse Resp BP Pulse Ox 98.2 F 83 20 91/55 97 12/27/19 08:48 12/27/19 08:48 12/27/19 08:48 12/27/19 08:48 12/27/19 08:48 General appearance: Present: no acute distress, well-nourished - EENT Eyes: Present: PERRL - Neck Neck: Present: supple - Respiratory Respiratory: bilateral: CTA - Cardiovascular Heart Sounds: Present: S1 & S2 - Extremities Extremities: No edema - Abdominal General gastrointestinal: soft, non-tender, non-distended, normal bowel sounds - Psychiatric Psychiatric: appropriate mood/affect - Neurologic Neurologic: CNII-XII intact HEART Score - HEART Score Troponin: Troponin T < 0.010 ng/mL (0.00-0.029) 12/11/19 20:03 Results - Labs CBC & Chem 7: 12/26/19 04:59 12/26/19 04:59 Labs: Laboratory Last Values WBC 8.8 K/mm3 (4.5-11.0) 12/26/19 04:59 RBC 4.28 M/mm3 (3.65-5.03) 12/26/19 04:59 Hgb 13.0 gm/dl (11.8-15.2) 12/26/19 04:59 Hct 38.1 % (35.5-45.6) 12/26/19 04:59 MCV 89 fl (84-94) 12/26/19 04:59 MCH 30 pg (28-32) 12/26/19 04:59 MCHC 34 % (32-34) 12/26/19 04:59 RDW 13.5 % (13.2-15.2) 12/26/19 04:59 Plt Count 351 K/mm3 (140-440) 12/26/19 04:59 Lymph % (Auto) 30.6 % (13.4-35.0) 12/26/19 04:59 Pershing % (Auto) 10.5 % (0.0-7.3) H 12/26/19 04:59 Eos % (Auto) 6.5 % (0.0-4.3) H 12/26/19 04:59 Baso % (Auto) 1.0 % (0.0-1.8) 12/26/19 04:59 Lymph # (Auto) 2.7 K/mm3 (1.2-5.4) 12/26/19 04:59 Pershing # (Auto) 0.9 K/mm3 (0.0-0.8) H 12/26/19 04:59 Eos # (Auto) 0.6 K/mm3 (0.0-0.4) H 12/26/19 04:59 Baso # (Auto) 0.1 K/mm3 (0.0-0.1) 12/26/19 04:59 Add Manual Diff Complete 12/21/19 05:17 Total Counted 100 12/21/19 05:17 Seg Neutrophils % 51.4 % (40.0-70.0) 12/26/19 04:59 Seg Neuts % (Manual) 89.0 % (40.0-70.0) H 12/21/19 05:17 Band Neutrophils % 1.0 % 12/21/19 05:17 Lymphocytes % (Manual) 7.0 % (13.4-35.0) L 12/21/19 05:17 Reactive Lymphs % (Man) 0 % 12/21/19 05:17 Monocytes % (Manual) 2.0 % (0.0-7.3) 12/21/19 05:17 Eosinophils % (Manual) 1.0 % (0.0-4.3) 12/21/19 05:17 Basophils % (Manual) 0 % (0.0-1.8) 12/21/19 05:17 Metamyelocytes % 0 % 12/21/19 05:17 Myelocytes % 0 % 12/21/19 05:17 Promyelocytes % 0 % 12/21/19 05:17 Blast Cells % 0 % 12/21/19 05:17 Nucleated RBC % Not Reportable 12/21/19 05:17 Seg Neutrophils # 4.5 K/mm3 (1.8-7.7) 12/26/19 04:59 Seg Neutrophils # Man 11.3 K/mm3 (1.8-7.7) H 12/21/19 05:17 Band Neutrophils # 0.1 K/mm3 12/21/19 05:17 Lymphocytes # (Manual) 0.9 K/mm3 (1.2-5.4) L 12/21/19 05:17 Abs React Lymphs (Man) 0.0 K/mm3 12/21/19 05:17 Monocytes # (Manual) 0.3 K/mm3 (0.0-0.8) 12/21/19 05:17 Eosinophils # (Manual) 0.1 K/mm3 (0.0-0.4) 12/21/19 05:17 Basophils # (Manual) 0.0 K/mm3 (0.0-0.1) 12/21/19 05:17 Metamyelocytes # 0.0 K/mm3 12/21/19 05:17 Myelocytes # 0.0 K/mm3 12/21/19 05:17 Promyelocytes # 0.0 K/mm3 12/21/19 05:17 Blast Cells # 0.0 K/mm3 12/21/19 05:17 WBC Morphology Not Reportable 12/21/19 05:17 Hypersegmented Neuts Not Reportable 12/21/19 05:17 Hyposegmented Neuts Not Reportable 12/21/19 05:17 Hypogranular Neuts Not Reportable 12/21/19 05:17 Smudge Cells Not Reportable 12/21/19 05:17 Toxic Granulation Not Reportable 12/21/19 05:17 Toxic Vacuolation Not Reportable 12/21/19 05:17 Dohle Bodies Not Reportable 12/21/19 05:17 Pelger-Huet Anomaly Not Reportable 12/21/19 05:17 Sam Rods Not Reportable 12/21/19 05:17 Platelet Estimate Consistent w auto 12/21/19 05:17 Clumped Platelets Not Reportable 12/21/19 05:17 Plt Clumps, EDTA Not Reportable 12/21/19 05:17 Large Platelets Few 12/21/19 05:17 Giant Platelets Not Reportable 12/21/19 05:17 Platelet Satelliting Not Reportable 12/21/19 05:17 Plt Morphology Comment Not Reportable 12/21/19 05:17 RBC Morphology Normal 12/21/19 05:17 Dimorphic RBCs Not Reportable 12/21/19 05:17 Polychromasia Not Reportable 12/21/19 05:17 Hypochromasia Not Reportable 12/21/19 05:17 Poikilocytosis Not Reportable 12/21/19 05:17 Anisocytosis Not Reportable 12/21/19 05:17 Microcytosis Not Reportable 12/21/19 05:17 Macrocytosis Not Reportable 12/21/19 05:17 Spherocytes Not Reportable 12/21/19 05:17 Pappenheimer Bodies Not Reportable 12/21/19 05:17 Sickle Cells Not Reportable 12/21/19 05:17 Target Cells Not Reportable 12/21/19 05:17 Tear Drop Cells Not Reportable 12/21/19 05:17 Ovalocytes Not Reportable 12/21/19 05:17 Helmet Cells Not Reportable 12/21/19 05:17 Saavedra-Malden Bodies Not Reportable 12/21/19 05:17 [place] Rings Not Reportable 12/21/19 05:17 [place] Cells Not Reportable 12/21/19 05:17 Bite Cells Not Reportable 12/21/19 05:17 Crenated Cell Not Reportable 12/21/19 05:17 Elliptocytes Not Reportable 12/21/19 05:17 Acanthocytes (Spur) Not Reportable 12/21/19 05:17 Rouleaux Not Reportable 12/21/19 05:17 Hemoglobin C Crystals Not Reportable 12/21/19 05:17 Schistocytes Not Reportable 12/21/19 05:17 Malaria parasites Not Reportable 12/21/19 05:17 [place] Bodies Not Reportable 12/21/19 05:17 Hem Pathologist Commnt No 12/21/19 05:17 PT 13.1 Sec. (12.2-14.9) 12/11/19 18:37 INR 0.97 (0.87-1.13) 12/11/19 18:37 APTT 20.1 Sec. (24.2-36.6) L 12/11/19 18:37 D-Dimer 550.63 ng/mlDDU (0-234) H 12/11/19 21:50 Sodium 137 mmol/L (137-145) 12/26/19 04:59 Potassium 5.0 mmol/L (3.6-5.0) 12/26/19 04:59 Chloride 100.3 mmol/L (98-107) 12/26/19 04:59 Carbon Dioxide 28 mmol/L (22-30) 12/26/19 04:59 Anion Gap 14 mmol/L 12/26/19 04:59 BUN 32 mg/dL (9-20) H 12/26/19 04:59 Creatinine 2.3 mg/dL (0.8-1.3) H 12/26/19 04:59 Estimated GFR 33 ml/min 12/26/19 04:59 BUN/Creatinine Ratio 14 % 12/26/19 04:59 Glucose 138 mg/dL (75-100) H 12/26/19 04:59 POC Glucose 195 mg/dL (70-105) H 12/26/19 22:45 Hemoglobin A1c 9.7 % (4-6) H 12/12/19 05:05 Lactic Acid 1.50 mmol/L (0.7-2.0) 12/12/19 05:05 Calcium 9.6 mg/dL (8.4-10.2) 12/26/19 04:59 Ferritin 646.4 ng/mL (30.0-300.0) H 12/11/19 21:50 Total Bilirubin 0.70 mg/dL (0.1-1.2) 12/12/19 05:05 Direct Bilirubin < 0.2 mg/dL (0-0.2) 12/11/19 18:37 Indirect Bilirubin 0.6 mg/dL 12/11/19 18:37 AST 26 units/L (5-40) 12/12/19 05:05 ALT 15 units/L (7-56) 12/12/19 05:05 Alkaline Phosphatase 68 units/L (35-129) 12/12/19 05:05 Ammonia 36.0 umol/L (25-60) 12/11/19 18:37 Lactate Dehydrogenase 188 units/L (91-180) H 12/11/19 21:50 Troponin T < 0.010 ng/mL (0.00-0.029) 12/11/19 20:03 C-Reactive Protein 18.20 mg/dL (0.00-1.30) H 12/11/19 21:50 NT-Pro-B Natriuret Pep 224.4 pg/mL (0-900) 12/11/19 18:37 Serum Total Protein 6.8 g/dL (6.1-8.1) 12/16/19 20:24 Total Protein 8.0 g/dL (6.3-8.2) 12/12/19 05:05 Albumin 2.9 g/dL (3.8-4.8) L 12/16/19 20:24 Albumin/Globulin Ratio 0.6 % 12/12/19 05:05 Zzqpl-3-Ukdwfkeri 0.5 g/dL (0.2-0.3) H 12/16/19 20:24 Oiqno-8-Jkjrwqqov 0.9 g/dL (0.5-0.9) 12/16/19 20:24 Beta Globulins 0.6 g/dL (0.2-0.5) H 12/16/19 20:24 Gamma Globulins 1.4 g/dL (0.8-1.7) 12/16/19 20:24 Abnorm Protein Band 1 see below 12/16/19 20:24 PEP Interpretation see below H 12/16/19 20:24 Procalcitonin 0.18 ng/mL (<0.15) 12/11/19 21:50 TSH 1.240 mlU/mL (0.270-4.200) 12/11/19 18:37 PTH Intact 78.16 pg/mL (15-65) H 12/16/19 20:24 Urine Color Yellow (Yellow) 12/11/19 23:00 Urine Turbidity Clear (Clear) 12/11/19 23:00 Urine pH 6.0 (5.0-7.0) 12/11/19 23:00 Ur Specific Shiro 1.013 (1.003-1.030) 12/11/19 23:00 Urine Protein 30 mg/dl mg/dL (Negative) 12/11/19 23:00 Urine Glucose (UA) 150 mg/dL (Negative) 12/11/19 23:00 Urine Ketones Neg mg/dL (Negative) 12/11/19 23:00 Urine Blood Mod (Negative) 12/11/19 23:00 Urine Nitrite Neg (Negative) 12/11/19 23:00 Urine Bilirubin Neg (Negative) 12/11/19 23:00 Urine Urobilinogen 2.0 mg/dL (<2.0) 12/11/19 23:00 Ur Leukocyte Esterase Neg (Negative) 12/11/19 23:00 Urine WBC (Auto) 1.0 /HPF (0.0-6.0) 12/11/19 23:00 Urine RBC (Auto) 1.0 /HPF (0.0-6.0) 12/11/19 23:00 U Epithel Cells (Auto) 1.0 /HPF (0-13.0) 12/11/19 23:00 Urine Creatinine 42.2 mg/dL (0.1-20.0) H 12/16/19 06:52 Protein/Creatinin Ratio 0.21 12/16/19 06:52 Urine Total Protein 9 mg/dL (5-11.8) 12/16/19 06:52 DUNG Screen Negative (Negative) 12/16/19 20:24 Proteinase 3 (PR3) Ab <1.0 AI (<1.0) 12/16/19 20:24 Myeloperoxidase Ab <1.0 AI (<1.0) 12/16/19 20:24 Complement C3 166 mg/dL (82-185) 12/16/19 20:24 Complement C4 58 mg/dL (15-53) H 12/16/19 20:24 Coronavirus (PCR) Negative (Negative) 12/12/19 09:08 Robert/IV: Voiding Method Urinal IV Catheter Type [Left Hand] INT / Saline Lock IV Catheter Type [Right Peripheral IV Antecubital] Active Medications - Current Medications Current Medications: Generic Name Dose Route Start Last Admin Trade Name Freq PRN Reason Stop Dose Admin Acetaminophen 650 mg 12/11/19 21:48 12/16/19 22:31 Tylenol PO 650 mg Q4H PRN Administration Pain MILD(1-3)/Fever >100.5/MUSTAFA Aspirin 325 mg 12/13/19 22:00 12/26/19 22:56 Aspirin PO 325 mg HS JOHNNY Administration Dextrose 0 ml 12/11/19 22:45 D50w (25gm) Syringe IV Q30MIN PRN Hypoglycemia Protocol Heparin Sodium (Porcine) 5,000 unit 12/11/19 22:00 12/27/19 09:48 Heparin SUB-Q 5,000 unit Q12HR JOHNNY Administration Insulin Glargine 50 units 12/13/19 22:00 12/26/19 23:10 Lantus SUB-Q 50 units QHS JOHNNY Administration Insulin Human Lispro 0 unit 12/12/19 07:30 12/27/19 09:46 Humalog SUB-Q 3 unit ACHS JOHNNY Administration Protocol Insulin Human Lispro 10 unit 12/13/19 07:30 12/27/19 09:48 Humalog SUB-Q 10 unit AC JOHNNY Administration Isosorbide Mononitrate 30 mg 12/14/19 10:00 12/26/19 09:02 Imdur PO Not Given DAILY JOHNNY Lactulose 20 gm 12/22/19 15:00 12/23/19 09:07 Cephulac PO 20 gm QDAY PRN Administration Constipation Metoprolol Tartrate 25 mg 12/13/19 22:00 12/26/19 22:56 Metoprolol PO 25 mg BID JOHNNY Administration Ondansetron HCl 4 mg 12/11/19 21:48 Zofran IV Q8H PRN Nausea And Vomiting Oxycodone/Acetaminophen 1 tab 12/11/19 21:53 12/26/19 10:58 Percocet 5/325 PO 1 tab Q6H PRN Administration PAIN (4-6) Pravastatin Sodium 80 mg 12/13/19 22:00 12/26/19 22:56 Pravachol PO 80 mg QHS JOHNNY Administration Sodium Chloride 10 ml 12/11/19 22:00 12/27/19 09:48 Sodium Chloride Flush Syringe 10 Ml IV 10 ml BID JOHNNY Administration Sodium Chloride 10 ml 12/11/19 21:48 12/12/19 06:04 Sodium Chloride Flush Syringe 10 Ml IV 10 ml PRN PRN Administration LINE FLUSH Nutrition/Malnutrition Assess - Dietary Evaluation Nutrition/Malnutrition Findings: Nutrition Notes Start: 12/18/19 12:19 Freq: Status: Active Protocol: Document 12/25/19 13:22 ANSLEY (Rec: 12/25/19 13:32 ANSLEY [id number]) Co-Sign 12/25/19 13:22 LP Nutrition Notes Initial or Follow up Reassessment Current Diagnosis Acute Kidney Injury,Diabetes, Sepsis,Hypertension Other Pertinent Diagnosis CABG, Pneumonia, Bronchitis, Dementia Current Diet Cardiac/Consistent CHO/Renal Labs/Tests Na 136 BUN 34 Cr 2.2 Pertinent Medications Humalog 2 unit Humalog 10 unit Height 5 ft 11 in Weight 131.9 kg Serafina Body Weight (kg) 78.18 BMI 40.5 Weight change and time frame 2% wt loss in 1 week Weight Status Morbidly Obese Subjective/Other Information F/U for intakes. Pt reports good appetite and eating 75% meals. Percent of energy/protein needs met: 80%/76% Burn Absent Trauma Absent GI Symptoms None Food Allergy No Current % PO Good (75-100%) Minimum of two criteria No Interpretation of Weight Loss (severe) >2% in 1 week #1 Nutrition Diagnosis Inadequate oral intake As Evidenced by Signs and Symptoms pt consuming 75% meals Diagnosis Progress(for reassessment Improved documentation) Is patient on ventilator? No Is Patient Ambulatory and/or Out of Bed No REE-([facility]-confined to bed) 2467.452 Kcal/Kg value to use for calculation 14 Approximate Energy Requirements Using 1847 kcal/Kg Calculation Used for Recommendations Kcal/kg Additional Notes Protein: 0.8-1.2 g/kg AdBW 106 .6kg (85-128g) Fluids: 1 ml/kcal Nutrition Intervention Change Diet Order: Continue Cardiac/Consistent CHO/Renal diet Goal #1 Meet 75% of energy and protein needs Anticipated Discharge Needs: Cardiac/Consistent CHO diet Follow-Up By: 12/31/19 Additional Comments F/U for intakes
[2019-12-27] MEDS: METOPROLOL TARTRATE 25 MG TAB PO SCH ×2 (11:15→21:40)
[2019-12-27] MEDS ORDERED: METOPROLOL TARTRATE 25 MG TAB PO SCH (13:24)
[2019-12-27] MEDS ORDERED: METOPROLOL TARTRATE 25 MG TAB PO ONE (14:00)
[2019-12-27] MEDS: ASPIRIN 325 MG TAB PO SCH (21:39)
[2019-12-27] MEDS: PRAVASTATIN 80 MG TAB PO SCH (21:41)
[2019-12-27] MEDS: INSULIN GLARGINE 100 UNITS/ML SUB-Q SCH (21:41)
[2019-12-28] MEDS: HEPARIN 5,000 UNIT/1 ML VIAL SUB-Q SCH ×2 (09:43→21:13)
[2019-12-28] MEDS: METOPROLOL TARTRATE 25 MG TAB PO SCH ×2 (09:43→21:12)
[2019-12-28] MEDS: INSULIN LISPRO 100 UNIT/ML VIAL 3 mL SUB-Q SCH ×7 (09:44→22:32)
--- NOTE | 2019-12-28 12:54 | Progress Note ---
Assessment and Plan Impression * Stage III chronic kidney disease - patient w/ multiple risk factors for CKD - DM, HTN, CAD * Altered mental status * Fever --Blood cx NGTD (Dec 10) * Dementia * Hypertension * Type II DM * Hx of CAD s/p CABG Plan: * Renal function has remained stable - baseline appears to be 2.1-2.3mg/dL * Continue to hold Lasix - BP now stable * Dose medications for renal function * Glycemic control per primary team * Discharge planning in progress * Follow up with [facility] upon discharge Subjective Date of service: 12/28/19 Principal diagnosis: Encephalopathy Interval history: resting in bed today Objective - Exam Narrative Exam: General appearance: well-developed, well-nourished EENT: ATNC Cardiology: regular, S1S2 Gastrointestinal: normal, no tenderness, no distended, obese Integumentary: no rash, warm and dry Musculoskeletal: other (no edema) Psychiatric: cooperative - Vital Signs Vital signs: Vital Signs - 12hr 12/28/19 12/28/19 12/28/19 04:23 07:50 09:43 Temperature 98.0 F 98.1 F Pulse Rate 81 70 70 Respiratory 20 20 Rate Blood Pressure 124/75 119/47 O2 Sat by Pulse 93 95 Oximetry - Lab 12/26/19 04:59 12/26/19 04:59 Most recent lab results Calcium 9.6 mg/dL (8.4-10.2) 12/26/19 04:59 Urine Creatinine 42.2 mg/dL (0.1-20.0) H 12/16/19 06:52 Urine Total Protein 9 mg/dL (5-11.8) 12/16/19 06:52 Medications & Allergies - Medications Allergies/Adverse Reactions: Allergies No Known Allergies Allergy (Verified 04/19/14 09:47) Home Medications: Home Medications Medication Instructions Recorded Confirmed Last Taken Type Aspirin 325 mg PO HS 12/11/19 12/11/19 12/10/19 History ISOSORBIDE MONOnitrate [Imdur ER] 30 mg PO DAILY 12/11/19 12/11/19 12/10/19 History Insulin NPH/Regular [Novolin 70/30] 50 unit SQ BID 12/11/19 12/11/19 12/11/19 History Metoprolol [Lopressor] 25 mg PO BID 12/11/19 12/11/1920 History Simvastatin 40 mg PO HS 12/11/19 12/11/19 12/10/19 History hydroCHLOROthiazide 12.5 mg PO DAILY 12/11/19 12/11/19 12/10/19 History [Hydrochlorothiazide] Active Medications: Generic Name Dose Route Start Last Admin Trade Name Freq PRN Reason Stop Dose Admin Acetaminophen 650 mg 12/11/19 21:48 12/16/19 22:31 Tylenol PO 650 mg Q4H PRN Administration Pain MILD(1-3)/Fever >100.5/MUSTAFA Aspirin 325 mg 12/13/19 22:00 12/27/19 21:39 Aspirin PO 325 mg HS JOHNNY Administration Dextrose 0 ml 12/11/19 22:45 D50w (25gm) Syringe IV Q30MIN PRN Hypoglycemia Protocol Heparin Sodium (Porcine) 5,000 unit 12/11/19 22:00 12/28/19 09:43 Heparin SUB-Q 5,000 unit Q12HR JOHNNY Administration Insulin Glargine 50 units 12/13/19 22:00 12/27/19 21:41 Lantus SUB-Q Not Given QHS JOHNNY Insulin Human Lispro 0 unit 12/12/19 07:30 12/28/19 09:44 Humalog SUB-Q 2 unit ACHS JOHNNY Administration Protocol Insulin Human Lispro 10 unit 12/13/19 07:30 12/28/19 09:44 Humalog SUB-Q 10 unit AC JOHNNY Administration Lactulose 20 gm 12/22/19 15:00 12/23/19 09:07 Cephulac PO 20 gm QDAY PRN Administration Constipation Metoprolol Tartrate 12.5 mg 12/27/19 22:00 12/28/19 09:43 Metoprolol PO 12.5 mg BID JOHNNY Administration Ondansetron HCl 4 mg 12/11/19 21:48 Zofran IV Q8H PRN Nausea And Vomiting Oxycodone/Acetaminophen 1 tab 12/11/19 21:53 12/26/19 10:58 Percocet 5/325 PO 1 tab Q6H PRN Administration PAIN (4-6) Pravastatin Sodium 80 mg 12/13/19 22:00 12/27/19 21:41 Pravachol PO 80 mg QHS JOHNNY Administration Sodium Chloride 10 ml 12/11/19 22:00 12/28/19 09:45 Sodium Chloride Flush Syringe 10 Ml IV 10 ml BID JONHNY Administration Sodium Chloride 10 ml 12/11/19 21:48 12/12/19 06:04 Sodium Chloride Flush Syringe 10 Ml IV 10 ml PRN PRN Administration LINE FLUSH
--- NOTE | 2019-12-28 14:33 | Discharge Summary ---
Providers - Providers Date of Admission: 12/11/19 21:48 Date of discharge: 12/28/19 Attending physician: VALDEZ SHEPARD 12/13/19 07:31 Occupational Therapy Evaluate and Treat [CONS] Routine Comment: Daughter could not take care of him at home Reason For Exam: Weakness Physical Therapy Evaluation and Treat [CONS] Routine Comment: Daughter said she has a hard time to take care of Reason For Exam: Weakness 12/15/19 07:37 Consult to Physician [CONS] Routine Comment: Consulting Provider: KAREN WARD Physician Instructions: Reason For Exam: EUFEMIA 12/20/19 15:28 Physical Therapy Evaluation and Treat [CONS] Stat Comment: P2P requesting reeval and doc how much pt can walk Reason For Exam: P2P Dr requesting reevalution Primary care physician: [employer] OPERATOR Hospitalization Condition: Stable Hospital course: 79 YO Male with CAD S/P CABG, HTN, DM, Dementia, morbid obesity was admitted through emergency room with altered level of consciousness and confusion with diminished cognition and is unable to provide history. patient family who was at bedside during exam and interview. As per family the patient has experienced increased weakness and confusion over the past 1 month with progressively worsening symptoms over the same timeframe. Patient is currently bedbound, and nonambulatory as per family report. Patient also requires assistance with activities of daily living. In the emergency room patient was febrile and initial work-up is consistent with toxic metabolic encephalopathy and acute bron chitis and SIRS . Patient is admitted and appropriately managed. 12/21/2019 Mental status slightly improved, evaluated by PT, recommended subacute rehab/SNF placement. Insurance did not approve subacute/SNF placement On 12/20/2019 I had P2P DISCUSSION I spoke with insurance physician,Dr. Epps in detail patient's condition, he reported that patient is not a candidate for subacute/SNF placement and recommended, reevaluation by PT and to send the report to them for reconsideration. I informed case management. Patient is awaiting placement versus home with home health. Medically stable for discharge 12/24/2019 Patient seen at bedside-alert and oriented-on room air Reviewed lab, mar, and v/s Reviewed SW and PT note subacute/SNF placement and recommended Patient is awaiting placement. placement permission at [facility] pending from [facility] Medically stable for discharge 12/25/2019 Patient has no complaints today Still pending placement 12/26/2019 Patient needs rehabilitation due to poor gait and instability. PT note has been reviewed and I agree with assessment Discussed with patient's daughter this a.m. 12/27/2019 Still awaiting placement He has no complaints this morning 12/28/2019 Patient will be discharged to a facility Disposition: [id number] - Discharge Diagnoses (1) Diabetes mellitus Status: Acute (2) Toxic metabolic encephalopathy Status: Acute (3) Vascular dementia Status: Acute Qualifiers: Dementia behavioral disturbance: without behavioral disturbance Qualified Code(s): F01.50 - Vascular dementia without behavioral disturbance (4) SIRS (systemic inflammatory response syndrome) Status: Acute Core Measure Documentation - Palliative Care Palliative Care/ Comfort Measures: Not Applicable - Core Measures Any of the following diagnoses?: none Exam - Constitutional Vitals: Temp Pulse Resp BP Pulse Ox 98.1 F 70 20 119/47 95 12/28/19 07:50 12/28/19 09:43 12/28/19 07:50 12/28/19 07:50 12/28/19 07:50 General appearance: Present: no acute distress, well-nourished - EENT Eyes: Present: PERRL ENT: hearing intact, clear oral mucosa - Neck Neck: Present: supple, normal ROM - Respiratory Respiratory effort: normal Respiratory: bilateral: CTA - Cardiovascular Heart Sounds: Present: S1 & S2. Absent: rub, click - Extremities Extremities: pulses symmetrical, No edema Peripheral Pulses: within normal limits - Abdominal General gastrointestinal: Present: soft, non-tender, non-distended, normal bowel sounds Male genitourinary: Present: normal - Integumentary Integumentary: Present: clear, warm, dry - Musculoskeletal Musculoskeletal: gait normal, strength equal bilaterally - Psychiatric Psychiatric: appropriate mood/affect, intact judgment & insight - Neurologic Neurologic: CNII-XII intact, moves all extremities Plan Diet: low cholesterol, low salt Additional Instructions: Continue medications as ordered Follow up with: PRIMARY CARE,MD [Primary Care Provider] - 7 Days Prescriptions: Metoprolol [Lopressor TAB] 12.5 mg PO BID #60 tablet
[2019-12-28] MEDS: ASPIRIN 325 MG TAB PO SCH (21:12)
[2019-12-28] MEDS: PRAVASTATIN 80 MG TAB PO SCH (21:13)
[2019-12-28] MEDS: INSULIN GLARGINE 100 UNITS/ML SUB-Q SCH (22:32)
--- NOTE | 2019-12-29 08:40 | Progress Note ---
Assessment and Plan Impression * Stage III chronic kidney disease - patient w/ multiple risk factors for CKD - DM, HTN, CAD * Altered mental status * Fever --Blood cx NGTD (Dec 10) * Dementia * Hypertension * Type II DM * Hx of CAD s/p CABG Plan: * Renal function has remained stable - baseline appears to be 2.1-2.3mg/dL * Continue to hold Lasix - BP now stable * Dose medications for renal function * Glycemic control per primary team * Discharge planning in progress * Follow up with [facility] upon discharge Subjective Date of service: 12/29/19 Principal diagnosis: Encephalopathy Interval history: resting in bed today Objective - Exam Narrative Exam: General appearance: well-developed, well-nourished EENT: ATNC Cardiology: regular, S1S2 Gastrointestinal: normal, no tenderness, no distended, obese Integumentary: no rash, warm and dry Musculoskeletal: other (no edema) Psychiatric: cooperative - Vital Signs Vital signs: Vital Signs - 12hr 12/28/19 12/28/19 12/29/19 21:12 22:15 00:28 Temperature 97.7 F Pulse Rate 77 68 Pulse Rate [ 77 Apical] Respiratory 18 18 Rate Blood Pressure 124/65 102/47 O2 Sat by Pulse 94 94 Oximetry 12/29/19 12/29/19 04:52 08:15 Temperature 97.8 F Pulse Rate 85 76 Pulse Rate [ Apical] Respiratory 20 Rate Blood Pressure 122/55 121/71 O2 Sat by Pulse 93 94 Oximetry - Lab 12/26/19 04:59 12/26/19 04:59 Most recent lab results Calcium 9.6 mg/dL (8.4-10.2) 12/26/19 04:59 Urine Creatinine 42.2 mg/dL (0.1-20.0) H 12/16/19 06:52 Urine Total Protein 9 mg/dL (5-11.8) 12/16/19 06:52 Medications & Allergies - Medications Allergies/Adverse Reactions: Allergies No Known Allergies Allergy (Verified 04/19/14 09:47) Home Medications: Home Medications Medication Instructions Recorded Confirmed Last Taken Type Aspirin 325 mg PO HS 12/11/19 12/11/19 12/10/19 History ISOSORBIDE MONOnitrate [Imdur ER] 30 mg PO DAILY 12/11/19 12/11/19 12/10/19 History Insulin NPH/Regular [NovoLIN 70/30] 50 unit SQ BID 12/11/19 12/11/19 12/11/19 History Simvastatin 40 mg PO HS 12/11/19 12/11/19 12/10/19 History Metoprolol [Lopressor TAB] 12.5 mg PO BID #60 tablet 12/28/19 Unknown Rx Active Medications: Generic Name Dose Route Start Last Admin Trade Name Freq PRN Reason Stop Dose Admin Acetaminophen 650 mg 12/11/19 21:48 12/16/19 22:31 Tylenol PO 650 mg Q4H PRN Administration Pain MILD(1-3)/Fever >100.5/MUSTAFA Aspirin 325 mg 12/13/19 22:00 12/28/19 21:12 Aspirin PO 325 mg HS JOHNNY Administration Dextrose 0 ml 12/11/19 22:45 D50w (25gm) Syringe IV Q30MIN PRN Hypoglycemia Protocol Heparin Sodium (Porcine) 5,000 unit 12/11/19 22:00 12/28/19 21:13 Heparin SUB-Q 5,000 unit Q12HR JOHNNY Administration Insulin Glargine 40 units 12/29/19 22:00 Lantus SUB-Q QHS JOHNNY Insulin Human Lispro 0 unit 12/12/19 07:30 12/28/19 22:32 Humalog SUB-Q 2 unit ACHS JOHNNY Administration Protocol Insulin Human Lispro 6 unit 12/29/19 08:30 Humalog SUB-Q AC JOHNNY Lactulose 20 gm 12/22/19 15:00 12/23/19 09:07 Cephulac PO 20 gm QDAY PRN Administration Constipation Metoprolol Tartrate 12.5 mg 12/27/19 22:00 12/28/19 21:12 Metoprolol PO 12.5 mg BID JOHNNY Administration Ondansetron HCl 4 mg 12/11/19 21:48 Zofran IV Q8H PRN Nausea And Vomiting Oxycodone/Acetaminophen 1 tab 12/11/19 21:53 12/26/19 10:58 Percocet 5/325 PO 1 tab Q6H PRN Administration PAIN (4-6) Pravastatin Sodium 80 mg 12/13/19 22:00 12/28/19 21:13 Pravachol PO 80 mg QHS JOHNNY Administration Sodium Chloride 10 ml 12/11/19 22:00 12/28/19 21:13 Sodium Chloride Flush Syringe 10 Ml IV 10 ml BID JOHNNY Administration Sodium Chloride 10 ml 12/11/19 21:48 12/12/19 06:04 Sodium Chloride Flush Syringe 10 Ml IV 10 ml PRN PRN Administration LINE FLUSH
[2019-12-29] MEDS: METOPROLOL TARTRATE 25 MG TAB PO SCH ×2 (10:26→21:50)
[2019-12-29] MEDS: HEPARIN 5,000 UNIT/1 ML VIAL SUB-Q SCH ×2 (10:26→21:50)
[2019-12-29] MEDS: INSULIN LISPRO 100 UNIT/ML VIAL 3 mL SUB-Q SCH ×8 (10:27→22:02)
[2019-12-29] MEDS: LACTULOSE 20 GM/30 ML ORAL LIQD PO PRN (11:06)
--- NOTE | 2019-12-29 12:11 | Progress Note ---
Assessment and Plan Assessment and plan: Toxic metabolic encephalopathy-resolved Current Visit: Yes Status: Acute Plan to address problem: Present on admission, improved SIRS:[No criteria for sepsis]-improved Current Visit: Yes Status: Acute Plan to address problem: Improved Acute bronchitis-improved Current Visit: Yes Status: Acute . Plan to address problem: Chest x-ray negative for pneumonia Continue current management Coronary artery disease status post CABG ; Current Visit: Yes Status: Acute . Plan to address problem: Continue cardiac protective measures Condition is stable -denies ACS signs Type II diabetes mellitus-stable Current Visit: Yes Status: Acute Plan to address problem: Monitor blood sugar with SSIt Continue Lantus Adjust if needed A1c is 9.7 Acute Kidney Injury-stable Current Visit: No Status: Acute Plan to address problem: Current creatinine stable Underlying CKD Creatinine 2.3 Hyponatremia; present on admission likely 2/2 to EUFEMIA improved, Continue monitor electrolytes Suspected COVID-19 virus infection Current Visit: No Status: Acute Plan to address problem: COVID-19 test is negative Morbid obesity; BMI 43 Patient needs weight reduction when medically stable Advised on inportance of lifestyle modification Healthy diet-more fruits and vegebles and avoid high calorie foods DVT prophylaxis Current Visit: Yes Status: Acute Plan to address problem: SCD /heparin renal dose Debility Current Visit: Yes Status: Acute Plan to address problem: PT notes reviewed-patient needs physical therapy due to poor gait and instability. I believe patient will benefit from physical therapy. Still awaiting placement. Discussed with [employer] international representative --Discharge planning issues patient ready for discharge Needs acceptance at [facility] by [facility] Discussed with scrum project manager - Patient Problems (1) Diabetes mellitus Current Visit: Yes Status: Acute (2) Toxic metabolic encephalopathy Current Visit: Yes Status: Acute (3) Vascular dementia Current Visit: Yes Status: Acute Qualifiers: Dementia behavioral disturbance: without behavioral disturbance Qualified Code(s): F01.50 - Vascular dementia without behavioral disturbance (4) SIRS (systemic inflammatory response syndrome) Current Visit: Yes Status: Acute History Interval history: 79 YO Male with CAD S/P CABG, HTN, DM, Vascular Dementia, Cerebral Atherosclerosis, Obesity Hypoventilation Syndrome, presents to ED for evaluation. Patient is confused with diminished cognition and is unable to provide history. Patient history provided by EMS staff, ED staff, as well as patient family who was at bedside during exam and interview. As per family the patient has experienced increased weakness and confusion over the past 1 month with progressively worsening symptoms over the same timeframe. Patient is cu rrently bedbound, and nonambulatory as per family report. Patient also requires 6/6 assistance with activities of daily living. EMS was notified and upon arrival the patient was found to be confused and in distress with a temperature 101.2 F. Patient was subsequently transported to [facility] for further care and evaluation of the aforementioned symptoms. Patient seen and evaluated in the emergency department. Lab and imaging studies reviewed. Patient underwent chest x-ray which revealed pneumonia complicated by sepsis, toxic metabolic encephalopathy. Patient initiated on sepsis protocol as well as coronavirus protocol in the emergency department. Patient is confused and lethargic with diminished cognition but has a positive gag reflex and is able to protect his airway. No further history obtainable. Advanced care planning conducted in ED. 12/24/2019 Patient seen at bedside-alert and oriented-on room air Reviewed lab, mar, and v/s Reviewed SW and PT note subacute/SNF placement and recommended Patient is awaiting placement. placement permission at [facility] pending from [facility] Medically stable for discharge 12/25/2019 Patient has no complaints today Still pending placement 12/26/2019 Patient needs rehabilitation due to poor gait and instability. PT note has been reviewed and I agree with assessment Discussed with patient's daughter this a.m. 12/27/2019 Still awaiting placement He has no complaints this morning 12/27. Planned for DC but insurance has not approved transfer to facility so DC was canceled 12/28. He is frustrated that insurance has not approved transfer. Otherwise, he has no complaints Hospitalist Physical - Constitutional Vitals: Temp Pulse Resp BP Pulse Ox 97.8 F 76 20 121/71 94 12/29/19 04:52 12/29/19 08:15 12/29/19 04:52 12/29/19 08:15 12/29/19 08:15 General appearance: Present: no acute distress, well-nourished - EENT Eyes: Present: PERRL - Neck Neck: Present: supple - Respiratory Respiratory: bilateral: CTA - Cardiovascular Heart Sounds: Present: S1 & S2 - Extremities Extremities: No edema - Abdominal General gastrointestinal: soft, non-tender, non-distended, normal bowel sounds - Psychiatric Psychiatric: appropriate mood/affect HEART Score - HEART Score Troponin: Troponin T < 0.010 ng/mL (0.00-0.029) 12/11/19 20:03 Results - Labs CBC & Chem 7: 12/26/19 04:59 12/26/19 04:59 Labs: Laboratory Last Values WBC 8.8 K/mm3 (4.5-11.0) 12/26/19 04:59 RBC 4.28 M/mm3 (3.65-5.03) 12/26/19 04:59 Hgb 13.0 gm/dl (11.8-15.2) 12/26/19 04:59 Hct 38.1 % (35.5-45.6) 12/26/19 04:59 MCV 89 fl (84-94) 12/26/19 04:59 MCH 30 pg (28-32) 12/26/19 04:59 MCHC 34 % (32-34) 12/26/19 04:59 RDW 13.5 % (13.2-15.2) 12/26/19 04:59 Plt Count 351 K/mm3 (140-440) 12/26/19 04:59 Lymph % (Auto) 30.6 % (13.4-35.0) 12/26/19 04:59 [place] % (Auto) 10.5 % (0.0-7.3) H 12/26/19 04:59 Eos % (Auto) 6.5 % (0.0-4.3) H 12/26/19 04:59 Baso % (Auto) 1.0 % (0.0-1.8) 12/26/19 04:59 Lymph # (Auto) 2.7 K/mm3 (1.2-5.4) 12/26/19 04:59 [place] # (Auto) 0.9 K/mm3 (0.0-0.8) H 12/26/19 04:59 Eos # (Auto) 0.6 K/mm3 (0.0-0.4) H 12/26/19 04:59 Baso # (Auto) 0.1 K/mm3 (0.0-0.1) 12/26/19 04:59 Add Manual Diff Complete 12/21/19 05:17 Total Counted 100 12/21/19 05:17 Seg Neutrophils % 51.4 % (40.0-70.0) 12/26/19 04:59 Seg Neuts % (Manual) 89.0 % (40.0-70.0) H 12/21/19 05:17 Band Neutrophils % 1.0 % 12/21/19 05:17 Lymphocytes % (Manual) 7.0 % (13.4-35.0) L 12/21/19 05:17 Reactive Lymphs % (Man) 0 % 12/21/19 05:17 Monocytes % (Manual) 2.0 % (0.0-7.3) 12/21/19 05:17 Eosinophils % (Manual) 1.0 % (0.0-4.3) 12/21/19 05:17 Basophils % (Manual) 0 % (0.0-1.8) 12/21/19 05:17 Metamyelocytes % 0 % 12/21/19 05:17 Myelocytes % 0 % 12/21/19 05:17 Promyelocytes % 0 % 12/21/19 05:17 Blast Cells % 0 % 12/21/19 05:17 Nucleated RBC % Not Reportable 12/21/19 05:17 Seg Neutrophils # 4.5 K/mm3 (1.8-7.7) 12/26/19 04:59 Seg Neutrophils # Man 11.3 K/mm3 (1.8-7.7) H 12/21/19 05:17 Band Neutrophils # 0.1 K/mm3 12/21/19 05:17 Lymphocytes # (Manual) 0.9 K/mm3 (1.2-5.4) L 12/21/19 05:17 Abs React Lymphs (Man) 0.0 K/mm3 12/21/19 05:17 Monocytes # (Manual) 0.3 K/mm3 (0.0-0.8) 12/21/19 05:17 Eosinophils # (Manual) 0.1 K/mm3 (0.0-0.4) 12/21/19 05:17 Basophils # (Manual) 0.0 K/mm3 (0.0-0.1) 12/21/19 05:17 Metamyelocytes # 0.0 K/mm3 12/21/19 05:17 Myelocytes # 0.0 K/mm3 12/21/19 05:17 Promyelocytes # 0.0 K/mm3 12/21/19 05:17 Blast Cells # 0.0 K/mm3 12/21/19 05:17 WBC Morphology Not Reportable 12/21/19 05:17 Hypersegmented Neuts Not Reportable 12/21/19 05:17 Hyposegmented Neuts Not Reportable 12/21/19 05:17 Hypogranular Neuts Not Reportable 12/21/19 05:17 Smudge Cells Not Reportable 12/21/19 05:17 Toxic Granulation Not Reportable 12/21/19 05:17 Toxic Vacuolation Not Reportable 12/21/19 05:17 Dohle Bodies Not Reportable 12/21/19 05:17 Pelger-Huet Anomaly Not Reportable 12/21/19 05:17 Sam Rods Not Reportable 12/21/19 05:17 Platelet Estimate Consistent w auto 12/21/19 05:17 Clumped Platelets Not Reportable 12/21/19 05:17 Plt Clumps, EDTA Not Reportable 12/21/19 05:17 Large Platelets Few 12/21/19 05:17 Giant Platelets Not Reportable 12/21/19 05:17 Platelet Satelliting Not Reportable 12/21/19 05:17 Plt Morphology Comment Not Reportable 12/21/19 05:17 RBC Morphology Normal 12/21/19 05:17 Dimorphic RBCs Not Reportable 12/21/19 05:17 Polychromasia Not Reportable 12/21/19 05:17 Hypochromasia Not Reportable 12/21/19 05:17 Poikilocytosis Not Reportable 12/21/19 05:17 Anisocytosis Not Reportable 12/21/19 05:17 Microcytosis Not Reportable 12/21/19 05:17 Macrocytosis Not Reportable 12/21/19 05:17 Spherocytes Not Reportable 12/21/19 05:17 Pappenheimer Bodies Not Reportable 12/21/19 05:17 Sickle Cells Not Reportable 12/21/19 05:17 Target Cells Not Reportable 12/21/19 05:17 Tear Drop Cells Not Reportable 12/21/19 05:17 Ovalocytes Not Reportable 12/21/19 05:17 Helmet Cells Not Reportable 12/21/19 05:17 [place] Bodies Not Reportable 12/21/19 05:17 [place] Rings Not Reportable 12/21/19 05:17 [place] Cells Not Reportable 12/21/19 05:17 Bite Cells Not Reportable 12/21/19 05:17 Crenated Cell Not Reportable 12/21/19 05:17 Elliptocytes Not Reportable 12/21/19 05:17 Acanthocytes (Spur) Not Reportable 12/21/19 05:17 Rouleaux Not Reportable 12/21/19 05:17 Hemoglobin C Crystals Not Reportable 12/21/19 05:17 Schistocytes Not Reportable 12/21/19 05:17 Malaria parasites Not Reportable 12/21/19 05:17 [place] Bodies Not Reportable 12/21/19 05:17 Hem Pathologist Commnt No 12/21/19 05:17 PT 13.1 Sec. (12.2-14.9) 12/11/19 18:37 INR 0.97 (0.87-1.13) 12/11/19 18:37 APTT 20.1 Sec. (24.2-36.6) L 12/11/19 18:37 D-Dimer 550.63 ng/mlDDU (0-234) H 12/11/19 21:50 Sodium 137 mmol/L (137-145) 12/26/19 04:59 Potassium 5.0 mmol/L (3.6-5.0) 12/26/19 04:59 Chloride 100.3 mmol/L (98-107) 12/26/19 04:59 Carbon Dioxide 28 mmol/L (22-30) 12/26/19 04:59 Anion Gap 14 mmol/L 12/26/19 04:59 BUN 32 mg/dL (9-20) H 12/26/19 04:59 Creatinine 2.3 mg/dL (0.8-1.3) H 12/26/19 04:59 Estimated GFR 33 ml/min 12/26/19 04:59 BUN/Creatinine Ratio 14 % 12/26/19 04:59 Glucose 138 mg/dL (75-100) H 12/26/19 04:59 POC Glucose 277 mg/dL (70-105) H 12/29/19 10:49 Hemoglobin A1c 9.7 % (4-6) H 12/12/19 05:05 Lactic Acid 1.50 mmol/L (0.7-2.0) 12/12/19 05:05 Calcium 9.6 mg/dL (8.4-10.2) 12/26/19 04:59 Ferritin 646.4 ng/mL (30.0-300.0) H 12/11/19 21:50 Total Bilirubin 0.70 mg/dL (0.1-1.2) 12/12/19 05:05 Direct Bilirubin < 0.2 mg/dL (0-0.2) 12/11/19 18:37 Indirect Bilirubin 0.6 mg/dL 12/11/19 18:37 AST 26 units/L (5-40) 12/12/19 05:05 ALT 15 units/L (7-56) 12/12/19 05:05 Alkaline Phosphatase 68 units/L (35-129) 12/12/19 05:05 Ammonia 36.0 umol/L (25-60) 12/11/19 18:37 Lactate Dehydrogenase 188 units/L (91-180) H 12/11/19 21:50 Troponin T < 0.010 ng/mL (0.00-0.029) 12/11/19 20:03 C-Reactive Protein 18.20 mg/dL (0.00-1.30) H 12/11/19 21:50 NT-Pro-B Natriuret Pep 224.4 pg/mL (0-900) 12/11/19 18:37 Serum Total Protein 6.8 g/dL (6.1-8.1) 12/16/19 20:24 Total Protein 8.0 g/dL (6.3-8.2) 12/12/19 05:05 Albumin 2.9 g/dL (3.8-4.8) L 12/16/19 20:24 Albumin/Globulin Ratio 0.6 % 12/12/19 05:05 Vouqb-9-Cobhfocdk 0.5 g/dL (0.2-0.3) H 12/16/19 20:24 Kslne-3-Vcprkmgqt 0.9 g/dL (0.5-0.9) 12/16/19 20:24 Beta Globulins 0.6 g/dL (0.2-0.5) H 12/16/19 20:24 Gamma Globulins 1.4 g/dL (0.8-1.7) 12/16/19 20:24 Abnorm Protein Band 1 see below 12/16/19 20:24 PEP Interpretation see below H 12/16/19 20:24 Procalcitonin 0.18 ng/mL (<0.15) 12/11/19 21:50 TSH 1.240 mlU/mL (0.270-4.200) 12/11/19 18:37 PTH Intact 78.16 pg/mL (15-65) H 12/16/19 20:24 Urine Color Yellow (Yellow) 12/11/19 23:00 Urine Turbidity Clear (Clear) 12/11/19 23:00 Urine pH 6.0 (5.0-7.0) 12/11/19 23:00 Ur Specific [place] 1.013 (1.003-1.030) 12/11/19 23:00 Urine Protein 30 mg/dl mg/dL (Negative) 12/11/19 23:00 Urine Glucose (UA) 150 mg/dL (Negative) 12/11/19 23:00 Urine Ketones Neg mg/dL (Negative) 12/11/19 23:00 Urine Blood Mod (Negative) 12/11/19 23:00 Urine Nitrite Neg (Negative) 12/11/19 23:00 Urine Bilirubin Neg (Negative) 12/11/19 23:00 Urine Urobilinogen 2.0 mg/dL (<2.0) 12/11/19 23:00 Ur Leukocyte Esterase Neg (Negative) 12/11/19 23:00 Urine WBC (Auto) 1.0 /HPF (0.0-6.0) 12/11/19 23:00 Urine RBC (Auto) 1.0 /HPF (0.0-6.0) 12/11/19 23:00 U Epithel Cells (Auto) 1.0 /HPF (0-13.0) 12/11/19 23:00 Urine Creatinine 42.2 mg/dL (0.1-20.0) H 12/16/19 06:52 Protein/Creatinin Ratio 0.21 12/16/19 06:52 Urine Total Protein 9 mg/dL (5-11.8) 12/16/19 06:52 DUNG Screen Negative (Negative) 12/16/19 20:24 Proteinase 3 (PR3) Ab <1.0 AI (<1.0) 12/16/19 20:24 Myeloperoxidase Ab <1.0 AI (<1.0) 12/16/19 20:24 Complement C3 166 mg/dL (82-185) 12/16/19 20:24 Complement C4 58 mg/dL (15-53) H 12/16/19 20:24 Coronavirus (PCR) Negative (Negative) 12/28/19 Unknown Robert/IV: Voiding Method Urinal IV Catheter Type [Left Hand] INT / Saline Lock IV Catheter Type [Right Peripheral IV Antecubital] Active Medications - Current Medications Current Medications: Generic Name Dose Route Start Last Admin Trade Name Freq PRN Reason Stop Dose Admin Acetaminophen 650 mg 12/11/19 21:48 12/16/19 22:31 Tylenol PO 650 mg Q4H PRN Administration Pain MILD(1-3)/Fever >100.5/MUSTAFA Aspirin 325 mg 12/13/19 22:00 12/28/19 21:12 Aspirin PO 325 mg HS JOHNNY Administration Dextrose 0 ml 12/11/19 22:45 D50w (25gm) Syringe IV Q30MIN PRN Hypoglycemia Protocol Heparin Sodium (Porcine) 5,000 unit 12/11/19 22:00 12/29/19 10:26 Heparin SUB-Q 5,000 unit Q12HR JOHNNY Administration Insulin Glargine 40 units 12/29/19 22:00 Lantus SUB-Q QHS JOHNNY Insulin Human Lispro 0 unit 12/12/19 07:30 12/29/19 12:00 Humalog SUB-Q 4 unit ACHS JOHNNY Administration Protocol Insulin Human Lispro 6 unit 12/29/19 08:30 12/29/19 12:00 Humalog SUB-Q 6 unit AC JOHNNY Administration Lactulose 20 gm 12/22/19 15:00 12/29/19 11:06 Cephulac PO 20 gm QDAY PRN Administration Constipation Metoprolol Tartrate 12.5 mg 12/27/19 22:00 12/29/19 10:26 Metoprolol PO 12.5 mg BID JOHNNY Administration Ondansetron HCl 4 mg 12/11/19 21:48 Zofran IV Q8H PRN Nausea And Vomiting Oxycodone/Acetaminophen 1 tab 12/11/19 21:53 12/26/19 10:58 Percocet 5/325 PO 1 tab Q6H PRN Administration PAIN (4-6) Pravastatin Sodium 80 mg 12/13/19 22:00 12/28/19 21:13 Pravachol PO 80 mg QHS JOHNNY Administration Sodium Chloride 10 ml 12/11/19 22:00 12/29/19 10:26 Sodium Chloride Flush Syringe 10 Ml IV 10 ml BID JOHNNY Administration Sodium Chloride 10 ml 12/11/19 21:48 12/12/19 06:04 Sodium Chloride Flush Syringe 10 Ml IV 10 ml PRN PRN Administration LINE FLUSH Nutrition/Malnutrition Assess - Dietary Evaluation Nutrition/Malnutrition Findings: Nutrition Notes Start: 12/18/19 12:19 Freq: Status: Active Protocol: Document 12/25/19 13:22 ANSLEY (Rec: 12/25/19 13:32 ANSLEY [id number]) Co-Sign 12/25/19 13:22 LP Nutrition Notes Initial or Follow up Reassessment Current Diagnosis Acute Kidney Injury,Diabetes, Sepsis,Hypertension Other Pertinent Diagnosis CABG, Pneumonia, Bronchitis, Dementia Current Diet Cardiac/Consistent CHO/Renal Labs/Tests Na 136 BUN 34 Cr 2.2 Pertinent Medications Humalog 2 unit Humalog 10 unit Height 5 ft 11 in Weight 131.9 kg [place] Body Weight (kg) 78.18 BMI 40.5 Weight change and time frame 2% wt loss in 1 week Weight Status Morbidly Obese Subjective/Other Information F/U for intakes. Pt reports good appetite and eating 75% meals. Percent of energy/protein needs met: 80%/76% Burn Absent Trauma Absent GI Symptoms None Food Allergy No Current % PO Good (75-100%) Minimum of two criteria No Interpretation of Weight Loss (severe) >2% in 1 week #1 Nutrition Diagnosis Inadequate oral intake As Evidenced by Signs and Symptoms pt consuming 75% meals Diagnosis Progress(for reassessment Improved documentation) Is patient on ventilator? No Is Patient Ambulatory and/or Out of Bed No REE-([facility]-confined to bed) 2467.452 Kcal/Kg value to use for calculation 14 Approximate Energy Requirements Using 1847 kcal/Kg Calculation Used for Recommendations Kcal/kg Additional Notes Protein: 0.8-1.2 g/kg AdBW 106 .6kg (85-128g) Fluids: 1 ml/kcal Nutrition Intervention Change Diet Order: Continue Cardiac/Consistent CHO/Renal diet Goal #1 Meet 75% of energy and protein needs Anticipated Discharge Needs: Cardiac/Consistent CHO diet Follow-Up By: 12/31/19 Additional Comments F/U for intakes
--- NOTE | 2019-12-29 12:12 | Progress Note ---
Assessment and Plan Assessment and plan: 79 YO Male with CAD S/P CABG, HTN, DM, Vascular Dementia, Cerebral Atherosclerosis, Obesity Hypoventilation Syndrome, presents to ED for evaluation. Patient is confused with diminished cognition and is unable to provide history. Patient history provided by EMS staff, ED staff, as well as patient family who was at bedside during exam and interview. As per family the patient has experienced increased weakness and confusion over the past 1 month with progressively worsening symptoms over the same timeframe. Patient is currently bedbound, and nonambulatory as per family report. Patient also requir es 6/6 assistance with activities of daily living. EMS was notified and upon arrival the patient was found to be confused and in distress with a temperature 101.2 F. Patient was subsequently transported to [facility] for further care and evaluation of the aforementioned symptoms. Patient seen and evaluated in the emergency department. Lab and imaging studies reviewed. Patient underwent chest x-ray which revealed pneumonia complicated by sepsis, toxic metabolic encephalopathy. Patient initiated on sepsis protocol as well as coronavirus protocol in the emergency department. Patient is confused and lethargic with diminished cognition but has a positive gag reflex and is able to protect his airway. No further history obtainable. Advanced care planning conducted in ED. 12/24/2019 Patient seen at bedside-alert and oriented-on room air Reviewed lab, mar, and v/s Reviewed SW and PT note subacute/SNF placement and recommended Patient is awaiting placement. placement permission at [facility] pending from [facility] Medically stable for discharge 12/25/2019 Patient has no complaints today Still pending placement 12/26/2019 Patient needs rehabilitation due to poor gait and instability. PT note has been reviewed and I agree with assessment Discussed with patient's daughter this a.m. 12/27/2019 Still awaiting placement He has no complaints this morning 12/27. Planned for DC but insurance has not approved transfer to facility so DC was canceled Problems Toxic metabolic encephalopathy-resolved Current Visit: Yes Status: Acute Plan to address problem: Present on admission, improved SIRS:[No criteria for sepsis]-improved Current Visit: Yes Status: Acute Plan to address problem: Improved Acute bronchitis-improved Current Visit: Yes Status: Acute . Plan to address problem: Chest x-ray negative for pneumonia Continue current management Coronary artery disease status post CABG ; Current Visit: Yes Status: Acute . Plan to address problem: Continue cardiac protective measures Condition is stable -denies ACS signs Type II diabetes mellitus-stable Current Visit: Yes Status: Acute Plan to address problem: Monitor blood sugar with SSIt Continue Lantus Adjust if needed A1c is 9.7 Acute Kidney Injury-stable Current Visit: No Status: Acute Plan to address problem: Current creatinine stable Underlying CKD Creatinine 2.3 Hyponatremia; present on admission likely 2/2 to [facility]FEMIA improved, Continue monitor electrolytes Suspected COVID-19 virus infection Current Visit: No Status: Acute Plan to address problem: COVID-19 test is negative Morbid obesity; BMI 43 Patient needs weight reduction when medically stable Advised on inportance of lifestyle modification Healthy diet-more fruits and vegebles and avoid high calorie foods DVT prophylaxis Current Visit: Yes Status: Acute Plan to address problem: SCD /heparin renal dose Debility Current Visit: Yes Status: Acute Plan to address problem: PT notes reviewed-patient needs physical therapy due to poor gait and instability. I believe patient will benefit from physical therapy. Still awaiting placement. Discussed with Ana commercial pest control representative --Discharge planning issues patient ready for discharge Needs acceptance at [facility] by Ana Discussed with visual merchandising manager - Patient Problems (1) Diabetes mellitus Current Visit: Yes Status: Acute (2) Toxic metabolic encephalopathy Current Visit: Yes Status: Acute (3) Vascular dementia Current Visit: Yes Status: Acute Qualifiers: Dementia behavioral disturbance: without behavioral disturbance Qualified Code(s): F01.50 - Vascular dementia without behavioral disturbance (4) SIRS (systemic inflammatory response syndrome) Current Visit: Yes Status: Acute History Interval history: Has no complaints today Still pending placement Hospitalist Physical - Physical exam Narrative exam: VITAL SIGNS: Reviewed. GENERAL: Awake and alert on response to questions HEAD: No signs of head trauma. EYES: Pupils are equal. Extraocular motions intact. EARS: Hearing grossly intact. MOUTH: Oropharynx is normal. NECK: No adenopathy, no JVD. CHEST: Chest with diminished breath sounds bilaterally. No wheezes, rales, or rhonchi. CARDIAC: Regular rate and rhythm. S1 and S2, without murmurs, gallops, or rubs. VASCULAR: No Edema. Peripheral pulses normal and equal in all extremities. ABDOMEN: Soft, non tender and non distended. No rebound or guarding, and no masses palpated. Bowel Sounds normal. MUSCULOSKELETAL: Good range of motion of all major joints. Extremities without clubbing, cyanosis or edema. NEUROLOGIC EXAM: Alert and oriented x3. No focal neurologic deficits PSYCHIATRIC: Stable mood SKIN: No obvious lesions - Constitutional Vitals: Temp Pulse Resp BP Pulse Ox 97.8 F 76 20 121/71 94 12/29/19 04:52 12/29/19 08:15 12/29/19 04:52 12/29/19 08:15 12/29/19 08:15 HEART Score - HEART Score Troponin: Troponin T < 0.010 ng/mL (0.00-0.029) 12/11/19 20:03 Results - Labs CBC & Chem 7: 12/26/19 04:59 12/26/19 04:59 Labs: Laboratory Last Values WBC 8.8 K/mm3 (4.5-11.0) 12/26/19 04:59 RBC 4.28 M/mm3 (3.65-5.03) 12/26/19 04:59 Hgb 13.0 gm/dl (11.8-15.2) 12/26/19 04:59 Hct 38.1 % (35.5-45.6) 12/26/19 04:59 MCV 89 fl (84-94) 12/26/19 04:59 MCH 30 pg (28-32) 12/26/19 04:59 MCHC 34 % (32-34) 12/26/19 04:59 RDW 13.5 % (13.2-15.2) 12/26/19 04:59 Plt Count 351 K/mm3 (140-440) 12/26/19 04:59 Lymph % (Auto) 30.6 % (13.4-35.0) 12/26/19 04:59 Chase % (Auto) 10.5 % (0.0-7.3) H 12/26/19 04:59 Eos % (Auto) 6.5 % (0.0-4.3) H 12/26/19 04:59 Baso % (Auto) 1.0 % (0.0-1.8) 12/26/19 04:59 Lymph # (Auto) 2.7 K/mm3 (1.2-5.4) 12/26/19 04:59 Chase # (Auto) 0.9 K/mm3 (0.0-0.8) H 12/26/19 04:59 Eos # (Auto) 0.6 K/mm3 (0.0-0.4) H 12/26/19 04:59 Baso # (Auto) 0.1 K/mm3 (0.0-0.1) 12/26/19 04:59 Add Manual Diff Complete 12/21/19 05:17 Total Counted 100 12/21/19 05:17 Seg Neutrophils % 51.4 % (40.0-70.0) 12/26/19 04:59 Seg Neuts % (Manual) 89.0 % (40.0-70.0) H 12/21/19 05:17 Band Neutrophils % 1.0 % 12/21/19 05:17 Lymphocytes % (Manual) 7.0 % (13.4-35.0) L 12/21/19 05:17 Reactive Lymphs % (Man) 0 % 12/21/19 05:17 Monocytes % (Manual) 2.0 % (0.0-7.3) 12/21/19 05:17 Eosinophils % (Manual) 1.0 % (0.0-4.3) 12/21/19 05:17 Basophils % (Manual) 0 % (0.0-1.8) 12/21/19 05:17 Metamyelocytes % 0 % 12/21/19 05:17 Myelocytes % 0 % 12/21/19 05:17 Promyelocytes % 0 % 12/21/19 05:17 Blast Cells % 0 % 12/21/19 05:17 Nucleated RBC % Not Reportable 12/21/19 05:17 Seg Neutrophils # 4.5 K/mm3 (1.8-7.7) 12/26/19 04:59 Seg Neutrophils # Man 11.3 K/mm3 (1.8-7.7) H 12/21/19 05:17 Band Neutrophils # 0.1 K/mm3 12/21/19 05:17 Lymphocytes # (Manual) 0.9 K/mm3 (1.2-5.4) L 12/21/19 05:17 Abs React Lymphs (Man) 0.0 K/mm3 12/21/19 05:17 Monocytes # (Manual) 0.3 K/mm3 (0.0-0.8) 12/21/19 05:17 Eosinophils # (Manual) 0.1 K/mm3 (0.0-0.4) 12/21/19 05:17 Basophils # (Manual) 0.0 K/mm3 (0.0-0.1) 12/21/19 05:17 Metamyelocytes # 0.0 K/mm3 12/21/19 05:17 Myelocytes # 0.0 K/mm3 12/21/19 05:17 Promyelocytes # 0.0 K/mm3 12/21/19 05:17 Blast Cells # 0.0 K/mm3 12/21/19 05:17 WBC Morphology Not Reportable 12/21/19 05:17 Hypersegmented Neuts Not Reportable 12/21/19 05:17 Hyposegmented Neuts Not Reportable 12/21/19 05:17 Hypogranular Neuts Not Reportable 12/21/19 05:17 Smudge Cells Not Reportable 12/21/19 05:17 Toxic Granulation Not Reportable 12/21/19 05:17 Toxic Vacuolation Not Reportable 12/21/19 05:17 Dohle Bodies Not Reportable 12/21/19 05:17 Pelger-Huet Anomaly Not Reportable 12/21/19 05:17 Sam Rods Not Reportable 12/21/19 05:17 Platelet Estimate Consistent w auto 12/21/19 05:17 Clumped Platelets Not Reportable 12/21/19 05:17 Plt Clumps, EDTA Not Reportable 12/21/19 05:17 Large Platelets Few 12/21/19 05:17 Giant Platelets Not Reportable 12/21/19 05:17 Platelet Satelliting Not Reportable 12/21/19 05:17 Plt Morphology Comment Not Reportable 12/21/19 05:17 RBC Morphology Normal 12/21/19 05:17 Dimorphic RBCs Not Reportable 12/21/19 05:17 Polychromasia Not Reportable 12/21/19 05:17 Hypochromasia Not Reportable 12/21/19 05:17 Poikilocytosis Not Reportable 12/21/19 05:17 Anisocytosis Not Reportable 12/21/19 05:17 Microcytosis Not Reportable 12/21/19 05:17 Macrocytosis Not Reportable 12/21/19 05:17 Spherocytes Not Reportable 12/21/19 05:17 Pappenheimer Bodies Not Reportable 12/21/19 05:17 Sickle Cells Not Reportable 12/21/19 05:17 Target Cells Not Reportable 12/21/19 05:17 Tear Drop Cells Not Reportable 12/21/19 05:17 Ovalocytes Not Reportable 12/21/19 05:17 Helmet Cells Not Reportable 12/21/19 05:17 Saavedra-Pixley Bodies Not Reportable 12/21/19 05:17 Oelrichs Rings Not Reportable 12/21/19 05:17 Mentor Cells Not Reportable 12/21/19 05:17 Bite Cells Not Reportable 12/21/19 05:17 Crenated Cell Not Reportable 12/21/19 05:17 Elliptocytes Not Reportable 12/21/19 05:17 Acanthocytes (Spur) Not Reportable 12/21/19 05:17 Rouleaux Not Reportable 12/21/19 05:17 Hemoglobin C Crystals Not Reportable 12/21/19 05:17 Schistocytes Not Reportable 12/21/19 05:17 Malaria parasites Not Reportable 12/21/19 05:17 Lincoln Bodies Not Reportable 12/21/19 05:17 Hem Pathologist Commnt No 12/21/19 05:17 PT 13.1 Sec. (12.2-14.9) 12/11/19 18:37 INR 0.97 (0.87-1.13) 12/11/19 18:37 APTT 20.1 Sec. (24.2-36.6) L 12/11/19 18:37 D-Dimer 550.63 ng/mlDDU (0-234) H 12/11/19 21:50 Sodium 137 mmol/L (137-145) 12/26/19 04:59 Potassium 5.0 mmol/L (3.6-5.0) 12/26/19 04:59 Chloride 100.3 mmol/L (98-107) 12/26/19 04:59 Carbon Dioxide 28 mmol/L (22-30) 12/26/19 04:59 Anion Gap 14 mmol/L 12/26/19 04:59 BUN 32 mg/dL (9-20) H 12/26/19 04:59 Creatinine 2.3 mg/dL (0.8-1.3) H 12/26/19 04:59 Estimated GFR 33 ml/min 12/26/19 04:59 BUN/Creatinine Ratio 14 % 12/26/19 04:59 Glucose 138 mg/dL (75-100) H 12/26/19 04:59 POC Glucose 277 mg/dL (70-105) H 12/29/19 10:49 Hemoglobin A1c 9.7 % (4-6) H 12/12/19 05:05 Lactic Acid 1.50 mmol/L (0.7-2.0) 12/12/19 05:05 Calcium 9.6 mg/dL (8.4-10.2) 12/26/19 04:59 Ferritin 646.4 ng/mL (30.0-300.0) H 12/11/19 21:50 Total Bilirubin 0.70 mg/dL (0.1-1.2) 12/12/19 05:05 Direct Bilirubin < 0.2 mg/dL (0-0.2) 12/11/19 18:37 Indirect Bilirubin 0.6 mg/dL 12/11/19 18:37 AST 26 units/L (5-40) 12/12/19 05:05 ALT 15 units/L (7-56) 12/12/19 05:05 Alkaline Phosphatase 68 units/L (35-129) 12/12/19 05:05 Ammonia 36.0 umol/L (25-60) 12/11/19 18:37 Lactate Dehydrogenase 188 units/L (91-180) H 12/11/19 21:50 Troponin T < 0.010 ng/mL (0.00-0.029) 12/11/19 20:03 C-Reactive Protein 18.20 mg/dL (0.00-1.30) H 12/11/19 21:50 NT-Pro-B Natriuret Pep 224.4 pg/mL (0-900) 12/11/19 18:37 Serum Total Protein 6.8 g/dL (6.1-8.1) 12/16/19 20:24 Total Protein 8.0 g/dL (6.3-8.2) 12/12/19 05:05 Albumin 2.9 g/dL (3.8-4.8) L 12/16/19 20:24 Albumin/Globulin Ratio 0.6 % 12/12/19 05:05 Okutl-3-Jqnsjknhr 0.5 g/dL (0.2-0.3) H 12/16/19 20:24 Rucwx-5-Oslyvzzjh 0.9 g/dL (0.5-0.9) 12/16/19 20:24 Beta Globulins 0.6 g/dL (0.2-0.5) H 12/16/19 20:24 Gamma Globulins 1.4 g/dL (0.8-1.7) 12/16/19 20:24 Abnorm Protein Band 1 see below 12/16/19 20:24 PEP Interpretation see below H 12/16/19 20:24 Procalcitonin 0.18 ng/mL (<0.15) 12/11/19 21:50 TSH 1.240 mlU/mL (0.270-4.200) 12/11/19 18:37 PTH Intact 78.16 pg/mL (15-65) H 12/16/19 20:24 Urine Color Yellow (Yellow) 12/11/19 23:00 Urine Turbidity Clear (Clear) 12/11/19 23:00 Urine pH 6.0 (5.0-7.0) 12/11/19 23:00 Ur Specific [place] 1.013 (1.003-1.030) 12/11/19 23:00 Urine Protein 30 mg/dl mg/dL (Negative) 12/11/19 23:00 Urine Glucose (UA) 150 mg/dL (Negative) 12/11/19 23:00 Urine Ketones Neg mg/dL (Negative) 12/11/19 23:00 Urine Blood Mod (Negative) 12/11/19 23:00 Urine Nitrite Neg (Negative) 12/11/19 23:00 Urine Bilirubin Neg (Negative) 12/11/19 23:00 Urine Urobilinogen 2.0 mg/dL (<2.0) 12/11/19 23:00 Ur Leukocyte Esterase Neg (Negative) 12/11/19 23:00 Urine WBC (Auto) 1.0 /HPF (0.0-6.0) 12/11/19 23:00 Urine RBC (Auto) 1.0 /HPF (0.0-6.0) 12/11/19 23:00 U Epithel Cells (Auto) 1.0 /HPF (0-13.0) 12/11/19 23:00 Urine Creatinine 42.2 mg/dL (0.1-20.0) H 12/16/19 06:52 Protein/Creatinin Ratio 0.21 12/16/19 06:52 Urine Total Protein 9 mg/dL (5-11.8) 12/16/19 06:52 DUNG Screen Negative (Negative) 12/16/19 20:24 Proteinase 3 (PR3) Ab <1.0 AI (<1.0) 12/16/19 20:24 Myeloperoxidase Ab <1.0 AI (<1.0) 12/16/19 20:24 Complement C3 166 mg/dL (82-185) 12/16/19 20:24 Complement C4 58 mg/dL (15-53) H 12/16/19 20:24 Coronavirus (PCR) Negative (Negative) 12/28/19 Unknown Robert/IV: Voiding Method Urinal IV Catheter Type [Left Hand] INT / Saline Lock IV Catheter Type [Right Peripheral IV Antecubital] Active Medications - Current Medications Current Medications: Generic Name Dose Route Start Last Admin Trade Name Freq PRN Reason Stop Dose Admin Acetaminophen 650 mg 12/11/19 21:48 12/16/19 22:31 Tylenol PO 650 mg Q4H PRN Administration Pain MILD(1-3)/Fever >100.5/MUSTAFA Aspirin 325 mg 12/13/19 22:00 12/28/19 21:12 Aspirin PO 325 mg HS JOHNNY Administration Dextrose 0 ml 12/11/19 22:45 D50w (25gm) Syringe IV Q30MIN PRN Hypoglycemia Protocol Heparin Sodium (Porcine) 5,000 unit 12/11/19 22:00 12/29/19 10:26 Heparin SUB-Q 5,000 unit Q12HR JOHNNY Administration Insulin Glargine 40 units 12/29/19 22:00 Lantus SUB-Q QHS JOHNNY Insulin Human Lispro 0 unit 12/12/19 07:30 12/29/19 12:00 Humalog SUB-Q 4 unit ACHS JOHNNY Administration Protocol Insulin Human Lispro 6 unit 12/29/19 08:30 12/29/19 12:00 Humalog SUB-Q 6 unit AC JOHNNY Administration Lactulose 20 gm 12/22/19 15:00 12/29/19 11:06 Cephulac PO 20 gm QDAY PRN Administration Constipation Metoprolol Tartrate 12.5 mg 12/27/19 22:00 12/29/19 10:26 Metoprolol PO 12.5 mg BID JOHNNY Administration Ondansetron HCl 4 mg 12/11/19 21:48 Zofran IV Q8H PRN Nausea And Vomiting Oxycodone/Acetaminophen 1 tab 12/11/19 21:53 12/26/19 10:58 Percocet 5/325 PO 1 tab Q6H PRN Administration PAIN (4-6) Pravastatin Sodium 80 mg 12/13/19 22:00 12/28/19 21:13 Pravachol PO 80 mg QHS JOHNNY Administration Sodium Chloride 10 ml 12/11/19 22:00 12/29/19 10:26 Sodium Chloride Flush Syringe 10 Ml IV 10 ml BID JOHNNY Administration Sodium Chloride 10 ml 12/11/19 21:48 12/12/19 06:04 Sodium Chloride Flush Syringe 10 Ml IV 10 ml PRN PRN Administration LINE FLUSH Nutrition/Malnutrition Assess - Dietary Evaluation Nutrition/Malnutrition Findings: Nutrition Notes Start: 12/18/19 12:19 Freq: Status: Active Protocol: Document 12/25/19 13:22 ANSLEY (Rec: 12/25/19 13:32 ANSLEY [id number]) Co-Sign 12/25/19 13:22 LP Nutrition Notes Initial or Follow up Reassessment Current Diagnosis Acute Kidney Injury,Diabetes, Sepsis,Hypertension Other Pertinent Diagnosis CABG, Pneumonia, Bronchitis, Dementia Current Diet Cardiac/Consistent CHO/Renal Labs/Tests Na 136 BUN 34 Cr 2.2 Pertinent Medications Humalog 2 unit Humalog 10 unit Height 5 ft 11 in Weight 131.9 kg [place] Body Weight (kg) 78.18 BMI 40.5 Weight change and time frame 2% wt loss in 1 week Weight Status Morbidly Obese Subjective/Other Information F/U for intakes. Pt reports good appetite and eating 75% meals. Percent of energy/protein needs met: 80%/76% Burn Absent Trauma Absent GI Symptoms None Food Allergy No Current % PO Good (75-100%) Minimum of two criteria No Interpretation of Weight Loss (severe) >2% in 1 week #1 Nutrition Diagnosis Inadequate oral intake As Evidenced by Signs and Symptoms pt consuming 75% meals Diagnosis Progress(for reassessment Improved documentation) Is patient on ventilator? No Is Patient Ambulatory and/or Out of Bed No REE-([facility]-confined to bed) 2467.452 Kcal/Kg value to use for calculation 14 Approximate Energy Requirements Using 1847 kcal/Kg Calculation Used for Recommendations Kcal/kg Additional Notes Protein: 0.8-1.2 g/kg AdBW 106 .6kg (85-128g) Fluids: 1 ml/kcal Nutrition Intervention Change Diet Order: Continue Cardiac/Consistent CHO/Renal diet Goal #1 Meet 75% of energy and protein needs Anticipated Discharge Needs: Cardiac/Consistent CHO diet Follow-Up By: 12/31/19 Additional Comments F/U for intakes
[2019-12-29] MEDS: oxyCODONE /ACETAMINOPHEN 5-325MG TAB PO PRN ×2 (15:50→21:49)
[2019-12-29] MEDS: ASPIRIN 325 MG TAB PO SCH (21:48)
[2019-12-29] MEDS: PRAVASTATIN 80 MG TAB PO SCH (21:48)
[2019-12-29] MEDS: INSULIN GLARGINE 100 UNITS/ML SUB-Q SCH (22:02)
[2019-12-30] MEDS: oxyCODONE /ACETAMINOPHEN 5-325MG TAB PO PRN ×2 (05:58→18:01)
[2019-12-30] MEDS: INSULIN LISPRO 100 UNIT/ML VIAL 3 mL SUB-Q SCH ×7 (08:41→21:51)
[2019-12-30] MEDS: METOPROLOL TARTRATE 25 MG TAB PO SCH ×2 (10:02→21:16)
[2019-12-30] MEDS: HEPARIN 5,000 UNIT/1 ML VIAL SUB-Q SCH ×2 (10:03→21:17)
--- NOTE | 2019-12-30 12:06 | Progress Note ---
Assessment and Plan Impression * Stage III chronic kidney disease - patient w/ multiple risk factors for CKD - DM, HTN, CAD * Altered mental status * Fever --Blood cx NGTD (Dec 10) * Dementia * Hypertension * Type II DM * Hx of CAD s/p CABG Plan: * Renal function has remained stable at last check - baseline appears to be 2.1- 2.3mg/dL * Continue to hold Lasix - BP now stable * follow up am labs * Dose medications for renal function * Glycemic control per primary team * Discharge planning in progress * Follow up with [facility] upon discharge Subjective Date of service: 12/30/19 Principal diagnosis: Encephalopathy Interval history: resting in bed today Objective - Exam Narrative Exam: General appearance: well-developed, well-nourished EENT: ATNC Cardiology: regular, S1S2 Gastrointestinal: normal, no tenderness, no distended, obese Integumentary: no rash, warm and dry Musculoskeletal: other (no edema) Psychiatric: cooperative - Vital Signs Vital signs: Vital Signs - 12hr 12/30/19 12/30/19 12/30/19 05:03 10:00 10:02 Temperature 97.7 F Pulse Rate 75 68 Respiratory 18 Rate Respiratory 20 Rate [Right Hip ] Blood Pressure 96/50 89/48 O2 Sat by Pulse 93 Oximetry - Lab 12/26/19 04:59 12/26/19 04:59 Most recent lab results Calcium 9.6 mg/dL (8.4-10.2) 12/26/19 04:59 Urine Creatinine 42.2 mg/dL (0.1-20.0) H 12/16/19 06:52 Urine Total Protein 9 mg/dL (5-11.8) 12/16/19 06:52 Medications & Allergies - Medications Allergies/Adverse Reactions: Allergies No Known Allergies Allergy (Verified 04/19/14 09:47) Home Medications: Home Medications Medication Instructions Recorded Confirmed Last Taken Type Aspirin 325 mg PO HS 12/11/19 12/11/19 12/10/19 History ISOSORBIDE MONOnitrate [Imdur ER] 30 mg PO DAILY 12/11/19 12/11/19 12/10/19 History Insulin NPH/Regular [NovoLIN 70/30] 50 unit SQ BID 12/11/19 12/11/19 12/11/19 History Simvastatin 40 mg PO HS 11/04/2612/11/19 12/10/19 History Metoprolol [Lopressor TAB] 12.5 mg PO BID #60 tablet 12/28/19 Unknown Rx Active Medications: Generic Name Dose Route Start Last Admin Trade Name Freq PRN Reason Stop Dose Admin Acetaminophen 650 mg 12/11/19 21:48 12/16/19 22:31 Tylenol PO 650 mg Q4H PRN Administration Pain MILD(1-3)/Fever >100.5/MUSTAFA Aspirin 325 mg 12/13/19 22:00 12/29/19 21:48 Aspirin PO 325 mg HS JOHNNY Administration Dextrose 0 ml 12/11/19 22:45 D50w (25gm) Syringe IV Q30MIN PRN Hypoglycemia Protocol Heparin Sodium (Porcine) 5,000 unit 12/11/19 22:00 12/30/19 10:03 Heparin SUB-Q 5,000 unit Q12HR JOHNNY Administration Insulin Glargine 40 units 12/29/19 22:00 12/29/19 22:02 Lantus SUB-Q 40 units QHS JOHNNY Administration Insulin Human Lispro 0 unit 12/12/19 07:30 12/30/19 08:41 Humalog SUB-Q 3 unit ACHS JOHNNY Administration Protocol Insulin Human Lispro 6 unit 12/29/19 08:30 12/30/19 08:42 Humalog SUB-Q 6 unit AC JOHNNY Administration Lactulose 20 gm 12/22/19 15:00 12/29/19 11:06 Cephulac PO 20 gm QDAY PRN Administration Constipation Metoprolol Tartrate 12.5 mg 12/27/19 22:00 12/30/19 10:02 Metoprolol PO 12.5 mg BID JOHNNY Administration Ondansetron HCl 4 mg 12/11/19 21:48 Zofran IV Q8H PRN Nausea And Vomiting Oxycodone/Acetaminophen 1 tab 12/11/19 21:53 12/30/19 05:58 Percocet 5/325 PO 1 tab Q6H PRN Administration PAIN (4-6) Pravastatin Sodium 80 mg 12/13/19 22:00 12/29/19 21:48 Pravachol PO 80 mg QHS JOHNNY Administration Sodium Chloride 10 ml 12/11/19 22:00 12/30/19 10:22 Sodium Chloride Flush Syringe 10 Ml IV 10 ml BID JOHNNY Administration Sodium Chloride 10 ml 12/11/19 21:48 12/12/19 06:04 Sodium Chloride Flush Syringe 10 Ml IV 10 ml PRN PRN Administration LINE FLUSH
--- NOTE | 2019-12-30 14:30 | Progress Note ---
Assessment and Plan Assessment and plan: 79 YO Male with CAD S/P CABG, HTN, DM, Vascular Dementia, Cerebral Atherosclerosis, Obesity Hypoventilation Syndrome, presents to ED for evaluation. Patient is confused with diminished cognition and is unable to provide history. Patient history provided by EMS staff, ED staff, as well as patient family who was at bedside during exam and interview. As per family the patient has experienced increased weakness and confusion over the past 1 month with progressively worsening symptoms over the same timeframe. Patient is currently bedbound, and nonambulatory as per family report. Patient also requir es 6/6 assistance with activities of daily living. EMS was notified and upon arrival the patient was found to be confused and in distress with a temperature 101.2 F. Patient was subsequently transported to [facility] for further care and evaluation of the aforementioned symptoms. Patient seen and evaluated in the emergency department. Lab and imaging studies reviewed. Patient underwent chest x-ray which revealed pneumonia complicated by sepsis, toxic metabolic encephalopathy. Patient initiated on sepsis protocol as well as coronavirus protocol in the emergency department. Patient is confused and lethargic with diminished cognition but has a positive gag reflex and is able to protect his airway. No further history obtainable. Advanced care planning conducted in ED. 12/24/2019 Patient seen at bedside-alert and oriented-on room air Reviewed lab, mar, and v/s Reviewed SW and PT note subacute/SNF placement and recommended Patient is awaiting placement. placement permission at [facility] pending from [facility] Medically stable for discharge 12/25/2019 Patient has no complaints today Still pending placement 12/26/2019 Patient needs rehabilitation due to poor gait and instability. PT note has been reviewed and I agree with assessment Discussed with patient's daughter this a.m. 12/27/2019 Still awaiting placement He has no complaints this morning 12/27. Planned for DC but insurance has not approved transfer to facility so DC was canceled. 12/28 - 12/29. BP soft. holding nitrates. No fever. Monitor BP Problems Toxic metabolic encephalopathy-resolved Current Visit: Yes Status: Acute Plan to address problem: Present on admission, improved SIRS:[No criteria for sepsis]-improved Current Visit: Yes Status: Acute Plan to address problem: Improved Acute bronchitis-improved Current Visit: Yes Status: Acute . Plan to address problem: Chest x-ray negative for pneumonia Continue current management Coronary artery disease status post CABG ; Current Visit: Yes Status: Acute . Plan to address problem: Continue cardiac protective measures Condition is stable -denies ACS signs Type II diabetes mellitus-stable Current Visit: Yes Status: Acute Plan to address problem: Monitor blood sugar with SSIt Continue Lantus Adjust if needed A1c is 9.7 Acute Kidney Injury-stable Current Visit: No Status: Acute Plan to address problem: Current creatinine stable Underlying CKD Creatinine 2.3 Hyponatremia; present on admission likely 2/2 to EUFEMIA improved, Continue monitor electrolytes Suspected COVID-19 virus infection Current Visit: No Status: Acute Plan to address problem: COVID-19 test is negative Morbid obesity; BMI 43 Patient needs weight reduction when medically stable Advised on inportance of lifestyle modification Healthy diet-more fruits and vegebles and avoid high calorie foods DVT prophylaxis Current Visit: Yes Status: Acute Plan to address problem: SCD /heparin renal dose Debility Current Visit: Yes Status: Acute Plan to address problem: PT notes reviewed-patient needs physical therapy due to poor gait and instabilit y. I believe patient will benefit from physical therapy. Still awaiting placement. Discussed with Ana loss control representative --Discharge planning issues patient ready for discharge Needs acceptance at [facility] by Ana Discussed with erp project manager - Patient Problems (1) Diabetes mellitus Current Visit: Yes Status: Acute (2) Toxic metabolic encephalopathy Current Visit: Yes Status: Acute (3) Vascular dementia Current Visit: Yes Status: Acute Qualifiers: Dementia behavioral disturbance: without behavioral disturbance Qualified Code(s): F01.50 - Vascular dementia without behavioral disturbance (4) SIRS (systemic inflammatory response syndrome) Current Visit: Yes Status: Acute History Interval history: Has no complaints today Frustrated about insurance not authorizing transfer Still pending placement Hospitalist Physical - Physical exam Narrative exam: VITAL SIGNS: Reviewed. GENERAL: Awake and alert on response to questions HEAD: No signs of head trauma. EYES: Pupils are equal. Extraocular motions intact. EARS: Hearing grossly intact. MOUTH: Oropharynx is normal. NECK: No adenopathy, no JVD. CHEST: Chest with diminished breath sounds bilaterally. No wheezes, rales, or rhonchi. CARDIAC: Regular rate and rhythm. S1 and S2, without murmurs, gallops, or ru bs. VASCULAR: No Edema. Peripheral pulses normal and equal in all extremities. ABDOMEN: Soft, non tender and non distended. No rebound or guarding, and no masses palpated. Bowel Sounds normal. MUSCULOSKELETAL: Good range of motion of all major joints. Extremities without clubbing, cyanosis or edema. NEUROLOGIC EXAM: Alert and oriented x3. No focal neurologic deficits PSYCHIATRIC: Stable mood SKIN: No obvious lesions - Constitutional Vitals: Temp Pulse Resp BP Pulse Ox 98.2 F 68 20 94/49 94 12/30/19 09:36 12/30/19 10:02 12/30/19 10:00 12/30/19 11:39 12/30/19 10:01 HEART Score - HEART Score Troponin: Troponin T < 0.010 ng/mL (0.00-0.029) 12/11/19 20:03 Results - Labs CBC & Chem 7: 12/26/19 04:59 12/26/19 04:59 Labs: Laboratory Last Values WBC 8.8 K/mm3 (4.5-11.0) 12/26/19 04:59 RBC 4.28 M/mm3 (3.65-5.03) 12/26/19 04:59 Hgb 13.0 gm/dl (11.8-15.2) 12/26/19 04:59 Hct 38.1 % (35.5-45.6) 12/26/19 04:59 MCV 89 fl (84-94) 12/26/19 04:59 MCH 30 pg (28-32) 12/26/19 04:59 MCHC 34 % (32-34) 12/26/19 04:59 RDW 13.5 % (13.2-15.2) 12/26/19 04:59 Plt Count 351 K/mm3 (140-440) 12/26/19 04:59 Lymph % (Auto) 30.6 % (13.4-35.0) 12/26/19 04:59 [place] % (Auto) 10.5 % (0.0-7.3) H 12/26/19 04:59 Eos % (Auto) 6.5 % (0.0-4.3) H 12/26/19 04:59 Baso % (Auto) 1.0 % (0.0-1.8) 12/26/19 04:59 Lymph # (Auto) 2.7 K/mm3 (1.2-5.4) 12/26/19 04:59 Finney # (Auto) 0.9 K/mm3 (0.0-0.8) H 12/26/19 04:59 Eos # (Auto) 0.6 K/mm3 (0.0-0.4) H 12/26/19 04:59 Baso # (Auto) 0.1 K/mm3 (0.0-0.1) 12/26/19 04:59 Add Manual Diff Complete 12/21/19 05:17 Total Counted 100 12/21/19 05:17 Seg Neutrophils % 51.4 % (40.0-70.0) 12/26/19 04:59 Seg Neuts % (Manual) 89.0 % (40.0-70.0) H 12/21/19 05:17 Band Neutrophils % 1.0 % 12/21/19 05:17 Lymphocytes % (Manual) 7.0 % (13.4-35.0) L 12/21/19 05:17 Reactive Lymphs % (Man) 0 % 12/21/19 05:17 Monocytes % (Manual) 2.0 % (0.0-7.3) 12/21/19 05:17 Eosinophils % (Manual) 1.0 % (0.0-4.3) 12/21/19 05:17 Basophils % (Manual) 0 % (0.0-1.8) 12/21/19 05:17 Metamyelocytes % 0 % 12/21/19 05:17 Myelocytes % 0 % 12/21/19 05:17 Promyelocytes % 0 % 12/21/19 05:17 Blast Cells % 0 % 12/21/19 05:17 Nucleated RBC % Not Reportable 12/21/19 05:17 Seg Neutrophils # 4.5 K/mm3 (1.8-7.7) 12/26/19 04:59 Seg Neutrophils # Man 11.3 K/mm3 (1.8-7.7) H 12/21/19 05:17 Band Neutrophils # 0.1 K/mm3 12/21/19 05:17 Lymphocytes # (Manual) 0.9 K/mm3 (1.2-5.4) L 12/21/19 05:17 Abs React Lymphs (Man) 0.0 K/mm3 12/21/19 05:17 Monocytes # (Manual) 0.3 K/mm3 (0.0-0.8) 12/21/19 05:17 Eosinophils # (Manual) 0.1 K/mm3 (0.0-0.4) 12/21/19 05:17 Basophils # (Manual) 0.0 K/mm3 (0.0-0.1) 12/21/19 05:17 Metamyelocytes # 0.0 K/mm3 12/21/19 05:17 Myelocytes # 0.0 K/mm3 12/21/19 05:17 Promyelocytes # 0.0 K/mm3 12/21/19 05:17 Blast Cells # 0.0 K/mm3 12/21/19 05:17 WBC Morphology Not Reportable 12/21/19 05:17 Hypersegmented Neuts Not Reportable 12/21/19 05:17 Hyposegmented Neuts Not Reportable 12/21/19 05:17 Hypogranular Neuts Not Reportable 12/21/19 05:17 Smudge Cells Not Reportable 12/21/19 05:17 Toxic Granulation Not Reportable 12/21/19 05:17 Toxic Vacuolation Not Reportable 12/21/19 05:17 Dohle Bodies Not Reportable 12/21/19 05:17 Pelger-Huet Anomaly Not Reportable 12/21/19 05:17 Sam Rods Not Reportable 12/21/19 05:17 Platelet Estimate Consistent w auto 12/21/19 05:17 Clumped Platelets Not Reportable 12/21/19 05:17 Plt Clumps, EDTA Not Reportable 12/21/19 05:17 Large Platelets Few 12/21/19 05:17 Giant Platelets Not Reportable 12/21/19 05:17 Platelet Satelliting Not Reportable 12/21/19 05:17 Plt Morphology Comment Not Reportable 12/21/19 05:17 RBC Morphology Normal 12/21/19 05:17 Dimorphic RBCs Not Reportable 12/21/19 05:17 Polychromasia Not Reportable 12/21/19 05:17 Hypochromasia Not Reportable 12/21/19 05:17 Poikilocytosis Not Reportable 12/21/19 05:17 Anisocytosis Not Reportable 12/21/19 05:17 Microcytosis Not Reportable 12/21/19 05:17 Macrocytosis Not Reportable 12/21/19 05:17 Spherocytes Not Reportable 12/21/19 05:17 Pappenheimer Bodies Not Reportable 12/21/19 05:17 Sickle Cells Not Reportable 12/21/19 05:17 Target Cells Not Reportable 12/21/19 05:17 Tear Drop Cells Not Reportable 12/21/19 05:17 Ovalocytes Not Reportable 12/21/19 05:17 Helmet Cells Not Reportable 12/21/19 05:17 [place] Bodies Not Reportable 12/21/19 05:17 [place] Rings Not Reportable 12/21/19 05:17 Sanam Cells Not Reportable 12/21/19 05:17 Bite Cells Not Reportable 12/21/19 05:17 Crenated Cell Not Reportable 12/21/19 05:17 Elliptocytes Not Reportable 12/21/19 05:17 Acanthocytes (Spur) Not Reportable 12/21/19 05:17 Rouleaux Not Reportable 12/21/19 05:17 Hemoglobin C Crystals Not Reportable 12/21/19 05:17 Schistocytes Not Reportable 12/21/19 05:17 Malaria parasites Not Reportable 12/21/19 05:17 [place] Bodies Not Reportable 12/21/19 05:17 Hem Pathologist Commnt No 12/21/19 05:17 PT 13.1 Sec. (12.2-14.9) 12/11/19 18:37 INR 0.97 (0.87-1.13) 12/11/19 18:37 APTT 20.1 Sec. (24.2-36.6) L 12/11/19 18:37 D-Dimer 550.63 ng/mlDDU (0-234) H 12/11/19 21:50 Sodium 137 mmol/L (137-145) 12/26/19 04:59 Potassium 5.0 mmol/L (3.6-5.0) 12/26/19 04:59 Chloride 100.3 mmol/L (98-107) 12/26/19 04:59 Carbon Dioxide 28 mmol/L (22-30) 12/26/19 04:59 Anion Gap 14 mmol/L 12/26/19 04:59 BUN 32 mg/dL (9-20) H 12/26/19 04:59 Creatinine 2.3 mg/dL (0.8-1.3) H 12/26/19 04:59 Estimated GFR 33 ml/min 12/26/19 04:59 BUN/Creatinine Ratio 14 % 12/26/19 04:59 Glucose 138 mg/dL (75-100) H 12/26/19 04:59 POC Glucose 172 mg/dL (70-105) H 12/30/19 11:13 Hemoglobin A1c 9.7 % (4-6) H 12/12/19 05:05 Lactic Acid 1.50 mmol/L (0.7-2.0) 12/12/19 05:05 Calcium 9.6 mg/dL (8.4-10.2) 12/26/19 04:59 Ferritin 646.4 ng/mL (30.0-300.0) H 12/11/19 21:50 Total Bilirubin 0.70 mg/dL (0.1-1.2) 12/12/19 05:05 Direct Bilirubin < 0.2 mg/dL (0-0.2) 12/11/19 18:37 Indirect Bilirubin 0.6 mg/dL 12/11/19 18:37 AST 26 units/L (5-40) 12/12/19 05:05 ALT 15 units/L (7-56) 12/12/19 05:05 Alkaline Phosphatase 68 units/L (35-129) 12/12/19 05:05 Ammonia 36.0 umol/L (25-60) 12/11/19 18:37 Lactate Dehydrogenase 188 units/L (91-180) H 12/11/19 21:50 Troponin T < 0.010 ng/mL (0.00-0.029) 12/11/19 20:03 C-Reactive Protein 18.20 mg/dL (0.00-1.30) H 12/11/19 21:50 NT-Pro-B Natriuret Pep 224.4 pg/mL (0-900) 12/11/19 18:37 Serum Total Protein 6.8 g/dL (6.1-8.1) 12/16/19 20:24 Total Protein 8.0 g/dL (6.3-8.2) 12/12/19 05:05 Albumin 2.9 g/dL (3.8-4.8) L 12/16/19 20:24 Albumin/Globulin Ratio 0.6 % 12/12/19 05:05 Uitog-6-Fzgxqsydl 0.5 g/dL (0.2-0.3) H 12/16/19 20:24 Fpjqs-8-Towdbaouw 0.9 g/dL (0.5-0.9) 12/16/19 20:24 Beta Globulins 0.6 g/dL (0.2-0.5) H 12/16/19 20:24 Gamma Globulins 1.4 g/dL (0.8-1.7) 12/16/19 20:24 Abnorm Protein Band 1 see below 12/16/19 20:24 PEP Interpretation see below H 12/16/19 20:24 Procalcitonin 0.18 ng/mL (<0.15) 12/11/19 21:50 TSH 1.240 mlU/mL (0.270-4.200) 12/11/19 18:37 PTH Intact 78.16 pg/mL (15-65) H 12/16/19 20:24 Urine Color Yellow (Yellow) 12/11/19 23:00 Urine Turbidity Clear (Clear) 12/11/19 23:00 Urine pH 6.0 (5.0-7.0) 12/11/19 23:00 Ur Specific Howard 1.013 (1.003-1.030) 12/11/19 23:00 Urine Protein 30 mg/dl mg/dL (Negative) 12/11/19 23:00 Urine Glucose (UA) 150 mg/dL (Negative) 12/11/19 23:00 Urine Ketones Neg mg/dL (Negative) 12/11/19 23:00 Urine Blood Mod (Negative) 12/11/19 23:00 Urine Nitrite Neg (Negative) 12/11/19 23:00 Urine Bilirubin Neg (Negative) 12/11/19 23:00 Urine Urobilinogen 2.0 mg/dL (<2.0) 12/11/19 23:00 Ur Leukocyte Esterase Neg (Negative) 12/11/19 23:00 Urine WBC (Auto) 1.0 /HPF (0.0-6.0) 12/11/19 23:00 Urine RBC (Auto) 1.0 /HPF (0.0-6.0) 12/11/19 23:00 U Epithel Cells (Auto) 1.0 /HPF (0-13.0) 12/11/19 23:00 Urine Creatinine 42.2 mg/dL (0.1-20.0) H 12/16/19 06:52 Protein/Creatinin Ratio 0.21 12/16/19 06:52 Urine Total Protein 9 mg/dL (5-11.8) 12/16/19 06:52 DUNG Screen Negative (Negative) 12/16/19 20:24 Proteinase 3 (PR3) Ab <1.0 AI (<1.0) 12/16/19 20:24 Myeloperoxidase Ab <1.0 AI (<1.0) 12/16/19 20:24 Complement C3 166 mg/dL (82-185) 12/16/19 20:24 Complement C4 58 mg/dL (15-53) H 12/16/19 20:24 Coronavirus (PCR) Negative (Negative) 12/28/19 Unknown Robert/IV: Voiding Method Urinal IV Catheter Type [Left Hand] INT / Saline Lock IV Catheter Type [Right Peripheral IV Antecubital] Active Medications - Current Medications Current Medications: Generic Name Dose Route Start Last Admin Trade Name Freq PRN Reason Stop Dose Admin Acetaminophen 650 mg 12/11/19 21:48 12/16/19 22:31 Tylenol PO 650 mg Q4H PRN Administration Pain MILD(1-3)/Fever >100.5/MUSTAFA Aspirin 325 mg 12/13/19 22:00 12/29/19 21:48 Aspirin PO 325 mg HS JOHNNY Administration Dextrose 0 ml 12/11/19 22:45 D50w (25gm) Syringe IV Q30MIN PRN Hypoglycemia Protocol Heparin Sodium (Porcine) 5,000 unit 12/11/19 22:00 12/30/19 10:03 Heparin SUB-Q 5,000 unit Q12HR JOHNNY Administration Insulin Glargine 40 units 12/29/19 22:00 12/29/19 22:02 Lantus SUB-Q 40 units QHS JOHNNY Administration Insulin Human Lispro 0 unit 12/12/19 07:30 12/30/19 12:21 Humalog SUB-Q 2 unit ACHS JOHNNY Administration Protocol Insulin Human Lispro 6 unit 12/29/19 08:30 12/30/19 12:22 Humalog SUB-Q 6 unit AC JOHNNY Administration Lactulose 20 gm 12/22/19 15:00 12/29/19 11:06 Cephulac PO 20 gm QDAY PRN Administration Constipation Metoprolol Tartrate 12.5 mg 12/27/19 22:00 12/30/19 10:02 Metoprolol PO 12.5 mg BID JOHNNY Administration Ondansetron HCl 4 mg 12/11/19 21:48 Zofran IV Q8H PRN Nausea And Vomiting Oxycodone/Acetaminophen 1 tab 12/11/19 21:53 12/30/19 05:58 Percocet 5/325 PO 1 tab Q6H PRN Administration PAIN (4-6) Pravastatin Sodium 80 mg 12/13/19 22:00 12/29/19 21:48 Pravachol PO 80 mg QHS JOHNNY Administration Sodium Chloride 10 ml 12/11/19 22:00 12/30/19 10:22 Sodium Chloride Flush Syringe 10 Ml IV 10 ml BID JOHNNY Administration Sodium Chloride 10 ml 12/11/19 21:48 12/12/19 06:04 Sodium Chloride Flush Syringe 10 Ml IV 10 ml PRN PRN Administration LINE FLUSH Nutrition/Malnutrition Assess - Dietary Evaluation Nutrition/Malnutrition Findings: Nutrition Notes Start: 12/18/19 12:19 Freq: Status: Active Protocol: Document 12/25/19 13:22 ANSLEY (Rec: 12/25/19 13:32 ANSLEY [id number]) Co-Sign 12/25/19 13:22 LP Nutrition Notes Initial or Follow up Reassessment Current Diagnosis Acute Kidney Injury,Diabetes, Sepsis,Hypertension Other Pertinent Diagnosis CABG, Pneumonia, Bronchitis, Dementia Current Diet Cardiac/Consistent CHO/Renal Labs/Tests Na 136 BUN 34 Cr 2.2 Pertinent Medications Humalog 2 unit Humalog 10 unit Height 5 ft 11 in Weight 131.9 kg [place] Body Weight (kg) 78.18 BMI 40.5 Weight change and time frame 2% wt loss in 1 week Weight Status Morbidly Obese Subjective/Other Information F/U for intakes. Pt reports good appetite and eating 75% meals. Percent of energy/protein needs met: 80%/76% Burn Absent Trauma Absent GI Symptoms None Food Allergy No Current % PO Good (75-100%) Minimum of two criteria No Interpretation of Weight Loss (severe) >2% in 1 week #1 Nutrition Diagnosis Inadequate oral intake As Evidenced by Signs and Symptoms pt consuming 75% meals Diagnosis Progress(for reassessment Improved documentation) Is patient on ventilator? No Is Patient Ambulatory and/or Out of Bed No REE-([facility]-confined to bed) 2467.452 Kcal/Kg value to use for calculation 14 Approximate Energy Requirements Using 1847 kcal/Kg Calculation Used for Recommendations Kcal/kg Additional Notes Protein: 0.8-1.2 g/kg AdBW 106 .6kg (85-128g) Fluids: 1 ml/kcal Nutrition Intervention Change Diet Order: Continue Cardiac/Consistent CHO/Renal diet Goal #1 Meet 75% of energy and protein needs Anticipated Discharge Needs: Cardiac/Consistent CHO diet Follow-Up By: 12/31/19 Additional Comments F/U for intakes
[2019-12-30] MEDS: ASPIRIN 325 MG TAB PO SCH (21:16)
[2019-12-30] MEDS: PRAVASTATIN 80 MG TAB PO SCH (21:17)
[2019-12-30] MEDS: INSULIN GLARGINE 100 UNITS/ML SUB-Q SCH (21:52)
[2019-12-31 05:20] LABS: Hematocrit 38.7 % (35.5-45.6); Hemoglobin 13.2 gm/dl (11.8-15.2); Mean Corpuscular HGB Conc 34 % (32-34); Mean Corpuscular Volume 89 fl (84-94); Platelet Count 311 K/mm3 (140-440); Red Blood Count 4.36 M/mm3 (3.65-5.03)
[2019-12-31 05:33] LABS: Calcium 9.5 mg/dL (8.4-10.2)
[2019-12-31] MEDS: oxyCODONE /ACETAMINOPHEN 5-325MG TAB PO PRN (06:28)
[2019-12-31 06:44] LABS: Basophils % (Manual) 0 % (0.0-1.8); Total Cells Counted 100
[2019-12-31 06:45] LABS: Platelet Estimate Consistent w Auto
[2019-12-31] MEDS: INSULIN LISPRO 100 UNIT/ML VIAL 3 mL SUB-Q SCH ×7 (08:00→22:17)
[2019-12-31] MEDS: METOPROLOL TARTRATE 25 MG TAB PO SCH ×2 (09:09→22:19)
[2019-12-31] MEDS: HEPARIN 5,000 UNIT/1 ML VIAL SUB-Q SCH ×2 (09:09→22:20)
--- NOTE | 2019-12-31 10:24 | Progress Note ---
Assessment and Plan Impression * Stage III chronic kidney disease - patient w/ multiple risk factors for CKD - DM, HTN, CAD * Altered mental status * Fever --Blood cx NGTD (Dec 10) * Dementia * Hypertension * Type II DM * Hx of CAD s/p CABG Plan: * Renal function has been fairly stable - baseline appears to be 2.1-2.3mg/dL; creatinine is higher this AM at 2.7, may be related to hypotension, agree with holding meds * Continue to hold Lasix as able * Daily labs * Dose medications for renal function * Glycemic control per primary team * Discharge planning in progress * Follow up with [facility] upon discharge Subjective Date of service: 12/31/19 Principal diagnosis: Encephalopathy Interval history: No acute issues noted, resting this AM Objective - Exam Narrative Exam: General appearance: well-developed, well-nourished EENT: ATNC Cardiology: regular, S1S2 Gastrointestinal: normal, no tenderness, no distended, obese Integumentary: no rash, warm and dry Musculoskeletal: other (no edema) Psychiatric: cooperative - Vital Signs Vital signs: Vital Signs - 12hr 12/31/19 12/31/19 12/31/19 00:35 04:50 06:28 Temperature 98.3 F 97.9 F Pulse Rate 68 76 Respiratory 18 18 18 Rate Blood Pressure 98/60 117/60 O2 Sat by Pulse 96 95 Oximetry 12/31/19 12/31/19 07:28 09:09 Temperature Pulse Rate 75 Respiratory 16 Rate Blood Pressure 110/75 O2 Sat by Pulse Oximetry - Lab 12/31/19 04:39 12/31/19 04:39 Most recent lab results Calcium 9.5 mg/dL (8.4-10.2) 12/31/19 04:39 Urine Creatinine 42.2 mg/dL (0.1-20.0) H 12/16/19 06:52 Urine Total Protein 9 mg/dL (5-11.8) 12/16/19 06:52 Medications & Allergies - Medications Allergies/Adverse Reactions: Allergies No Known Allergies Allergy (Verified 04/19/14 09:47) Home Medications: Home Medications Medication Instructions Recorded Confirmed Last Taken Type Aspirin 325 mg PO HS 12/11/19 12/11/19 12/10/19 History ISOSORBIDE MONOnitrate [Imdur ER] 30 mg PO DAILY 12/11/19 12/11/19 12/10/19 History Insulin NPH/Regular [NovoLIN 70/30] 50 unit SQ BID 12/11/19 12/11/19 12/11/19 History Simvastatin 40 mg PO HS 12/11/19 12/11/19 12/10/19 History Metoprolol [Lopressor TAB] 12.5 mg PO BID #60 tablet 12/28/19 Unknown Rx Active Medications: Generic Name Dose Route Start Last Admin Trade Name Freq PRN Reason Stop Dose Admin Acetaminophen 650 mg 12/11/19 21:48 12/16/19 22:31 Tylenol PO 650 mg Q4H PRN Administration Pain MILD(1-3)/Fever >100.5/MUSTAFA Aspirin 325 mg 12/13/19 22:00 12/30/19 21:16 Aspirin PO 325 mg HS JOHNNY Administration Dextrose 0 ml 12/11/19 22:45 D50w (25gm) Syringe IV Q30MIN PRN Hypoglycemia Protocol Heparin Sodium (Porcine) 5,000 unit 12/11/19 22:00 12/31/19 09:09 Heparin SUB-Q 5,000 unit Q12HR JOHNNY Administration Insulin Glargine 40 units 12/29/19 22:00 12/30/19 21:52 Lantus SUB-Q 40 units QHS JOHNNY Administration Insulin Human Lispro 0 unit 12/12/19 07:30 12/31/19 08:00 Humalog SUB-Q 2 unit ACHS JOHNNY Administration Protocol Insulin Human Lispro 6 unit 12/29/19 08:30 12/31/19 08:20 Humalog SUB-Q 6 unit AC JOHNNY Administration Lactulose 20 gm 12/22/19 15:00 12/29/19 11:06 Cephulac PO 20 gm QDAY PRN Administration Constipation Metoprolol Tartrate 12.5 mg 12/27/19 22:00 12/31/19 09:09 Metoprolol PO 12.5 mg BID JOHNNY Administration Ondansetron HCl 4 mg 12/11/19 21:48 Zofran IV Q8H PRN Nausea And Vomiting Oxycodone/Acetaminophen 1 tab 12/11/19 21:53 12/31/19 06:28 Percocet 5/325 PO 1 tab Q6H PRN Administration PAIN (4-6) Pravastatin Sodium 80 mg 12/13/19 22:00 12/30/19 21:17 Pravachol PO 80 mg QHS JOHNNY Administration Sodium Chloride 10 ml 12/11/19 22:00 12/31/19 09:09 Sodium Chloride Flush Syringe 10 Ml IV 10 ml BID JOHNNY Administration Sodium Chloride 10 ml 12/11/19 21:48 12/12/19 06:04 Sodium Chloride Flush Syringe 10 Ml IV 10 ml PRN PRN Administration LINE FLUSH
--- NOTE | 2019-12-31 15:58 | Progress Note ---
Assessment and Plan Assessment and plan: 79 YO Male with CAD S/P CABG, HTN, DM, Vascular Dementia, Cerebral Atherosclerosis, Obesity Hypoventilation Syndrome, presents to ED for evaluation. Patient is confused with diminished cognition and is unable to provide history. Patient history provided by EMS staff, ED staff, as well as patient family who was at bedside during exam and interview. As per family the patient has experienced increased weakness and confusion over the past 1 month with progressively worsening symptoms over the same timeframe. Patient is currently bedbound, and nonambulatory as per family report. Patient also requir es 6/6 assistance with activities of daily living. EMS was notified and upon arrival the patient was found to be confused and in distress with a temperature 101.2 F. Patient was subsequently transported to [facility] for further care and evaluation of the aforementioned symptoms. Patient seen and evaluated in the emergency department. Lab and imaging studies reviewed. Patient underwent chest x-ray which revealed pneumonia complicated by sepsis, toxic metabolic encephalopathy. Patient initiated on sepsis protocol as well as coronavirus protocol in the emergency department. Patient is confused and lethargic with diminished cognition but has a positive gag reflex and is able to protect his airway. No further history obtainable. Advanced care planning conducted in ED. 12/24/2019 Patient seen at bedside-alert and oriented-on room air Reviewed lab, mar, and v/s Reviewed SW and PT note subacute/SNF placement and recommended Patient is awaiting placement. placement permission at [facility] pending from [facility] Medically stable for discharge 12/25/2019 Patient has no complaints today Still pending placement 12/26/2019 Patient needs rehabilitation due to poor gait and instability. PT note has been reviewed and I agree with assessment Discussed with patient's daughter this a.m. 12/27/2019 Still awaiting placement He has no complaints this morning 12/27. Planned for DC but insurance has not approved transfer to facility so DC was canceled. 12/28 - 12/29. BP soft. holding nitrates. No fever. Monitor BP. 12/30. Has no complaints. PT to reevaluate patient so insurance can review. Vitals reviewed. Problems Toxic metabolic encephalopathy-resolved Current Visit: Yes Status: Acute Plan to address problem: Present on admission, improved SIRS:[No criteria for sepsis]-improved Current Visit: Yes Status: Acute Plan to address problem: Improved Acute bronchitis-improved Current Visit: Yes Status: Acute . Plan to address problem: Chest x-ray negative for pneumonia Continue current management Coronary artery disease status post CABG ; Current Visit: Yes Status: Acute . Plan to address problem: Continue cardiac protective measures Condition is stable -denies ACS signs Type II diabetes mellitus-stable Current Visit: Yes Status: Acute Plan to address problem: Monitor blood sugar with SSIt Continue Lantus Adjust if needed A1c is 9.7 Acute Kidney Injury-stable Current Visit: No Status: Acute Plan to address problem: Current creatinine stable Underlying CKD Creatinine 2.3 Hyponatremia; present on admission likely 2/2 to [facility] improved, Continue monitor electrolytes Suspected COVID-19 virus infection Current Visit: No Status: Acute Plan to address problem: COVID-19 test is negative Morbid obesity; BMI 43 Patient needs weight reduction when medically stable Advised on inportance of lifestyle modification Healthy diet-more fruits and vegebles and avoid high calorie foods DVT prophylaxis Current Visit: Yes Status: Acute Plan to address problem: SCD /heparin renal dose Debility Current Visit: Yes Status: Acute Plan to address problem: PT notes reviewed-patient needs physical therapy due to poor gait and instability. I believe patient will benefit from physical therapy. Still awaiting placement. Discussed with [employer] manufacturers representative on 12/26 --Discharge planning issues patient ready for discharge Needs acceptance at [facility] by Ana Discussed with salt manager - Patient Problems (1) Diabetes mellitus Current Visit: Yes Status: Acute (2) Toxic metabolic encephalopathy Current Visit: Yes Status: Acute (3) Vascular dementia Current Visit: Yes Status: Acute Qualifiers: Dementia behavioral disturbance: without behavioral disturbance Qualified Code(s): F01.50 - Vascular dementia without behavioral disturbance (4) SIRS (systemic inflammatory response syndrome) Current Visit: Yes Status: Acute History Interval history: Has no complaints today Frustrated about insurance not authorizing transfer Still pending placement Hospitalist Physical - Physical exam Narrative exam: VITAL SIGNS: Reviewed. GENERAL: Awake and alert on response to questions HEAD: No signs of head trauma. EYES: Pupils are equal. Extraocular motions intact. EARS: Hearing grossly intact. MOUTH: Oropharynx is normal. NECK: No adenopathy, no JVD. CHEST: Chest with diminished breath sounds bilaterally. No wheezes, rales, or rhonchi. CARDIAC: Regular rate and rhythm. S1 and S2, without murmurs, gallops, or rubs. VASCULAR: No Edema. Peripheral pulses normal and equal in all extremities. ABDOMEN: Soft, non tender and non distended. No rebound or guarding, and no masses palpated. Bowel Sounds normal. MUSCULOSKELETAL: Good range of motion of all major joints. Extremities without clubbing, cyanosis or edema. NEUROLOGIC EXAM: Alert and oriented x3. No focal neurologic deficits PSYCHIATRIC: Stable mood SKIN: No obvious lesions - Constitutional Vitals: Temp Pulse Resp BP Pulse Ox 98.3 F 79 18 121/68 97 12/31/19 13:25 12/31/19 13:25 12/31/19 13:25 12/31/19 13:25 12/31/19 13:25 HEART Score - HEART Score Troponin: Troponin T < 0.010 ng/mL (0.00-0.029) 12/11/19 20:03 Results - Labs CBC & Chem 7: 12/31/19 04:39 12/31/19 04:39 Labs: Laboratory Last Values WBC 8.1 K/mm3 (4.5-11.0) 12/31/19 04:39 RBC 4.36 M/mm3 (3.65-5.03) 12/31/19 04:39 Hgb 13.2 gm/dl (11.8-15.2) 12/31/19 04:39 Hct 38.7 % (35.5-45.6) 12/31/19 04:39 MCV 89 fl (84-94) 12/31/19 04:39 MCH 30 pg (28-32) 12/31/19 04:39 MCHC 34 % (32-34) 12/31/19 04:39 RDW 14.0 % (13.2-15.2) 12/31/19 04:39 Plt Count 311 K/mm3 (140-440) 12/31/19 04:39 Lymph % (Auto) 30.6 % (13.4-35.0) 12/26/19 04:59 [place] % (Auto) 10.5 % (0.0-7.3) H 12/26/19 04:59 Eos % (Auto) 6.5 % (0.0-4.3) H 12/26/19 04:59 Baso % (Auto) 1.0 % (0.0-1.8) 12/26/19 04:59 Lymph # (Auto) 2.7 K/mm3 (1.2-5.4) 12/26/19 04:59 [place] # (Auto) 0.9 K/mm3 (0.0-0.8) H 12/26/19 04:59 Eos # (Auto) 0.6 K/mm3 (0.0-0.4) H 12/26/19 04:59 Baso # (Auto) 0.1 K/mm3 (0.0-0.1) 12/26/19 04:59 Add Manual Diff Complete 12/31/19 04:39 Total Counted 100 12/31/19 04:39 Seg Neutrophils % 51.4 % (40.0-70.0) 12/26/19 04:59 Seg Neuts % (Manual) 46.0 % (40.0-70.0) 12/31/19 04:39 Band Neutrophils % 0 % 12/31/19 04:39 Lymphocytes % (Manual) 40.0 % (13.4-35.0) H 12/31/19 04:39 Reactive Lymphs % (Man) 0 % 12/31/19 04:39 Monocytes % (Manual) 2.0 % (0.0-7.3) 12/31/19 04:39 Eosinophils % (Manual) 12.0 % (0.0-4.3) H 12/31/19 04:39 Basophils % (Manual) 0 % (0.0-1.8) 12/31/19 04:39 Metamyelocytes % 0 % 12/31/19 04:39 Myelocytes % 0 % 12/31/19 04:39 Promyelocytes % 0 % 12/31/19 04:39 Blast Cells % 0 % 12/31/19 04:39 Nucleated RBC % Not Reportable 12/31/19 04:39 Seg Neutrophils # 4.5 K/mm3 (1.8-7.7) 12/26/19 04:59 Seg Neutrophils # Man 3.7 K/mm3 (1.8-7.7) 12/31/19 04:39 Band Neutrophils # 0.0 K/mm3 12/31/19 04:39 Lymphocytes # (Manual) 3.2 K/mm3 (1.2-5.4) 12/31/19 04:39 Abs React Lymphs (Man) 0.0 K/mm3 12/31/19 04:39 Monocytes # (Manual) 0.2 K/mm3 (0.0-0.8) 12/31/19 04:39 Eosinophils # (Manual) 1.0 K/mm3 (0.0-0.4) H 12/31/19 04:39 Basophils # (Manual) 0.0 K/mm3 (0.0-0.1) 12/31/19 04:39 Metamyelocytes # 0.0 K/mm3 12/31/19 04:39 Myelocytes # 0.0 K/mm3 12/31/19 04:39 Promyelocytes # 0.0 K/mm3 12/31/19 04:39 Blast Cells # 0.0 K/mm3 12/31/19 04:39 WBC Morphology Not Reportable 12/31/19 04:39 Hypersegmented Neuts Not Reportable 12/31/19 04:39 Hyposegmented Neuts Not Reportable 12/31/19 04:39 Hypogranular Neuts Not Reportable 12/31/19 04:39 Smudge Cells Not Reportable 12/31/19 04:39 Toxic Granulation Not Reportable 12/31/19 04:39 Toxic Vacuolation Not Reportable 12/31/19 04:39 Dohle Bodies Not Reportable 12/31/19 04:39 Pelger-Huet Anomaly Not Reportable 12/31/19 04:39 Sam Rods Not Reportable 12/31/19 04:39 Platelet Estimate Consistent w auto 12/31/19 04:39 Clumped Platelets Not Reportable 12/31/19 04:39 Plt Clumps, EDTA Not Reportable 12/31/19 04:39 Large Platelets Not Reportable 12/31/19 04:39 Giant Platelets Not Reportable 12/31/19 04:39 Platelet Satelliting Not Reportable 12/31/19 04:39 Plt Morphology Comment Not Reportable 12/31/19 04:39 RBC Morphology Not Reportable 12/31/19 04:39 Dimorphic RBCs Not Reportable 12/31/19 04:39 Polychromasia Not Reportable 12/31/19 04:39 Hypochromasia Not Reportable 12/31/19 04:39 Poikilocytosis Not Reportable 12/31/19 04:39 Anisocytosis Not Reportable 12/31/19 04:39 Microcytosis Not Reportable 12/31/19 04:39 Macrocytosis Not Reportable 12/31/19 04:39 Spherocytes Not Reportable 12/31/19 04:39 Pappenheimer Bodies Not Reportable 12/31/19 04:39 Sickle Cells Not Reportable 12/31/19 04:39 Target Cells Not Reportable 12/31/19 04:39 Tear Drop Cells Not Reportable 12/31/19 04:39 Ovalocytes Not Reportable 12/31/19 04:39 Helmet Cells Not Reportable 12/31/19 04:39 [place] Bodies Not Reportable 12/31/19 04:[address] [place] Rings Not Reportable 12/31/19 04:39 [place] Cells Not Reportable 12/31/19 04:39 Bite Cells Not Reportable 12/31/19 04:39 Crenated Cell Not Reportable 12/31/19 04:39 Elliptocytes Not Reportable 12/31/19 04:39 Acanthocytes (Spur) Not Reportable 12/31/19 04:39 Rouleaux Not Reportable 12/31/19 04:39 Hemoglobin C Crystals Not Reportable 12/31/19 04:39 Schistocytes Not Reportable 12/31/19 04:39 Malaria parasites Not Reportable 12/31/19 04:39 [place] Bodies Not Reportable 12/31/19 04:39 Hem Pathologist Commnt No 12/31/19 04:39 PT 13.1 Sec. (12.2-14.9) 12/11/19 18:37 INR 0.97 (0.87-1.13) 12/11/19 18:37 APTT 20.1 Sec. (24.2-36.6) L 12/11/19 18:37 D-Dimer 550.63 ng/mlDDU (0-234) H 12/11/19 21:50 Sodium 135 mmol/L (137-145) L 12/31/19 04:39 Potassium 4.7 mmol/L (3.6-5.0) 12/31/19 04:39 Chloride 100.8 mmol/L (98-107) 12/31/19 04:39 Carbon Dioxide 25 mmol/L (22-30) 12/31/19 04:39 Anion Gap 14 mmol/L 12/31/19 04:39 BUN 35 mg/dL (9-20) H 12/31/19 04:39 Creatinine 2.7 mg/dL (0.8-1.3) H 12/31/19 04:39 Estimated GFR 28 ml/min 12/31/19 04:39 BUN/Creatinine Ratio 13 % 12/31/19 04:39 Glucose 189 mg/dL (75-100) H 12/31/19 04:39 POC Glucose 228 mg/dL (70-105) H 12/31/19 11:59 Hemoglobin A1c 9.7 % (4-6) H 12/12/19 05:05 Lactic Acid 1.50 mmol/L (0.7-2.0) 12/12/19 05:05 Calcium 9.5 mg/dL (8.4-10.2) 12/31/19 04:39 Ferritin 646.4 ng/mL (30.0-300.0) H 12/11/19 21:50 Total Bilirubin 0.70 mg/dL (0.1-1.2) 12/12/19 05:05 Direct Bilirubin < 0.2 mg/dL (0-0.2) 12/11/19 18:37 Indirect Bilirubin 0.6 mg/dL 12/11/19 18:37 AST 26 units/L (5-40) 12/12/19 05:05 ALT 15 units/L (7-56) 12/12/19 05:05 Alkaline Phosphatase 68 units/L (35-129) 12/12/19 05:05 Ammonia 36.0 umol/L (25-60) 12/11/19 18:37 Lactate Dehydrogenase 188 units/L (91-180) H 12/11/19 21:50 Troponin T < 0.010 ng/mL (0.00-0.029) 12/11/19 20:03 C-Reactive Protein 18.20 mg/dL (0.00-1.30) H 12/11/19 21:50 NT-Pro-B Natriuret Pep 224.4 pg/mL (0-900) 12/11/19 18:37 Serum Total Protein 6.8 g/dL (6.1-8.1) 12/16/19 20:24 Total Protein 8.0 g/dL (6.3-8.2) 12/12/19 05:05 Albumin 2.9 g/dL (3.8-4.8) L 12/16/19 20:24 Albumin/Globulin Ratio 0.6 % 12/12/19 05:05 Yfhzp-7-Psrcdrcsy 0.5 g/dL (0.2-0.3) H 12/16/19 20:24 Kzbzy-4-Zrlfnqlxi 0.9 g/dL (0.5-0.9) 12/16/19 20:24 Beta Globulins 0.6 g/dL (0.2-0.5) H 12/16/19 20:24 Gamma Globulins 1.4 g/dL (0.8-1.7) 12/16/19 20:24 Abnorm Protein Band 1 see below 12/16/19 20:24 PEP Interpretation see below H 12/16/19 20:24 Procalcitonin 0.18 ng/mL (<0.15) 12/11/19 21:50 TSH 1.240 mlU/mL (0.270-4.200) 12/11/19 18:37 PTH Intact 78.16 pg/mL (15-65) H 12/16/19 20:24 Urine Color Yellow (Yellow) 12/11/19 23:00 Urine Turbidity Clear (Clear) 12/11/19 23:00 Urine pH 6.0 (5.0-7.0) 12/11/19 23:00 Ur Specific [place] 1.013 (1.003-1.030) 12/11/19 23:00 Urine Protein 30 mg/dl mg/dL (Negative) 12/11/19 23:00 Urine Glucose (UA) 150 mg/dL (Negative) 12/11/19 23:00 Urine Ketones Neg mg/dL (Negative) 12/11/19 23:00 Urine Blood Mod (Negative) 12/11/19 23:00 Urine Nitrite Neg (Negative) 12/11/19 23:00 Urine Bilirubin Neg (Negative) 12/11/19 23:00 Urine Urobilinogen 2.0 mg/dL (<2.0) 12/11/19 23:00 Ur Leukocyte Esterase Neg (Negative) 12/11/19 23:00 Urine WBC (Auto) 1.0 /HPF (0.0-6.0) 12/11/19 23:00 Urine RBC (Auto) 1.0 /HPF (0.0-6.0) 12/11/19 23:00 U Epithel Cells (Auto) 1.0 /HPF (0-13.0) 12/11/19 23:00 Urine Creatinine 42.2 mg/dL (0.1-20.0) H 12/16/19 06:52 Protein/Creatinin Ratio 0.21 12/16/19 06:52 Urine Total Protein 9 mg/dL (5-11.8) 12/16/19 06:52 DUNG Screen Negative (Negative) 12/16/19 20:24 Proteinase 3 (PR3) Ab <1.0 AI (<1.0) 12/16/19 20:24 Myeloperoxidase Ab <1.0 AI (<1.0) 12/16/19 20:24 Complement C3 166 mg/dL (82-185) 12/16/19 20:24 Complement C4 58 mg/dL (15-53) H 12/16/19 20:24 Coronavirus (PCR) Negative (Negative) 12/28/19 Unknown Robert/IV: Voiding Method Urinal IV Catheter Type [Left Hand] INT / Saline Lock IV Catheter Type [Right Peripheral IV Antecubital] Active Medications - Current Medications Current Medications: Generic Name Dose Route Start Last Admin Trade Name Freq PRN Reason Stop Dose Admin Acetaminophen 650 mg 12/11/19 21:48 12/16/19 22:31 Tylenol PO 650 mg Q4H PRN Administration Pain MILD(1-3)/Fever >100.5/MUSTAFA Aspirin 325 mg 12/13/19 22:00 12/30/19 21:16 Aspirin PO 325 mg HS JOHNNY Administration Dextrose 0 ml 12/11/19 22:45 D50w (25gm) Syringe IV Q30MIN PRN Hypoglycemia Protocol Heparin Sodium (Porcine) 5,000 unit 12/11/19 22:00 12/31/19 09:09 Heparin SUB-Q 5,000 unit Q12HR JOHNNY Administration Insulin Glargine 40 units 12/29/19 22:00 12/30/19 21:52 Lantus SUB-Q 40 units QHS JOHNNY Administration Insulin Human Lispro 0 unit 12/12/19 07:30 12/31/19 12:00 Humalog SUB-Q 3 unit ACHS JOHNNY Administration Protocol Insulin Human Lispro 6 unit 12/29/19 08:30 12/31/19 12:00 Humalog SUB-Q 6 unit AC JOHNNY Administration Lactulose 20 gm 12/22/19 15:00 12/29/19 11:06 Cephulac PO 20 gm QDAY PRN Administration Constipation Metoprolol Tartrate 12.5 mg 12/27/19 22:00 12/31/19 09:09 Metoprolol PO 12.5 mg BID JOHNNY Administration Ondansetron HCl 4 mg 12/11/19 21:48 Zofran IV Q8H PRN Nausea And Vomiting Oxycodone/Acetaminophen 1 tab 12/11/19 21:53 12/31/19 06:28 Percocet 5/325 PO 1 tab Q6H PRN Administration PAIN (4-6) Pravastatin Sodium 80 mg 12/13/19 22:00 12/30/19 21:17 Pravachol PO 80 mg QHS JOHNNY Administration Sodium Chloride 10 ml 12/11/19 22:00 12/31/19 09:09 Sodium Chloride Flush Syringe 10 Ml IV 10 ml BID JOHNNY Administration Sodium Chloride 10 ml 12/11/19 21:48 12/12/19 06:04 Sodium Chloride Flush Syringe 10 Ml IV 10 ml PRN PRN Administration LINE FLUSH Nutrition/Malnutrition Assess - Dietary Evaluation Nutrition/Malnutrition Findings: Nutrition Notes Start: 12/18/19 12:19 Freq: Status: Active Protocol: Document 12/31/19 12:01 LM (Rec: 12/31/19 12:03 LM [id number]) Nutrition Notes Initial or Follow up Brief Note Subjective/Other Information Pt stated he did not get breakfast but has good appetite and ate well yesterday. Pt with 75-100% intakes in chart. #1 Nutrition Diagnosis Inadequate oral intake As Evidenced by Signs and Symptoms Pt continuing to eat 75% of meals Diagnosis Progress(for reassessment Resolved documentation) Nutrition Intervention Revisit per MD consult or patient Sign Off request:
[2019-12-31] MEDS: ASPIRIN 325 MG TAB PO SCH (22:19)
[2019-12-31] MEDS: PRAVASTATIN 80 MG TAB PO SCH (22:19)
[2019-12-31] MEDS: INSULIN GLARGINE 100 UNITS/ML SUB-Q SCH (22:19)
[2020-01-01] MEDS: oxyCODONE /ACETAMINOPHEN 5-325MG TAB PO PRN (03:47)
[2020-01-01] MEDS: INSULIN LISPRO 100 UNIT/ML VIAL 3 mL SUB-Q SCH ×7 (08:06→22:17)
--- NOTE | 2020-01-01 09:56 | Progress Note ---
Assessment and Plan Assessment and plan: 79 YO Male with CAD S/P CABG, HTN, DM, Vascular Dementia, Cerebral Atherosclerosis, Obesity Hypoventilation Syndrome, presents to ED for evaluation. Patient is confused with diminished cognition and is unable to provide history. Patient history provided by EMS staff, ED staff, as well as patient family who was at bedside during exam and interview. As per family the patient has experienced increased weakness and confusion over the past 1 month with progressively worsening symptoms over the same timeframe. Patient is currently bedbound, and nonambulatory as per family report. Patient also requir es 6/6 assistance with activities of daily living. EMS was notified and upon arrival the patient was found to be confused and in distress with a temperature 101.2 F. Patient was subsequently transported to [facility] for further care and evaluation of the aforementioned symptoms. Patient seen and evaluated in the emergency department. Lab and imaging studies reviewed. Patient underwent chest x-ray which revealed pneumonia complicated by sepsis, toxic metabolic encephalopathy. Patient initiated on sepsis protocol as well as coronavirus protocol in the emergency department. Patient is confused and lethargic with diminished cognition but has a positive gag reflex and is able to protect his airway. No further history obtainable. Advanced care planning conducted in ED. 12/24/2019 Patient seen at bedside-alert and oriented-on room air Reviewed lab, mar, and v/s Reviewed SW and PT note subacute/SNF placement and recommended Patient is awaiting placement. placement permission at [facility] pending from [facility] Medically stable for discharge 12/25/2019 Patient has no complaints today Still pending placement 12/26/2019 Patient needs rehabilitation due to poor gait and instability. PT note has been reviewed and I agree with assessment Discussed with patient's daughter this a.m. 12/27/2019 Still awaiting placement He has no complaints this morning 12/27. Planned for DC but insurance has not approved transfer to facility so DC was canceled. 12/28 - 12/29. BP soft. holding nitrates. No fever. Monitor BP. 12/30. Has no complaints. PT to reevaluate patient so insurance can review. Vitals reviewed. 12/31: AWAITING PLACEMENT, per Nephrology continue to hold Lasix, renal function is sable and appears to be at baseline. Continue to monitor Blood glucose and will obtain repeat PT/OT eval. Problems Toxic metabolic encephalopathy-resolved Current Visit: Yes Status: Acute Plan to address problem: Present on admission, improved SIRS:[No criteria for sepsis]-improved Current Visit: Yes Status: Acute Plan to address problem: Improved Acute bronchitis-improved Current Visit: Yes Status: Acute . Plan to address problem: Chest x-ray negative for pneumonia Continue current management Coronary artery disease status post CABG ; Current Visit: Yes Status: Acute . Plan to address problem: Continue cardiac protective measures Condition is stable -denies ACS signs Type II diabetes mellitus-stable Current Visit: Yes Status: Acute Plan to address problem: Monitor blood sugar with SSIt Continue Lantus Adjust if needed A1c is 9.7 Acute Kidney Injury-WITH ATN stable patient w/ multiple risk factors for CKD - DM, HTN, CAD Current Visit: No Status: Acute Plan to address problem: Current creatinine stable Underlying CKD Creatinine 2.3 Hyponatremia; present on admission likely 2/2 to EUFEMIA improved, Continue monitor electrolytes Suspected COVID-19 virus infection Current Visit: No Status: Acute Plan to address problem: COVID-19 test is negative Morbid obesity; BMI 43 Patient needs weight reduction when medically stable Advised on inportance of lifestyle modification Healthy diet-more fruits and vegebles and avoid high calorie foods DVT prophylaxis Current Visit: Yes Status: Acute Plan to address problem: SCD /heparin renal dose Debility Current Visit: Yes Status: Acute Plan to address problem: PT notes reviewed-patient needs physical therapy due to poor gait and instability. I believe patient will benefit from physical therapy. Still awaiting placement. Discussed with [employer] sales representative sales manager on 12/26 --Discharge planning issues patient ready for discharge Needs acceptance at [facility] by [place] Discussed with radiation oncology manager - Patient Problems (1) Diabetes mellitus Current Visit: Yes Status: Acute (2) Toxic metabolic encephalopathy Current Visit: Yes Status: Acute (3) Vascular dementia Current Visit: Yes Status: Acute Qualifiers: Dementia behavioral disturbance: without behavioral disturbance Qualified Code(s): F01.50 - Vascular dementia without behavioral disturbance (4) SIRS (systemic inflammatory response syndrome) Current Visit: Yes Status: Acute History Interval history: Patient seen and examined, no new complaints. concerned about insurance delay Hospitalist Physical - Physical exam Narrative exam: VITAL SIGNS: Reviewed. GENERAL: Awake and alert on response to questions, UPSET., LYING IN BED HEAD: No signs of head trauma. EYES: Pupils are equal. Extraocular motions intact. EARS: Hearing grossly intact. MOUTH: Oropharynx is normal. NECK: No adenopathy, no JVD. CHEST: Chest with diminished breath sounds bilaterally. No wheezes, rales, or rhonchi. CARDIAC: Regular rate and rhythm. S1 and S2, without murmurs, gallops, or rubs. VASCULAR: No Edema. Peripheral pulses normal and equal in all extremities. ABDOMEN: Soft, non tender and non distended. No rebound or guarding, and no masses palpated. Bowel Sounds normal. MUSCULOSKELETAL: Good range of motion of all major joints. Extremities without clubbing, cyanosis or edema. NEUROLOGIC EXAM: Alert and oriented x3. No focal neurologic deficits PSYCHIATRIC: Stable mood SKIN: No obvious lesions - Constitutional Vitals: Temp Pulse Resp BP Pulse Ox 98.0 F 75 20 126/84 99 01/01/20 07:28 01/01/20 07:28 01/01/20 07:28 01/01/20 07:28 01/01/20 07:28 General appearance: Present: no acute distress, well-nourished HEART Score - HEART Score Troponin: Troponin T < 0.010 ng/mL (0.00-0.029) 12/11/19 20:03 Results - Labs CBC & Chem 7: 12/31/19 04:39 12/31/19 04:39 Labs: Laboratory Last Values WBC 8.1 K/mm3 (4.5-11.0) 12/31/19 04:39 RBC 4.36 M/mm3 (3.65-5.03) 12/31/19 04:39 Hgb 13.2 gm/dl (11.8-15.2) 12/31/19 04:39 Hct 38.7 % (35.5-45.6) 12/31/19 04:39 MCV 89 fl (84-94) 12/31/19 04:39 MCH 30 pg (28-32) 12/31/19 04:39 MCHC 34 % (32-34) 12/31/19 04:39 RDW 14.0 % (13.2-15.2) 12/31/19 04:39 Plt Count 311 K/mm3 (140-440) 12/31/19 04:39 Lymph % (Auto) 30.6 % (13.4-35.0) 12/26/19 04:59 [place] % (Auto) 10.5 % (0.0-7.3) H 12/26/19 04:59 Eos % (Auto) 6.5 % (0.0-4.3) H 12/26/19 04:59 Baso % (Auto) 1.0 % (0.0-1.8) 12/26/19 04:59 Lymph # (Auto) 2.7 K/mm3 (1.2-5.4) 12/26/19 04:59 [place] # (Auto) 0.9 K/mm3 (0.0-0.8) H 12/26/19 04:59 Eos # (Auto) 0.6 K/mm3 (0.0-0.4) H 12/26/19 04:59 Baso # (Auto) 0.1 K/mm3 (0.0-0.1) 12/26/19 04:59 Add Manual Diff Complete 12/31/19 04:39 Total Counted 100 12/31/19 04:39 Seg Neutrophils % 51.4 % (40.0-70.0) 12/26/19 04:59 Seg Neuts % (Manual) 46.0 % (40.0-70.0) 12/31/19 04:39 Band Neutrophils % 0 % 12/31/19 04:39 Lymphocytes % (Manual) 40.0 % (13.4-35.0) H 12/31/19 04:39 Reactive Lymphs % (Man) 0 % 12/31/19 04:39 Monocytes % (Manual) 2.0 % (0.0-7.3) 12/31/19 04:39 Eosinophils % (Manual) 12.0 % (0.0-4.3) H 12/31/19 04:39 Basophils % (Manual) 0 % (0.0-1.8) 12/31/19 04:39 Metamyelocytes % 0 % 12/31/19 04:39 Myelocytes % 0 % 12/31/19 04:39 Promyelocytes % 0 % 12/31/19 04:39 Blast Cells % 0 % 12/31/19 04:39 Nucleated RBC % Not Reportable 12/31/19 04:39 Seg Neutrophils # 4.5 K/mm3 (1.8-7.7) 12/26/19 04:59 Seg Neutrophils # Man 3.7 K/mm3 (1.8-7.7) 12/31/19 04:39 Band Neutrophils # 0.0 K/mm3 12/31/19 04:39 Lymphocytes # (Manual) 3.2 K/mm3 (1.2-5.4) 12/31/19 04:39 Abs React Lymphs (Man) 0.0 K/mm3 12/31/19 04:39 Monocytes # (Manual) 0.2 K/mm3 (0.0-0.8) 12/31/19 04:39 Eosinophils # (Manual) 1.0 K/mm3 (0.0-0.4) H 12/31/19 04:39 Basophils # (Manual) 0.0 K/mm3 (0.0-0.1) 12/31/19 04:39 Metamyelocytes # 0.0 K/mm3 12/31/19 04:39 Myelocytes # 0.0 K/mm3 12/31/19 04:39 Promyelocytes # 0.0 K/mm3 12/31/19 04:39 Blast Cells # 0.0 K/mm3 12/31/19 04:39 WBC Morphology Not Reportable 12/31/19 04:39 Hypersegmented Neuts Not Reportable 12/31/19 04:39 Hyposegmented Neuts Not Reportable 12/31/19 04:39 Hypogranular Neuts Not Reportable 12/31/19 04:39 Smudge Cells Not Reportable 12/31/19 04:39 Toxic Granulation Not Reportable 12/31/19 04:39 Toxic Vacuolation Not Reportable 12/31/19 04:39 Dohle Bodies Not Reportable 12/31/19 04:39 Pelger-Huet Anomaly Not Reportable 12/31/19 04:39 Sam Rods Not Reportable 12/31/19 04:39 Platelet Estimate Consistent w auto 12/31/19 04:39 Clumped Platelets Not Reportable 12/31/19 04:39 Plt Clumps, EDTA Not Reportable 12/31/19 04:39 Large Platelets Not Reportable 12/31/19 04:39 Giant Platelets Not Reportable 12/31/19 04:39 Platelet Satelliting Not Reportable 12/31/19 04:39 Plt Morphology Comment Not Reportable 12/31/19 04:39 RBC Morphology Not Reportable 12/31/19 04:39 Dimorphic RBCs Not Reportable 12/31/19 04:39 Polychromasia Not Reportable 12/31/19 04:39 Hypochromasia Not Reportable 12/31/19 04:39 Poikilocytosis Not Reportable 12/31/19 04:39 Anisocytosis Not Reportable 12/31/19 04:39 Microcytosis Not Reportable 12/31/19 04:39 Macrocytosis Not Reportable 12/31/19 04:39 Spherocytes Not Reportable 12/31/19 04:39 Pappenheimer Bodies Not Reportable 12/31/19 04:39 Sickle Cells Not Reportable 12/31/19 04:39 Target Cells Not Reportable 12/31/19 04:39 Tear Drop Cells Not Reportable 12/31/19 04:39 Ovalocytes Not Reportable 12/31/19 04:39 Helmet Cells Not Reportable 12/31/19 04:39 Saavedra-Jud Bodies Not Reportable 12/31/19 04:39 [place] Rings Not Reportable 12/31/19 04:39 [place] Cells Not Reportable 12/31/19 04:39 Bite Cells Not Reportable 12/31/19 04:39 Crenated Cell Not Reportable 12/31/19 04:39 Elliptocytes Not Reportable 12/31/19 04:39 Acanthocytes (Spur) Not Reportable 12/31/19 04:39 Rouleaux Not Reportable 12/31/19 04:39 Hemoglobin C Crystals Not Reportable 12/31/19 04:39 Schistocytes Not Reportable 12/31/19 04:39 Malaria parasites Not Reportable 12/31/19 04:39 [place] Bodies Not Reportable 12/31/19 04:39 Hem Pathologist Commnt No 12/31/19 04:39 PT 13.1 Sec. (12.2-14.9) 12/11/19 18:37 INR 0.97 (0.87-1.13) 12/11/19 18:37 APTT 20.1 Sec. (24.2-36.6) L 12/11/19 18:37 D-Dimer 550.63 ng/mlDDU (0-234) H 12/11/19 21:50 Sodium 135 mmol/L (137-145) L 12/31/19 04:39 Potassium 4.7 mmol/L (3.6-5.0) 12/31/19 04:39 Chloride 100.8 mmol/L (98-107) 12/31/19 04:39 Carbon Dioxide 25 mmol/L (22-30) 12/31/19 04:39 Anion Gap 14 mmol/L 12/31/19 04:39 BUN 35 mg/dL (9-20) H 12/31/19 04:39 Creatinine 2.7 mg/dL (0.8-1.3) H 12/31/19 04:39 Estimated GFR 28 ml/min 12/31/19 04:39 BUN/Creatinine Ratio 13 % 12/31/19 04:39 Glucose 189 mg/dL (75-100) H 12/31/19 04:39 POC Glucose 142 mg/dL (70-105) H 01/01/20 08:00 Hemoglobin A1c 9.7 % (4-6) H 12/12/19 05:05 Lactic Acid 1.50 mmol/L (0.7-2.0) 12/12/19 05:05 Calcium 9.5 mg/dL (8.4-10.2) 12/31/19 04:39 Ferritin 646.4 ng/mL (30.0-300.0) H 12/11/19 21:50 Total Bilirubin 0.70 mg/dL (0.1-1.2) 12/12/19 05:05 Direct Bilirubin < 0.2 mg/dL (0-0.2) 12/11/19 18:37 Indirect Bilirubin 0.6 mg/dL 12/11/19 18:37 AST 26 units/L (5-40) 12/12/19 05:05 ALT 15 units/L (7-56) 12/12/19 05:05 Alkaline Phosphatase 68 units/L (35-129) 12/12/19 05:05 Ammonia 36.0 umol/L (25-60) 12/11/19 18:37 Lactate Dehydrogenase 188 units/L (91-180) H 12/11/19 21:50 Troponin T < 0.010 ng/mL (0.00-0.029) 12/11/19 20:03 C-Reactive Protein 18.20 mg/dL (0.00-1.30) H 11/03/20 21:50 NT-Pro-B Natriuret Pep 224.4 pg/mL (0-900) 12/11/19 18:37 Serum Total Protein 6.8 g/dL (6.1-8.1) 12/16/19 20:24 Total Protein 8.0 g/dL (6.3-8.2) 12/12/19 05:05 Albumin 2.9 g/dL (3.8-4.8) L 12/16/19 20:24 Albumin/Globulin Ratio 0.6 % 12/12/19 05:05 Gvhqf-9-Gyruqegcp 0.5 g/dL (0.2-0.3) H 12/16/19 20:24 Hdvje-1-Gzgszaktw 0.9 g/dL (0.5-0.9) 12/16/19 20:24 Beta Globulins 0.6 g/dL (0.2-0.5) H 12/16/19 20:24 Gamma Globulins 1.4 g/dL (0.8-1.7) 12/16/19 20:24 Abnorm Protein Band 1 see below 12/16/19 20:24 PEP Interpretation see below H 12/16/19 20:24 Procalcitonin 0.18 ng/mL (<0.15) 12/11/19 21:50 TSH 1.240 mlU/mL (0.270-4.200) 12/11/19 18:37 PTH Intact 78.16 pg/mL (15-65) H 12/16/19 20:24 Urine Color Yellow (Yellow) 12/11/19 23:00 Urine Turbidity Clear (Clear) 12/11/19 23:00 Urine pH 6.0 (5.0-7.0) 12/11/19 23:00 Ur Specific [place] 1.013 (1.003-1.030) 12/11/19 23:00 Urine Protein 30 mg/dl mg/dL (Negative) 12/11/19 23:00 Urine Glucose (UA) 150 mg/dL (Negative) 12/11/19 23:00 Urine Ketones Neg mg/dL (Negative) 12/11/19 23:00 Urine Blood Mod (Negative) 12/11/19 23:00 Urine Nitrite Neg (Negative) 12/11/19 23:00 Urine Bilirubin Neg (Negative) 12/11/19 23:00 Urine Urobilinogen 2.0 mg/dL (<2.0) 12/11/19 23:00 Ur Leukocyte Esterase Neg (Negative) 12/11/19 23:00 Urine WBC (Auto) 1.0 /HPF (0.0-6.0) 12/11/19 23:00 Urine RBC (Auto) 1.0 /HPF (0.0-6.0) 12/11/19 23:00 U Epithel Cells (Auto) 1.0 /HPF (0-13.0) 12/11/19 23:00 Urine Creatinine 42.2 mg/dL (0.1-20.0) H 12/16/19 06:52 Protein/Creatinin Ratio 0.21 12/16/19 06:52 Urine Total Protein 9 mg/dL (5-11.8) 12/16/19 06:52 DUNG Screen Negative (Negative) 12/16/19 20:24 Proteinase 3 (PR3) Ab <1.0 AI (<1.0) 12/16/19 20:24 Myeloperoxidase Ab <1.0 AI (<1.0) 12/16/19 20:24 Complement C3 166 mg/dL (82-185) 12/16/19 20:24 Complement C4 58 mg/dL (15-53) H 12/16/19 20:24 Coronavirus (PCR) Negative (Negative) 12/28/19 Unknown Robert/IV: Voiding Method Urinal IV Catheter Type [Left Hand] INT / Saline Lock IV Catheter Type [Right Peripheral IV Antecubital] Active Medications - Current Medications Current Medications: Generic Name Dose Route Start Last Admin Trade Name Mayitoq PRN Reason Stop Dose Admin Acetaminophen 650 mg 12/11/19 21:48 12/16/19 22:31 Tylenol PO 650 mg Q4H PRN Administration Pain MILD(1-3)/Fever >100.5/MUSTAFA Aspirin 325 mg 12/13/19 22:00 12/31/19 22:19 Aspirin PO 325 mg HS JOHNNY Administration Dextrose 0 ml 12/11/19 22:45 D50w (25gm) Syringe IV Q30MIN PRN Hypoglycemia Protocol Heparin Sodium (Porcine) 5,000 unit 12/11/19 22:00 12/31/19 22:20 Heparin SUB-Q 5,000 unit Q12HR JOHNNY Administration Insulin Glargine 40 units 12/29/19 22:00 12/31/19 22:19 Lantus SUB-Q 40 units QHS JOHNNY Administration Insulin Human Lispro 0 unit 12/12/19 07:30 12/31/19 22:17 Humalog SUB-Q Not Given ACHS [facility] Protocol Insulin Human Lispro 6 unit 12/29/19 08:30 12/31/19 16:54 Humalog SUB-Q 6 unit AC JOHNNY Administration Lactulose 20 gm 12/22/19 15:00 12/29/19 11:06 Cephulac PO 20 gm QDAY PRN Administration Constipation Metoprolol Tartrate 12.5 mg 12/27/19 22:00 12/31/19 22:19 Metoprolol PO 12.5 mg BID JOHNNY Administration Ondansetron HCl 4 mg 12/11/19 21:48 Zofran IV Q8H PRN Nausea And Vomiting Oxycodone/Acetaminophen 1 tab 12/11/19 21:53 01/01/20 03:47 Percocet 5/325 PO 1 tab Q6H PRN Administration PAIN (4-6) Pravastatin Sodium 80 mg 12/13/19 22:00 12/31/19 22:19 Pravachol PO 80 mg QHS JOHNNY Administration Sodium Chloride 10 ml 12/11/19 22:00 12/31/19 22:52 Sodium Chloride Flush Syringe 10 Ml IV 10 ml BID JOHNNY Administration Sodium Chloride 10 ml 12/11/19 21:48 12/12/19 06:04 Sodium Chloride Flush Syringe 10 Ml IV 10 ml PRN PRN Administration LINE FLUSH Nutrition/Malnutrition Assess - Dietary Evaluation Nutrition/Malnutrition Findings: Nutrition Notes Start: 12/18/19 12:19 Freq: Status: Active Protocol: Document 12/31/19 12:01 LM (Rec: 12/31/19 12:03 LM [id number]) Nutrition Notes Initial or Follow up Brief Note Subjective/Other Information Pt stated he did not get breakfast but has good appetite and ate well yesterday. Pt with 75-100% intakes in chart. #1 Nutrition Diagnosis Inadequate oral intake As Evidenced by Signs and Symptoms Pt continuing to eat 75% of meals Diagnosis Progress(for reassessment Resolved documentation) Nutrition Intervention Revisit per MD consult or patient Sign Off request:
[2020-01-01] MEDS: HEPARIN 5,000 UNIT/1 ML VIAL SUB-Q SCH ×2 (10:08→22:17)
[2020-01-01] MEDS: METOPROLOL TARTRATE 25 MG TAB PO SCH ×2 (10:09→22:16)
--- NOTE | 2020-01-01 10:31 | Discharge Summary ---
Providers - Providers Date of Admission: 12/11/19 21:48 Attending physician: SANDRA MEREDITH MD 12/13/19 07:31 Occupational Therapy Evaluate and Treat [CONS] Routine Comment: Daughter could not take care of him at home Reason For Exam: Weakness Physical Therapy Evaluation and Treat [CONS] Routine Comment: Daughter said she has a hard time to take care of Reason For Exam: Weakness 12/15/19 07:37 Consult to Physician [CONS] Routine Comment: Consulting Provider: KAREN WARD Physician Instructions: Reason For Exam: EUFEMIA 12/20/19 15:28 Physical Therapy Evaluation and Treat [CONS] Stat Comment: P2P requesting reeval and doc how much pt can walk Reason For Exam: P2P Dr requesting reevalution Primary care physician: SCIENCE WRITER Hospitalization Condition: Stable Hospital course: 79 YO Male with CAD S/P CABG, HTN, DM, Vascular Dementia, Cerebral Atherosclerosis, Obesity Hypoventilation Syndrome, presents to ED for evaluation. Patient is confused with diminished cognition and is unable to provide history. Patient history provided by EMS staff, ED staff, as well as patient family who was at bedside during exam and interview. As per family the patient has experienced increased weakness and confusion over the past 1 month with progressively worsening symptoms over the same timeframe. Patient is currently bedbound, and nonambulatory as per family report. Patient also requires 6/6 assistance with activities of daily living. EMS was notified and upon arrival the patient was found to be confused and in distress with a temper ature 101.2 F. Patient was subsequently transported to [facility] for further care and evaluation of the aforementioned symptoms. Patient seen and evaluated in the emergency department. Lab and imaging studies reviewed. Patient underwent chest x-ray which revealed pneumonia complicated by sepsis, toxic metabolic encephalopathy. Patient initiated on sepsis protocol as well as coronavirus protocol in the emergency department. Patient is confused and lethargic with diminished cognition but has a positive gag reflex and is able to protect his airway. No further history obtainable. Advanced care planning conducted in ED. 12/24/2019 Patient seen at bedside-alert and oriented-on room air Reviewed lab, mar, and v/s Reviewed SW and PT note subacute/SNF placement and recommended Patient is awaiting placement. placement permission at [facility] pending from [facility] Medically stable for discharge 12/25/2019 Patient has no complaints today Still pending placement 12/26/2019 Patient needs rehabilitation due to poor gait and instability. PT note has been reviewed and I agree with assessment Discussed with patient's daughter this a.m. 12/27/2019 Still awaiting placement He has no complaints this morning 12/27. Planned for DC but insurance has not approved transfer to facility so DC was canceled. 12/28 - 12/29. BP soft. holding nitrates. No fever. Monitor BP. 12/30. Has no complaints. PT to reevaluate patient so insurance can review. Vitals reviewed. 12/31: AWAITING PLACEMENT once insurance clears. No new complaints. Problems Toxic metabolic encephalopathy-resolved Current Visit: Yes Status: Acute Plan to address problem: Present on admission, improved SIRS:[No criteria for sepsis]-improved Current Visit: Yes Status: Acute Plan to address problem: Improved Acute bronchitis-improved Current Visit: Yes Status: Acute . Plan to address problem: Chest x-ray negative for pneumonia Continue current management Coronary artery disease status post CABG ; Current Visit: Yes Status: Acute . Plan to address problem: Continue cardiac protective measures Condition is stable -denies ACS signs Type II diabetes mellitus-stable Current Visit: Yes Status: Acute Plan to address problem: Monitor blood sugar with SSIt Continue Lantus Adjust if needed A1c is 9.7 Acute Kidney Injury-stable Current Visit: No Status: Acute Plan to address problem: Current creatinine stable Underlying CKD Creatinine 2.3 Hyponatremia; present on admission likely 2/2 to EUFEMIA improved, Continue monitor electrolytes Suspected COVID-19 virus infection Current Visit: No Status: Acute Plan to address problem: COVID-19 test is negative Morbid obesity; BMI 43 Patient needs weight reduction when medically stable Advised on inportance of lifestyle modification Healthy diet-more fruits and vegebles and avoid high calorie foods DVT prophylaxis Current Visit: Yes Status: Acute Plan to address problem: SCD /heparin renal dose Debility Current Visit: Yes Status: Acute Plan to address problem: PT notes reviewed-patient needs physical therapy due to poor gait and instability. I believe patient will benefit from physical therapy. Still awaiting placement. Discussed with [employer] accounts receivable representative on 12/26 --Discharge planning issues patient ready for discharge Needs acceptance at [facility] by [employer] Discussed with manager program management - Patient Problems (1) Diabetes mellitus Current Visit: Yes Status: Acute (2) Toxic metabolic encephalopathy Current Visit: Yes Status: Acute (3) Vascular dementia Current Visit: Yes Status: Acute Qualifiers: Dementia behavioral disturbance: without behavioral disturbance Qualified Code(s): F01.50 - Vascular dementia without behavioral disturbance (4) SIRS (systemic inflammatory response syndrome) Current Visit: Yes Status: Acute Disposition: DC/[place]-03 SNF W [facility] CERT Core Measure Documentation - Palliative Care Palliative Care/ Comfort Measures: Not Applicable Exam - Constitutional Vitals: Temp Pulse Resp BP Pulse Ox 98.0 F 75 20 126/84 99 01/01/20 07:28 01/01/20 10:09 01/01/20 07:28 01/01/20 07:28 01/01/20 07:28 Plan Activity: advance as tolerated, fall precautions Diet: diabetic, renal Special Instructions: record daily weights, record daily BP diary, record blood sugar diary Follow up with: PRIMARY CARE, [Primary Care Provider] - 7 Days Prescriptions: Metoprolol [Lopressor TAB] 12.5 mg PO BID #60 tablet
--- NOTE | 2020-01-01 15:20 | Progress Note ---
Assessment and Plan Impression * Stage III chronic kidney disease - patient w/ multiple risk factors for CKD - DM, HTN, CAD * Altered mental status * Fever --Blood cx NGTD (Dec 10) * Dementia * Hypertension * Type II DM * Hx of CAD s/p CABG Plan: * Renal function has been fairly stable - baseline appears to be 2.1-2.3mg/dL; creatinine was fairly stable at 2.7 on last check, may be related to hypotension, agree with holding meds * No labs for review today * Continue to hold Lasix as able * Daily labs * Dose medications for renal function * Glycemic control per primary team * Discharge planning in progress * Follow up with [facility]N upon discharge, note potential discharge today Subjective Date of service: 01/01/20 Principal diagnosis: Encephalopathy Interval history: No acute issues noted, resting this AM, feeling well and wants to go home Objective - Exam Narrative Exam: General appearance: well-developed, well-nourished EENT: ATNC Cardiology: regular, S1S2 Gastrointestinal: normal, no tenderness, no distended, obese Integumentary: no rash, warm and dry Musculoskeletal: other (no edema) Psychiatric: cooperative - Vital Signs Vital signs: Vital Signs - 12hr 01/01/20 01/01/20 01/01/20 03:38 07:28 10:09 Temperature 97.6 F 98.0 F Pulse Rate 71 75 75 Respiratory 18 20 Rate Blood Pressure 109/63 126/84 O2 Sat by Pulse 97 99 Oximetry 01/01/20 11:44 Temperature 98.0 F Pulse Rate 64 Respiratory 20 Rate Blood Pressure 124/67 O2 Sat by Pulse 98 Oximetry - Lab 12/31/19 04:39 12/31/19 04:39 Most recent lab results Calcium 9.5 mg/dL (8.4-10.2) 12/31/19 04:39 Urine Creatinine 42.2 mg/dL (0.1-20.0) H 12/16/19 06:52 Urine Total Protein 9 mg/dL (5-11.8) 12/16/19 06:52 Medications & Allergies - Medications Allergies/Adverse Reactions: Allergies No Known Allergies Allergy (Verified 04/19/14 09:47) Home Medications: Home Medications Medication Instructions Recorded Confirmed Last Taken Type Aspirin 325 mg PO HS 12/11/19 12/11/19 12/10/19 History ISOSORBIDE MONOnitrate [Imdur ER] 30 mg PO DAILY 12/11/19 12/11/19 12/10/19 History Insulin NPH/Regular [NovoLIN 70/30] 50 unit SQ BID 12/11/19 12/11/19 12/11/19 History Simvastatin 40 mg PO HS 12/11/19 12/11/19 12/10/19 History Metoprolol [Lopressor TAB] 12.5 mg PO BID #60 tablet 12/28/19 Unknown Rx Active Medications: Generic Name Dose Route Start Last Admin Trade Name Freq PRN Reason Stop Dose Admin Acetaminophen 650 mg 12/11/19 21:48 12/16/19 22:31 Tylenol PO 650 mg Q4H PRN Administration Pain MILD(1-3)/Fever >100.5/MUSTAFA Aspirin 325 mg 12/13/19 22:00 12/31/19 22:19 Aspirin PO 325 mg HS JOHNNY Administration Dextrose 0 ml 12/11/19 22:45 D50w (25gm) Syringe IV Q30MIN PRN Hypoglycemia Protocol Heparin Sodium (Porcine) 5,000 unit 12/11/19 22:00 01/01/20 10:08 Heparin SUB-Q 5,000 unit Q12HR JOHNNY Administration Insulin Glargine 40 units 12/29/19 22:00 12/31/19 22:19 Lantus SUB-Q 40 units QHS JOHNNY Administration Insulin Human Lispro 0 unit 12/12/19 07:30 01/01/20 08:06 Humalog SUB-Q Not Given ACHS [facility] Protocol Insulin Human Lispro 6 unit 12/29/19 08:30 01/01/20 08:10 Humalog SUB-Q 6 unit AC JOHNNY Administration Lactulose 20 gm 12/22/19 15:00 12/29/19 11:06 Cephulac PO 20 gm QDAY PRN Administration Constipation Metoprolol Tartrate 12.5 mg 12/27/19 22:00 01/01/20 10:09 Metoprolol PO 12.5 mg BID JOHNNY Administration Ondansetron HCl 4 mg 12/11/19 21:48 Zofran IV Q8H PRN Nausea And Vomiting Oxycodone/Acetaminophen 1 tab 12/11/19 21:53 01/01/20 03:47 Percocet 5/325 PO 1 tab Q6H PRN Administration PAIN (4-6) Pravastatin Sodium 80 mg 12/13/19 22:00 12/31/19 22:19 Pravachol PO 80 mg QHS JOHNNY Administration Sodium Chloride 10 ml 12/11/19 22:00 01/01/20 10:09 Sodium Chloride Flush Syringe 10 Ml IV 10 ml BID JOHNNY Administration Sodium Chloride 10 ml 12/11/19 21:48 12/12/19 06:04 Sodium Chloride Flush Syringe 10 Ml IV 10 ml PRN PRN Administration LINE FLUSH
[2020-01-01] MEDS: ASPIRIN 325 MG TAB PO SCH (22:16)
[2020-01-01] MEDS: PRAVASTATIN 80 MG TAB PO SCH (22:16)
[2020-01-01] MEDS: INSULIN GLARGINE 100 UNITS/ML SUB-Q SCH (22:17)
[2020-01-02] MEDS: INSULIN LISPRO 100 UNIT/ML VIAL 3 mL SUB-Q SCH ×7 (09:31→21:15)
[2020-01-02] MEDS: METOPROLOL TARTRATE 25 MG TAB PO SCH ×2 (09:35→21:07)
[2020-01-02] MEDS: HEPARIN 5,000 UNIT/1 ML VIAL SUB-Q SCH ×2 (09:36→21:14)
--- NOTE | 2020-01-02 10:04 | Progress Note ---
Assessment and Plan Assessment and plan: 79 YO Male with CAD S/P CABG, HTN, DM, Vascular Dementia, Cerebral Atherosclerosis, Obesity Hypoventilation Syndrome, presents to ED for evaluation. Patient is confused with diminished cognition and is unable to provide history. Patient history provided by EMS staff, ED staff, as well as patient family who was at bedside during exam and interview. As per family the patient has experienced increased weakness and confusion over the past 1 month with progressively worsening symptoms over the same timeframe. Patient is currently bedbound, and nonambulatory as per family report. Patient also requir es 6/6 assistance with activities of daily living. EMS was notified and upon arrival the patient was found to be confused and in distress with a temperature 101.2 F. Patient was subsequently transported to [facility] for further care and evaluation of the aforementioned symptoms. Patient seen and evaluated in the emergency department. Lab and imaging studies reviewed. Patient underwent chest x-ray which revealed pneumonia complicated by sepsis, toxic metabolic encephalopathy. Patient initiated on sepsis protocol as well as coronavirus protocol in the emergency department. Patient is confused and lethargic with diminished cognition but has a positive gag reflex and is able to protect his airway. No further history obtainable. Advanced care planning conducted in ED. 12/24/2019 Patient seen at bedside-alert and oriented-on room air Reviewed lab, mar, and v/s Reviewed SW and PT note subacute/SNF placement and recommended Patient is awaiting placement. placement permission at [facility] pending from [facility] Medically stable for discharge 12/25/2019 Patient has no complaints today Still pending placement 12/26/2019 Patient needs rehabilitation due to poor gait and instability. PT note has been reviewed and I agree with assessment Discussed with patient's daughter this a.m. 12/27/2019 Still awaiting placement He has no complaints this morning 12/27. Planned for DC but insurance has not approved transfer to facility so DC was canceled. 12/28 - 12/29. BP soft. holding nitrates. No fever. Monitor BP. 12/30. Has no complaints. PT to reevaluate patient so insurance can review. Vitals reviewed. 12/31: AWAITING PLACEMENT, per Nephrology continue to hold Lasix, renal function is sable and appears to be at baseline. Continue to monitor Blood glucose and will obtain repeat PT/OT eval. 01/01. Continue to monitor., Discussed with the daughter and also the insurance company trying to do a fast appeal. Left my phone number. Continue to monitor Blood sugar. will check labs PRN Patient is not bedbound, he informs me that a few weeks prior to admission he was having pain in the Right leg, he was informed that he has severe osteoarthr itis and needs some injections. He definitely needs rehab and will continue with ortho outpatient. He needs to loose weight too Problems Toxic metabolic encephalopathy-resolved Current Visit: Yes Status: Acute Plan to address problem: Present on admission, improved SIRS:[No criteria for sepsis]-improved Current Visit: Yes Status: Acute Plan to address problem: Improved Acute bronchitis-improved Current Visit: Yes Status: Acute . Plan to address problem: Chest x-ray negative for pneumonia Continue current management Coronary artery disease status post CABG ; Current Visit: Yes Status: Acute . Plan to address problem: Continue cardiac protective measures Condition is stable -denies ACS signs Type II diabetes mellitus-stable Current Visit: Yes Status: Acute Plan to address problem: Monitor blood sugar with SSIt Continue Lantus Adjust if needed A1c is 9.7 Acute Kidney Injury-WITH ATN stable patient w/ multiple risk factors for CKD - DM, HTN, CAD Current Visit: No Status: Acute Plan to address problem: Current creatinine stable Underlying CKD Creatinine 2.3 Hyponatremia; present on admission likely 2/2 to EUFEMIA improved, Continue monitor electrolytes Suspected COVID-19 virus infection Current Visit: No Status: Acute Plan to address problem: COVID-19 test is negative Morbid obesity; BMI 43 Patient needs weight reduction when medically stable Advised on inportance of lifestyle modification Healthy diet-more fruits and vegebles and avoid high calorie foods Osteroathritis DVT prophylaxis Current Visit: Yes Status: Acute Plan to address problem: SCD /heparin renal dose Debility Current Visit: Yes Status: Acute Plan to address problem: PT notes reviewed-patient needs physical therapy due to poor gait and instability. I believe patient will benefit from physical therapy. Still awaiting placement. Discussed with [employer] risk control field representative on 12/26 --Discharge planning issues patient ready for discharge Needs acceptance at [facility] by Ana Discussed with web site manager - Patient Problems (1) Diabetes mellitus Current Visit: Yes Status: Acute (2) Toxic metabolic encephalopathy Current Visit: Yes Status: Acute (3) Vascular dementia Current Visit: Yes Status: Acute Qualifiers: Dementia behavioral disturbance: without behavioral disturbance Qualified Code(s): F01.50 - Vascular dementia without behavioral disturbance (4) SIRS (systemic inflammatory response syndrome) Current Visit: Yes Status: Acute History Interval history: Patient seen and examined, no new complaints. Hospitalist Physical - Physical exam Narrative exam: VITAL SIGNS: Reviewed. GENERAL: Awake and alert on response to questions, LYING IN BED HEAD: No signs of head trauma. EYES: Pupils are equal. Extraocular motions intact. EARS: Hearing grossly intact. MOUTH: Oropharynx is normal. NECK: No adenopathy, no JVD. CHEST: Chest with diminished breath sounds bilaterally. No wheezes, rales, or rhonchi. CARDIAC: Regular rate and rhythm. S1 and S2, without murmurs, gallops, or rubs. VASCULAR: No Edema. Peripheral pulses normal and equal in all extremities. ABDOMEN: Soft, non tender and non distended. No rebound or guarding, and no masses palpated. Bowel Sounds normal. MUSCULOSKELETAL: Good range of motion of all major joints. Extremities without clubbing, cyanosis or edema. NEUROLOGIC EXAM: Alert and oriented x3. No focal neurologic deficits PSYCHIATRIC: Stable mood SKIN: No obvious lesions - Constitutional Vitals: Temp Pulse Resp BP Pulse Ox 98.0 F 72 16 136/79 97 01/02/20 08:16 01/02/20 09:35 01/02/20 03:35 01/02/20 09:35 01/02/20 08:16 General appearance: Present: no acute distress, well-nourished HEART Score - HEART Score Troponin: Troponin T < 0.010 ng/mL (0.00-0.029) 12/11/19 20:03 Results - Labs CBC & Chem 7: 12/31/19 04:39 12/31/19 04:39 Labs: Laboratory Last Values WBC 8.1 K/mm3 (4.5-11.0) 12/31/19 04:39 RBC 4.36 M/mm3 (3.65-5.03) 12/31/19 04:39 Hgb 13.2 gm/dl (11.8-15.2) 12/31/19 04:39 Hct 38.7 % (35.5-45.6) 12/31/19 04:39 MCV 89 fl (84-94) 12/31/19 04:39 MCH 30 pg (28-32) 12/31/19 04:39 MCHC 34 % (32-34) 12/31/19 04:39 RDW 14.0 % (13.2-15.2) 12/31/19 04:39 Plt Count 311 K/mm3 (140-440) 12/31/19 04:39 Lymph % (Auto) 30.6 % (13.4-35.0) 12/26/19 04:59 [place] % (Auto) 10.5 % (0.0-7.3) H 12/26/19 04:59 Eos % (Auto) 6.5 % (0.0-4.3) H 12/26/19 04:59 Baso % (Auto) 1.0 % (0.0-1.8) 12/26/19 04:59 Lymph # (Auto) 2.7 K/mm3 (1.2-5.4) 12/26/19 04:59 [place] # (Auto) 0.9 K/mm3 (0.0-0.8) H 12/26/19 04:59 Eos # (Auto) 0.6 K/mm3 (0.0-0.4) H 12/26/19 04:59 Baso # (Auto) 0.1 K/mm3 (0.0-0.1) 12/26/19 04:59 Add Manual Diff Complete 12/31/19 04:39 Total Counted 100 12/31/19 04:39 Seg Neutrophils % 51.4 % (40.0-70.0) 12/26/19 04:59 Seg Neuts % (Manual) 46.0 % (40.0-70.0) 12/31/19 04:39 Band Neutrophils % 0 % 12/31/19 04:39 Lymphocytes % (Manual) 40.0 % (13.4-35.0) H 12/31/19 04:39 Reactive Lymphs % (Man) 0 % 12/31/19 04:39 Monocytes % (Manual) 2.0 % (0.0-7.3) 12/31/19 04:39 Eosinophils % (Manual) 12.0 % (0.0-4.3) H 12/31/19 04:39 Basophils % (Manual) 0 % (0.0-1.8) 12/31/19 04:39 Metamyelocytes % 0 % 12/31/19 04:39 Myelocytes % 0 % 12/31/19 04:39 Promyelocytes % 0 % 12/31/19 04:39 Blast Cells % 0 % 12/31/19 04:39 Nucleated RBC % Not Reportable 12/31/19 04:39 Seg Neutrophils # 4.5 K/mm3 (1.8-7.7) 12/26/19 04:59 Seg Neutrophils # Man 3.7 K/mm3 (1.8-7.7) 12/31/19 04:39 Band Neutrophils # 0.0 K/mm3 12/31/19 04:39 Lymphocytes # (Manual) 3.2 K/mm3 (1.2-5.4) 12/31/19 04:39 Abs React Lymphs (Man) 0.0 K/mm3 12/31/19 04:39 Monocytes # (Manual) 0.2 K/mm3 (0.0-0.8) 12/31/19 04:39 Eosinophils # (Manual) 1.0 K/mm3 (0.0-0.4) H 12/31/19 04:39 Basophils # (Manual) 0.0 K/mm3 (0.0-0.1) 12/31/19 04:39 Metamyelocytes # 0.0 K/mm3 12/31/19 04:39 Myelocytes # 0.0 K/mm3 12/31/19 04:39 Promyelocytes # 0.0 K/mm3 12/31/19 04:39 Blast Cells # 0.0 K/mm3 12/31/19 04:39 WBC Morphology Not Reportable 12/31/19 04:39 Hypersegmented Neuts Not Reportable 12/31/19 04:39 Hyposegmented Neuts Not Reportable 12/31/19 04:39 Hypogranular Neuts Not Reportable 12/31/19 04:39 Smudge Cells Not Reportable 12/31/19 04:39 Toxic Granulation Not Reportable 12/31/19 04:39 Toxic Vacuolation Not Reportable 12/31/19 04:39 Dohle Bodies Not Reportable 12/31/19 04:39 Pelger-Huet Anomaly Not Reportable 12/31/19 04:39 Sam Rods Not Reportable 12/31/19 04:39 Platelet Estimate Consistent w auto 12/31/19 04:39 Clumped Platelets Not Reportable 12/31/19 04:39 Plt Clumps, EDTA Not Reportable 12/31/19 04:39 Large Platelets Not Reportable 12/31/19 04:39 Giant Platelets Not Reportable 12/31/19 04:39 Platelet Satelliting Not Reportable 12/31/19 04:39 Plt Morphology Comment Not Reportable 12/31/19 04:39 RBC Morphology Not Reportable 12/31/19 04:39 Dimorphic RBCs Not Reportable 12/31/19 04:39 Polychromasia Not Reportable 12/31/19 04:39 Hypochromasia Not Reportable 12/31/19 04:39 Poikilocytosis Not Reportable 12/31/19 04:39 Anisocytosis Not Reportable 12/31/19 04:39 Microcytosis Not Reportable 12/31/19 04:39 Macrocytosis Not Reportable 12/31/19 04:39 Spherocytes Not Reportable 12/31/19 04:39 Pappenheimer Bodies Not Reportable 12/31/19 04:39 Sickle Cells Not Reportable 12/31/19 04:39 Target Cells Not Reportable 12/31/19 04:39 Tear Drop Cells Not Reportable 12/31/19 04:39 Ovalocytes Not Reportable 12/31/19 04:39 Helmet Cells Not Reportable 12/31/19 04:39 [place] Bodies Not Reportable 12/31/19 04:39 [place] Rings Not Reportable 12/31/19 04:39 Sanam Cells Not Reportable 12/31/19 04:39 Bite Cells Not Reportable 12/31/19 04:39 Crenated Cell Not Reportable 12/31/19 04:39 Elliptocytes Not Reportable 12/31/19 04:39 Acanthocytes (Spur) Not Reportable 12/31/19 04:39 Rouleaux Not Reportable 12/31/19 04:39 Hemoglobin C Crystals Not Reportable 12/31/19 04:39 Schistocytes Not Reportable 12/31/19 04:39 Malaria parasites Not Reportable 12/31/19 04:39 [place] Bodies Not Reportable 12/31/19 04:39 Hem Pathologist Commnt No 12/31/19 04:39 PT 13.1 Sec. (12.2-14.9) 12/11/19 18:37 INR 0.97 (0.87-1.13) 12/11/19 18:37 APTT 20.1 Sec. (24.2-36.6) L 12/11/19 18:37 D-Dimer 550.63 ng/mlDDU (0-234) H 12/11/19 21:50 Sodium 135 mmol/L (137-145) L 12/31/19 04:39 Potassium 4.7 mmol/L (3.6-5.0) 12/31/19 04:39 Chloride 100.8 mmol/L (98-107) 12/31/19 04:39 Carbon Dioxide 25 mmol/L (22-30) 12/31/19 04:39 Anion Gap 14 mmol/L 12/31/19 04:39 BUN 35 mg/dL (9-20) H 12/31/19 04:39 Creatinine 2.7 mg/dL (0.8-1.3) H 12/31/19 04:39 Estimated GFR 28 ml/min 12/31/19 04:39 BUN/Creatinine Ratio 13 % 12/31/19 04:39 Glucose 189 mg/dL (75-100) H 12/31/19 04:39 POC Glucose 153 mg/dL (70-105) H 01/02/20 09:28 Hemoglobin A1c 9.7 % (4-6) H 12/12/19 05:05 Lactic Acid 1.50 mmol/L (0.7-2.0) 12/12/19 05:05 Calcium 9.5 mg/dL (8.4-10.2) 12/31/19 04:39 Ferritin 646.4 ng/mL (30.0-300.0) H 12/11/19 21:50 Total Bilirubin 0.70 mg/dL (0.1-1.2) 12/12/19 05:05 Direct Bilirubin < 0.2 mg/dL (0-0.2) 12/11/19 18:37 Indirect Bilirubin 0.6 mg/dL 12/11/19 18:37 AST 26 units/L (5-40) 12/12/19 05:05 ALT 15 units/L (7-56) 12/12/19 05:05 Alkaline Phosphatase 68 units/L (35-129) 12/12/19 05:05 Ammonia 36.0 umol/L (25-60) 12/11/19 18:37 Lactate Dehydrogenase 188 units/L (91-180) H 12/11/19 21:50 Troponin T < 0.010 ng/mL (0.00-0.029) 12/11/19 20:03 C-Reactive Protein 18.20 mg/dL (0.00-1.30) H 12/11/19 21:50 NT-Pro-B Natriuret Pep 224.4 pg/mL (0-900) 12/11/19 18:37 Serum Total Protein 6.8 g/dL (6.1-8.1) 12/16/19 20:24 Total Protein 8.0 g/dL (6.3-8.2) 12/12/19 05:05 Albumin 2.9 g/dL (3.8-4.8) L 12/16/19 20:24 Albumin/Globulin Ratio 0.6 % 12/12/19 05:05 Zavxf-5-Oskevjfji 0.5 g/dL (0.2-0.3) H 12/16/19 20:24 Arvfc-4-Tcgyvpege 0.9 g/dL (0.5-0.9) 12/16/19 20:24 Beta Globulins 0.6 g/dL (0.2-0.5) H 12/16/19 20:24 Gamma Globulins 1.4 g/dL (0.8-1.7) 12/16/19 20:24 Abnorm Protein Band 1 see below 12/16/19 20:24 PEP Interpretation see below H 12/16/19 20:24 Procalcitonin 0.18 ng/mL (<0.15) 12/11/19 21:50 TSH 1.240 mlU/mL (0.270-4.200) 12/11/19 18:37 PTH Intact 78.16 pg/mL (15-65) H 12/16/19 20:24 Urine Color Yellow (Yellow) 12/11/19 23:00 Urine Turbidity Clear (Clear) 12/11/19 23:00 Urine pH 6.0 (5.0-7.0) 12/11/19 23:00 Ur Specific [place] 1.013 (1.003-1.030) 12/11/19 23:00 Urine Protein 30 mg/dl mg/dL (Negative) 12/11/19 23:00 Urine Glucose (UA) 150 mg/dL (Negative) 12/11/19 23:00 Urine Ketones Neg mg/dL (Negative) 12/11/19 23:00 Urine Blood Mod (Negative) 12/11/19 23:00 Urine Nitrite Neg (Negative) 12/11/19 23:00 Urine Bilirubin Neg (Negative) 12/11/19 23:00 Urine Urobilinogen 2.0 mg/dL (<2.0) 12/11/19 23:00 Ur Leukocyte Esterase Neg (Negative) 12/11/19 23:00 Urine WBC (Auto) 1.0 /HPF (0.0-6.0) 12/11/19 23:00 Urine RBC (Auto) 1.0 /HPF (0.0-6.0) 12/11/19 23:00 U Epithel Cells (Auto) 1.0 /HPF (0-13.0) 12/11/19 23:00 Urine Creatinine 42.2 mg/dL (0.1-20.0) H 12/16/19 06:52 Protein/Creatinin Ratio 0.21 12/16/19 06:52 Urine Total Protein 9 mg/dL (5-11.8) 12/16/19 06:52 DUNG Screen Negative (Negative) 12/16/19 20:24 Proteinase 3 (PR3) Ab <1.0 AI (<1.0) 12/16/19 20:24 Myeloperoxidase Ab <1.0 AI (<1.0) 12/16/19 20:24 Complement C3 166 mg/dL (82-185) 12/16/19 20:24 Complement C4 58 mg/dL (15-53) H 12/16/19 20:24 Coronavirus (PCR) Negative (Negative) 12/28/19 Unknown Robert/IV: Voiding Method Urinal IV Catheter Type [Left Hand] INT / Saline Lock IV Catheter Type [Right Peripheral IV Antecubital] Active Medications - Current Medications Current Medications: Generic Name Dose Route Start Last Admin Trade Name Freq PRN Reason Stop Dose Admin Acetaminophen 650 mg 12/11/19 21:48 12/16/19 22:31 Tylenol PO 650 mg Q4H PRN Administration Pain MILD(1-3)/Fever >100.5/MUSTAFA Aspirin 325 mg 12/13/19 22:00 01/01/20 22:16 Aspirin PO 325 mg HS JOHNNY Administration Dextrose 0 ml 12/11/19 22:45 D50w (25gm) Syringe IV Q30MIN PRN Hypoglycemia Protocol Heparin Sodium (Porcine) 5,000 unit 12/11/19 22:00 01/02/20 09:36 Heparin SUB-Q 5,000 unit Q12HR JOHNNY Administration Insulin Glargine 40 units 12/29/19 22:00 01/01/20 22:17 Lantus SUB-Q 40 units QHS JOHNNY Administration Insulin Human Lispro 0 unit 12/12/19 07:30 01/02/20 09:31 Humalog SUB-Q 2 unit ACHS JOHNNY Administration Protocol Insulin Human Lispro 6 unit 12/29/19 08:30 01/02/20 09:31 Humalog SUB-Q 6 unit AC JOHNNY Administration Lactulose 20 gm 12/22/19 15:00 12/29/19 11:06 Cephulac PO 20 gm QDAY PRN Administration Constipation Metoprolol Tartrate 12.5 mg 12/27/19 22:00 01/02/20 09:35 Metoprolol PO 12.5 mg BID JOHNNY Administration Ondansetron HCl 4 mg 12/11/19 21:48 Zofran IV Q8H PRN Nausea And Vomiting Oxycodone/Acetaminophen 1 tab 12/11/19 21:53 01/01/20 03:47 Percocet 5/325 PO 1 tab Q6H PRN Administration PAIN (4-6) Pravastatin Sodium 80 mg 12/13/19 22:00 01/01/20 22:16 Pravachol PO 80 mg QHS JOHNNY Administration Sodium Chloride 10 ml 12/11/19 22:00 01/01/20 22:17 Sodium Chloride Flush Syringe 10 Ml IV 10 ml BID JOHNNY Administration Sodium Chloride 10 ml 12/11/19 21:48 12/12/19 06:04 Sodium Chloride Flush Syringe 10 Ml IV 10 ml PRN PRN Administration LINE FLUSH Nutrition/Malnutrition Assess - Dietary Evaluation Nutrition/Malnutrition Findings: Nutrition Notes Start: 12/18/19 12:19 Freq: Status: Active Protocol: Document 12/31/19 12:01 LM (Rec: 12/31/19 12:03 LM [email or web address]) Nutrition Notes Initial or Follow up Brief Note Subjective/Other Information Pt stated he did not get breakfast but has good appetite and ate well yesterday. Pt with 75-100% intakes in chart. #1 Nutrition Diagnosis Inadequate oral intake As Evidenced by Signs and Symptoms Pt continuing to eat 75% of meals Diagnosis Progress(for reassessment Resolved documentation) Nutrition Intervention Revisit per MD consult or patient Sign Off request:
[2020-01-02] MEDS: oxyCODONE /ACETAMINOPHEN 5-325MG TAB PO PRN (12:25)
[2020-01-02] MEDS: PRAVASTATIN 80 MG TAB PO SCH (21:07)
[2020-01-02] MEDS: ASPIRIN 325 MG TAB PO SCH (21:08)
[2020-01-02] MEDS: INSULIN GLARGINE 100 UNITS/ML SUB-Q SCH (21:14)
[2020-01-03 07:31] LABS: Hematocrit 39.1 % (35.5-45.6); Hemoglobin 13.2 gm/dl (11.8-15.2); Mean Corpuscular HGB Conc 34 % (32-34); Mean Corpuscular Volume 89 fl (84-94); Platelet Count 278 K/mm3 (140-440); Red Blood Count 4.41 M/mm3 (3.65-5.03); Red Cell Distribution Width 14.1 % (13.2-15.2)
[2020-01-03 07:55] LABS: Calcium 9.6 mg/dL (8.4-10.2)
--- NOTE | 2020-01-03 08:07 | Progress Note ---
Subjective Principal diagnosis: Encephalopathy Interval history: Patient was seen today for follow-up of multiple renal related issues, around 10:45 in the morning Patient says that he is being followed up in our office No complaints of any chest pain pressure or shortness of breath Interdisciplinary notes that also reviewed Events of 24 hours vitals labs intake output medications were reviewed Past medical history: Reviewed Family history: Reviewed Social history: Reviewed Allergies: Reviewed Physical examination: Vitals: Reviewed HEENT: No pallor or icterus oral mucosa moist Neck: Supple no JVD no thyromegaly Chest: Bilateral clear to auscultation anteriorly Heart: Regular rate and rhythm S1-S2 heard no S3-S4 Abdomen: Soft nontender no voluntary guarding rigidity rebound Extremity: Dry skin less than 1+ peripheral edema Psychiatric: No evidence of agitation and aggression noted Dermatology: No petechial rashes Labs and x-rays: Reviewed from today Assessment and plan Stage III chronic kidney disease in a patient was 7-year-old has history of hypertension diabetes coronary artery disease and coronary bypass graft, patient was advised to make an appointment for follow-up in the office he is suitable for discharge from renal standpoint baseline creatinine has been around 2.1-2.3 He needs to work on his diet and lifestyle changes he is aware that he is high risk for progression given that his BMI is 41 Must follow a proper renal diet, and make an appointment for follow-up with our office in 1-2 weeks upon discharge As of today's hemoglobin is 13.2 creatinine is around 2.1 Renal ultrasonogram obtained this month shows no evidence of any sonographic abnormality other than tiny renal stone Patient was adequately counseled and educated regarding all the renal related issues Laboratory studies, have been explained to the patient All questions were answered and simple [place] We'll continue to follow and make recommendation for renal standpoint Objective - Vital Signs Vital signs: Vital Signs - 12hr 01/02/20 01/02/20 01/03/20 21:07 23:18 03:20 Temperature 98.2 F 98.1 F Pulse Rate 77 75 76 Respiratory 16 16 Rate Blood Pressure 115/57 109/48 100/50 O2 Sat by Pulse 92 95 Oximetry - Lab 01/03/20 07:08 01/03/20 07:08 Most recent lab results Calcium 9.6 mg/dL (8.4-10.2) 01/03/20 07:08 Urine Creatinine 42.2 mg/dL (0.1-20.0) H 12/16/19 06:52 Urine Total Protein 9 mg/dL (5-11.8) 12/16/19 06:52 Medications & Allergies - Medications Allergies/Adverse Reactions: Allergies No Known Allergies Allergy (Verified 04/19/14 09:47) Home Medications: Home Medications Medication Instructions Recorded Confirmed Last Taken Type Aspirin 325 mg PO HS 12/11/19 12/11/19 12/10/19 History ISOSORBIDE MONOnitrate [Imdur ER] 30 mg PO DAILY 12/11/19 12/11/19 12/10/19 History Insulin NPH/Regular [NovoLIN 70/30] 50 unit SQ BID 12/11/19 12/11/19 12/11/19 History Simvastatin 40 mg PO HS 12/11/19 12/11/19 12/10/19 History Metoprolol [Lopressor TAB] 12.5 mg PO BID #60 tablet 12/28/19 Unknown Rx Active Medications: Generic Name Dose Route Start Last Admin Trade Name Mayitoq PRN Reason Stop Dose Admin Acetaminophen 650 mg 12/11/19 21:48 12/16/19 22:31 Tylenol PO 650 mg Q4H PRN Administration Pain MILD(1-3)/Fever >100.5/MUSTAFA Aspirin 325 mg 12/13/19 22:00 01/02/20 21:08 Aspirin PO 325 mg HS JOHNNY Administration Dextrose 0 ml 12/11/19 22:45 D50w (25gm) Syringe IV Q30MIN PRN Hypoglycemia Protocol Heparin Sodium (Porcine) 5,000 unit 12/11/19 22:00 01/02/20 21:14 Heparin SUB-Q 5,000 unit Q12HR JOHNNY Administration Insulin Glargine 40 units 12/29/19 22:00 01/02/20 21:14 Lantus SUB-Q 40 units QHS JOHNNY Administration Insulin Human Lispro 0 unit 12/12/19 07:30 01/02/20 21:15 Humalog SUB-Q 2 unit ACHS JOHNNY Administration Protocol Insulin Human Lispro 6 unit 12/29/19 08:30 01/02/20 18:40 Humalog SUB-Q 6 unit AC JOHNNY Administration Lactulose 20 gm 12/22/19 15:00 12/29/19 11:06 Cephulac PO 20 gm QDAY PRN Administration Constipation Metoprolol Tartrate 12.5 mg 12/27/19 22:00 01/02/20 21:07 Metoprolol PO 12.5 mg BID JOHNNY Administration Ondansetron HCl 4 mg 12/11/19 21:48 Zofran IV Q8H PRN Nausea And Vomiting Oxycodone/Acetaminophen 1 tab 12/11/19 21:53 01/02/20 12:25 Percocet 5/325 PO 1 tab Q6H PRN Administration PAIN (4-6) Pravastatin Sodium 80 mg 12/13/19 22:00 01/02/20 21:07 Pravachol PO 80 mg QHS JOHNNY Administration Sodium Chloride 10 ml 12/11/19 22:00 01/02/20 21:11 Sodium Chloride Flush Syringe 10 Ml IV 10 ml BID JOHNNY Administration Sodium Chloride 10 ml 12/11/19 21:48 12/12/19 06:04 Sodium Chloride Flush Syringe 10 Ml IV 10 ml PRN PRN Administration LINE FLUSH
[2020-01-03] MEDS: INSULIN LISPRO 100 UNIT/ML VIAL 3 mL SUB-Q SCH ×7 (10:26→22:09)
[2020-01-03] MEDS: METOPROLOL TARTRATE 25 MG TAB PO SCH ×2 (10:26→22:26)
[2020-01-03] MEDS: HEPARIN 5,000 UNIT/1 ML VIAL SUB-Q SCH ×2 (10:27→22:08)
[2020-01-03] MEDS: oxyCODONE /ACETAMINOPHEN 5-325MG TAB PO PRN (10:31)
--- NOTE | 2020-01-03 12:12 | Progress Note ---
Assessment and Plan Assessment and plan: 79 YO Male with CAD S/P CABG, HTN, DM, Vascular Dementia, Cerebral Atherosclerosis, Obesity Hypoventilation Syndrome, presents to ED for evaluation. Patient is confused with diminished cognition and is unable to provide history. Patient history provided by EMS staff, ED staff, as well as patient family who was at bedside during exam and interview. As per family the patient has experienced increased weakness and confusion over the past 1 month with progressively worsening symptoms over the same timeframe. Patient is currently bedbound, and nonambulatory as per family report. Patient also requir es 6/6 assistance with activities of daily living. EMS was notified and upon arrival the patient was found to be confused and in distress with a temperature 101.2 F. Patient was subsequently transported to [facility] for further care and evaluation of the aforementioned symptoms. Patient seen and evaluated in the emergency department. Lab and imaging studies reviewed. Patient underwent chest x-ray which revealed pneumonia complicated by sepsis, toxic metabolic encephalopathy. Patient initiated on sepsis protocol as well as coronavirus protocol in the emergency department. Patient is confused and lethargic with diminished cognition but has a positive gag reflex and is able to protect his airway. No further history obtainable. Advanced care planning conducted in ED. 12/24/2019 Patient seen at bedside-alert and oriented-on room air Reviewed lab, mar, and v/s Reviewed SW and PT note subacute/SNF placement and recommended Patient is awaiting placement. placement permission at [facility] pending from [facility] Medically stable for discharge 12/25/2019 Patient has no complaints today Still pending placement 12/26/2019 Patient needs rehabilitation due to poor gait and instability. PT note has been reviewed and I agree with assessment Discussed with patient's daughter this a.m. 12/27/2019 Still awaiting placement He has no complaints this morning 12/27. Planned for DC but insurance has not approved transfer to facility so DC was canceled. 12/28 - 12/29. BP soft. holding nitrates. No fever. Monitor BP. 12/30. Has no complaints. PT to reevaluate patient so insurance can review. Vitals reviewed. 12/31: AWAITING PLACEMENT, per Nephrology continue to hold Lasix, renal function is sable and appears to be at baseline. Continue to monitor Blood glucose and will obtain repeat PT/OT eval. 01/01. Continue to monitor., Discussed with the daughter and also the insurance company trying to do a fast appeal. Left my phone number. Continue to monitor Blood sugar. will check labs PRN Patient is not bedbound, he informs me that a few weeks prior to admission he was having pain in the Right leg, he was informed that he has severe osteoarthr itis and needs some injections. He definitely needs rehab and will continue with ortho outpatient. He needs to loose weight too 01/02 Pending placement. NO CLINICAL CHANGE Problems Toxic metabolic encephalopathy-resolved Current Visit: Yes Status: Acute Plan to address problem: Present on admission, improved SIRS:[No criteria for sepsis]-improved Current Visit: Yes Status: Acute Plan to address problem: Improved Acute bronchitis-improved Current Visit: Yes Status: Acute . Plan to address problem: Chest x-ray negative for pneumonia Continue current management Coronary artery disease status post CABG ; Current Visit: Yes Status: Acute . Plan to address problem: Continue cardiac protective measures Condition is stable -denies ACS signs Type II diabetes mellitus-stable Current Visit: Yes Status: Acute Plan to address problem: Monitor blood sugar with SSIt Continue Lantus Adjust if needed A1c is 9.7 Acute Kidney Injury-WITH ATN stable patient w/ multiple risk factors for CKD - DM, HTN, CAD Current Visit: No Status: Acute Plan to address problem: Current creatinine stable Underlying CKD Creatinine 2.3 Hyponatremia; present on admission likely 2/2 to EUFEMIA improved, Continue monitor electrolytes Suspected COVID-19 virus infection Current Visit: No Status: Acute Plan to address problem: COVID-19 test is negative Morbid obesity; BMI 43 Patient needs weight reduction when medically stable Advised on inportance of lifestyle modification Healthy diet-more fruits and vegebles and avoid high calorie foods Osteroathritis DVT prophylaxis Current Visit: Yes Status: Acute Plan to address problem: SCD /heparin renal dose Debility Current Visit: Yes Status: Acute Plan to address problem: PT notes reviewed-patient needs physical therapy due to poor gait and insta bility. I believe patient will benefit from physical therapy. Still awaiting placement. Discussed with [employer] insurance representative on 12/26 --Discharge planning issues patient ready for discharge Needs acceptance at [facility] by Ana Discussed with evaluation manager - Patient Problems (1) Diabetes mellitus Current Visit: Yes Status: Acute (2) Toxic metabolic encephalopathy Current Visit: Yes Status: Acute (3) Vascular dementia Current Visit: Yes Status: Acute Qualifiers: Dementia behavioral disturbance: without behavioral disturbance Qualified Code(s): F01.50 - Vascular dementia without behavioral disturbance (4) SIRS (systemic inflammatory response syndrome) Current Visit: Yes Status: Acute History Interval history: Patient seen and examined, no new complaints. Hospitalist Physical - Physical exam Narrative exam: VITAL SIGNS: Reviewed. GENERAL: Awake and alert on response to questions, LYING IN BED. NO CLINICAL CHANGE HEAD: No signs of head trauma. EYES: Pupils are equal. Extraocular motions intact. EARS: Hearing grossly intact. MOUTH: Oropharynx is normal. NECK: No adenopathy, no JVD. CHEST: Chest with diminished breath sounds bilaterally. No wheezes, rales, or rhonchi. CARDIAC: Regular rate and rhythm. S1 and S2, without murmurs, gallops, or rubs. VASCULAR: No Edema. Peripheral pulses normal and equal in all extremities. ABDOMEN: Soft, non tender and non distended. No rebound or guarding, and no masses palpated. Bowel Sounds normal. MUSCULOSKELETAL: Good range of motion of all major joints. Extremities without clubbing, cyanosis or edema. NEUROLOGIC EXAM: Alert and oriented x3. No focal neurologic deficits PSYCHIATRIC: Stable mood SKIN: No obvious lesions - Constitutional Vitals: Temp Pulse Resp BP Pulse Ox 98.0 F 81 18 110/65 97 01/03/20 08:41 01/03/20 08:41 01/03/20 08:41 01/03/20 08:41 01/03/20 08:41 General appearance: Present: no acute distress, well-nourished HEART Score - HEART Score Troponin: Troponin T < 0.010 ng/mL (0.00-0.029) 12/11/19 20:03 Results - Labs CBC & Chem 7: 01/03/20 07:08 01/03/20 07:08 Labs: Laboratory Last Values WBC 7.2 K/mm3 (4.5-11.0) 01/03/20 07:08 RBC 4.41 M/mm3 (3.65-5.03) 01/03/20 07:08 Hgb 13.2 gm/dl (11.8-15.2) 01/03/20 07:08 Hct 39.1 % (35.5-45.6) 01/03/20 07:08 MCV 89 fl (84-94) 01/03/20 07:08 MCH 30 pg (28-32) 01/03/20 07:08 MCHC 34 % (32-34) 01/03/20 07:08 RDW 14.1 % (13.2-15.2) 01/03/20 07:08 Plt Count 278 K/mm3 (140-440) 01/03/20 07:08 Lymph % (Auto) 30.6 % (13.4-35.0) 12/26/19 04:59 [place] % (Auto) 10.5 % (0.0-7.3) H 12/26/19 04:59 Eos % (Auto) 6.5 % (0.0-4.3) H 12/26/19 04:59 Baso % (Auto) 1.0 % (0.0-1.8) 12/26/19 04:59 Lymph # (Auto) 2.7 K/mm3 (1.2-5.4) 12/26/19 04:59 [place] # (Auto) 0.9 K/mm3 (0.0-0.8) H 12/26/19 04:59 Eos # (Auto) 0.6 K/mm3 (0.0-0.4) H 12/26/19 04:59 Baso # (Auto) 0.1 K/mm3 (0.0-0.1) 12/26/19 04:59 Add Manual Diff Complete 12/31/19 04:39 Total Counted 100 12/31/19 04:39 Seg Neutrophils % 51.4 % (40.0-70.0) 12/26/19 04:59 Seg Neuts % (Manual) 46.0 % (40.0-70.0) 12/31/19 04:39 Band Neutrophils % 0 % 12/31/19 04:39 Lymphocytes % (Manual) 40.0 % (13.4-35.0) H 12/31/19 04:39 Reactive Lymphs % (Man) 0 % 12/31/19 04:39 Monocytes % (Manual) 2.0 % (0.0-7.3) 12/31/19 04:39 Eosinophils % (Manual) 12.0 % (0.0-4.3) H 12/31/19 04:39 Basophils % (Manual) 0 % (0.0-1.8) 12/31/19 04:39 Metamyelocytes % 0 % 12/31/19 04:39 Myelocytes % 0 % 12/31/19 04:39 Promyelocytes % 0 % 12/31/19 04:39 Blast Cells % 0 % 12/31/19 04:39 Nucleated RBC % Not Reportable 12/31/19 04:39 Seg Neutrophils # 4.5 K/mm3 (1.8-7.7) 12/26/19 04:59 Seg Neutrophils # Man 3.7 K/mm3 (1.8-7.7) 12/31/19 04:39 Band Neutrophils # 0.0 K/mm3 12/31/19 04:39 Lymphocytes # (Manual) 3.2 K/mm3 (1.2-5.4) 12/31/19 04:39 Abs React Lymphs (Man) 0.0 K/mm3 12/31/19 04:39 Monocytes # (Manual) 0.2 K/mm3 (0.0-0.8) 12/31/19 04:39 Eosinophils # (Manual) 1.0 K/mm3 (0.0-0.4) H 12/31/19 04:39 Basophils # (Manual) 0.0 K/mm3 (0.0-0.1) 12/31/19 04:39 Metamyelocytes # 0.0 K/mm3 12/31/19 04:39 Myelocytes # 0.0 K/mm3 12/31/19 04:39 Promyelocytes # 0.0 K/mm3 12/31/19 04:39 Blast Cells # 0.0 K/mm3 12/31/19 04:39 WBC Morphology Not Reportable 12/31/19 04:39 Hypersegmented Neuts Not Reportable 12/31/19 04:39 Hyposegmented Neuts Not Reportable 12/31/19 04:39 Hypogranular Neuts Not Reportable 12/31/19 04:39 Smudge Cells Not Reportable 12/31/19 04:39 Toxic Granulation Not Reportable 12/31/19 04:39 Toxic Vacuolation Not Reportable 12/31/19 04:39 Dohle Bodies Not Reportable 12/31/19 04:39 Pelger-Huet Anomaly Not Reportable 12/31/19 04:39 Asm Rods Not Reportable 12/31/19 04:39 Platelet Estimate Consistent w auto 12/31/19 04:39 Clumped Platelets Not Reportable 12/31/19 04:39 Plt Clumps, EDTA Not Reportable 12/31/19 04:39 Large Platelets Not Reportable 12/31/19 04:39 Giant Platelets Not Reportable 12/31/19 04:39 Platelet Satelliting Not Reportable 12/31/19 04:39 Plt Morphology Comment Not Reportable 12/31/19 04:39 RBC Morphology Not Reportable 12/31/19 04:39 Dimorphic RBCs Not Reportable 12/31/19 04:39 Polychromasia Not Reportable 12/31/19 04:39 Hypochromasia Not Reportable 12/31/19 04:39 Poikilocytosis Not Reportable 12/31/19 04:39 Anisocytosis Not Reportable 12/31/19 04:39 Microcytosis Not Reportable 12/31/19 04:39 Macrocytosis Not Reportable 12/31/19 04:39 Spherocytes Not Reportable 12/31/19 04:39 Pappenheimer Bodies Not Reportable 12/31/19 04:39 Sickle Cells Not Reportable 12/31/19 04:39 Target Cells Not Reportable 12/31/19 04:39 Tear Drop Cells Not Reportable 12/31/19 04:39 Ovalocytes Not Reportable 12/31/19 04:39 Helmet Cells Not Reportable 12/31/19 04:39 [place] Bodies Not Reportable 12/31/19 04:39 [place] Rings Not Reportable 12/31/19 04:39 [place] Cells Not Reportable 12/31/19 04:39 Bite Cells Not Reportable 12/31/19 04:39 Crenated Cell Not Reportable 12/31/19 04:39 Elliptocytes Not Reportable 12/31/19 04:39 Acanthocytes (Spur) Not Reportable 12/31/19 04:39 Rouleaux Not Reportable 12/31/19 04:39 Hemoglobin C Crystals Not Reportable 12/31/19 04:39 Schistocytes Not Reportable 12/31/19 04:39 Malaria parasites Not Reportable 12/31/19 04:39 [place] Bodies Not Reportable 12/31/19 04:39 Hem Pathologist Commnt No 12/31/19 04:39 PT 13.1 Sec. (12.2-14.9) 12/11/19 18:37 INR 0.97 (0.87-1.13) 12/11/19 18:37 APTT 20.1 Sec. (24.2-36.6) L 12/11/19 18:37 D-Dimer 550.63 ng/mlDDU (0-234) H 12/11/19 21:50 Sodium 136 mmol/L (137-145) L 01/03/20 07:08 Potassium 4.3 mmol/L (3.6-5.0) 01/03/20 07:08 Chloride 104.0 mmol/L (98-107) 01/03/20 07:08 Carbon Dioxide 22 mmol/L (22-30) 01/03/20 07:08 Anion Gap 14 mmol/L 01/03/20 07:08 BUN 27 mg/dL (9-20) H 01/03/20 07:08 Creatinine 2.1 mg/dL (0.8-1.3) H 01/03/20 07:08 Estimated GFR 37 ml/min 01/03/20 07:08 BUN/Creatinine Ratio 13 % 01/03/20 07:08 Glucose 166 mg/dL (75-100) H 01/03/20 07:08 POC Glucose 181 mg/dL (70-105) H 01/03/20 11:10 Hemoglobin A1c 9.7 % (4-6) H 12/12/19 05:05 Lactic Acid 1.50 mmol/L (0.7-2.0) 12/12/19 05:05 Calcium 9.6 mg/dL (8.4-10.2) 01/03/20 07:08 Ferritin 646.4 ng/mL (30.0-300.0) H 12/11/19 21:50 Total Bilirubin 0.70 mg/dL (0.1-1.2) 12/12/19 05:05 Direct Bilirubin < 0.2 mg/dL (0-0.2) 12/11/19 18:37 Indirect Bilirubin 0.6 mg/dL 12/11/19 18:37 AST 26 units/L (5-40) 12/12/19 05:05 ALT 15 units/L (7-56) 11/04/20 05:05 Alkaline Phosphatase 68 units/L (35-129) 12/12/19 05:05 Ammonia 36.0 umol/L (25-60) 12/11/19 18:37 Lactate Dehydrogenase 188 units/L (91-180) H 12/11/19 21:50 Troponin T < 0.010 ng/mL (0.00-0.029) 12/11/19 20:03 C-Reactive Protein 18.20 mg/dL (0.00-1.30) H 12/11/19 21:50 NT-Pro-B Natriuret Pep 224.4 pg/mL (0-900) 12/11/19 18:37 Serum Total Protein 6.8 g/dL (6.1-8.1) 12/16/19 20:24 Total Protein 8.0 g/dL (6.3-8.2) 12/12/19 05:05 Albumin 2.9 g/dL (3.8-4.8) L 12/16/19 20:24 Albumin/Globulin Ratio 0.6 % 12/12/19 05:05 Jrxsb-6-Fcasqabsu 0.5 g/dL (0.2-0.3) H 12/16/19 20:24 Hnozl-5-Jineavqnd 0.9 g/dL (0.5-0.9) 12/16/19 20:24 Beta Globulins 0.6 g/dL (0.2-0.5) H 12/16/19 20:24 Gamma Globulins 1.4 g/dL (0.8-1.7) 12/16/19 20:24 Abnorm Protein Band 1 see below 12/16/19 20:24 PEP Interpretation see below H 12/16/19 20:24 Procalcitonin 0.18 ng/mL (<0.15) 12/11/19 21:50 TSH 1.240 mlU/mL (0.270-4.200) 12/11/19 18:37 PTH Intact 78.16 pg/mL (15-65) H 12/16/19 20:24 Urine Color Yellow (Yellow) 12/11/19 23:00 Urine Turbidity Clear (Clear) 12/11/19 23:00 Urine pH 6.0 (5.0-7.0) 12/11/19 23:00 Ur Specific [place] 1.013 (1.003-1.030) 12/11/19 23:00 Urine Protein 30 mg/dl mg/dL (Negative) 12/11/19 23:00 Urine Glucose (UA) 150 mg/dL (Negative) 12/11/19 23:00 Urine Ketones Neg mg/dL (Negative) 12/11/19 23:00 Urine Blood Mod (Negative) 12/11/19 23:00 Urine Nitrite Neg (Negative) 12/11/19 23:00 Urine Bilirubin Neg (Negative) 12/11/19 23:00 Urine Urobilinogen 2.0 mg/dL (<2.0) 12/11/19 23:00 Ur Leukocyte Esterase Neg (Negative) 12/11/19 23:00 Urine WBC (Auto) 1.0 /HPF (0.0-6.0) 12/11/19 23:00 Urine RBC (Auto) 1.0 /HPF (0.0-6.0) 12/11/19 23:00 U Epithel Cells (Auto) 1.0 /HPF (0-13.0) 12/11/19 23:00 Urine Creatinine 42.2 mg/dL (0.1-20.0) H 12/16/19 06:52 Protein/Creatinin Ratio 0.21 12/16/19 06:52 Urine Total Protein 9 mg/dL (5-11.8) 12/16/19 06:52 DUNG Screen Negative (Negative) 12/16/19 20:24 Proteinase 3 (PR3) Ab <1.0 AI (<1.0) 12/16/19 20:24 Myeloperoxidase Ab <1.0 AI (<1.0) 12/16/19 20:24 Complement C3 166 mg/dL (82-185) 12/16/19 20:24 Complement C4 58 mg/dL (15-53) H 12/16/19 20:24 Coronavirus (PCR) Negative (Negative) 12/28/19 Unknown Robert/IV: Voiding Method Urinal IV Catheter Type [Left Hand] INT / Saline Lock IV Catheter Type [Right Peripheral IV Antecubital] Active Medications - Current Medications Current Medications: Generic Name Dose Route Start Last Admin Trade Name Freq PRN Reason Stop Dose Admin Acetaminophen 650 mg 12/11/19 21:48 12/16/19 22:31 Tylenol PO 650 mg Q4H PRN Administration Pain MILD(1-3)/Fever >100.5/MUSTAFA Aspirin 325 mg 12/13/19 22:00 01/02/20 21:08 Aspirin PO 325 mg HS JOHNNY Administration Dextrose 0 ml 12/11/19 22:45 D50w (25gm) Syringe IV Q30MIN PRN Hypoglycemia Protocol Heparin Sodium (Porcine) 5,000 unit 12/11/19 22:00 01/03/20 10:27 Heparin SUB-Q 5,000 unit Q12HR JOHNNY Administration Insulin Glargine 40 units 12/29/19 22:00 01/02/20 21:14 Lantus SUB-Q 40 units QHS JOHNNY Administration Insulin Human Lispro 0 unit 12/12/19 07:30 01/03/20 10:27 Humalog SUB-Q 2 unit ACHS JOHNNY Administration Protocol Insulin Human Lispro 6 unit 12/29/19 08:30 01/03/20 10:26 Humalog SUB-Q 6 unit AC JOHNNY Administration Lactulose 20 gm 12/22/19 15:00 12/29/19 11:06 Cephulac PO 20 gm QDAY PRN Administration Constipation Metoprolol Tartrate 12.5 mg 12/27/19 22:00 01/03/20 10:26 Metoprolol PO 12.5 mg BID JOHNNY Administration Ondansetron HCl 4 mg 12/11/19 21:48 Zofran IV Q8H PRN Nausea And Vomiting Oxycodone/Acetaminophen 1 tab 12/11/19 21:53 01/03/20 10:31 Percocet 5/325 PO 1 tab Q6H PRN Administration PAIN (4-6) Pravastatin Sodium 80 mg 12/13/19 22:00 01/02/20 21:07 Pravachol PO 80 mg QHS JOHNNY Administration Sodium Chloride 10 ml 12/11/19 22:00 01/03/20 10:27 Sodium Chloride Flush Syringe 10 Ml IV 10 ml BID JOHNNY Administration Sodium Chloride 10 ml 12/11/19 21:48 12/12/19 06:04 Sodium Chloride Flush Syringe 10 Ml IV 10 ml PRN PRN Administration LINE FLUSH Nutrition/Malnutrition Assess - Dietary Evaluation Nutrition/Malnutrition Findings: Nutrition Notes Start: 12/18/19 12:19 Freq: Status: Active Protocol: Document 12/31/19 12:01 LM (Rec: 12/31/19 12:03 LM [id number]) Nutrition Notes Initial or Follow up Brief Note Subjective/Other Information Pt stated he did not get breakfast but has good appetite and ate well yesterday. Pt with 75-100% intakes in chart. #1 Nutrition Diagnosis Inadequate oral intake As Evidenced by Signs and Symptoms Pt continuing to eat 75% of meals Diagnosis Progress(for reassessment Resolved documentation) Nutrition Intervention Revisit per MD consult or patient Sign Off request:
[2020-01-03] MEDS: ASPIRIN 325 MG TAB PO SCH (22:08)
[2020-01-03] MEDS: PRAVASTATIN 80 MG TAB PO SCH (22:08)
[2020-01-03] MEDS: INSULIN GLARGINE 100 UNITS/ML SUB-Q SCH (22:08)
[2020-01-04] MEDS: INSULIN LISPRO 100 UNIT/ML VIAL 3 mL SUB-Q SCH ×7 (08:07→22:28)
[2020-01-04] MEDS: oxyCODONE /ACETAMINOPHEN 5-325MG TAB PO PRN (08:40)
[2020-01-04] MEDS: METOPROLOL TARTRATE 25 MG TAB PO SCH ×2 (09:07→22:26)
[2020-01-04] MEDS: HEPARIN 5,000 UNIT/1 ML VIAL SUB-Q SCH ×2 (09:07→22:26)
--- NOTE | 2020-01-04 11:04 | Progress Note ---
Assessment and Plan Assessment and plan: 79 YO Male with CAD S/P CABG, HTN, DM, Vascular Dementia, Cerebral Atherosclerosis, Obesity Hypoventilation Syndrome, presents to ED for evaluation. Patient is confused with diminished cognition and is unable to provide history. Patient history provided by EMS staff, ED staff, as well as patient family who was at bedside during exam and interview. As per family the patient has experienced increased weakness and confusion over the past 1 month with progressively worsening symptoms over the same timeframe. Patient is currently bedbound, and nonambulatory as per family report. Patient also requir es 6/6 assistance with activities of daily living. EMS was notified and upon arrival the patient was found to be confused and in distress with a temperature 101.2 F. Patient was subsequently transported to [facility] for further care and evaluation of the aforementioned symptoms. Patient seen and evaluated in the emergency department. Lab and imaging studies reviewed. Patient underwent chest x-ray which revealed pneumonia complicated by sepsis, toxic metabolic encephalopathy. Patient initiated on sepsis protocol as well as coronavirus protocol in the emergency department. Patient is confused and lethargic with diminished cognition but has a positive gag reflex and is able to protect his airway. No further history obtainable. Advanced care planning conducted in ED. 12/24/2019 Patient seen at bedside-alert and oriented-on room air Reviewed lab, mar, and v/s Reviewed SW and PT note subacute/SNF placement and recommended Patient is awaiting placement. placement permission at [facility] pending from [facility] Medically stable for discharge 12/25/2019 Patient has no complaints today Still pending placement 12/26/2019 Patient needs rehabilitation due to poor gait and instability. PT note has been reviewed and I agree with assessment Discussed with patient's daughter this a.m. 12/27/2019 Still awaiting placement He has no complaints this morning 12/27. Planned for DC but insurance has not approved transfer to facility so DC was canceled. 12/28 - 12/29. BP soft. holding nitrates. No fever. Monitor BP. 12/30. Has no complaints. PT to reevaluate patient so insurance can review. Vitals reviewed. 12/31: AWAITING PLACEMENT, per Nephrology continue to hold Lasix, renal function is sable and appears to be at baseline. Continue to monitor Blood glucose and will obtain repeat PT/OT eval. 01/01. Continue to monitor., Discussed with the daughter and also the insurance company trying to do a fast appeal. Left my phone number. Continue to monitor Blood sugar. will check labs PRN Patient is not bedbound, he informs me that a few weeks prior to admission he was having pain in the Right leg, he was informed that he has severe osteoarthr itis and needs some injections. He definitely needs rehab and will continue with ortho outpatient. He needs to loose weight too 01/02 Pending placement. NO CLINICAL CHANGE 01/03: Continue supportive care, awaiting bed at SNF, covid test ordered for tuesday as requested by facility, continue PT/OT while inhouse Problems Toxic metabolic encephalopathy-resolved Current Visit: Yes Status: Acute Plan to address problem: Present on admission, improved SIRS:[No criteria for sepsis]-improved Current Visit: Yes Status: Acute Plan to address problem: Improved Acute bronchitis-improved Current Visit: Yes Status: Acute . Plan to address problem: Chest x-ray negative for pneumonia Continue current management Coronary artery disease status post CABG ; Current Visit: Yes Status: Acute . Plan to address problem: Continue cardiac protective measures Condition is stable -denies ACS signs Type II diabetes mellitus-stable Current Visit: Yes Status: Acute Plan to address problem: Monitor blood sugar with SSIt Continue Lantus Adjust if needed A1c is 9.7 Acute Kidney Injury-WITH ATN stable patient w/ multiple risk factors for CKD - DM, HTN, CAD Current Visit: No Status: Acute Plan to address problem: Current creatinine stable Underlying CKD Creatinine 2.3 Hyponatremia; present on admission likely 2/2 to EUFEMIA improved, Continue monitor electrolytes Suspected COVID-19 virus infection Current Visit: No Status: Acute Plan to address problem: COVID-19 test is negative Morbid obesity; BMI 43 Patient needs weight reduction when medically stable Advised on inportance of lifestyle modification Healthy diet-more fruits and vegebles and avoid high calorie foods Osteroathritis Vascular dementia Current Visit: Yes Status: Acute Qualifiers: Dementia behavioral disturbance: without behavioral disturbance Qualified Code(s): F01.50 - Vascular dementia without behavioral disturbance SIRS (systemic inflammatory response syndrome) Current Visit: Yes Status: Acute Debility Current Visit: Yes Status: Acute Plan to address problem: PT notes reviewed-patient needs physical therapy due to poor gait and instability. I believe patient will benefit from physical therapy. Still awaiting placement. Discussed with [employer] human resources hr representative on 12/26 DVT prophylaxis Current Visit: Yes Status: Acute Plan to address problem: SCD /heparin renal dose --Discharge planning issues patient ready for discharge Needs acceptance at [facility] by Ana Discussed with icu manager History Interval history: Patient seen and examined, no new complaints. Hospitalist Physical - Physical exam Narrative exam: VITAL SIGNS: Reviewed. GENERAL: Awake and alert on response to questions, LYING IN BED. NO CLINICAL CHANGE HEAD: No signs of head trauma. EYES: Pupils are equal. Extraocular motions intact. EARS: Hearing grossly intact. MOUTH: Oropharynx is normal. NECK: No adenopathy, no JVD. CHEST: Chest with diminished breath sounds bilaterally. No wheezes, rales, or rhonchi. CARDIAC: Regular rate and rhythm. S1 and S2, without murmurs, gallops, or rubs. VASCULAR: No Edema. Peripheral pulses normal and equal in all extremities. ABDOMEN: Soft, non tender and non distended. No rebound or guarding, and no masses palpated. Bowel Sounds normal. MUSCULOSKELETAL: Good range of motion of all major joints. Extremities without clubbing, cyanosis or edema. NEUROLOGIC EXAM: Alert and oriented x3. No focal neurologic deficits PSYCHIATRIC: Stable mood SKIN: No obvious lesions - Constitutional Vitals: Temp Pulse Resp BP Pulse Ox 98.2 F 86 18 98/49 96 01/04/20 08:59 01/04/20 08:59 01/04/20 08:59 01/04/20 08:59 01/04/20 08:59 General appearance: Present: no acute distress, well-nourished HEART Score - HEART Score Troponin: Troponin T < 0.010 ng/mL (0.00-0.029) 12/11/19 20:03 Results - Labs CBC & Chem 7: 01/03/20 07:08 01/03/20 07:08 Labs: Laboratory Last Values WBC 7.2 K/mm3 (4.5-11.0) 01/03/20 07:08 RBC 4.41 M/mm3 (3.65-5.03) 01/03/20 07:08 Hgb 13.2 gm/dl (11.8-15.2) 01/03/20 07:08 Hct 39.1 % (35.5-45.6) 01/03/20 07:08 MCV 89 fl (84-94) 01/03/20 07:08 MCH 30 pg (28-32) 01/03/20 07:08 MCHC 34 % (32-34) 01/03/20 07:08 RDW 14.1 % (13.2-15.2) 01/03/20 07:08 Plt Count 278 K/mm3 (140-440) 01/03/20 07:08 Lymph % (Auto) 30.6 % (13.4-35.0) 12/26/19 04:59 [place] % (Auto) 10.5 % (0.0-7.3) H 12/26/19 04:59 Eos % (Auto) 6.5 % (0.0-4.3) H 12/26/19 04:59 Baso % (Auto) 1.0 % (0.0-1.8) 12/26/19 04:59 Lymph # (Auto) 2.7 K/mm3 (1.2-5.4) 12/26/19 04:59 [place] # (Auto) 0.9 K/mm3 (0.0-0.8) H 12/26/19 04:59 Eos # (Auto) 0.6 K/mm3 (0.0-0.4) H 12/26/19 04:59 Baso # (Auto) 0.1 K/mm3 (0.0-0.1) 12/26/19 04:59 Add Manual Diff Complete 12/31/19 04:39 Total Counted 100 12/31/19 04:39 Seg Neutrophils % 51.4 % (40.0-70.0) 12/26/19 04:59 Seg Neuts % (Manual) 46.0 % (40.0-70.0) 12/31/19 04:39 Band Neutrophils % 0 % 12/31/19 04:39 Lymphocytes % (Manual) 40.0 % (13.4-35.0) H 12/31/19 04:39 Reactive Lymphs % (Man) 0 % 12/31/19 04:39 Monocytes % (Manual) 2.0 % (0.0-7.3) 12/31/19 04:39 Eosinophils % (Manual) 12.0 % (0.0-4.3) H 12/31/19 04:39 Basophils % (Manual) 0 % (0.0-1.8) 12/31/19 04:39 Metamyelocytes % 0 % 12/31/19 04:39 Myelocytes % 0 % 12/31/19 04:39 Promyelocytes % 0 % 12/31/19 04:39 Blast Cells % 0 % 12/31/19 04:39 Nucleated RBC % Not Reportable 12/31/19 04:39 Seg Neutrophils # 4.5 K/mm3 (1.8-7.7) 12/26/19 04:59 Seg Neutrophils # Man 3.7 K/mm3 (1.8-7.7) 12/31/19 04:39 Band Neutrophils # 0.0 K/mm3 12/31/19 04:39 Lymphocytes # (Manual) 3.2 K/mm3 (1.2-5.4) 12/31/19 04:39 Abs React Lymphs (Man) 0.0 K/mm3 12/31/19 04:39 Monocytes # (Manual) 0.2 K/mm3 (0.0-0.8) 12/31/19 04:39 Eosinophils # (Manual) 1.0 K/mm3 (0.0-0.4) H 12/31/19 04:39 Basophils # (Manual) 0.0 K/mm3 (0.0-0.1) 12/31/19 04:39 Metamyelocytes # 0.0 K/mm3 12/31/19 04:39 Myelocytes # 0.0 K/mm3 12/31/19 04:39 Promyelocytes # 0.0 K/mm3 12/31/19 04:39 Blast Cells # 0.0 K/mm3 12/31/19 04:39 WBC Morphology Not Reportable 12/31/19 04:39 Hypersegmented Neuts Not Reportable 12/31/19 04:39 Hyposegmented Neuts Not Reportable 12/31/19 04:39 Hypogranular Neuts Not Reportable 12/31/19 04:39 Smudge Cells Not Reportable 12/31/19 04:39 Toxic Granulation Not Reportable 12/31/19 04:39 Toxic Vacuolation Not Reportable 12/31/19 04:39 Dohle Bodies Not Reportable 12/31/19 04:39 Pelger-Huet Anomaly Not Reportable 12/31/19 04:39 Sam Rods Not Reportable 12/31/19 04:39 Platelet Estimate Consistent w auto 12/31/19 04:39 Clumped Platelets Not Reportable 12/31/19 04:39 Plt Clumps, EDTA Not Reportable 12/31/19 04:39 Large Platelets Not Reportable 12/31/19 04:39 Giant Platelets Not Reportable 12/31/19 04:39 Platelet Satelliting Not Reportable 12/31/19 04:39 Plt Morphology Comment Not Reportable 12/31/19 04:39 RBC Morphology Not Reportable 12/31/19 04:39 Dimorphic RBCs Not Reportable 12/31/19 04:39 Polychromasia Not Reportable 12/31/19 04:39 Hypochromasia Not Reportable 12/31/19 04:39 Poikilocytosis Not Reportable 12/31/19 04:39 Anisocytosis Not Reportable 12/31/19 04:39 Microcytosis Not Reportable 12/31/19 04:39 Macrocytosis Not Reportable 12/31/19 04:39 Spherocytes Not Reportable 12/31/19 04:39 Pappenheimer Bodies Not Reportable 12/31/19 04:39 Sickle Cells Not Reportable 12/31/19 04:39 Target Cells Not Reportable 12/31/19 04:39 Tear Drop Cells Not Reportable 12/31/19 04:39 Ovalocytes Not Reportable 12/31/19 04:39 Helmet Cells Not Reportable 12/31/19 04:39 [place] Bodies Not Reportable 12/31/19 04:39 [place] Rings Not Reportable 12/31/19 04:39 Sanam Cells Not Reportable 12/31/19 04:39 Bite Cells Not Reportable 12/31/19 04:39 Crenated Cell Not Reportable 12/31/19 04:39 Elliptocytes Not Reportable 12/31/19 04:39 Acanthocytes (Spur) Not Reportable 12/31/19 04:39 Rouleaux Not Reportable 12/31/19 04:39 Hemoglobin C Crystals Not Reportable 12/31/19 04:39 Schistocytes Not Reportable 12/31/19 04:39 Malaria parasites Not Reportable 12/31/19 04:39 [place] Bodies Not Reportable 12/31/19 04:39 Hem Pathologist Commnt No 12/31/19 04:39 PT 13.1 Sec. (12.2-14.9) 12/11/19 18:37 INR 0.97 (0.87-1.13) 12/11/19 18:37 APTT 20.1 Sec. (24.2-36.6) L 12/11/19 18:37 D-Dimer 550.63 ng/mlDDU (0-234) H 12/11/19 21:50 Sodium 136 mmol/L (137-145) L 01/03/20 07:08 Potassium 4.3 mmol/L (3.6-5.0) 01/03/20 07:08 Chloride 104.0 mmol/L (98-107) 01/03/20 07:08 Carbon Dioxide 22 mmol/L (22-30) 01/03/20 07:08 Anion Gap 14 mmol/L 01/03/20 07:08 BUN 27 mg/dL (9-20) H 01/03/20 07:08 Creatinine 2.1 mg/dL (0.8-1.3) H 01/03/20 07:08 Estimated GFR 37 ml/min 01/03/20 07:08 BUN/Creatinine Ratio 13 % 01/03/20 07:08 Glucose 166 mg/dL (75-100) H 01/03/20 07:08 POC Glucose 136 mg/dL (70-105) H 01/04/20 08:01 Hemoglobin A1c 9.7 % (4-6) H 12/12/19 05:05 Lactic Acid 1.50 mmol/L (0.7-2.0) 12/12/19 05:05 Calcium 9.6 mg/dL (8.4-10.2) 01/03/20 07:08 Ferritin 646.4 ng/mL (30.0-300.0) H 12/11/19 21:50 Total Bilirubin 0.70 mg/dL (0.1-1.2) 12/12/19 05:05 Direct Bilirubin < 0.2 mg/dL (0-0.2) 12/11/19 18:37 Indirect Bilirubin 0.6 mg/dL 12/11/19 18:37 AST 26 units/L (5-40) 12/12/19 05:05 ALT 15 units/L (7-56) 12/12/19 05:05 Alkaline Phosphatase 68 units/L (35-129) 12/12/19 05:05 Ammonia 36.0 umol/L (25-60) 12/11/19 18:37 Lactate Dehydrogenase 188 units/L (91-180) H 12/11/19 21:50 Troponin T < 0.010 ng/mL (0.00-0.029) 12/11/19 20:03 C-Reactive Protein 18.20 mg/dL (0.00-1.30) H 12/11/19 21:50 NT-Pro-B Natriuret Pep 224.4 pg/mL (0-900) 12/11/19 18:37 Serum Total Protein 6.8 g/dL (6.1-8.1) 12/16/19 20:24 Total Protein 8.0 g/dL (6.3-8.2) 12/12/19 05:05 Albumin 2.9 g/dL (3.8-4.8) L 12/16/19 20:24 Albumin/Globulin Ratio 0.6 % 12/12/19 05:05 Hdfny-0-Mibrrjzji 0.5 g/dL (0.2-0.3) H 12/16/19 20:24 Yplpc-9-Ckcjlufce 0.9 g/dL (0.5-0.9) 12/16/19 20:24 Beta Globulins 0.6 g/dL (0.2-0.5) H 12/16/19 20:24 Gamma Globulins 1.4 g/dL (0.8-1.7) 12/16/19 20:24 Abnorm Protein Band 1 see below 12/16/19 20:24 PEP Interpretation see below H 12/16/19 20:24 Procalcitonin 0.18 ng/mL (<0.15) 12/11/19 21:50 TSH 1.240 mlU/mL (0.270-4.200) 12/11/19 18:37 PTH Intact 78.16 pg/mL (15-65) H 12/16/19 20:24 Urine Color Yellow (Yellow) 12/11/19 23:00 Urine Turbidity Clear (Clear) 12/11/19 23:00 Urine pH 6.0 (5.0-7.0) 12/11/19 23:00 Ur Specific [place] 1.013 (1.003-1.030) 12/11/19 23:00 Urine Protein 30 mg/dl mg/dL (Negative) 12/11/19 23:00 Urine Glucose (UA) 150 mg/dL (Negative) 12/11/19 23:00 Urine Ketones Neg mg/dL (Negative) 12/11/19 23:00 Urine Blood Mod (Negative) 12/11/19 23:00 Urine Nitrite Neg (Negative) 12/11/19 23:00 Urine Bilirubin Neg (Negative) 12/11/19 23:00 Urine Urobilinogen 2.0 mg/dL (<2.0) 12/11/19 23:00 Ur Leukocyte Esterase Neg (Negative) 12/11/19 23:00 Urine WBC (Auto) 1.0 /HPF (0.0-6.0) 12/11/19 23:00 Urine RBC (Auto) 1.0 /HPF (0.0-6.0) 12/11/19 23:00 U Epithel Cells (Auto) 1.0 /HPF (0-13.0) 12/11/19 23:00 Urine Creatinine 42.2 mg/dL (0.1-20.0) H 12/16/19 06:52 Protein/Creatinin Ratio 0.21 12/16/19 06:52 Urine Total Protein 9 mg/dL (5-11.8) 12/16/19 06:52 DUNG Screen Negative (Negative) 12/16/19 20:24 Proteinase 3 (PR3) Ab <1.0 AI (<1.0) 12/16/19 20:24 Myeloperoxidase Ab <1.0 AI (<1.0) 12/16/19 20:24 Complement C3 166 mg/dL (82-185) 12/16/19 20:24 Complement C4 58 mg/dL (15-53) H 12/16/19 20:24 Coronavirus (PCR) Negative (Negative) 12/28/19 Unknown Robert/IV: Voiding Method Urinal IV Catheter Type [Left Hand] INT / Saline Lock IV Catheter Type [Right Peripheral IV Antecubital] Active Medications - Current Medications Current Medications: Generic Name Dose Route Start Last Admin Trade Name Freq PRN Reason Stop Dose Admin Acetaminophen 650 mg 12/11/19 21:48 12/16/19 22:31 Tylenol PO 650 mg Q4H PRN Administration Pain MILD(1-3)/Fever >100.5/MUSTAFA Aspirin 325 mg 12/13/19 22:00 01/03/20 22:08 Aspirin PO 325 mg HS JOHNNY Administration Dextrose 0 ml 12/11/19 22:45 D50w (25gm) Syringe IV Q30MIN PRN Hypoglycemia Protocol Heparin Sodium (Porcine) 5,000 unit 12/11/19 22:00 01/04/20 09:07 Heparin SUB-Q 5,000 unit Q12HR JOHNNY Administration Insulin Glargine 40 units 12/29/19 22:00 01/03/20 22:08 Lantus SUB-Q 40 units QHS JOHNNY Administration Insulin Human Lispro 0 unit 12/12/19 07:30 01/04/20 08:07 Humalog SUB-Q Not Given ACHS JOHNNY Protocol Insulin Human Lispro 6 unit 12/29/19 08:30 01/04/20 08:08 Humalog SUB-Q Not Given AC JOHNNY Lactulose 20 gm 12/22/19 15:00 12/29/19 11:06 Cephulac PO 20 gm QDAY PRN Administration Constipation Metoprolol Tartrate 12.5 mg 12/27/19 22:00 01/04/20 09:07 Metoprolol PO 12.5 mg BID JOHNNY Administration Ondansetron HCl 4 mg 12/11/19 21:48 Zofran IV Q8H PRN Nausea And Vomiting Oxycodone/Acetaminophen 1 tab 12/11/19 21:53 01/04/20 08:40 Percocet 5/325 PO 1 tab Q6H PRN Administration PAIN (4-6) Pravastatin Sodium 80 mg 12/13/19 22:00 01/03/20 22:08 Pravachol PO 80 mg QHS JOHNNY Administration Sodium Chloride 10 ml 12/11/19 22:00 01/04/20 09:07 Sodium Chloride Flush Syringe 10 Ml IV 10 ml BID JOHNNY Administration Sodium Chloride 10 ml 12/11/19 21:48 12/12/19 06:04 Sodium Chloride Flush Syringe 10 Ml IV 10 ml PRN PRN Administration LINE FLUSH Nutrition/Malnutrition Assess - Dietary Evaluation Nutrition/Malnutrition Findings: Nutrition Notes Start: 12/18/19 12:19 Freq: Status: Active Protocol: Document 12/31/19 12:01 LM (Rec: 11/23/20 12:03 LM [id number]) Nutrition Notes Initial or Follow up Brief Note Subjective/Other Information Pt stated he did not get breakfast but has good appetite and ate well yesterday. Pt with 75-100% intakes in chart. #1 Nutrition Diagnosis Inadequate oral intake As Evidenced by Signs and Symptoms Pt continuing to eat 75% of meals Diagnosis Progress(for reassessment Resolved documentation) Nutrition Intervention Revisit per MD consult or patient Sign Off request:
--- NOTE | 2020-01-04 15:46 | Progress Note ---
Subjective Principal diagnosis: Encephalopathy Interval history: Patient was seen today for follow-up of multiple renal related issues, around 11:15 in the morning No complaints of any chest pain pressure or shortness of breath, he does appear to have some element of forgetfulness Interdisciplinary notes that also reviewed Events of 24 hours vitals labs intake output medications were reviewed Past medical history: Reviewed Family history: Reviewed Social history: Reviewed Allergies: Reviewed Physical examination: Vitals: Reviewed HEENT: No pallor or icterus oral mucosa moist Neck: Supple no JVD no thyromegaly Chest: Bilateral clear to auscultation anteriorly Heart: Regular rate and rhythm S1-S2 heard no S3-S4 Abdomen: Soft nontender no voluntary guarding rigidity rebound Extremity: Dry skin less than 1+ peripheral edema Psychiatric: No evidence of agitation and aggression noted Dermatology: No petechial rashes Labs and x-rays: Reviewed from today Assessment and plan Stage III chronic kidney disease, patient is to make an appointment follow-up in the office Last renal ultrasonogram obtained here in December shows tiny kidney stones Baseline creatinine has been around 2.12.3 Needs to lose weight, modify diet and lifestyle his renal prognosis remains guarded Creatinine as of yesterday was 2.1 Mild hyponatremia improving 136 yesterday Patient was adequately counseled and educated regarding all the renal related issues Laboratory studies, have been explained to the patient All questions were answered and simple [place] We'll continue to follow and make recommendation for renal standpoint Objective - Vital Signs Vital signs: Vital Signs - 12hr 01/04/20 01/04/20 05:03 08:59 Temperature 98.4 F 98.2 F Pulse Rate 90 86 Respiratory 18 18 Rate Blood Pressure 109/66 98/49 O2 Sat by Pulse 94 96 Oximetry - Lab 01/03/20 07:08 01/03/20 07:08 Most recent lab results Calcium 9.6 mg/dL (8.4-10.2) 01/03/20 07:08 Urine Creatinine 42.2 mg/dL (0.1-20.0) H 12/16/19 06:52 Urine Total Protein 9 mg/dL (5-11.8) 12/16/19 06:52 Medications & Allergies - Medications Allergies/Adverse Reactions: Allergies No Known Allergies Allergy (Verified 04/19/14 09:47) Home Medications: Home Medications Medication Instructions Recorded Confirmed Last Taken Type Aspirin 325 mg PO HS 12/11/19 12/11/19 12/10/19 History ISOSORBIDE MONOnitrate [Imdur ER] 30 mg PO DAILY 12/11/19 12/11/19 12/10/19 History Insulin NPH/Regular [NovoLIN 70/30] 50 unit SQ BID 12/11/19 12/11/19 12/11/19 History Simvastatin 40 mg PO HS 12/11/19 12/11/19 12/10/19 History Metoprolol [Lopressor TAB] 12.5 mg PO BID #60 tablet 12/28/19 Unknown Rx Active Medications: Generic Name Dose Route Start Last Admin Trade Name Freq PRN Reason Stop Dose Admin Acetaminophen 650 mg 12/11/19 21:48 12/16/19 22:31 Tylenol PO 650 mg Q4H PRN Administration Pain MILD(1-3)/Fever >100.5/MUSTAFA Aspirin 325 mg 12/13/19 22:00 01/03/20 22:08 Aspirin PO 325 mg HS JOHNNY Administration Dextrose 0 ml 12/11/19 22:45 D50w (25gm) Syringe IV Q30MIN PRN Hypoglycemia Protocol Heparin Sodium (Porcine) 5,000 unit 12/11/19 22:00 01/04/20 09:07 Heparin SUB-Q 5,000 unit Q12HR JOHNNY Administration Insulin Glargine 40 units 12/29/19 22:00 01/03/20 22:08 Lantus SUB-Q 40 units QHS JOHNNY Administration Insulin Human Lispro 0 unit 12/12/19 07:30 01/04/20 11:50 Humalog SUB-Q 2 unit ACHS JOHNNY Administration Protocol Insulin Human Lispro 6 unit 12/29/19 08:30 01/04/20 11:50 Humalog SUB-Q 6 unit AC JOHNNY Administration Lactulose 20 gm 12/22/19 15:00 12/29/19 11:06 Cephulac PO 20 gm QDAY PRN Administration Constipation Metoprolol Tartrate 12.5 mg 12/27/19 22:00 01/04/20 09:07 Metoprolol PO 12.5 mg BID JOHNNY Administration Ondansetron HCl 4 mg 12/11/19 21:48 Zofran IV Q8H PRN Nausea And Vomiting Oxycodone/Acetaminophen 1 tab 12/11/19 21:53 11/27/20 08:40 Percocet 5/325 PO 1 tab Q6H PRN Administration PAIN (4-6) Pravastatin Sodium 80 mg 12/13/19 22:00 01/03/20 22:08 Pravachol PO 80 mg QHS JOHNNY Administration Sodium Chloride 10 ml 12/11/19 22:00 01/04/20 09:07 Sodium Chloride Flush Syringe 10 Ml IV 10 ml BID JOHNNY Administration Sodium Chloride 10 ml 12/11/19 21:48 12/12/19 06:04 Sodium Chloride Flush Syringe 10 Ml IV 10 ml PRN PRN Administration LINE FLUSH
[2020-01-04] MEDS: ASPIRIN 325 MG TAB PO SCH (22:26)
[2020-01-04] MEDS: PRAVASTATIN 80 MG TAB PO SCH (22:26)
[2020-01-04] MEDS: INSULIN GLARGINE 100 UNITS/ML SUB-Q SCH (22:27)
[2020-01-05] MEDS: INSULIN LISPRO 100 UNIT/ML VIAL 3 mL SUB-Q SCH ×7 (08:41→21:56)
[2020-01-05] MEDS: METOPROLOL TARTRATE 25 MG TAB PO SCH ×2 (09:43→21:59)
[2020-01-05] MEDS: HEPARIN 5,000 UNIT/1 ML VIAL SUB-Q SCH ×2 (09:43→21:59)
--- NOTE | 2020-01-05 11:47 | Progress Note ---
Subjective Principal diagnosis: Encephalopathy Interval history: Patient was seen today for follow-up of multiple renal related issues No complaints of any chest pain pressure or shortness of breath Interdisciplinary notes that also reviewed Events of 24 hours vitals labs intake output medications were reviewed Past medical history: Reviewed Family history: Reviewed Social history: Reviewed Allergies: Reviewed Physical examination: Vitals: Reviewed HEENT: No pallor or icterus oral mucosa moist Neck: Supple no JVD no thyromegaly Chest: Bilateral clear to auscultation anteriorly Heart: Regular rate and rhythm S1-S2 heard no S3-S4 Abdomen: Soft nontender no voluntary guarding rigidity rebound Extremity: Dry skin less than 1+ peripheral edema Psychiatric: No evidence of agitation and aggression noted Dermatology: No petechial rashes Labs and x-rays: Reviewed from today Assessment and plan #Chronic kidney disease: Stable renal function, will need to make a follow-up appointment the office upon discharge in 1-2 weeks renal prognosis remains guarded #Hypertension and volume: Blood pressure is well controlled, 111/54 #We will check phosphorus PTH as well as basic metabolic profile tomorrow along with CBC Patient was adequately counseled and educated regarding all the renal related issues Laboratory studies, have been explained to the patient All questions were answered and simple Hungarian We'll continue to follow and make recommendation for renal standpoint Objective - Vital Signs Vital signs: Vital Signs - 12hr 01/05/20 01/05/20 01/05/20 00:38 04:59 07:18 Temperature 97.6 F 99.0 F 98.3 F Pulse Rate 82 84 70 Respiratory 18 18 18 Rate Blood Pressure 96/49 106/66 111/51 O2 Sat by Pulse 94 95 94 Oximetry 01/05/20 09:43 Temperature Pulse Rate 70 Respiratory Rate Blood Pressure 111/54 O2 Sat by Pulse Oximetry - Lab 01/03/20 07:08 01/03/20 07:08 Most recent lab results Calcium 9.6 mg/dL (8.4-10.2) 01/03/20 07:08 Urine Creatinine 42.2 mg/dL (0.1-20.0) H 12/16/19 06:52 Urine Total Protein 9 mg/dL (5-11.8) 12/16/19 06:52 Medications & Allergies - Medications Allergies/Adverse Reactions: Allergies No Known Allergies Allergy (Verified 04/19/14 09:47) Home Medications: Home Medications Medication Instructions Recorded Confirmed Last Taken Type Aspirin 325 mg PO HS 12/11/19 12/11/19 12/10/19 History ISOSORBIDE MONOnitrate [Imdur ER] 30 mg PO DAILY 12/11/19 12/11/19 12/10/19 History Insulin NPH/Regular [NovoLIN 70/30] 50 unit SQ BID 12/11/19 12/11/19 12/11/19 History Simvastatin 40 mg PO HS 12/11/19 12/11/19 12/10/19 History Metoprolol [Lopressor TAB] 12.5 mg PO BID #60 tablet 12/28/19 Unknown Rx Active Medications: Generic Name Dose Route Start Last Admin Trade Name Freq PRN Reason Stop Dose Admin Acetaminophen 650 mg 12/11/19 21:48 12/16/19 22:31 Tylenol PO 650 mg Q4H PRN Administration Pain MILD(1-3)/Fever >100.5/MUSTAFA Aspirin 325 mg 12/13/19 22:00 01/04/20 22:26 Aspirin PO 325 mg HS JOHNNY Administration Dextrose 0 ml 12/11/19 22:45 D50w (25gm) Syringe IV Q30MIN PRN Hypoglycemia Protocol Heparin Sodium (Porcine) 5,000 unit 12/11/19 22:00 01/05/20 09:43 Heparin SUB-Q 5,000 unit Q12HR JOHNNY Administration Insulin Glargine 40 units 12/29/19 22:00 01/04/20 22:27 Lantus SUB-Q 40 units QHS JOHNNY Administration Insulin Human Lispro 0 unit 12/12/19 07:30 01/05/20 08:41 Humalog SUB-Q Not Given ACHS JOHNNY Protocol Insulin Human Lispro 6 unit 12/29/19 08:30 01/05/20 09:41 Humalog SUB-Q Not Given AC JOHNNY Lactulose 20 gm 12/22/19 15:00 12/29/19 11:06 Cephulac PO 20 gm QDAY PRN Administration Constipation Metoprolol Tartrate 12.5 mg 12/27/19 22:00 01/05/20 09:43 Metoprolol PO Not Given BID JOHNNY Ondansetron HCl 4 mg 12/11/19 21:48 Zofran IV Q8H PRN Nausea And Vomiting Oxycodone/Acetaminophen 1 tab 12/11/19 21:53 01/04/20 08:40 Percocet 5/325 PO 1 tab Q6H PRN Administration PAIN (4-6) Pravastatin Sodium 80 mg 12/13/19 22:00 01/04/20 22:26 Pravachol PO 80 mg QHS JOHNNY Administration Sodium Chloride 10 ml 12/11/19 22:00 01/04/20 22:27 Sodium Chloride Flush Syringe 10 Ml IV 10 ml BID JOHNNY Administration Sodium Chloride 10 ml 12/11/19 21:48 12/12/19 06:04 Sodium Chloride Flush Syringe 10 Ml IV 10 ml PRN PRN Administration LINE FLUSH
--- NOTE | 2020-01-05 12:24 | Progress Note ---
Assessment and Plan Assessment and plan: 79 YO Male with CAD S/P CABG, HTN, DM, Vascular Dementia, Cerebral Atherosclerosis, Obesity Hypoventilation Syndrome, presents to ED for evaluation. Patient is confused with diminished cognition and is unable to provide history. Patient history provided by EMS staff, ED staff, as well as patient family who was at bedside during exam and interview. As per family the patient has experienced increased weakness and confusion over the past 1 month with progressively worsening symptoms over the same timeframe. Patient is currently bedbound, and nonambulatory as per family report. Patient also requir es 6/6 assistance with activities of daily living. EMS was notified and upon arrival the patient was found to be confused and in distress with a temperature 101.2 F. Patient was subsequently transported to [facility] for further care and evaluation of the aforementioned symptoms. Patient seen and evaluated in the emergency department. Lab and imaging studies reviewed. Patient underwent chest x-ray which revealed pneumonia complicated by sepsis, toxic metabolic encephalopathy. Patient initiated on sepsis protocol as well as coronavirus protocol in the emergency department. Patient is confused and lethargic with diminished cognition but has a positive gag reflex and is able to protect his airway. No further history obtainable. Advanced care planning conducted in ED. 12/24/2019 Patient seen at bedside-alert and oriented-on room air Reviewed lab, mar, and v/s Reviewed SW and PT note subacute/SNF placement and recommended Patient is awaiting placement. placement permission at [facility] pending from [facility] Medically stable for discharge 12/25/2019 Patient has no complaints today Still pending placement 12/26/2019 Patient needs rehabilitation due to poor gait and instability. PT note has been reviewed and I agree with assessment Discussed with patient's daughter this a.m. 12/27/2019 Still awaiting placement He has no complaints this morning 12/27. Planned for DC but insurance has not approved transfer to facility so DC was canceled. 12/28 - 12/29. BP soft. holding nitrates. No fever. Monitor BP. 12/30. Has no complaints. PT to reevaluate patient so insurance can review. Vitals reviewed. 12/31: AWAITING PLACEMENT, per Nephrology continue to hold Lasix, renal function is sable and appears to be at baseline. Continue to monitor Blood glucose and will obtain repeat PT/OT eval. 01/01. Continue to monitor., Discussed with the daughter and also the insurance company trying to do a fast appeal. Left my phone number. Continue to monitor Blood sugar. will check labs PRN Patient is not bedbound, he informs me that a few weeks prior to admission he was having pain in the Right leg, he was informed that he has severe osteoarthr itis and needs some injections. He definitely needs rehab and will continue with ortho outpatient. He needs to loose weight too 01/02 Pending placement. NO CLINICAL CHANGE 01/03: Continue supportive care, awaiting bed at SNF, covid test ordered for tuesday as requested by facility, continue PT/OT while inhouse 01/04: Awaiting placement, facility states Tuesday. Problems Toxic metabolic encephalopathy-resolved Current Visit: Yes Status: Acute Plan to address problem: Present on admission, improved SIRS:[No criteria for sepsis]-improved Current Visit: Yes Status: Acute Plan to address problem: Improved Acute bronchitis-improved Current Visit: Yes Status: Acute . Plan to address problem: Chest x-ray negative for pneumonia Continue current management Coronary artery disease status post CABG ; Current Visit: Yes Status: Acute . Plan to address problem: Continue cardiac protective measures Condition is stable -denies ACS signs Type II diabetes mellitus-stable Current Visit: Yes Status: Acute Plan to address problem: Monitor blood sugar with SSIt Continue Lantus Adjust if needed A1c is 9.7 Acute Kidney Injury-WITH ATN stable patient w/ multiple risk factors for CKD - DM, HTN, CAD Current Visit: No Status: Acute Plan to address problem: Current creatinine stable Underlying CKD Creatinine 2.3 Hyponatremia; present on admission likely 2/2 to EUFEMIA improved, Continue monitor electrolytes Suspected COVID-19 virus infection Current Visit: No Status: Acute Plan to address problem: COVID-19 test is negative Morbid obesity; BMI 43 Patient needs weight reduction when medically stable Advised on inportance of lifestyle modification Healthy diet-more fruits and vegebles and avoid high calorie foods Osteroathritis Vascular dementia Current Visit: Yes Status: Acute Qualifiers: Dementia behavioral disturbance: without behavioral disturbance Qualified Code(s): F01.50 - Vascular dementia without behavioral disturbance SIRS (systemic inflammatory response syndrome) Current Visit: Yes Status: Acute Debility Current Visit: Yes Status: Acute Plan to address problem: PT notes reviewed-patient needs physical therapy due to poor gait and instability. I believe patient will benefit from physical therapy. Still awaiting placement. Discussed with [employer] in store marketing representative on 12/26 DVT prophylaxis Current Visit: Yes Status: Acute Plan to address problem: SCD /heparin renal dose --Discharge planning issues patient ready for discharge Needs acceptance at [facility] by Ana Discussed with care manager History Interval history: Patient seen and examined, no new complaints. Hospitalist Physical - Physical exam Narrative exam: VITAL SIGNS: Reviewed. GENERAL: Awake and alert on response to questions, LYING IN BED. NO CLINICAL CHANGE HEAD: No signs of head trauma. EYES: Pupils are equal. Extraocular motions intact. EARS: Hearing grossly intact. MOUTH: Oropharynx is normal. NECK: No adenopathy, no JVD. CHEST: Chest with diminished breath sounds bilaterally. No wheezes, rales, or rhonchi. CARDIAC: Regular rate and rhythm. S1 and S2, without murmurs, gallops, or rubs. VASCULAR: No Edema. Peripheral pulses normal and equal in all extremities. ABDOMEN: Soft, non tender and non distended. No rebound or guarding, and no masses palpated. Bowel Sounds normal. MUSCULOSKELETAL: Good range of motion of all major joints. Extremities without clubbing, cyanosis or edema. NEUROLOGIC EXAM: Alert and oriented x3. No focal neurologic deficits PSYCHIATRIC: Stable mood SKIN: No obvious lesions - Constitutional Vitals: Temp Pulse Resp BP Pulse Ox 98.3 F 70 18 111/54 94 01/05/20 07:18 01/05/20 09:43 01/05/20 07:18 01/05/20 09:43 01/05/20 07:18 General appearance: Present: no acute distress, well-nourished HEART Score - HEART Score Troponin: Troponin T < 0.010 ng/mL (0.00-0.029) 12/11/19 20:03 Results - Labs CBC & Chem 7: 01/03/20 07:08 01/03/20 07:08 Labs: Laboratory Last Values WBC 7.2 K/mm3 (4.5-11.0) 01/03/20 07:08 RBC 4.41 M/mm3 (3.65-5.03) 01/03/20 07:08 Hgb 13.2 gm/dl (11.8-15.2) 01/03/20 07:08 Hct 39.1 % (35.5-45.6) 01/03/20 07:08 MCV 89 fl (84-94) 01/03/20 07:08 MCH 30 pg (28-32) 01/03/20 07:08 MCHC 34 % (32-34) 01/03/20 07:08 RDW 14.1 % (13.2-15.2) 01/03/20 07:08 Plt Count 278 K/mm3 (140-440) 01/03/20 07:08 Lymph % (Auto) 30.6 % (13.4-35.0) 12/26/19 04:59 [place] % (Auto) 10.5 % (0.0-7.3) H 12/26/19 04:59 Eos % (Auto) 6.5 % (0.0-4.3) H 12/26/19 04:59 Baso % (Auto) 1.0 % (0.0-1.8) 12/26/19 04:59 Lymph # (Auto) 2.7 K/mm3 (1.2-5.4) 12/26/19 04:59 [place] # (Auto) 0.9 K/mm3 (0.0-0.8) H 12/26/19 04:59 Eos # (Auto) 0.6 K/mm3 (0.0-0.4) H 12/26/19 04:59 Baso # (Auto) 0.1 K/mm3 (0.0-0.1) 12/26/19 04:59 Add Manual Diff Complete 12/31/19 04:39 Total Counted 100 12/31/19 04:39 Seg Neutrophils % 51.4 % (40.0-70.0) 12/26/19 04:59 Seg Neuts % (Manual) 46.0 % (40.0-70.0) 12/31/19 04:39 Band Neutrophils % 0 % 12/31/19 04:39 Lymphocytes % (Manual) 40.0 % (13.4-35.0) H 12/31/19 04:39 Reactive Lymphs % (Man) 0 % 12/31/19 04:39 Monocytes % (Manual) 2.0 % (0.0-7.3) 12/31/19 04:39 Eosinophils % (Manual) 12.0 % (0.0-4.3) H 12/31/19 04:39 Basophils % (Manual) 0 % (0.0-1.8) 12/31/19 04:39 Metamyelocytes % 0 % 12/31/19 04:39 Myelocytes % 0 % 12/31/19 04:39 Promyelocytes % 0 % 12/31/19 04:39 Blast Cells % 0 % 12/31/19 04:39 Nucleated RBC % Not Reportable 12/31/19 04:39 Seg Neutrophils # 4.5 K/mm3 (1.8-7.7) 12/26/19 04:59 Seg Neutrophils # Man 3.7 K/mm3 (1.8-7.7) 12/31/19 04:39 Band Neutrophils # 0.0 K/mm3 12/31/19 04:39 Lymphocytes # (Manual) 3.2 K/mm3 (1.2-5.4) 12/31/19 04:39 Abs React Lymphs (Man) 0.0 K/mm3 12/31/19 04:39 Monocytes # (Manual) 0.2 K/mm3 (0.0-0.8) 12/31/19 04:39 Eosinophils # (Manual) 1.0 K/mm3 (0.0-0.4) H 12/31/19 04:39 Basophils # (Manual) 0.0 K/mm3 (0.0-0.1) 12/31/19 04:39 Metamyelocytes # 0.0 K/mm3 12/31/19 04:39 Myelocytes # 0.0 K/mm3 12/31/19 04:39 Promyelocytes # 0.0 K/mm3 12/31/19 04:39 Blast Cells # 0.0 K/mm3 12/31/19 04:39 WBC Morphology Not Reportable 12/31/19 04:39 Hypersegmented Neuts Not Reportable 12/31/19 04:39 Hyposegmented Neuts Not Reportable 12/31/19 04:39 Hypogranular Neuts Not Reportable 12/31/19 04:39 Smudge Cells Not Reportable 12/31/19 04:39 Toxic Granulation Not Reportable 12/31/19 04:39 Toxic Vacuolation Not Reportable 12/31/19 04:39 Dohle Bodies Not Reportable 12/31/19 04:39 Pelger-Huet Anomaly Not Reportable 12/31/19 04:39 Sam Rods Not Reportable 12/31/19 04:39 Platelet Estimate Consistent w auto 12/31/19 04:39 Clumped Platelets Not Reportable 12/31/19 04:39 Plt Clumps, EDTA Not Reportable 12/31/19 04:39 Large Platelets Not Reportable 12/31/19 04:39 Giant Platelets Not Reportable 12/31/19 04:39 Platelet Satelliting Not Reportable 12/31/19 04:39 Plt Morphology Comment Not Reportable 12/31/19 04:39 RBC Morphology Not Reportable 12/31/19 04:39 Dimorphic RBCs Not Reportable 12/31/19 04:39 Polychromasia Not Reportable 12/31/19 04:39 Hypochromasia Not Reportable 12/31/19 04:39 Poikilocytosis Not Reportable 12/31/19 04:39 Anisocytosis Not Reportable 12/31/19 04:39 Microcytosis Not Reportable 12/31/19 04:39 Macrocytosis Not Reportable 12/31/19 04:39 Spherocytes Not Reportable 12/31/19 04:39 Pappenheimer Bodies Not Reportable 12/31/19 04:39 Sickle Cells Not Reportable 12/31/19 04:39 Target Cells Not Reportable 12/31/19 04:39 Tear Drop Cells Not Reportable 12/31/19 04:39 Ovalocytes Not Reportable 12/31/19 04:39 Helmet Cells Not Reportable 12/31/19 04:39 Saavedra-Carl Bodies Not Reportable 12/31/19 04:39 Helper Rings Not Reportable 12/31/19 04:39 [place] Cells Not Reportable 12/31/19 04:39 Bite Cells Not Reportable 12/31/19 04:39 Crenated Cell Not Reportable 12/31/19 04:39 Elliptocytes Not Reportable 12/31/19 04:39 Acanthocytes (Spur) Not Reportable 12/31/19 04:39 Rouleaux Not Reportable 12/31/19 04:39 Hemoglobin C Crystals Not Reportable 12/31/19 04:39 Schistocytes Not Reportable 12/31/19 04:39 Malaria parasites Not Reportable 12/31/19 04:39 Lincoln Bodies Not Reportable 12/31/19 04:39 Hem Pathologist Commnt No 12/31/19 04:39 PT 13.1 Sec. (12.2-14.9) 12/11/19 18:37 INR 0.97 (0.87-1.13) 12/11/19 18:37 APTT 20.1 Sec. (24.2-36.6) L 12/11/19 18:37 D-Dimer 550.63 ng/mlDDU (0-234) H 12/11/19 21:50 Sodium 136 mmol/L (137-145) L 01/03/20 07:08 Potassium 4.3 mmol/L (3.6-5.0) 01/03/20 07:08 Chloride 104.0 mmol/L (98-107) 01/03/20 07:08 Carbon Dioxide 22 mmol/L (22-30) 01/03/20 07:08 Anion Gap 14 mmol/L 01/03/20 07:08 BUN 27 mg/dL (9-20) H 01/03/20 07:08 Creatinine 2.1 mg/dL (0.8-1.3) H 01/03/20 07:08 Estimated GFR 37 ml/min 01/03/20 07:08 BUN/Creatinine Ratio 13 % 01/03/20 07:08 Glucose 166 mg/dL (75-100) H 01/03/20 07:08 POC Glucose 158 mg/dL (70-105) H 01/05/20 11:09 Hemoglobin A1c 9.7 % (4-6) H 12/12/19 05:05 Lactic Acid 1.50 mmol/L (0.7-2.0) 12/12/19 05:05 Calcium 9.6 mg/dL (8.4-10.2) 01/03/20 07:08 Ferritin 646.4 ng/mL (30.0-300.0) H 12/11/19 21:50 Total Bilirubin 0.70 mg/dL (0.1-1.2) 12/12/19 05:05 Direct Bilirubin < 0.2 mg/dL (0-0.2) 12/11/19 18:37 Indirect Bilirubin 0.6 mg/dL 12/11/19 18:37 AST 26 units/L (5-40) 12/12/19 05:05 ALT 15 units/L (7-56) 12/12/19 05:05 Alkaline Phosphatase 68 units/L (35-129) 12/12/19 05:05 Ammonia 36.0 umol/L (25-60) 12/11/19 18:37 Lactate Dehydrogenase 188 units/L (91-180) H 12/11/19 21:50 Troponin T < 0.010 ng/mL (0.00-0.029) 12/11/19 20:03 C-Reactive Protein 18.20 mg/dL (0.00-1.30) H 12/11/19 21:50 NT-Pro-B Natriuret Pep 224.4 pg/mL (0-900) 12/11/19 18:37 Serum Total Protein 6.8 g/dL (6.1-8.1) 12/16/19 20:24 Total Protein 8.0 g/dL (6.3-8.2) 12/12/19 05:05 Albumin 2.9 g/dL (3.8-4.8) L 12/16/19 20:24 Albumin/Globulin Ratio 0.6 % 12/12/19 05:05 Ndlxt-8-Dzcklkfbc 0.5 g/dL (0.2-0.3) H 12/16/19 20:24 Kwags-5-Ohzblwzhg 0.9 g/dL (0.5-0.9) 12/16/19 20:24 Beta Globulins 0.6 g/dL (0.2-0.5) H 12/16/19 20:24 Gamma Globulins 1.4 g/dL (0.8-1.7) 12/16/19 20:24 Abnorm Protein Band 1 see below 12/16/19 20:24 PEP Interpretation see below H 12/16/19 20:24 Procalcitonin 0.18 ng/mL (<0.15) 12/11/19 21:50 TSH 1.240 mlU/mL (0.270-4.200) 12/11/19 18:37 PTH Intact 78.16 pg/mL (15-65) H 12/16/19 20:24 Urine Color Yellow (Yellow) 12/11/19 23:00 Urine Turbidity Clear (Clear) 12/11/19 23:00 Urine pH 6.0 (5.0-7.0) 12/11/19 23:00 Ur Specific Lena 1.013 (1.003-1.030) 12/11/19 23:00 Urine Protein 30 mg/dl mg/dL (Negative) 12/11/19 23:00 Urine Glucose (UA) 150 mg/dL (Negative) 12/11/19 23:00 Urine Ketones Neg mg/dL (Negative) 12/11/19 23:00 Urine Blood Mod (Negative) 12/11/19 23:00 Urine Nitrite Neg (Negative) 12/11/19 23:00 Urine Bilirubin Neg (Negative) 12/11/19 23:00 Urine Urobilinogen 2.0 mg/dL (<2.0) 12/11/19 23:00 Ur Leukocyte Esterase Neg (Negative) 12/11/19 23:00 Urine WBC (Auto) 1.0 /HPF (0.0-6.0) 12/11/19 23:00 Urine RBC (Auto) 1.0 /HPF (0.0-6.0) 12/11/19 23:00 U Epithel Cells (Auto) 1.0 /HPF (0-13.0) 12/11/19 23:00 Urine Creatinine 42.2 mg/dL (0.1-20.0) H 12/16/19 06:52 Protein/Creatinin Ratio 0.21 12/16/19 06:52 Urine Total Protein 9 mg/dL (5-11.8) 12/16/19 06:52 DUNG Screen Negative (Negative) 12/16/19 20:24 Proteinase 3 (PR3) Ab <1.0 AI (<1.0) 12/16/19 20:24 Myeloperoxidase Ab <1.0 AI (<1.0) 12/16/19 20:24 Complement C3 166 mg/dL (82-185) 12/16/19 20:24 Complement C4 58 mg/dL (15-53) H 12/16/19 20:24 Coronavirus (PCR) Negative (Negative) 12/28/19 Unknown Robert/IV: Voiding Method Urinal IV Catheter Type [Left Hand] INT / Saline Lock IV Catheter Type [Right Peripheral IV Antecubital] Active Medications - Current Medications Current Medications: Generic Name Dose Route Start Last Admin Trade Name Freq PRN Reason Stop Dose Admin Acetaminophen 650 mg 12/11/19 21:48 12/16/19 22:31 Tylenol PO 650 mg Q4H PRN Administration Pain MILD(1-3)/Fever >100.5/MUSTAFA Aspirin 325 mg 12/13/19 22:00 01/04/20 22:26 Aspirin PO 325 mg HS JOHNNY Administration Dextrose 0 ml 12/11/19 22:45 D50w (25gm) Syringe IV Q30MIN PRN Hypoglycemia Protocol Heparin Sodium (Porcine) 5,000 unit 12/11/19 22:00 01/05/20 09:43 Heparin SUB-Q 5,000 unit Q12HR JOHNNY Administration Insulin Glargine 40 units 12/29/19 22:00 01/04/20 22:27 Lantus SUB-Q 40 units QHS JOHNNY Administration Insulin Human Lispro 0 unit 12/12/19 07:30 01/05/20 08:41 Humalog SUB-Q Not Given ACHS JOHNNY Protocol Insulin Human Lispro 6 unit 12/29/19 08:30 01/05/20 09:41 Humalog SUB-Q Not Given AC [facility] Lactulose 20 gm 12/22/19 15:00 12/29/19 11:06 Cephulac PO 20 gm QDAY PRN Administration Constipation Metoprolol Tartrate 12.5 mg 12/27/19 22:00 01/05/20 09:43 Metoprolol PO Not Given BID JOHNNY Ondansetron HCl 4 mg 12/11/19 21:48 Zofran IV Q8H PRN Nausea And Vomiting Oxycodone/Acetaminophen 1 tab 12/11/19 21:53 01/04/20 08:40 Percocet 5/325 PO 1 tab Q6H PRN Administration PAIN (4-6) Pravastatin Sodium 80 mg 12/13/19 22:00 01/04/20 22:26 Pravachol PO 80 mg QHS JOHNNY Administration Sodium Chloride 10 ml 12/11/19 22:00 01/04/20 22:27 Sodium Chloride Flush Syringe 10 Ml IV 10 ml BID JOHNNY Administration Sodium Chloride 10 ml 12/11/19 21:48 12/12/19 06:04 Sodium Chloride Flush Syringe 10 Ml IV 10 ml PRN PRN Administration LINE FLUSH Nutrition/Malnutrition Assess - Dietary Evaluation Nutrition/Malnutrition Findings: Nutrition Notes Start: 12/18/19 12:19 Freq: Status: Active Protocol: Document 12/31/19 12:01 LM (Rec: 12/31/19 12:03 [email or web address]) Nutrition Notes Initial or Follow up Brief Note Subjective/Other Information Pt stated he did not get breakfast but has good appetite and ate well yesterday. Pt with 75-100% intakes in chart. #1 Nutrition Diagnosis Inadequate oral intake As Evidenced by Signs and Symptoms Pt continuing to eat 75% of meals Diagnosis Progress(for reassessment Resolved documentation) Nutrition Intervention Revisit per MD consult or patient Sign Off request:
[2020-01-05] MEDS: ASPIRIN 325 MG TAB PO SCH (21:58)
[2020-01-05] MEDS: INSULIN GLARGINE 100 UNITS/ML SUB-Q SCH (21:59)
[2020-01-05] MEDS: PRAVASTATIN 80 MG TAB PO SCH (22:01)
--- NOTE | 2020-01-06 07:21 | Progress Note ---
Subjective Principal diagnosis: Encephalopathy Interval history: Patient was seen today for follow-up of multiple renal related issues No complaints of any chest pain pressure or shortness of breath creatinine is slightly elevated today Interdisciplinary notes that also reviewed Events of 24 hours vitals labs intake output medications were reviewed Past medical history: Reviewed Family history: Reviewed Social history: Reviewed Allergies: Reviewed Physical examination: Vitals: Reviewed HEENT: No pallor or icterus oral mucosa moist Neck: Supple no JVD no thyromegaly Chest: Bilateral clear to auscultation anteriorly Heart: Regular rate and rhythm S1-S2 heard no S3-S4 Abdomen: Soft nontender no voluntary guarding rigidity rebound Extremity: Dry skin less than 1+ peripheral edema Psychiatric: No evidence of agitation and aggression noted Dermatology: No petechial rashes Labs and x-rays: Reviewed from today Assessment and plan #Chronic kidney disease: Stable renal function, will need to make a follow-up appointment the office upon discharge in 1-2 weeks renal prognosis remains guarded, his creatinine had stabilized around 2.4 and does fluctuate up and down He has been followed up in our office #As of today hemoglobin is 12.8, creatinine is 2.4 sodium 131 bicarbonate 24 #Hypertension and volume: Blood pressure is well controlled, 111/54 #We will check phosphorus PTH as well as basic metabolic profile tomorrow along with CBC Multiple other health issues including coronary artery disease, CABG, hy pertension, diabetes, vascular dementia, obesity hypoventilation We'll continue to follow and make recommendation for renal standpoint Objective - Vital Signs Vital signs: Vital Signs - 12hr 01/05/20 01/05/20 01/06/20 20:26 21:59 00:10 Temperature 98.5 F 99.1 F Pulse Rate 91 H 91 H 80 Respiratory 20 20 Rate Blood Pressure 135/79 135/79 98/46 O2 Sat by Pulse 97 93 Oximetry 01/06/20 04:11 Temperature 98.3 F Pulse Rate 74 Respiratory 20 Rate Blood Pressure 98/43 O2 Sat by Pulse 95 Oximetry - Lab 01/06/20 14:07 01/06/20 14:07 Most recent lab results Calcium 9.6 mg/dL (8.4-10.2) 01/03/20 07:08 Urine Creatinine 42.2 mg/dL (0.1-20.0) H 12/16/19 06:52 Urine Total Protein 9 mg/dL (5-11.8) 12/16/19 06:52 Medications & Allergies - Medications Allergies/Adverse Reactions: Allergies No Known Allergies Allergy (Verified 04/19/14 09:47) Home Medications: Home Medications Medication Instructions Recorded Confirmed Last Taken Type Aspirin 325 mg PO HS 12/11/19 12/11/19 12/10/19 History ISOSORBIDE MONOnitrate [Imdur ER] 30 mg PO DAILY 12/11/19 12/11/19 12/10/19 History Insulin NPH/Regular [NovoLIN 70/30] 50 unit SQ BID 12/11/19 12/11/19 12/11/19 History Simvastatin 40 mg PO HS 12/11/19 12/11/19 12/10/19 History Metoprolol [Lopressor TAB] 12.5 mg PO BID #60 tablet 12/28/19 Unknown Rx Active Medications: Generic Name Dose Route Start Last Admin Trade Name Freq PRN Reason Stop Dose Admin Acetaminophen 650 mg 12/11/19 21:48 12/16/19 22:31 Tylenol PO 650 mg Q4H PRN Administration Pain MILD(1-3)/Fever >100.5/MUSTAFA Aspirin 325 mg 12/13/19 22:00 01/05/20 21:58 Aspirin PO 325 mg HS JOHNNY Administration Dextrose 0 ml 12/11/19 22:45 D50w (25gm) Syringe IV Q30MIN PRN Hypoglycemia Protocol Heparin Sodium (Porcine) 5,000 unit 12/11/19 22:00 01/05/20 21:59 Heparin SUB-Q 5,000 unit Q12HR JOHNNY Administration Insulin Glargine 40 units 12/29/19 22:00 01/05/20 21:59 Lantus SUB-Q 40 units QHS JOHNNY Administration Insulin Human Lispro 0 unit 12/12/19 07:30 01/05/20 21:56 Humalog SUB-Q Not Given ACHS JOHNNY Protocol Insulin Human Lispro 6 unit 12/29/19 08:30 01/05/20 17:03 Humalog SUB-Q Not Given AC [facility] Lactulose 20 gm 12/22/19 15:00 12/29/19 11:06 Cephulac PO 20 gm QDAY PRN Administration Constipation Metoprolol Tartrate 12.5 mg 12/27/19 22:00 01/05/20 21:59 Metoprolol PO 12.5 mg BID JOHNNY Administration Ondansetron HCl 4 mg 12/11/19 21:48 Zofran IV Q8H PRN Nausea And Vomiting Oxycodone/Acetaminophen 1 tab 12/11/19 21:53 01/04/20 08:40 Percocet 5/325 PO 1 tab Q6H PRN Administration PAIN (4-6) Pravastatin Sodium 80 mg 12/13/19 22:00 01/05/20 22:01 Pravachol PO 80 mg QHS JOHNNY Administration Sodium Chloride 10 ml 12/11/19 22:00 01/05/20 22:01 Sodium Chloride Flush Syringe 10 Ml IV 10 ml BID JOHNNY Administration Sodium Chloride 10 ml 12/11/19 21:48 12/12/19 06:04 Sodium Chloride Flush Syringe 10 Ml IV 10 ml PRN PRN Administration LINE FLUSH
[2020-01-06] MEDS: INSULIN LISPRO 100 UNIT/ML VIAL 3 mL SUB-Q SCH ×7 (09:34→22:12)
[2020-01-06] MEDS: HEPARIN 5,000 UNIT/1 ML VIAL SUB-Q SCH ×2 (09:35→22:10)
[2020-01-06] MEDS: METOPROLOL TARTRATE 25 MG TAB PO SCH ×2 (09:35→22:09)
--- NOTE | 2020-01-06 10:16 | Progress Note ---
Assessment and Plan Assessment and plan: 79 YO Male with CAD S/P CABG, HTN, DM, Vascular Dementia, Cerebral Atherosclerosis, Obesity Hypoventilation Syndrome, presents to ED for evaluation. Patient is confused with diminished cognition and is unable to provide history. Patient history provided by EMS staff, ED staff, as well as patient family who was at bedside during exam and interview. As per family the patient has experienced increased weakness and confusion over the past 1 month with progressively worsening symptoms over the same timeframe. Patient is currently bedbound, and nonambulatory as per family report. Patient also requir es 6/6 assistance with activities of daily living. EMS was notified and upon arrival the patient was found to be confused and in distress with a temperature 101.2 F. Patient was subsequently transported to [facility] for further care and evaluation of the aforementioned symptoms. Patient seen and evaluated in the emergency department. Lab and imaging studies reviewed. Patient underwent chest x-ray which revealed pneumonia complicated by sepsis, toxic metabolic encephalopathy. Patient initiated on sepsis protocol as well as coronavirus protocol in the emergency department. Patient is confused and lethargic with diminished cognition but has a positive gag reflex and is able to protect his airway. No further history obtainable. Advanced care planning conducted in ED. 12/24/2019 Patient seen at bedside-alert and oriented-on room air Reviewed lab, mar, and v/s Reviewed SW and PT note subacute/SNF placement and recommended Patient is awaiting placement. placement permission at [facility] pending from [facility] Medically stable for discharge 12/25/2019 Patient has no complaints today Still pending placement 12/26/2019 Patient needs rehabilitation due to poor gait and instability. PT note has been reviewed and I agree with assessment Discussed with patient's daughter this a.m. 12/27/2019 Still awaiting placement He has no complaints this morning 12/27. Planned for DC but insurance has not approved transfer to facility so DC was canceled. 12/28 - 12/29. BP soft. holding nitrates. No fever. Monitor BP. 12/30. Has no complaints. PT to reevaluate patient so insurance can review. Vitals reviewed. 12/31: AWAITING PLACEMENT, per Nephrology continue to hold Lasix, renal function is sable and appears to be at baseline. Continue to monitor Blood glucose and will obtain repeat PT/OT eval. 01/01. Continue to monitor., Discussed with the daughter and also the insurance company trying to do a fast appeal. Left my phone number. Continue to monitor Blood sugar. will check labs PRN Patient is not bedbound, he informs me that a few weeks prior to admission he was having pain in the Right leg, he was informed that he has severe osteoarthr itis and needs some injections. He definitely needs rehab and will continue with ortho outpatient. He needs to loose weight too 01/02 Pending placement. NO CLINICAL CHANGE 01/03: Continue supportive care, awaiting bed at SNF, covid test ordered for tuesday as requested by facility, continue PT/OT while inhouse 01/04: Awaiting placement, facility states Tuesday. 01/05: Covid testing to be done today. Discussed with case management anticipate discharge in a.m. Problems Toxic metabolic encephalopathy-resolved Current Visit: Yes Status: Acute Plan to address problem: Present on admission, improved SIRS:[No criteria for sepsis]-improved Current Visit: Yes Status: Acute Plan to address problem: Improved Acute bronchitis-improved Current Visit: Yes Status: Acute . Plan to address problem: Chest x-ray negative for pneumonia Continue current management Coronary artery disease status post CABG ; Current Visit: Yes Status: Acute . Plan to address problem: Continue cardiac protective measures Condition is stable -denies ACS signs Type II diabetes mellitus-stable Current Visit: Yes Status: Acute Plan to address problem: Monitor blood sugar with SSIt Continue Lantus Adjust if needed A1c is 9.7 Acute Kidney Injury-WITH ATN stable patient w/ multiple risk factors for CKD - DM, HTN, CAD Current Visit: No Status: Acute Plan to address problem: Current creatinine stable Underlying CKD Creatinine 2.3 Hyponatremia; present on admission likely 2/2 to EUFEMIA improved, Continue monitor electrolytes Suspected COVID-19 virus infection Current Visit: No Status: Acute Plan to address problem: COVID-19 test is negative Morbid obesity; BMI 43 Patient needs weight reduction when medically stable Advised on inportance of lifestyle modification Healthy diet-more fruits and vegebles and avoid high calorie foods Osteroathritis Vascular dementia Current Visit: Yes Status: Acute Qualifiers: Dementia behavioral disturbance: without behavioral disturbance Qualified Code(s): F01.50 - Vascular dementia without behavioral disturbance SIRS (systemic inflammatory response syndrome) Current Visit: Yes Status: Acute Debility Current Visit: Yes Status: Acute Plan to address problem: PT notes reviewed-patient needs physical therapy due to poor gait and instability. I believe patient will benefit from physical therapy. Still awaiting placement. Discussed with [employer] pharmaceutical service representative on 12/26 DVT prophylaxis Current Visit: Yes Status: Acute Plan to address problem: SCD /heparin renal dose --Discharge planning issues patient ready for discharge Needs acceptance at [facility] by Ana Discussed with information systems audit manager History Interval history: Patient seen and examined, no new complaints. Hospitalist Physical - Physical exam Narrative exam: VITAL SIGNS: Reviewed. GENERAL: Awake and alert on response to questions, LYING IN BED. NO CLINICAL CHANGE HEAD: No signs of head trauma. EYES: Pupils are equal. Extraocular motions intact. EARS: Hearing grossly intact. MOUTH: Oropharynx is normal. NECK: No adenopathy, no JVD. CHEST: Chest with diminished breath sounds bilaterally. No wheezes, rales, or rhonchi. CARDIAC: Regular rate and rhythm. S1 and S2, without murmurs, gallops, or rubs. VASCULAR: No Edema. Peripheral pulses normal and equal in all extremities. ABDOMEN: Soft, non tender and non distended. No rebound or guarding, and no masses palpated. Bowel Sounds normal. MUSCULOSKELETAL: Good range of motion of all major joints. Extremities without clubbing, cyanosis or edema. NEUROLOGIC EXAM: Alert and oriented x3. No focal neurologic deficits PSYCHIATRIC: Stable mood SKIN: No obvious lesions - Constitutional Vitals: Temp Pulse Resp BP Pulse Ox 98.6 F 75 16 120/58 95 01/06/20 08:28 01/06/20 08:28 01/06/20 08:28 01/06/20 08:28 01/06/20 08:28 General appearance: Present: no acute distress, well-nourished HEART Score - HEART Score Troponin: Troponin T < 0.010 ng/mL (0.00-0.029) 12/11/19 20:03 Results - Labs CBC & Chem 7: 01/03/20 07:08 01/03/20 07:08 Labs: Laboratory Last Values WBC 7.2 K/mm3 (4.5-11.0) 01/03/20 07:08 RBC 4.41 M/mm3 (3.65-5.03) 01/03/20 07:08 Hgb 13.2 gm/dl (11.8-15.2) 01/03/20 07:08 Hct 39.1 % (35.5-45.6) 01/03/20 07:08 MCV 89 fl (84-94) 01/03/20 07:08 MCH 30 pg (28-32) 01/03/20 07:08 MCHC 34 % (32-34) 01/03/20 07:08 RDW 14.1 % (13.2-15.2) 01/03/20 07:08 Plt Count 278 K/mm3 (140-440) 01/03/20 07:08 Lymph % (Auto) 30.6 % (13.4-35.0) 12/26/19 04:59 Kimball % (Auto) 10.5 % (0.0-7.3) H 12/26/19 04:59 Eos % (Auto) 6.5 % (0.0-4.3) H 12/26/19 04:59 Baso % (Auto) 1.0 % (0.0-1.8) 12/26/19 04:59 Lymph # (Auto) 2.7 K/mm3 (1.2-5.4) 12/26/19 04:59 Kimball # (Auto) 0.9 K/mm3 (0.0-0.8) H 12/26/19 04:59 Eos # (Auto) 0.6 K/mm3 (0.0-0.4) H 12/26/19 04:59 Baso # (Auto) 0.1 K/mm3 (0.0-0.1) 12/26/19 04:59 Add Manual Diff Complete 12/31/19 04:39 Total Counted 100 12/31/19 04:39 Seg Neutrophils % 51.4 % (40.0-70.0) 12/26/19 04:59 Seg Neuts % (Manual) 46.0 % (40.0-70.0) 12/31/19 04:39 Band Neutrophils % 0 % 12/31/19 04:39 Lymphocytes % (Manual) 40.0 % (13.4-35.0) H 12/31/19 04:39 Reactive Lymphs % (Man) 0 % 12/31/19 04:39 Monocytes % (Manual) 2.0 % (0.0-7.3) 12/31/19 04:39 Eosinophils % (Manual) 12.0 % (0.0-4.3) H 12/31/19 04:39 Basophils % (Manual) 0 % (0.0-1.8) 12/31/19 04:39 Metamyelocytes % 0 % 12/31/19 04:39 Myelocytes % 0 % 12/31/19 04:39 Promyelocytes % 0 % 12/31/19 04:39 Blast Cells % 0 % 12/31/19 04:39 Nucleated RBC % Not Reportable 12/31/19 04:39 Seg Neutrophils # 4.5 K/mm3 (1.8-7.7) 12/26/19 04:59 Seg Neutrophils # Man 3.7 K/mm3 (1.8-7.7) 12/31/19 04:39 Band Neutrophils # 0.0 K/mm3 12/31/19 04:39 Lymphocytes # (Manual) 3.2 K/mm3 (1.2-5.4) 12/31/19 04:39 Abs React Lymphs (Man) 0.0 K/mm3 12/31/19 04:39 Monocytes # (Manual) 0.2 K/mm3 (0.0-0.8) 12/31/19 04:39 Eosinophils # (Manual) 1.0 K/mm3 (0.0-0.4) H 12/31/19 04:39 Basophils # (Manual) 0.0 K/mm3 (0.0-0.1) 12/31/19 04:39 Metamyelocytes # 0.0 K/mm3 12/31/19 04:39 Myelocytes # 0.0 K/mm3 12/31/19 04:39 Promyelocytes # 0.0 K/mm3 12/31/19 04:39 Blast Cells # 0.0 K/mm3 12/31/19 04:39 WBC Morphology Not Reportable 12/31/19 04:39 Hypersegmented Neuts Not Reportable 12/31/19 04:39 Hyposegmented Neuts Not Reportable 12/31/19 04:39 Hypogranular Neuts Not Reportable 12/31/19 04:39 Smudge Cells Not Reportable 12/31/19 04:39 Toxic Granulation Not Reportable 12/31/19 04:39 Toxic Vacuolation Not Reportable 12/31/19 04:39 Dohle Bodies Not Reportable 12/31/19 04:39 Pelger-Huet Anomaly Not Reportable 12/31/19 04:39 Sam Rods Not Reportable 12/31/19 04:39 Platelet Estimate Consistent w auto 12/31/19 04:39 Clumped Platelets Not Reportable 12/31/19 04:39 Plt Clumps, EDTA Not Reportable 12/31/19 04:39 Large Platelets Not Reportable 12/31/19 04:39 Giant Platelets Not Reportable 12/31/19 04:39 Platelet Satelliting Not Reportable 12/31/19 04:39 Plt Morphology Comment Not Reportable 12/31/19 04:39 RBC Morphology Not Reportable 12/31/19 04:39 Dimorphic RBCs Not Reportable 12/31/19 04:39 Polychromasia Not Reportable 12/31/19 04:39 Hypochromasia Not Reportable 12/31/19 04:39 Poikilocytosis Not Reportable 12/31/19 04:39 Anisocytosis Not Reportable 12/31/19 04:39 Microcytosis Not Reportable 12/31/19 04:39 Macrocytosis Not Reportable 12/31/19 04:39 Spherocytes Not Reportable 12/31/19 04:39 Pappenheimer Bodies Not Reportable 12/31/19 04:39 Sickle Cells Not Reportable 12/31/19 04:39 Target Cells Not Reportable 12/31/19 04:39 Tear Drop Cells Not Reportable 12/31/19 04:39 Ovalocytes Not Reportable 12/31/19 04:39 Helmet Cells Not Reportable 12/31/19 04:39 Saavedra-Kasaan Bodies Not Reportable 12/31/19 04:39 [place] Rings Not Reportable 12/31/19 04:39 Sanam Cells Not Reportable 12/31/19 04:39 Bite Cells Not Reportable 12/31/19 04:39 Crenated Cell Not Reportable 12/31/19 04:39 Elliptocytes Not Reportable 12/31/19 04:39 Acanthocytes (Spur) Not Reportable 12/31/19 04:39 Rouleaux Not Reportable 12/31/19 04:39 Hemoglobin C Crystals Not Reportable 12/31/19 04:39 Schistocytes Not Reportable 12/31/19 04:39 Malaria parasites Not Reportable 12/31/19 04:39 [place] Bodies Not Reportable 12/31/19 04:39 Hem Pathologist Commnt No 12/31/19 04:39 PT 13.1 Sec. (12.2-14.9) 12/11/19 18:37 INR 0.97 (0.87-1.13) 12/11/19 18:37 APTT 20.1 Sec. (24.2-36.6) L 12/11/19 18:37 D-Dimer 550.63 ng/mlDDU (0-234) H 12/11/19 21:50 Sodium 136 mmol/L (137-145) L 01/03/20 07:08 Potassium 4.3 mmol/L (3.6-5.0) 01/03/20 07:08 Chloride 104.0 mmol/L (98-107) 01/03/20 07:08 Carbon Dioxide 22 mmol/L (22-30) 01/03/20 07:08 Anion Gap 14 mmol/L 01/03/20 07:08 BUN 27 mg/dL (9-20) H 01/03/20 07:08 Creatinine 2.1 mg/dL (0.8-1.3) H 01/03/20 07:08 Estimated GFR 37 ml/min 01/03/20 07:08 BUN/Creatinine Ratio 13 % 01/03/20 07:08 Glucose 166 mg/dL (75-100) H 01/03/20 07:08 POC Glucose 146 mg/dL (70-105) H 01/06/20 08:26 Hemoglobin A1c 9.7 % (4-6) H 12/12/19 05:05 Lactic Acid 1.50 mmol/L (0.7-2.0) 12/12/19 05:05 Calcium 9.6 mg/dL (8.4-10.2) 01/03/20 07:08 Ferritin 646.4 ng/mL (30.0-300.0) H 12/11/19 21:50 Total Bilirubin 0.70 mg/dL (0.1-1.2) 12/12/19 05:05 Direct Bilirubin < 0.2 mg/dL (0-0.2) 12/11/19 18:37 Indirect Bilirubin 0.6 mg/dL 12/11/19 18:37 AST 26 units/L (5-40) 12/12/19 05:05 ALT 15 units/L (7-56) 12/12/19 05:05 Alkaline Phosphatase 68 units/L (35-129) 12/12/19 05:05 Ammonia 36.0 umol/L (25-60) 12/11/19 18:37 Lactate Dehydrogenase 188 units/L (91-180) H 12/11/19 21:50 Troponin T < 0.010 ng/mL (0.00-0.029) 12/11/19 20:03 C-Reactive Protein 18.20 mg/dL (0.00-1.30) H 12/11/19 21:50 NT-Pro-B Natriuret Pep 224.4 pg/mL (0-900) 12/11/19 18:37 Serum Total Protein 6.8 g/dL (6.1-8.1) 12/16/19 20:24 Total Protein 8.0 g/dL (6.3-8.2) 12/12/19 05:05 Albumin 2.9 g/dL (3.8-4.8) L 12/16/19 20:24 Albumin/Globulin Ratio 0.6 % 12/12/19 05:05 Yxqkc-3-Lppejriqo 0.5 g/dL (0.2-0.3) H 12/16/19 20:24 Oexcd-8-Mfnwtebbn 0.9 g/dL (0.5-0.9) 12/16/19 20:24 Beta Globulins 0.6 g/dL (0.2-0.5) H 12/16/19 20:24 Gamma Globulins 1.4 g/dL (0.8-1.7) 12/16/19 20:24 Abnorm Protein Band 1 see below 12/16/19 20:24 PEP Interpretation see below H 12/16/19 20:24 Procalcitonin 0.18 ng/mL (<0.15) 12/11/19 21:50 TSH 1.240 mlU/mL (0.270-4.200) 12/11/19 18:37 PTH Intact 78.16 pg/mL (15-65) H 12/16/19 20:24 Urine Color Yellow (Yellow) 12/11/19 23:00 Urine Turbidity Clear (Clear) 12/11/19 23:00 Urine pH 6.0 (5.0-7.0) 12/11/19 23:00 Ur Specific [place] 1.013 (1.003-1.030) 12/11/19 23:00 Urine Protein 30 mg/dl mg/dL (Negative) 12/11/19 23:00 Urine Glucose (UA) 150 mg/dL (Negative) 12/11/19 23:00 Urine Ketones Neg mg/dL (Negative) 12/11/19 23:00 Urine Blood Mod (Negative) 12/11/19 23:00 Urine Nitrite Neg (Negative) 12/11/19 23:00 Urine Bilirubin Neg (Negative) 12/11/19 23:00 Urine Urobilinogen 2.0 mg/dL (<2.0) 12/11/19 23:00 Ur Leukocyte Esterase Neg (Negative) 12/11/19 23:00 Urine WBC (Auto) 1.0 /HPF (0.0-6.0) 12/11/19 23:00 Urine RBC (Auto) 1.0 /HPF (0.0-6.0) 12/11/19 23:00 U Epithel Cells (Auto) 1.0 /HPF (0-13.0) 12/11/19 23:00 Urine Creatinine 42.2 mg/dL (0.1-20.0) H 12/16/19 06:52 Protein/Creatinin Ratio 0.21 12/16/19 06:52 Urine Total Protein 9 mg/dL (5-11.8) 12/16/19 06:52 DUNG Screen Negative (Negative) 12/16/19 20:24 Proteinase 3 (PR3) Ab <1.0 AI (<1.0) 12/16/19 20:24 Myeloperoxidase Ab <1.0 AI (<1.0) 12/16/19 20:24 Complement C3 166 mg/dL (82-185) 12/16/19 20:24 Complement C4 58 mg/dL (15-53) H 12/16/19 20:24 Coronavirus (PCR) Negative (Negative) 12/28/19 Unknown Robert/IV: Voiding Method Urinal IV Catheter Type [Left Hand] INT / Saline Lock IV Catheter Type [Right Peripheral IV Antecubital] Active Medications - Current Medications Current Medications: Generic Name Dose Route Start Last Admin Trade Name Freq PRN Reason Stop Dose Admin Acetaminophen 650 mg 12/11/19 21:48 12/16/19 22:31 Tylenol PO 650 mg Q4H PRN Administration Pain MILD(1-3)/Fever >100.5/MUSTAFA Aspirin 325 mg 12/13/19 22:00 01/05/20 21:58 Aspirin PO 325 mg HS JOHNNY Administration Dextrose 0 ml 12/11/19 22:45 D50w (25gm) Syringe IV Q30MIN PRN Hypoglycemia Protocol Heparin Sodium (Porcine) 5,000 unit 12/11/19 22:00 01/06/20 09:35 Heparin SUB-Q 5,000 unit Q12HR JOHNNY Administration Insulin Glargine 40 units 12/29/19 22:00 01/05/20 21:59 Lantus SUB-Q 40 units QHS JOHNYN Administration Insulin Human Lispro 0 unit 12/12/19 07:30 01/06/20 09:34 Humalog SUB-Q Not Given ACHS JOHNNY Protocol Insulin Human Lispro 6 unit 12/29/19 08:30 01/06/20 09:35 Humalog SUB-Q 6 unit AC JOHNNY Administration Lactulose 20 gm 12/22/19 15:00 12/29/19 11:06 Cephulac PO 20 gm QDAY PRN Administration Constipation Metoprolol Tartrate 12.5 mg 12/27/19 22:00 01/06/20 09:35 Metoprolol PO 12.5 mg BID JOHNNY Administration Ondansetron HCl 4 mg 12/11/19 21:48 Zofran IV Q8H PRN Nausea And Vomiting Oxycodone/Acetaminophen 1 tab 12/11/19 21:53 01/04/20 08:40 Percocet 5/325 PO 1 tab Q6H PRN Administration PAIN (4-6) Pravastatin Sodium 80 mg 12/13/19 22:00 01/05/20 22:01 Pravachol PO 80 mg QHS JOHNNY Administration Sodium Chloride 10 ml 12/11/19 22:00 01/05/20 22:01 Sodium Chloride Flush Syringe 10 Ml IV 10 ml BID JOHNNY Administration Sodium Chloride 10 ml 12/11/19 21:48 12/12/19 06:04 Sodium Chloride Flush Syringe 10 Ml IV 10 ml PRN PRN Administration LINE FLUSH Nutrition/Malnutrition Assess - Dietary Evaluation Nutrition/Malnutrition Findings: Nutrition Notes Start: 12/18/19 12:19 Freq: Status: Active Protocol: Document 12/31/19 12:01 LM (Rec: 12/31/19 12:03 LM [id number]) Nutrition Notes Initial or Follow up Brief Note Subjective/Other Information Pt stated he did not get breakfast but has good appetite and ate well yesterday. Pt with 75-100% intakes in chart. #1 Nutrition Diagnosis Inadequate oral intake As Evidenced by Signs and Symptoms Pt continuing to eat 75% of meals Diagnosis Progress(for reassessment Resolved documentation) Nutrition Intervention Revisit per MD consult or patient Sign Off request:
[2020-01-06] MEDS: oxyCODONE /ACETAMINOPHEN 5-325MG TAB PO PRN (10:47)
[2020-01-06 14:46] LABS: Basophils # (Auto) 0.1 K/mm3 (0.0-0.1); Basophils % (Auto) 1.2 % (0.0-1.8); Eosinophils # (Auto) 0.2 K/mm3 (0.0-0.4); Eosinophils % (Auto) 3.1 % (0.0-4.3); Hematocrit 38.3 % (35.5-45.6); Hemoglobin 12.8 gm/dl (11.8-15.2); Lymphocytes # (Auto) 2.2 K/mm3 (1.2-5.4); Lymphocytes % (Auto) 28.5 % (13.4-35.0); Mean Corpuscular HGB Conc 33 % (32-34); Mean Corpuscular Volume 89 fl (84-94); Monocytes # (Auto) 0.7 K/mm3 (0.0-0.8); Monocytes % (Auto) 9.6 % (0.0-7.3); Platelet Count 255 K/mm3 (140-440); Red Cell Distribution Width 14.1 % (13.2-15.2)
[2020-01-06 14:58] LABS: Calcium 9.4 mg/dL (8.4-10.2)
[2020-01-06] MEDS: ASPIRIN 325 MG TAB PO SCH (22:09)
[2020-01-06] MEDS: PRAVASTATIN 80 MG TAB PO SCH (22:10)
[2020-01-06] MEDS: INSULIN GLARGINE 100 UNITS/ML SUB-Q SCH (22:12)
[2020-01-07] MEDS: INSULIN LISPRO 100 UNIT/ML VIAL 3 mL SUB-Q SCH ×4 (08:58→14:16)
--- NOTE | 2020-01-07 09:14 | Progress Note ---
Assessment and Plan Impression * Stage III chronic kidney disease - patient w/ multiple risk factors for CKD - DM, HTN, CAD * Altered mental status * Fever --Blood cx NGTD (Dec 10) * Dementia * Hypertension * Type II DM * Hx of CAD s/p CABG Plan: * Renal function has been fairly stable - baseline appears to be 2.1-2.3mg/dL; * Continue to hold Lasix as able * Daily labs * Dose medications for renal function * Glycemic control per primary team * Discharge planning in progress * Follow up with [facility] upon discharge, note potential discharge to rehab today Subjective Date of service: 01/07/20 Principal diagnosis: Encephalopathy Interval history: Patient is comfortable today. Denies any shortness of breath. No nausea vomiting or diarrhea. Objective - Vital Signs Vital signs: Vital Signs - 12hr 01/06/20 01/06/20 01/06/20 22:00 22:09 23:31 Temperature 98.5 F Pulse Rate 83 99 H Respiratory 18 14 Rate Blood Pressure 105/68 112/48 O2 Sat by Pulse 93 Oximetry 01/07/20 01/07/20 03:19 07:39 Temperature 98.1 F 98.0 F Pulse Rate 84 88 Respiratory 16 20 Rate Blood Pressure 104/53 104/44 O2 Sat by Pulse 97 94 Oximetry - General Appearance General appearance: well-developed, well-nourished, appears stated age EENT: PERRL, mucous membranes moist Neck: no JVD, no thyromegaly, no carotid bruit, supple Respiratory: Present: Clear to Ascultation Cardiology: regular, normal heart rate, S1S2, no murmurs Gastrointestinal: normal, normoactive bowel sounds Integumentary: no rash, warm and dry, other (No edema) - Lab 01/06/20 14:07 01/06/20 14:07 Most recent lab results Calcium 9.4 mg/dL (8.4-10.2) 01/06/20 14:07 Phosphorus 2.50 mg/dL (2.5-4.5) 01/06/20 14:07 Urine Creatinine 42.2 mg/dL (0.1-20.0) H 12/16/19 06:52 Urine Total Protein 9 mg/dL (5-11.8) 12/16/19 06:52 Medications & Allergies - Medications Allergies/Adverse Reactions: Allergies No Known Allergies Allergy (Verified 03/13/15 09:47) Home Medications: Home Medications Medication Instructions Recorded Confirmed Last Taken Type Aspirin 325 mg PO HS 12/11/19 12/11/19 12/10/19 History ISOSORBIDE MONOnitrate [Imdur ER] 30 mg PO DAILY 12/11/19 12/11/19 12/10/19 History Insulin NPH/Regular [NovoLIN 70/30] 50 unit SQ BID 12/11/19 12/11/19 12/11/19 History Simvastatin 40 mg PO HS 12/11/19 12/11/19 12/10/19 History Metoprolol [Lopressor TAB] 12.5 mg PO BID #60 tablet 12/28/19 Unknown Rx Active Medications: Generic Name Dose Route Start Last Admin Trade Name Freq PRN Reason Stop Dose Admin Acetaminophen 650 mg 12/11/19 21:48 12/16/19 22:31 Tylenol PO 650 mg Q4H PRN Administration Pain MILD(1-3)/Fever >100.5/MUSTAFA Aspirin 325 mg 12/13/19 22:00 01/06/20 22:09 Aspirin PO 325 mg HS JOHNNY Administration Dextrose 0 ml 12/11/19 22:45 D50w (25gm) Syringe IV Q30MIN PRN Hypoglycemia Protocol Heparin Sodium (Porcine) 5,000 unit 12/11/19 22:00 01/06/20 22:10 Heparin SUB-Q 5,000 unit Q12HR JOHNNY Administration Insulin Glargine 40 units 12/29/19 22:00 01/06/20 22:12 Lantus SUB-Q 40 units QHS JOHNNY Administration Insulin Human Lispro 0 unit 12/12/19 07:30 01/07/20 08:58 Humalog SUB-Q 2 unit ACHS JOHNNY Administration Protocol Insulin Human Lispro 6 unit 12/29/19 08:30 01/07/20 08:58 Humalog SUB-Q 6 unit AC JOHNNY Administration Lactulose 20 gm 12/22/19 15:00 12/29/19 11:06 Cephulac PO 20 gm QDAY PRN Administration Constipation Metoprolol Tartrate 12.5 mg 12/27/19 22:00 01/06/20 22:09 Metoprolol PO 12.5 mg BID JOHNNY Administration Ondansetron HCl 4 mg 12/11/19 21:48 Zofran IV Q8H PRN Nausea And Vomiting Oxycodone/Acetaminophen 1 tab 12/11/19 21:53 01/06/20 10:47 Percocet 5/325 PO 1 tab Q6H PRN Administration PAIN (4-6) Pravastatin Sodium 80 mg 12/13/19 22:00 01/06/20 22:10 Pravachol PO 80 mg QHS JOHNNY Administration Sodium Chloride 10 ml 12/11/19 22:00 01/06/20 22:12 Sodium Chloride Flush Syringe 10 Ml IV 10 ml BID JOHNNY Administration Sodium Chloride 10 ml 12/11/19 21:48 12/12/19 06:04 Sodium Chloride Flush Syringe 10 Ml IV 10 ml PRN PRN Administration LINE FLUSH
[2020-01-07] MEDS: METOPROLOL TARTRATE 25 MG TAB PO SCH (10:00)
--- NOTE | 2020-01-07 10:22 | Discharge Summary ---
Providers - Providers Date of Admission: 12/11/19 21:48 Attending physician: SANDRA MEREDITH MD 12/13/19 07:31 Occupational Therapy Evaluate and Treat [CONS] Routine Comment: Daughter could not take care of him at home Reason For Exam: Weakness Physical Therapy Evaluation and Treat [CONS] Routine Comment: Daughter said she has a hard time to take care of Reason For Exam: Weakness 12/15/19 07:37 Consult to Physician [CONS] Routine Comment: Consulting Provider: KAREN WARD Physician Instructions: Reason For Exam: EUFEMIA 12/20/19 15:28 Physical Therapy Evaluation and Treat [CONS] Stat Comment: P2P requesting reeval and doc how much pt can walk Reason For Exam: P2P Dr requesting reevalution 01/02/20 09:51 Physical Therapy Evaluation and Treat [CONS] Routine Comment: Reason For Exam: debility Primary care physician: [facility] Hospitalization Reason for admission: Encephalopathy Condition: Stable Hospital course: 79 YO Male with CAD S/P CABG, HTN, DM, Vascular Dementia, Cerebral Atherosclerosis, Obesity Hypoventilation Syndrome, presents to ED for evaluation. Patient is confused with diminished cognition and is unable to provide history. Patient history provided by EMS staff, ED staff, as well as patient family who was at bedside during exam and interview. As per family the patient has experienced increased weakness and confusion over the past 1 month with progressively worsening symptoms over the same timeframe. Patient is currently bedbound, and nonambulatory as per family report. Patient also requires 6/6 assistance with activities of daily living. EMS was notified and upon arrival the patient was found to be confused and in distress with a temperature 101.2 F. Patient was subsequently transported to [facility] for further care and evaluation of the aforementioned symptoms. Patient seen and evaluated in the emergency department. Lab and imaging studies reviewed. Patient unde rwent chest x-ray which revealed pneumonia complicated by sepsis, toxic metabolic encephalopathy. Patient initiated on sepsis protocol as well as coronavirus protocol in the emergency department. Patient is confused and lethargic with diminished cognition but has a positive gag reflex and is able to protect his airway. No further history obtainable. Advanced care planning conducted in ED. 12/24/2019 Patient seen at bedside-alert and oriented-on room air Reviewed lab, mar, and v/s Reviewed SW and PT note subacute/SNF placement and recommended Patient is awaiting placement. placement permission at [facility] pending from [employer] Medically stable for discharge 12/25/2019 Patient has no complaints today Still pending placement 12/26/2019 Patient needs rehabilitation due to poor gait and instability. PT note has been reviewed and I agree with assessment Discussed with patient's daughter this a.m. 12/27/2019 Still awaiting placement He has no complaints this morning 12/27. Planned for DC but insurance has not approved transfer to facility so DC was canceled. 12/28 - 12/29. BP soft. holding nitrates. No fever. Monitor BP. 12/30. Has no complaints. PT to reevaluate patient so insurance can review. Vitals reviewed. 12/31: AWAITING PLACEMENT, per Nephrology continue to hold Lasix, renal function is sable and appears to be at baseline. Continue to monitor Blood glucose and will obtain repeat PT/OT eval. 01/01. Continue to monitor., Discussed with the daughter and also the insurance company trying to do a fast appeal. Left my phone number. Continue to monitor Blood sugar. will check labs PRN Patient is not bedbound, he informs me that a few weeks prior to admission he was having pain in the Right leg, he was informed that he has severe osteoarthritis and needs some injections. He definitely needs rehab and will continue with ortho outpatient. He needs to loose weight too 01/02 Pending placement. NO CLINICAL CHANGE 01/03: Continue supportive care, awaiting bed at SNF, covid test ordered for tuesday as requested by facility, continue PT/OT while inhouse 01/04: Awaiting placement, facility states Tuesday. 01/05: Covid testing to be done today. Discussed with case management anticipate discharge in a.m. 01/06: Patient clinically stable for discharge of discussed his entire care with him his renal function has stayed remarkably stable. He is to follow-up with nephrology outpatient. No further breathing problems noted acute rehab at the snf facility is recommended. Per nephrology we will continue to hold Lasix at this time. 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 Weight loss was significantly discussed and recommended Diagnosis Toxic metabolic encephalopathy-resolved Current Visit: Yes Status: Acute Plan to address problem: Present on admission, improved SIRS:[No criteria for sepsis]-improved Current Visit: Yes Status: Acute Plan to address problem: Improved Acute bronchitis-improved Current Visit: Yes Status: Acute . Plan to address problem: Chest x-ray negative for pneumonia Continue current management Coronary artery disease status post CABG ; Current Visit: Yes Status: Acute . Plan to address problem: Continue cardiac protective measures Condition is stable -denies ACS signs Type II diabetes mellitus-stable Current Visit: Yes Status: Acute Plan to address problem: Monitor blood sugar with SSIt Continue Lantus Adjust if needed A1c is 9.7 Acute Kidney Injury-WITH ATN stableS tage III chronic kidney disease - patient w/ multiple risk factors for CKD - DM, HTN, CAD Current Visit: No Status: Acute Plan to address problem: Current creatinine stable Underlying CKD Creatinine 2.3 Hyponatremia; present on admission likely 2/2 to EUFEMIA improved, Continue monitor electrolytes Suspected COVID-19 virus infection Current Visit: No Status: Acute Plan to address problem: COVID-19 test is negative Morbid obesity; BMI 43 Patient needs weight reduction when medically stable Advised on inportance of lifestyle modification Healthy diet-more fruits and vegebles and avoid high calorie foods Osteroathritis Vascular dementia Current Visit: Yes Status: Acute Qualifiers: Dementia behavioral disturbance: without behavioral disturbance Qualified Code(s): F01.50 - Vascular dementia without behavioral disturbance SIRS (systemic inflammatory response syndrome) Current Visit: Yes Status: Acute Debility Current Visit: Yes Status: Acute Plan to address problem: PT notes reviewed-patient needs physical therapy due to poor gait and in stability. I believe patient will benefit from physical therapy. Still awaiting placement. Discussed with [employer] appeals representative on 12/26 [id number] Time spent for discharge: 35-minute Core Measure Documentation - Palliative Care Palliative Care/ Comfort Measures: Not Applicable - Core Measures Any of the following diagnoses?: none Exam - Physical Exam Narrative exam: VITAL SIGNS: Reviewed. GENERAL: Awake and alert on response to questions, LYING IN BED. NO CLINICAL CHANGE HEAD: No signs of head trauma. EYES: Pupils are equal. Extraocular motions intact. EARS: Hearing grossly intact. MOUTH: Oropharynx is normal. NECK: No adenopathy, no JVD. CHEST: Chest with diminished breath sounds bilaterally. No wheezes, rales, or rhonchi. CARDIAC: Regular rate and rhythm. S1 and S2, without murmurs, gallops, or rubs. VASCULAR: No Edema. Peripheral pulses normal and equal in all extremities. ABDOMEN: Soft, non tender and non distended. No rebound or guarding, and no masses palpated. Bowel Sounds normal. MUSCULOSKELETAL: Good range of motion of all major joints. Extremities without clubbing, cyanosis or edema. NEUROLOGIC EXAM: Alert and oriented x3. No focal neurologic deficits PSYCHIATRIC: Stable mood SKIN: No obvious lesions - Constitutional Vitals: Temp Pulse Resp BP Pulse Ox 98.0 F 88 20 104/44 94 01/07/20 07:39 01/07/20 07:39 01/07/20 07:39 01/07/20 07:39 01/07/20 07:39 Plan Activity: advance as tolerated, fall precautions Diet: low salt, diabetic Special Instructions: record daily weights, record daily BP diary, record blood sugar diary Additional Instructions: Must follow-up with orthopedic surgeon to further evaluate the osteoarthritis. Plan of Treatment: Continue to hold Lasix until unless instructed by baseball coach Follow up with: PRIMARY CAREMD [Primary Care Provider] - 7 Days SEBAS ART MD [Staff Physician] - 7 Days Prescriptions: Metoprolol [Lopressor TAB] 12.5 mg PO BID #60 tablet
[2020-01-07] MEDS: ACETAMINOPHEN 325 MG TAB PO PRN (14:32)
[2020-01-07] MEDS: HEPARIN 5,000 UNIT/1 ML VIAL SUB-Q SCH (14:33)
[2020-01-07 17:09] VITALS: BP 107/58
== END 2020-01-07 17:29 | DRG 91 ==
LOC: ED 18:16 → 3A 21:48 → 4A 12-26 17:29
PROVIDERS: ADMIT Internal Medicine; ATTEND Internal Medicine
DX: G92 Toxic encephalopathy (principal); N17.0 Acute kidney failure with tubular necrosis; E66.2 Morbid (severe) obesity with alveolar hypoventilation; E87.1 Hypo-osmolality and hyponatremia; Z68.41 Body mass index [BMI] 40.0-44.9, adult; R65.10 Systemic inflammatory response syndrome (SIRS) of non-infectious origin without acute organ dysfunction; Z20.828 Contact with and (suspected) exposure to other viral communicable diseases; F01.50 Vascular dementia, unspecified severity, without behavioral disturbance, psychotic disturbance, mood disturbance, and anxiety; I67.2 Cerebral atherosclerosis; N18.30 Chronic kidney disease, stage 3 unspecified; D72.829 Elevated white blood cell count, unspecified; J20.9 Acute bronchitis, unspecified; I25.10 Atherosclerotic heart disease of native coronary artery without angina pectoris; I12.9 Hypertensive chronic kidney disease with stage 1 through stage 4 chronic kidney disease, or unspecified chronic kidney disease; E11.22 Type 2 diabetes mellitus with diabetic chronic kidney disease; M19.90 Unspecified osteoarthritis, unspecified site; Z79.899 Other long term (current) drug therapy; Z79.891 Long term (current) use of opiate analgesic; Z87.891 Personal history of nicotine dependence; Z95.818 Presence of other cardiac implants and grafts; Z95.1 Presence of aortocoronary bypass graft; Z63.5 Disruption of family by separation and divorce; Z83.3 Family history of diabetes mellitus; Z82.49 Family history of ischemic heart disease and other diseases of the circulatory system; Z79.82 Long term (current) use of aspirin; Z79.4 Long term (current) use of insulin; Z79.01 Long term (current) use of anticoagulants
CPT/HCPCS: 36415; 70450; 71045; 76770; 80048; 80053; 80076; 81001; 82140; 82570; 82728; 82947; 82962; 83036; 83615; 83880; 83970; 84100; 84145; 84156; 84165; 84443; 84484; 85007; 85025; 85027; 85379; 85610; 85730; 86021; 86038; 86140; 86160; 87040; 93005; 96361; 96365; 96366; G0378; A9270-GY; J0456; J0696; J1170; J1644; J1815; J1940; J2543; J2920; J7030; J7050; U0003